=== PATIENT | male | born 1935 | race Caucasian/White ===

== ENCOUNTER 2017-10-27 10:51 | Inpatient (IN) | payer OTHER ==
[2017-10-27 11:03] VITALS: BMI 21.7
--- NOTE | 2017-10-27 12:09 | PDOC ---
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 As per patients geriatric coordinator (also a operators school manager) present at bedside , the patient was noted to be more aggressive in the past couple of weeks at the ministry and has been wandering into other residents rooms at night and becoming aggressive when confronted. He also states that the patient recently arrived in [place] from a ministry in [facility] 1 week ago and was noted to be aggressive with staff during the flight. He states the patient has a room reserved at [facility] beginning on Tuesday and has spoken with PMD Dr. Hernández yesterday. The patient denies any complaints at presentation. The patient denies chest pain, shortness of breath, headache and dizziness. Denies fever, chills, nausea, vomit, diarrhea and constipation. Denies dysuria, frequency, urgency and hematuria. Allergies: donepezil, memantine, quetiapine Past surgical history: No reported Social history: No reported PCP: Dr. Keo Hernández <Jed Quiñones - Last Filed: 10/27/17 15:48> <Faisal Cruz - Last Filed: 10/27/17 16:56> - General Chief Complaint: Altered Mental Status Stated Complaint: ALTERED MENTAL STATUS Time Seen by Provider: 10/27/17 11:49 Past History <Jed Quiñones - Last Filed: 10/27/17 15:48> - Past Medical History Cancer: Yes (basal cell carcinoma,) Cardiac Disorders: Yes (a fib) COPD: No Dementia: Yes (alzheimer's) GI Disorders: Yes (diverticulitis) - Surgical History Abdominal Surgery: Yes (hernia repair 2006, diverticulitis 2002) - Suicide/Smoking/Psychosocial Hx Smoking History: Former smoker Have you smoked in the past 12 months: No Information on smoking cessation initiated: No Hx Alcohol Use: No Drug/Substance Use Hx: No Substance Use Type: None <Faisal Cruz - Last Filed: 10/27/17 16:56> - Past Medical History Allergies/Adverse Reactions: Allergies Allergy/AdvReac Type Severity Reaction Status Date / Time donepezil [From Aricept] Allergy Verified 10/27/17 11:03 memantine [From Namenda] Allergy Verified 10/27/17 10:58 quetiapine [From Seroquel] Allergy Verified 10/27/17 10:58 Home Medications: Ambulatory Orders Apixaban [Eliquis -] 2.5 mg PO BID 10/27/17 Mirtazapine 15 mg PO HS 10/27/17 Sertraline HCl 25 mg PO DAILY 10/27/17 Review of Systems - Review of Systems Comments:: 10/27/17 13:52 History limited due to dementia, but pt denies any current complaints <Jed Quiñones - Last Filed: 10/27/17 15:48> *Physical Exam - Vital Signs Last Vital Signs Temp Pulse Resp BP Pulse Ox 97.7 F 58 L 16 127/68 100 10/27/17 10:58 10/27/17 10:58 10/27/17 10:58 10/27/17 10:58 10/27/17 10:58 - Physical Exam Comments: 10/27/17 13:53 GENERAL: The patient is awake, oriented x 1, Nontoxic - in no acute distress. HEAD: Normocephalic, atraumatic. EYES: extraocular movements intact, sclera anicteric, conjunctiva clear. ENT: Normal voice, Moist mucous membranes. NECK: Normal range of motion, supple LUNGS: Breath sounds equal, clear to auscultation bilaterally. No wheezes, no rhonchi, no rales. HEART: Regular rate and rhythm, normal S1 and S2 without murmur, rub or gallop. ABDOMEN: Soft, nontender No guarding, no rebound. . No CVA tenderness EXTREMITIES: Normal range of motion, no edema. No clubbing or cyanosis. No cords, erythema, or tenderness. NEUROLOGICAL: No facial assymetry, Normal speech, PSYCH: Normal mood, normal affect. SKIN: Warm, Dry, normal turgor, <Jed Quiñones - Last Filed: 10/27/17 15:48> - Vital Signs Last Vital Signs Temp Pulse Resp BP Pulse Ox 97.7 F 58 L 16 127/68 100 10/27/17 10:58 10/27/17 10:58 10/27/17 10:58 10/27/17 10:58 10/27/17 10:58 <Anthony,Faisal - Last Filed: 10/27/17 16:56> ED Treatment Course - LABORATORY CBC & Chemistry Diagram: 10/27/17 12:36 10/27/17 12:36 - ADDITIONAL ORDERS Additional order review: Laboratory Results 10/27/17 12:36 Sodium 143 Potassium 4.3 Chloride 108 H Carbon Dioxide 30 Anion Gap 5 L BUN 20 H Creatinine 1.1 Creat Clearance w eGFR > 60 Random Glucose 86 Calcium 9.5 Total Bilirubin 1.1 H AST 25 ALT 17 Alkaline Phosphatase 79 Total Protein 6.7 Albumin 4.0 TSH 2.40 10/27/17 12:36 RBC 4.75 MCV 90.9 MCHC 34.5 RDW 14.2 MPV 8.7 Neutrophils % 58.8 Lymphocytes % 23.7 Monocytes % 9.3 Eosinophils % 7.3 H Basophils % 0.9 - RADIOLOGY Radiograph Interpretation: 10/27/17 15:30 EXAM#: TYPE/EXAM: RESULT: [id number] CT/HEAD CT WITHOUT CONTRAST Change in mental status CT scan of the brain without intravenous contrast. There is generalized volume loss with moderate ventricular dilatation and periventricular chronic microvascular ischemic disease changes. The lateral and third ventricles including the temporal horns are relatively more dilated than the fourth likely due to central atrophy and less likely due to aqueduct of Sylvius narrowing/stenosis. 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 No mass lesion, gross acute infarct or intracranial hemorrhage are identified. There is no shift of the midline structures. The craniocervical junction appears unremarkable. The ethmoid air cells are partially opacified with minimal mucosal thickening in the sphenoid sinus , anteriorly. Both orbits appear unremarkable. Calcification of the cavernous carotid arteries are present. The mastoid air cells are well aerated and the calvarium is intact IMPRESSION: Generalized volume loss with moderate ventricular dilatation and periventricular chronic microvascular ischemic disease changes. No acute intracranial pathology is identified. Correlate clinically to determine further evaluation and follow-up. Reported By: Meche Ramirez MD 10/27/17 15:31 EXAM#: TYPE/EXAM: RESULT: [id number] RAD/CHEST X-RAY PORTABLE* HISTORY PROVIDED: Rule out pneumonia. A single frontal portable projection of the chest at 12:42 PM is submitted. The study is limited with a portion of the lung bases cut off the radiograph. The heart is not enlarged. No acute infiltrates or pleural effusions are present. IMPRESSION: Limited study, no acute pathology. Reported By: Dani Massey MD <Jed Quiñones - Last Filed: 10/27/17 15:48> - LABORATORY CBC & Chemistry Diagram: 10/27/17 12:36 10/27/17 12:36 <Faisal Cruz - Last Filed: 10/27/17 16:56> Medical Decision Making - Medical Decision Making 10/27/17 15:[address] Schuler at 3:00 pm. Pending call back. Second call placed at 3:50 pm. Pending call back. <Jed Quiñones - Last Filed: 10/27/17 15:48> - Medical Decision Making 10/27/17 12:08 82y M hx of dementia, afib on eliquis presents with increased agitation, agresiveness, for the past few weeks. Recently came from [facility], and pt has been more agitated. Unclear what his baseline is as pt is new to [facility]. Pt himself denies any complaints, but history likely unreklaible due to his dementia. pt in no disterss, aox1, no focal findings on exam ddx includes advancing dementia, delierium, metabolic derangement, occult infection will ck labs, head ct, ua, cxr, ekg will reassess pt will need placement per PMD 10/27/17 14:55 labs, ct, cxr neg for acute pathology will admit for furthe rmanagement of ams will veronica schuler 10/27/17 16:02 pt agitated, striking staff, grabbing nurse, unable to verbally descalate will give ativan 1mg for safety of patient and staff 10/27/17 16:56 case dw KENO WRITER/RUNNER catracho carlson agreed with admission for further mangaement of AMS suspect possible sundowning/delerium Case discussed in detail with admitting physician including history, physical exam and ancillary studies. Admitting physician has assumed care for the patient, will follow all pending diagnostics and will complete the evaluation and treatment. <Faisal Cruz - Last Filed: 10/27/17 16:56> *DC/Admit/Observation/Transfer - Attestations Scribe Attestion: 10/27/17 13:53 Documentation prepared by Jed Quiñones, acting as medical practitioners for Faisal Cruz MD. <Jed Quiñones - Last Filed: 10/27/17 15:48> - Discharge Dispostion Decision to Admit order: Yes <Faisal Cruz - Last Filed: 10/27/17 16:56> Diagnosis at time of Disposition: Dementia Qualifiers: Dementia type: Alzheimer's disease Alzheimer's disease onset: unspecified onset Dementia behavioral disturbance: with behavioral disturbance Qualified Code(s): G30.9 - Alzheimer's disease, unspecified Altered mental status Qualifiers: Altered mental status type: delirium Qualified Code(s): R41.0 - Disorientation , unspecified - Discharge Dispostion Condition at time of disposition: Stable
[2017-10-27 12:49] LABS: BASO % 0.9 % (0-2.0); EOS % 7.3 % (0-4.5); HEMATOCRIT 43.2 % (35.4-49); HEMOGLOBIN 14.9 GM/dL (11.7-16.9); LYMPH % 23.7 % (8-40); MCH 31.4 pg (25.7-33.7); MCHC 34.5 g/dl (32.0-35.9); MEAN CELL VOLUME 90.9 fl (80-96); MEAN PLT VOLUME 8.7 fl (7.5-11.1); MONO % 9.3 % (3.8-10.2); NEUT % 58.8 % (42.8-82.8); PLATELET COUNT 135 K/MM3 (134-434); RBC 4.75 M/mm3 (4.00-5.60); RDW 14.2 % (11.9-15.9)
[2017-10-27 13:27] LABS: ANION GAP 5 (8-16); BILIRUBIN,TOTAL 1.1 mg/dL (0.2-1.0); BLOOD UREA NITROGEN 20 mg/dL (7-18); CALCIUM 9.5 mg/dL (8.5-10.1); CHLORIDE 108 mmol/L (98-107); CO2 30 mmol/L (21-32); CREATININE 1.1 mg/dL (0.7-1.3); GLUCOSE,RANDOM 86 mg/dL (74-106); POTASSIUM 4.3 mmol/L (3.5-5.1); SGOT/AST 25 U/L (15-37); SGPT/ALT 17 U/L (12-78); SODIUM 143 mmol/L (136-145); TOT PROT 6.7 g/dl (6.4-8.2)
[2017-10-27 13:35] LABS: ALK PHOS 79 U/L (45-117)
--- NOTE | 2017-10-27 19:41 | HP ---
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 As per patients geriatric coordinator (also a rn hemodialysis) present at bedside , the patient was noted to be more aggressive in the past couple of weeks at the ministry and has been wandering into other residents rooms at night and becoming aggressive when confronted. He also states that the patient recently arrived in [place] from a ministry in [facility] 1 week ago and was noted to be aggressive with staff during the flight. He states the patient has a room reserved at [facility] beginning on Tuesday and has spoken with PMD Dr. Hernández yesterday. The patient denies any complaints at presentation. The patient denies chest pain, shortness of breath, headache and dizziness. Denies fever, chills, nausea, vomit, diarrhea and constipation. Denies dysuria, frequency, urgency and hematuria. History Source: Friend, Medical Record Limitations to Obtaining History: Dementia - Smoking History Smoking history: Former smoker Have you smoked in the past 12 months: No - Alcohol/Substance Use Hx Alcohol Use: No History of Substance Use: reports: None - Social History Usual Living Arrangement: Yes: Assisted Living ADL: Support Services History of Recent Travel: Yes Home Medications - Allergies Allergies/Adverse Reactions: Allergies Allergy/AdvReac Type Severity Reaction Status Date / Time donepezil [From Aricept] Allergy Verified 10/27/17 11:03 memantine [From Namenda] Allergy Verified 10/27/17 10:58 quetiapine [From Seroquel] Allergy Verified 10/27/17 10:58 - Home Medications Home Medications: Ambulatory Orders Apixaban [Eliquis -] 2.5 mg PO BID 10/27/17 Mirtazapine 15 mg PO HS 10/27/17 Sertraline HCl 25 mg PO DAILY 10/27/17 Review of Systems Unable to obtain ROS, reason: dementia Physical Examination Vital Signs: Vital Signs Temperature 98.4 F 10/27/17 18:57 Pulse Rate 78 10/27/17 18:57 Respiratory Rate 16 10/27/17 18:57 Blood Pressure 108/78 10/27/17 18:57 O2 Sat by Pulse Oximetry (%) 99 10/27/17 18:57 Labs: CBC, BMP 10/27/17 12:36 10/27/17 12:36 Problem List - Problems (1) Altered mental status Code(s): R41.82 - ALTERED MENTAL STATUS, UNSPECIFIED Qualifiers: Altered mental status type: delirium Qualified Code(s): R41.0 - Disorientation, unspecified (2) Dementia Code(s): F03.90 - UNSPECIFIED DEMENTIA WITHOUT BEHAVIORAL DISTURBANCE Qualifiers: Dementia type: Alzheimer's disease Alzheimer's disease onset: unspecified onset Dementia behavioral disturbance: with behavioral disturbance Qualified Code(s): G30.9 - Alzheimer's disease, unspecified; F02.81 - Dementia in other diseases classified elsewhere with behavioral disturbance; F02.81 - Dementia in other diseases classified elsewhere with behavioral disturbance; F02.81 - Dementia in other diseases classified elsewhere with behavioral disturbance
[2017-10-27 22:01] LABS: URINE APPEARANCE CLEAR; URINE BILIRUBIN NEGATIVE (<2.0 mg/dL); URINE COLOR LTYELLOW; URINE GLUCOSE (UA) NEGATIVE (NEGATIVE); URINE KETONE NEGATIVE (NEGATIVE); URINE LEUK ESTERASE NEGATIVE (NEGATIVE); URINE NITRITE NEGATIVE (NEGATIVE); URINE PROTEIN NEGATIVE (NEGATIVE); URINE UROBILINOGEN NEGATIVE mg/dL (0.2-1.0)
[2017-10-27] MEDS: MIRTAZAPINE 15 MG TABLET (FP) PO SCH ×2 (22:38→23:13)
[2017-10-27] MEDS: DOCUSATE SODIUM 100 MG CAPSULE (FP) PO SCH ×2 (22:38→23:13)
[2017-10-27] MEDS: APIXABAN 2.5 MG TABLET PO SCH ×2 (22:38→23:13)
[2017-10-27] MEDS: DIVALPROEX SODIUM 250 MG TABLET E.C. PO SCH ×2 (22:39→23:13)
[2017-10-28] MEDS: HALOPERIDOL LACTATE 5 MG/ML IM PRN (04:26)
[2017-10-28 07:43] LABS: HEMATOCRIT 43.2 % (35.4-49); HEMOGLOBIN 15.1 GM/dL (11.7-16.9); MCH 31.4 pg (25.7-33.7); MCHC 34.9 g/dl (32.0-35.9); MEAN CELL VOLUME 90.2 fl (80-96); MEAN PLT VOLUME 8.6 fl (7.5-11.1); PLATELET COUNT 137 K/MM3 (134-434); RBC 4.79 M/mm3 (4.00-5.60); RDW 14.4 % (11.9-15.9)
[2017-10-28] MEDS ORDERED: PT OWN MED DRAWER 7, Y5N ONE ×2 (08:04→22:59)
[2017-10-28 08:11] LABS: ANION GAP 5 (8-16); BLOOD UREA NITROGEN 15 mg/dL (7-18); CALCIUM 9.3 mg/dL (8.5-10.1); CHLORIDE 105 mmol/L (98-107); CO2 30 mmol/L (21-32); GLUCOSE,RANDOM 76 mg/dL (74-106); SODIUM 140 mmol/L (136-145)
[2017-10-28] MEDS: APIXABAN 2.5 MG TABLET PO SCH ×2 (09:14→23:04)
[2017-10-28] MEDS: DOCUSATE SODIUM 100 MG CAPSULE (FP) PO SCH ×2 (09:14→23:03)
[2017-10-28] MEDS: DIVALPROEX SODIUM 250 MG TABLET E.C. PO SCH ×2 (09:14→09:21)
--- NOTE | 2017-10-28 09:53 | PN ---
Progress Note (short form) - Note Progress Note: 82 y/o brought into ER for increased agitation and aggressiveness. PMHx includes Dementia. denies pain but states that he is going to take his parents car and drive to [facility] to meet his brother. Pt has 1 to 1 supervision and still not easily redirected. Nurse reports has been refusing some PO meds.Alert and oriented x 1. Vital Signs Period Temp Pulse Resp BP Sys/Aguirre Pulse Ox Last 24 Hr 97.7 F-98.9 F 57-78 16-20 108-150/68-95 98-100 CBC, BMP 10/28/17 07:30 10/28/17 07:30 HEENT- Normocephalic Neck- Supple Lungs- CTAB Heart- S1/S2 Abd- Pos BS x4,soft, NT Ext- No LE edema Active Medications Apixaban (Eliquis -) 2.5 mg PO BID [facility] Last Admin: 10/28/17 09:14 Dose: 2.5 mg Divalproex Sodium (Depakote -) 250 mg PO BID [facility] Last Admin: 10/28/17 09:21 Dose: Not Given Docusate Sodium (Colace -) 100 mg PO BID [facility] Last Admin: 10/28/17 09:14 Dose: Not Given Haloperidol (Haldol Injection (Fast Acting) -) 3 mg IM Q8H PRN PRN Reason: AGITATION Last Admin: 10/28/17 04:26 Dose: 3 mg Lorazepam (Ativan Injection -) 1 mg IVPUSH DAILY PRN PRN Reason: ANXIETY Mirtazapine (Remeron -) 30 mg PO [facility] Last Admin: 10/27/17 23:13 Dose: Not Given Sertraline HCl (Zoloft -) 25 mg PO DAILY [facility] Last Admin: 10/28/17 09:14 Dose: 25 mg #AMS Adamant about leaving and trying to leave unit even with 1 to 1 and HIDE OR SKIN BUFFER trying to redirect Ativan 1 mg IV push daily PRN rx'd Psych consult pending Problem List - Problems (1) Altered mental status Code(s): R41.82 - ALTERED MENTAL STATUS, UNSPECIFIED Qualifiers: Altered mental status type: delirium Qualified Code(s): R41.0 - Disorientation, unspecified (2) Dementia Code(s): F03.90 - UNSPECIFIED DEMENTIA WITHOUT BEHAVIORAL DISTURBANCE Qualifiers: Dementia type: Alzheimer's disease Alzheimer's disease onset: unspecified onset Dementia behavioral disturbance: with behavioral disturbance Qualified Code(s): G30.9 - Alzheimer's disease, unspecified; F02.81 - Dementia in other diseases classified elsewhere with behavioral disturbance; F02.81 - Dementia in other diseases classified elsewhere with behavioral disturbance; F02.81 - Dementia in other diseases classified elsewhere with behavioral disturbance
[2017-10-28] MEDS ORDERED: SERTRALINE HCL 25 MG TABLET (FP) PO SCH (10:00)
--- NOTE | 2017-10-28 14:05 | CON.PSY ---
Psychiatry Consult Chief Complaint: 82 year old male with SEvere Dementia with severe behavioral disturbances admitted for eval. Patient was unmanageable and received Im and In meds. Symptoms: reports: Memory Impairment, Aggressivity, Impulsivity, Depersonalization, Derealization - Previous Psychiatric Treatment Outpatient: None Inpatient: None - Previous Substance Abuse Treatment Outpatient: None Inpatient: None - Current Medications Current Medications: Active Medications Apixaban (Eliquis -) 2.5 mg PO BID [facility] Last Admin: 10/28/17 09:14 Dose: 2.5 mg Divalproex Sodium (Depakote Sprinkle Caps -) 250 mg PO BID [facility] Docusate Sodium (Colace -) 100 mg PO BID [facility] Last Admin: 10/28/17 09:14 Dose: Not Given Haloperidol (Haldol Injection (Fast Acting) -) 3 mg IM Q8H PRN PRN Reason: AGITATION Last Admin: 10/28/17 04:26 Dose: 3 mg Lorazepam (Ativan Injection -) 1 mg IVPUSH DAILY PRN PRN Reason: ANXIETY Last Admin: 10/28/17 10:17 Dose: 1 mg Mirtazapine (Remeron -) 30 mg PO HS [facility] Last Admin: 10/27/17 23:13 Dose: Not Given - Allergies Allergies: Allergies Allergy/AdvReac Type Severity Reaction Status Date / Time donepezil [From Aricept] Allergy Verified 10/27/17 11:03 memantine [From Namenda] Allergy Verified 10/27/17 10:58 quetiapine [From Seroquel] Allergy Verified 10/27/17 10:58 - Current Living Status Usual Living Arrangement: Assisted Living - Current Mental Status Evaluation Appearance: Disheveled Attitude: Uncooperative - Affect Affect: Constrictive - Mood Mood: Irritable - Speech/Language Expressive: Delayed - Psychomotor Activity Psychomotor Activity: Hyperactive - Thought Process Thought Process: Circumstantial - Thought Content Hallucinations: Absent Delusions: Absent - Self Perception Self Perception: Depersonalization - Cognition Attention: Diminished Memory, Immediate Recall: Impaired Memory, Short Term: 1/3 Memory, Remote with Promptin/3 - Concentration Serial Sevens Intact: No Simple Calculations Intact: No - Abstraction Proverb Interpretation: [place] Judgement: Moderately Impaired - Insight Insight: Impaired - Impulse Control Impulse Control: Moderately Impaired - Suicidal Ideation Suicidal Ideation: No - Homicidal Ideation Homicidal Ideation: No Assessment/Plan 10 d/c Zolopft. 2) add Zyprexca 10mg po hs for Behavioral disturbances.
[2017-10-28] MEDS: DIVALPROEX SODIUM 125 MG SPRINKLE CAPS PO SCH ×2 (14:50→23:03)
--- NOTE | 2017-10-28 18:44 | CONSULT ---
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 Maintained on apixaban, mirtazepine (30mg), sertraline (25 mg) and reports "allergies" to multiple medications for Alzheimer's Disease (AD). Now admitted after a few weeks of increased agitation potentially interfering with pending NH transfer. The records suggest that the patient has recently returned from " a ministry in [facility]." CT of head (reviewed): Severe, diffuse atrophy and diffuse, chronic microvascular changes. Labs: unremarkable. No sign of infection. SONIA: No sign of external head trauma. Neck supple. No bruits. Cor: Reg. Evenly suntanned with a short sleeve peralta line. NEURO: Resting with eyes closed but responds to name. Doesn't know he is in a hospital. No month. No year. CN: II-XII: normal. No drift. Normal grasps. Normal reflexes. Withdraws all 4's to touch. Gait: Flexed. Stable. IMP: Moderately severe, bilateral, cerebral dysfunction (OMS, Chronic) most c/w Alzheimer's disease (AD). No focality to suggest recent stroke. No obvious cause for acute/subacute deterioration. SUGGEST: Check B12, TSH, RPR, ESR, B1 levels. Gradually increase oral meds (ie: Zyprexa) until he is manageable. Avoid polypharmacy with antipsychotics and parenteral benzodiazepines. Thank you very much, Luis E Sanz MD
[2017-10-28] MEDS: OLANZapine 10 MG TABLET PO SCH (23:03)
[2017-10-28] MEDS: MIRTAZAPINE 15 MG TABLET (FP) PO SCH (23:03)
[2017-10-29] MEDS: HALOPERIDOL LACTATE 5 MG/ML IM PRN (07:54)
[2017-10-29] MEDS: APIXABAN 2.5 MG TABLET PO SCH ×2 (09:29→22:34)
[2017-10-29] MEDS: DOCUSATE SODIUM 100 MG CAPSULE (FP) PO SCH ×2 (09:29→22:34)
[2017-10-29] MEDS: DIVALPROEX SODIUM 125 MG SPRINKLE CAPS PO SCH ×2 (09:30→22:34)
[2017-10-29] MEDS ORDERED: PT OWN MED DRAWER 7, Y5N ONE (22:28)
[2017-10-29] MEDS: MIRTAZAPINE 15 MG TABLET (FP) PO SCH (22:35)
[2017-10-29] MEDS: OLANZapine 10 MG TABLET PO SCH (22:35)
[2017-10-29] MEDS: clonazePAM 0.5 MG TABLET PO SCH (22:35)
--- NOTE | 2017-10-29 23:31 | PN ---
Progress Note (short form) - Note Progress Note: in room agitated violent behavior with staff / required inc sedation staff reports has not slept in 48hrs up all night and more agitated this am sitting in chair with physical restraints and supervision Vital Signs Period Temp Pulse Resp BP Sys/Aguirre Pulse Ox Last 24 Hr 97.2 F-97.3 F 80-94 17-20 116-140/73-93 98 CBC, BMP 10/28/17 07:30 10/28/17 07:30 Active Medications Apixaban (Eliquis -) 2.5 mg PO BID [facility] Last Admin: 10/29/17 22:34 Dose: 2.5 mg Clonazepam (Klonopin -) 1 mg PO HS [facility] Last Admin: 10/29/17 22:35 Dose: 1 mg Divalproex Sodium (Depakote Sprinkle Caps -) 250 mg PO BID [facility] Last Admin: 10/29/17 22:34 Dose: 250 mg Docusate Sodium (Colace -) 100 mg PO BID [facility] Last Admin: 10/29/17 22:34 Dose: 100 mg Haloperidol (Haldol Injection (Fast Acting) -) 3 mg IM Q8H PRN PRN Reason: AGITATION Last Admin: 10/29/17 07:54 Dose: 3 mg Lorazepam (Ativan Injection -) 1 mg IVPUSH Q8H PRN PRN Reason: AGITATION Mirtazapine (Remeron -) 30 mg PO HS [facility] Last Admin: 10/29/17 22:35 Dose: 30 mg Olanzapine (Zyprexa -) 10 mg PO HS [facility] Last Admin: 10/29/17 22:35 Dose: 10 mg # dementia with agressive behavior will add Klonopin at hs decrease frquency of ativan to q8PRN continue zyprexa / Remeron # A fib continue eliquis Problem List - Problems (1) Altered mental status Code(s): R41.82 - ALTERED MENTAL STATUS, UNSPECIFIED Qualifiers: Altered mental status type: delirium Qualified Code(s): R41.0 - Disorientation, unspecified (2) Dementia Code(s): F03.90 - UNSPECIFIED DEMENTIA WITHOUT BEHAVIORAL DISTURBANCE Qualifiers: Dementia type: Alzheimer's disease Alzheimer's disease onset: unspecified onset Dementia behavioral disturbance: with behavioral disturbance Qualified Code(s): G30.9 - Alzheimer's disease, unspecified; F02.81 - Dementia in other diseases classified elsewhere with behavioral disturbance; F02.81 - Dementia in other diseases classified elsewhere with behavioral disturbance; F02.81 - Dementia in other diseases classified elsewhere with behavioral disturbance (3) Atrial fibrillation Assessment/Plan: continue with eliquis Code(s): I48.91 - UNSPECIFIED ATRIAL FIBRILLATION
[2017-10-30 07:37] LABS: BASO % 0.8 % (0-2.0); EOS % 5.1 % (0-4.5); HEMOGLOBIN 15.3 GM/dL (11.7-16.9); LYMPH % 18.8 % (8-40); MCH 31.8 pg (25.7-33.7); MCHC 35.5 g/dl (32.0-35.9); MEAN CELL VOLUME 89.6 fl (80-96); MEAN PLT VOLUME 8.9 fl (7.5-11.1); MONO % 7.4 % (3.8-10.2); NEUT % 67.9 % (42.8-82.8); PLATELET COUNT 140 K/MM3 (134-434); RDW 14.3 % (11.9-15.9); WHITE BLOOD COUNT 6.5 K/mm3 (4.0-10.0)
[2017-10-30 07:49] LABS: ANION GAP 6 (8-16); BLOOD UREA NITROGEN 19 mg/dL (7-18); CHLORIDE 104 mmol/L (98-107); CO2 32 mmol/L (21-32); CREATININE 1.1 mg/dL (0.7-1.3); GLUCOSE,RANDOM 88 mg/dL (74-106); MAGNESIUM 2.1 mg/dL (1.8-2.4); POTASSIUM 3.9 mmol/L (3.5-5.1); SODIUM 142 mmol/L (136-145)
[2017-10-30] MEDS: DIVALPROEX SODIUM 125 MG SPRINKLE CAPS PO SCH ×3 (09:44→21:44)
[2017-10-30] MEDS: DOCUSATE SODIUM 100 MG CAPSULE (FP) PO SCH ×2 (09:44→21:44)
[2017-10-30] MEDS: APIXABAN 2.5 MG TABLET PO SCH ×2 (09:45→21:44)
[2017-10-30] MEDS: HALOPERIDOL LACTATE 5 MG/ML IM PRN (09:54)
[2017-10-30] MEDS ORDERED: DIVALPROEX SODIUM 125 MG TABLET E.C. PO SCH (12:00)
--- NOTE | 2017-10-30 12:06 | PN ---
Progress Note (short form) - Note Progress Note: sitting in chair by nurses station agitated violent behavior with staff again this am in spite of added meds May required inc sedation Vital Signs Period Temp Pulse Resp BP Sys/Aguirre Pulse Ox Last 24 Hr 97.2 F-97.4 F 80-90 17-20 111-133/57-87 97 not interactive siting in wheelchair with physical restraints and supervision not cooperative with exam or with staff neck supple heart reg S1/S2 lungs clear abd ext no edema CBC, BMP 10/30/17 06:45 10/30/17 06:45 Active Medications Apixaban (Eliquis -) 2.5 mg PO BID [facility] Last Admin: 10/30/17 09:45 Dose: 2.5 mg Clonazepam (Klonopin -) 1 mg PO [facility] Last Admin: 10/29/17 22:35 Dose: 1 mg Divalproex Sodium (Depakote Sprinkle Caps -) 250 mg PO BID [facility] Last Admin: 10/30/17 09:44 Dose: 250 mg Divalproex Sodium (Depakote -) 125 mg PO BID [facility] Docusate Sodium (Colace -) 100 mg PO BID [facility] Last Admin: 10/30/17 09:44 Dose: 100 mg Haloperidol (Haldol Injection (Fast Acting) -) 3 mg IM Q8H PRN PRN Reason: AGITATION Last Admin: 10/30/17 09:54 Dose: 3 mg Lorazepam (Ativan Injection -) 1 mg IVPUSH Q8H PRN PRN Reason: AGITATION Last Admin: 10/30/17 05:54 Dose: 1 mg Mirtazapine (Remeron -) 30 mg PO [facility] Last Admin: 10/29/17 22:35 Dose: 30 mg Olanzapine (Zyprexa -) 10 mg PO [facility] Last Admin: 10/29/17 22:35 Dose: 10 mg # dementia with agressive behavior request more assitance from [facility] will increase Depakote by 125 bid - aware will inc sedative effect of zyprexa was able to sleep last night after dose of Klonopin 1 mg This am no sedative effect and again with violent behavior with nursing staff # atrial Fibrillation continue NOAC placement needed for closed unit [place] possible bed at [facility] Problem List - Problems (1) Altered mental status Code(s): R41.82 - ALTERED MENTAL STATUS, UNSPECIFIED Qualifiers: Altered mental status type: delirium Qualified Code(s): R41.0 - Disorientation, unspecified (2) Dementia Code(s): F03.90 - UNSPECIFIED DEMENTIA WITHOUT BEHAVIORAL DISTURBANCE Qualifiers: Dementia type: Alzheimer's disease Alzheimer's disease onset: unspecified onset Dementia behavioral disturbance: with behavioral disturbance Qualified Code(s): G30.9 - Alzheimer's disease, unspecified; F02.81 - Dementia in other diseases classified elsewhere with behavioral disturbance; F02.81 - Dementia in other diseases classified elsewhere with behavioral disturbance; F02.81 - Dementia in other diseases classified elsewhere with behavioral disturbance
[2017-10-30] MEDS ORDERED: PT OWN MED DRAWER 7, Y5N ONE (21:30)
[2017-10-30] MEDS: MIRTAZAPINE 15 MG TABLET (FP) PO SCH (21:45)
[2017-10-30] MEDS: clonazePAM 0.5 MG TABLET PO SCH (21:45)
[2017-10-30] MEDS: OLANZapine 10 MG TABLET PO SCH (22:01)
[2017-10-31] MEDS ORDERED: PT OWN MED DRAWER 7, Y5N ONE ×2 (10:06→21:30)
[2017-10-31] MEDS: DOCUSATE SODIUM 100 MG CAPSULE (FP) PO SCH ×2 (10:08→21:34)
[2017-10-31] MEDS: DIVALPROEX SODIUM 125 MG SPRINKLE CAPS PO SCH ×2 (10:08→21:33)
[2017-10-31] MEDS: APIXABAN 2.5 MG TABLET PO SCH ×2 (10:08→21:34)
--- NOTE | 2017-10-31 10:23 | PN ---
Progress Note (short form) - Note Progress Note: Patient has become a management problem has become combative on the unit. Very confused and combative. plan: increase Zyprexa 10mg po bid.
--- NOTE | 2017-10-31 18:16 | PN ---
Progress Note (short form) - Note Progress Note: In his room - aggressive behavior to staff - required 3 staff members to assist with morning routine agitated --violent behavior with staff again early this am --required IV ativan --- in spite of added meds case discussed with Psych - patient seen together Vital Signs Period Temp Pulse Resp BP Sys/Aguirre Pulse Ox Last 24 Hr 97.9 F-98 F 79-102 18-20 121-138/69-74 95 patient in bathroom / with assitance / not cooperative neck supple heart reg S1/S2 lungs clear abd ext no edema CBC, BMP 10/30/17 06:45 10/30/17 06:45 Medications Apixaban (Eliquis -) 2.5 mg PO BID [facility] Last Admin: 10/30/17 09:45 Dose: 2.5 mg Clonazepam (Klonopin -) 1 mg PO [facility] Last Admin: 10/29/17 22:35 Dose: 1 mg Divalproex Sodium (Depakote Sprinkle Caps -) 250 mg PO BID [facility] Last Admin: 10/30/17 09:44 Dose: 250 mg Divalproex Sodium (Depakote -) 125 mg PO BID [facility] Docusate Sodium (Colace -) 100 mg PO BID [facility] Last Admin: 10/30/17 09:44 Dose: 100 mg Haloperidol (Haldol Injection (Fast Acting) -) 3 mg IM Q8H PRN PRN Reason: AGITATION Last Admin: 10/30/17 09:54 Dose: 3 mg Lorazepam (Ativan Injection -) 1 mg IVPUSH Q8H PRN PRN Reason: AGITATION Last Admin: 10/30/17 05:54 Dose: 1 mg Mirtazapine (Remeron -) 30 mg PO [facility] Last Admin: 10/29/17 22:35 Dose: 30 mg Olanzapine (Zyprexa -) 10 mg PO [facility] Last Admin: 10/29/17 22:35 Dose: 10 mg # dementia with agressive behavior request more assitance from martir re theaesed medications with psych # atrial Fibrillation continue NOAC placement needed for closed unit awaiting possible bed at [facility] Problem List - Problems (1) Altered mental status Code(s): R41.82 - ALTERED MENTAL STATUS, UNSPECIFIED Qualifiers: Altered mental status type: delirium Qualified Code(s): R41.0 - Disorientation, unspecified (2) Dementia Code(s): F03.90 - UNSPECIFIED DEMENTIA WITHOUT BEHAVIORAL DISTURBANCE Qualifiers: Dementia type: Alzheimer's disease Alzheimer's disease onset: unspecified onset Dementia behavioral disturbance: with behavioral disturbance Qualified Code(s): G30.9 - Alzheimer's disease, unspecified; F02.81 - Dementia in other diseases classified elsewhere with behavioral disturbance; F02.81 - Dementia in other diseases classified elsewhere with behavioral disturbance; F02.81 - Dementia in other diseases classified elsewhere with behavioral disturbance
[2017-10-31] MEDS: OLANZapine 10 MG TABLET PO SCH (21:34)
[2017-10-31] MEDS ORDERED: MIRTAZAPINE 15 MG TABLET (FP) PO SCH (22:00)
[2017-11-01] MEDS ORDERED: PT OWN MED DRAWER 7, Y5N ONE (11:03)
[2017-11-01] MEDS: APIXABAN 2.5 MG TABLET PO SCH (11:06)
[2017-11-01] MEDS: DIVALPROEX SODIUM 125 MG SPRINKLE CAPS PO SCH (11:06)
[2017-11-01] MEDS: OLANZapine 10 MG TABLET PO SCH (11:07)
[2017-11-01] MEDS: DOCUSATE SODIUM 100 MG CAPSULE (FP) PO SCH (11:07)
--- NOTE | 2017-11-01 12:33 | DS ---
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 As per patients geriatric coordinator (also a supervisor microwave) present at bedside at ER, the patient was noted to be more aggressive in the past couple of weeks at the ministry and has been wandering into other residents rooms at night and becoming aggressive when confronted. He also states that the patient recently arrived in [place] from a ministry in [facility] 1 week and was noted to be aggressive with staff and even during the flight. The patient denies chest pain, shortness of breath, headache and dizziness. Denies fever, chills, nausea, vomit, diarrhea and constipation. Denies dysuria, frequency, urgency and hematuria. patient was admitted and organic causes of decompensation ruled out. He was evaluated by Neurology and by psychiatry. Medications adjusted and behavioral control obtained. patient is pleasant and cooperative at time of discharge. Medications should not be altered at [place] setting. Constitutional: Yes: Well Nourished, No Distress Eyes: Yes: Conjunctiva Clear, EOM Intact HENT: Yes: Atraumatic, Normocephalic Neck: Yes: Supple, Trachea Midline Cardiovascular: Yes: Regular Rate and Rhythm Respiratory: Yes: Regular, CTA Bilaterally Gastrointestinal: Yes: Normal Bowel Sounds, Soft ...Rectal Exam: Yes: Deferred Renal/: Yes: WNL Breast(s): Yes: WNL Musculoskeletal: Yes: WNL Extremities: Yes: WNL Edema: No Peripheral Pulses WNL: Yes Integumentary: Yes: WNL Neurological: Yes: Confusion, Pre-Existing Deficit ...Motor Strength: WNL Psychiatric: Yes: Alert Labs: CBC, BMP 10/30/17 06:45 10/30/17 06:45 Discharge Summary Reason For Visit: DEMENTIA,ALTERED MENTAL STATUS Current Active Problems Altered mental status (Acute) Atrial fibrillation (Acute) Dementia (Acute) Condition: Stable - Instructions Referrals: Stan Hernández [Primary Care Provider] - Disposition: RETIREMENT FACILITY - Home Medications Comprehensive Discharge Medication List: Ambulatory Orders Apixaban [Eliquis -] 2.5 mg PO BID 10/27/17 Mirtazapine 15 mg PO HS 10/27/17 Sertraline HCl 25 mg PO DAILY 10/27/17
[2017-11-01 14:40] VITALS: BP 115/54; PULSE 91; TEMP 97.5
== END 2017-11-01 15:50 | DRG 57 ==
LOC: JER 10:51 → JERBED 16:12 → J5S 18:57
PROVIDERS: ADMIT Family Medicine; ATTEND Family Medicine
DX: G30.9 Alzheimer's disease, unspecified (principal); F02.81 Dementia in other diseases classified elsewhere, unspecified severity, with behavioral disturbance; I48.91 Unspecified atrial fibrillation; Z85.828 Personal history of other malignant neoplasm of skin; Z87.891 Personal history of nicotine dependence; R41.0 Disorientation, unspecified
CPT/HCPCS: 36415; 70450-TC; 71045-TC-FY; 80048; 80053; 81003; 82607; 83735; 84425; 84443; 85025; 85027; 85651; 86140; 86593; 97116-GP; 97161-GP; 99283-25

== ENCOUNTER 2017-11-01 19:53 | Inpatient (IN) | payer OTHER ==
[2017-11-01] MEDS ORDERED: HALOPERIDOL LACTATE 5 MG/ML IM ONE ×3 (20:42→22:18)
[2017-11-01] MEDS ORDERED: HALOPERIDOL LACTATE 5 MG/ML ONE ×2 (20:43→22:40)
[2017-11-01 21:17] VITALS: BMI 25.7
--- NOTE | 2017-11-01 21:20 | PDOC ---
History of Present Illness - History of Present Illness Initial Comments: 11/01/17 21:24 The patient is an 82 year old male with history of Alzheimer's dementia, atrial fibrillation, and basal cell carcinoma sent from the [place] for altered mental status. The patient was admitted to the hospital for AMS 5 days ago. He was discharged back to the [place] today. Per [place] records, the patient was not manageable in the NH and was sent back to the ED for further management. Patient is altered and unable to provide remainder of history. <Viktoria Mccarthy - Last Filed: 11/01/17 22:52> - General History Source: EMS, Long-Term Records <Georgi Vail - Last Filed: 11/02/17 19:24> - General Chief Complaint: Altered Mental Status Stated Complaint: DEMENTIA Time Seen by Provider: 11/01/17 20:38 Past History <Viktoria Mccarthy - Last Filed: 11/01/17 22:52> - Past Medical History Cancer: Yes (basal cell carcinoma,) Cardiac Disorders: Yes (a fib) COPD: No Dementia: Yes (alzheimer's) GI Disorders: Yes (diverticulitis) - Surgical History Abdominal Surgery: Yes (hernia repair 2006, diverticulitis 2002) - Suicide/Smoking/Psychosocial Hx Smoking History: Never smoked Have you smoked in the past 12 months: No Information on smoking cessation initiated: No Hx Alcohol Use: No Drug/Substance Use Hx: No Substance Use Type: None Hx Substance Use Treatment: No <Georgi Vail - Last Filed: 11/02/17 19:24> - Past Medical History Allergies/Adverse Reactions: Allergies Allergy/AdvReac Type Severity Reaction Status Date / Time donepezil [From Aricept] Allergy Verified 10/27/17 11:03 memantine [From Namenda] Allergy Verified 10/27/17 10:58 quetiapine [From Seroquel] Allergy Verified 10/27/17 10:58 Home Medications: Ambulatory Orders Apixaban [Eliquis -] 2.5 mg PO BID 10/27/17 Mirtazapine 15 mg PO HS 10/27/17 Divalproex Sprinkle [Depakote Sprinkle -] 375 mg PO BID cap.sprink 11/01/17 Docusate Sodium [Colace -] 100 mg PO BID capsule 11/01/17 Haloperidol Injection [Haldol Injection (Fast Acting) -] 3 mg IM Q8H PRN ml Mirtazapine [Remeron -] 15 mg PO HS tablet 11/01/17 Olanzapine [ZyPREXA -] 10 mg PO BID tablet 11/01/17 clonazePAM [Klonopin -] 0.5 mg PO HS 7 Days #7 tablet MDD 0.5mg 11/01/17 Review of Systems - Review of Systems Able to Perform ROS?: No Comments:: 11/01/17 21:28 Patient is altered and unable to provide ROS. <Viktoria Mccarthy - Last Filed: 11/01/17 22:52> *Physical Exam - Vital Signs Last Vital Signs Temp Pulse Resp BP Pulse Ox 97.4 F L 76 16 114/89 100 11/01/17 20:21 11/01/17 20:21 11/01/17 20:21 11/01/17 20:21 11/01/17 20:21 - Physical Exam Comments: 11/01/17 21:28 GENERAL: Awake, alert. Orientedx0. HEAD: No signs of trauma EYES: PERRLA, EOMI, sclera anicteric, conjunctiva clear ENT: Auricles normal inspection, hearing grossly normal, nares patent, oropharynx clear without exudates. Moist mucosa NECK: Normal ROM, supple, no lymphadenopathy, JVD, or masses LUNGS: Breath sounds equal, clear to auscultation bilaterally. No wheezes, and no crackles HEART: Regular rate and rhythm, normal S1 and S2, no murmurs, rubs or gallops ABDOMEN: Soft, nontender, normoactive bowel sounds. No guarding, no rebound. No masses EXTREMITIES: Normal range of motion, no edema. No clubbing or cyanosis. No cords, erythema, or tenderness NEUROLOGICAL: Cranial nerves II through XII grossly intact. Normal speech, gait deferred. Moving all four extremities. SKIN: Warm, Dry, normal turgor, no rashes or lesions noted. <Viktoria Mccarthy - Last Filed: 11/01/17 22:52> - Vital Signs Last Vital Signs Temp Pulse Resp BP Pulse Ox 97.4 F L 76 16 114/89 100 11/01/17 20:21 11/01/17 20:21 11/01/17 20:21 11/01/17 20:21 11/01/17 20:21 <Georgi Vail - Last Filed: 11/02/17 19:24> ED Treatment Course - LABORATORY CBC & Chemistry Diagram: 11/01/17 21:26 11/01/17 21:26 - Medications Given in the ED: ED Medications Discontinued Medications Generic Name Dose Route Start Last Admin Trade Name Freq PRN Reason Stop Dose Admin Diphenhydramine HCl 25 mg 11/01/17 20:42 11/01/17 21:00 Benadryl Injection - IVPUSH 11/01/17 20:43 25 mg ONCE ONE Administration Haloperidol 10 mg 11/01/17 20:42 11/01/17 21:01 Haldol Injection (Fast Acting) - IM 11/01/17 20:43 Not Given ONCE ONE Haloperidol 5 mg 11/01/17 20:44 11/01/17 21:00 Haldol Injection (Fast Acting) - IM 11/01/17 20:45 5 mg ONCE ONE Administration Lorazepam 2 mg 11/01/17 20:42 11/01/17 21:01 Ativan Injection - IM 11/01/17 20:43 2 mg ONCE ONE Administration <Viktoria Mccarthy - Last Filed: 11/01/17 22:52> - LABORATORY CBC & Chemistry Diagram: 11/01/17 21:26 11/01/17 21:26 - RADIOLOGY Radiology Studies Ordered: Category Date Time Status CHEST X-RAY PORTABLE* [RAD] Stat Radiology 11/01/17 20:44 Ordered - Medications Given in the ED: ED Medications Discontinued Medications Generic Name Dose Route Start Last Admin Trade Name Freq PRN Reason Stop Dose Admin Diphenhydramine HCl 25 mg 11/01/17 20:42 11/01/17 21:00 Benadryl Injection - IVPUSH 11/01/17 20:43 25 mg ONCE ONE Administration Haloperidol 10 mg 11/01/17 20:42 11/01/17 21:01 Haldol Injection (Fast Acting) - IM 11/01/17 20:43 Not Given ONCE ONE Haloperidol 5 mg 11/01/17 20:44 11/01/17 21:00 Haldol Injection (Fast Acting) - IM 11/01/17 20:45 5 mg ONCE ONE Administration Lorazepam 2 mg 11/01/17 20:42 11/01/17 21:01 Ativan Injection - IM 11/01/17 20:43 2 mg ONCE ONE Administration <Georgi Vail - Last Filed: 11/02/17 19:24> Medical Decision Making - Medical Decision Making 11/01/17 22:52 EKG obtained 21:16. Atrial fibrillation. Vent rate 91 bpm. Low voltage QRS Septal infarct, age undetermined. Abnormal EKG Case discussed with Dr. Schuler on patient arrival to the ED. <Viktoria Mccarthy - Last Filed: 11/01/17 22:52> - Medical Decision Making 11/02/17 19:23 Dr. Vail: The scribe's documentation has been prepared under my direction and personally reviewed by me in its entirery. I confirm that the note above accurately reflects all work, treatment, procedures, and medical decision making performed by me. <Georgi Vail - Last Filed: 11/02/17 19:24> *DC/Admit/Observation/Transfer - Attestations Scribe Attestion: 11/01/17 21:35 Documentation prepared by Viktoria Mccarthy, acting as medical device for Georgi Vail DO. <Viktoria Mccarthy - Last Filed: 11/01/17 22:52> - Discharge Dispostion Decision to Admit order: Yes <Georgi Vail - Last Filed: 11/02/17 19:24> Diagnosis at time of Disposition: Altered mental status - Discharge Dispostion Condition at time of disposition: Stable
[2017-11-01 21:44] LABS: BASO % 0.7 % (0-2.0); EOS % 6.4 % (0-4.5); HEMATOCRIT 43.6 % (35.4-49); HEMOGLOBIN 14.8 GM/dL (11.7-16.9); LYMPH % 17.3 % (8-40); MCH 30.4 pg (25.7-33.7); MEAN CELL VOLUME 89.6 fl (80-96); NEUT % 66.6 % (42.8-82.8); PLATELET COUNT 138 K/MM3 (134-434); RBC 4.87 M/mm3 (4.00-5.60); RDW 14.4 % (11.9-15.9); WHITE BLOOD COUNT 6.5 K/mm3 (4.0-10.0)
[2017-11-01 22:14] LABS: ALBUMIN 3.5 g/dl (3.4-5.0); ANION GAP 8 (8-16); BLOOD UREA NITROGEN 28 mg/dL (7-18); CALCIUM 8.8 mg/dL (8.5-10.1); CHLORIDE 108 mmol/L (98-107); CO2 28 mmol/L (21-32); CREATININE 1.2 mg/dL (0.7-1.3); GLUCOSE,RANDOM 96 mg/dL (74-106); MAGNESIUM 1.8 mg/dL (1.8-2.4); POTASSIUM 4.3 mmol/L (3.5-5.1); SGOT/AST 86 U/L (15-37); SGPT/ALT 41 U/L (12-78); SODIUM 144 mmol/L (136-145); TOT PROT 6.3 g/dl (6.4-8.2)
[2017-11-01 22:15] LABS: INR 1.23 (0.82-1.09); PROTHROMBIN TIME (PATIENT) 13.9 SEC (9.7-13.0)
[2017-11-01 22:26] LABS: ALK PHOS 78 U/L (45-117)
[2017-11-01] MEDS ORDERED: HALOPERIDOL LACTATE 5 MG/ML IM PRN (23:57)
--- NOTE | 2017-11-02 00:15 | HP ---
Admitting History and Physical - Admission Chief Complaint: dementia with behavior changes History of Present Illness: The patient is an 82 year old male with history of Alzheimer's dementia, atrial fibrillation, and basal cell carcinoma sent from the [place] for altered mental status. The patient was admitted to the hospital for AMS 5 days ago. Alphonse was evaluated by neurology and psych -- meds adjusted and patient was more cooperative and amenable to treatment and was discharged back to the [place] today. Per [place] records, the patient was not manageable in the NH and was sent back to the ED for further management. Patient is altered and unable to provide remainder of history. History Source: Medical Record Limitations to Obtaining History: Dementia - Smoking History Smoking history: Never smoked Have you smoked in the past 12 months: No - Alcohol/Substance Use Hx Alcohol Use: No History of Substance Use: reports: None - Social History ADL: Support Services History of Recent Travel: Yes Home Medications - Allergies Allergies/Adverse Reactions: Allergies Allergy/AdvReac Type Severity Reaction Status Date / Time donepezil [From Aricept] Allergy Verified 10/27/17 11:03 memantine [From Namenda] Allergy Verified 10/27/17 10:58 quetiapine [From Seroquel] Allergy Verified 10/27/17 10:58 - Home Medications Home Medications: Ambulatory Orders RX: Apixaban [Eliquis -] 2.5 mg PO BID 10/27/17 RX: Mirtazapine 15 mg PO HS 10/27/17 RX: Divalproex Sprinkle [Depakote Sprinkle -] 375 mg PO BID cap.sprink RX: Docusate Sodium [Colace -] 100 mg PO BID capsule 11/01/17 RX: Haloperidol Injection [Haldol Injection (Fast Acting) -] 3 mg IM Q8H PRN ml 11/01/17 RX: Mirtazapine [Remeron -] 15 mg PO HS tablet 11/01/17 RX: Olanzapine [ZyPREXA -] 10 mg PO BID tablet 11/01/17 RX: clonazePAM [Klonopin -] 0.5 mg PO HS 7 Days #7 tablet MDD 0.5mg 11/01/17 Review of Systems Unable to obtain ROS, reason: dementia Physical Examination Vital Signs: Vital Signs Temperature 97.4 F L 11/01/17 20:21 Pulse Rate 76 11/01/17 20:21 Respiratory Rate 16 11/01/17 20:21 Blood Pressure 114/89 11/01/17 20:21 O2 Sat by Pulse Oximetry (%) 100 11/01/17 20:21 Constitutional: Yes: Well Nourished, No Distress, Thin, Other (uncooperative) Eyes: Yes: WNL, Conjunctiva Clear HENT: Yes: Atraumatic Neck: Yes: Supple Cardiovascular: Yes: Regular Rate and Rhythm Respiratory: Yes: Regular, CTA Bilaterally Gastrointestinal: Yes: Normal Bowel Sounds, Soft ...Rectal Exam: Yes: Deferred Renal/: Yes: WNL Breast(s): Yes: WNL Musculoskeletal: Yes: WNL Extremities: Yes: WNL Edema: No Peripheral Pulses WNL: Yes Integumentary: Yes: WNL Neurological: Yes: Pre-Existing Deficit ...Motor Strength: WNL Labs: CBC, BMP 11/01/17 21:26 11/01/17 21:26 Problem List - Problems (1) Altered mental status Code(s): R41.82 - ALTERED MENTAL STATUS, UNSPECIFIED (2) Atrial fibrillation Assessment/Plan: continue NOAC Code(s): I48.91 - UNSPECIFIED ATRIAL FIBRILLATION (3) Dementia Assessment/Plan: resume medication regimine re consult psych Code(s): F03.90 - UNSPECIFIED DEMENTIA WITHOUT BEHAVIORAL DISTURBANCE Qualifiers: Dementia type: Alzheimer's disease Alzheimer's disease onset: unspecified onset Dementia behavioral disturbance: with behavioral disturbance Qualified Code(s): G30.9 - Alzheimer's disease, unspecified; F02.81 - Dementia in other diseases classified elsewhere with behavioral disturbance; F02.81 - Dementia in other diseases classified elsewhere with behavioral disturbance; F02.81 - Dementia in other diseases classified elsewhere with behavioral disturbance
[2017-11-02] MEDS: APIXABAN 2.5 MG TABLET PO SCH ×4 (02:02→21:53)
[2017-11-02] MEDS: DIVALPROEX SODIUM 125 MG SPRINKLE CAPS PO SCH ×4 (02:02→21:53)
[2017-11-02] MEDS ORDERED: SODIUM CHLORIDE 1,000 ML IV STA ×2 (02:40)
[2017-11-02] MEDS ORDERED: PT OWN MED DRAWER 7, Y5N ONE ×3 (09:24→20:52)
--- NOTE | 2017-11-02 10:40 | EKG ---
Test Reason : Blood Pressure : / mmHG Vent. Rate : 091 BPM Atrial Rate : 113 BPM P-R Int : 000 ms QRS Dur : 082 ms QT Int : 362 ms P-R-T Axes : 000 040 041 degrees QTc Int : 445 ms ATRIAL FIBRILLATION LOW VOLTAGE QRS SEPTAL INFARCT , AGE UNDETERMINED ABNORMAL ECG NO PREVIOUS ECGS AVAILABLE Confirmed by ALEM WICK MD ([id number]) on 11/02/2017 10:39:39 AM Referred By: Confirmed By:ALEM WICK MD
[2017-11-02] MEDS: DOCUSATE SODIUM 100 MG CAPSULE (FP) PO SCH ×3 (11:35→21:51)
[2017-11-02] MEDS: OLANZapine 10 MG TABLET PO SCH ×2 (11:36→21:53)
--- NOTE | 2017-11-02 11:53 | PN ---
Progress Note (short form) - Note Progress Note: patient sedated -- still sleeping required haldol 20 mg IM ativan 4 mg IV benadryl 50 mg last night during ER admission Case discussed with Zully mac and Father Roc ( who will be the contact center team lead for his care and disposition ) Father Roc Daigle [phone] plans for possible transfer to [facility] psych unit to discuss with Dr James office [phone] patient responding to painful stimuli Vital Signs Period Temp Pulse Resp BP Sys/Aguirre Pulse Ox Last 24 Hr 97.4 F-97.9 F 76-88 16-20 114-120/84-89 98-100 heart reg S1/S2 lungs clear bilat abd soft non tender ext no edema CBC, BMP 11/01/17 21:26 11/01/17 21:26 Active Medications Apixaban (Eliquis -) 2.5 mg PO BID [facility] Last Admin: 11/02/17 11:36 Dose: 2.5 mg Clonazepam (Klonopin -) 0.5 mg PO HS [facility] Divalproex Sodium (Depakote Sprinkle Caps -) 375 mg PO BID [facility] Last Admin: 11/02/17 11:35 Dose: 375 mg Docusate Sodium (Colace -) 100 mg PO BID [facility] Last Admin: 11/02/17 11:35 Dose: 100 mg Haloperidol (Haldol Injection (Fast Acting) -) 3 mg IM Q8H PRN PRN Reason: AGITATION Mirtazapine (Remeron -) 15 mg PO HS [facility] Olanzapine (Zyprexa -) 10 mg PO BID [facility] Last Admin: 11/02/17 11:36 Dose: 10 mg # dementia with behavior changes / aggressive tendencies recall psych resume previous medications contact [facility] psych unit for possible in-patient care # A fib continue NOAC # Rhabdo CK>1600 IV fluids # foul smelling urine per nursing staff unable to obtain u/a/ emperic tx Rocephin continue attempt at u/a and C/S Problem List - Problems (1) Altered mental status Code(s): R41.82 - ALTERED MENTAL STATUS, UNSPECIFIED (2) Atrial fibrillation Code(s): I48.91 - UNSPECIFIED ATRIAL FIBRILLATION (3) Dementia Code(s): F03.90 - UNSPECIFIED DEMENTIA WITHOUT BEHAVIORAL DISTURBANCE Qualifiers: Dementia type: Alzheimer's disease Alzheimer's disease onset: unspecified onset Dementia behavioral disturbance: with behavioral disturbance Qualified Code(s): G30.9 - Alzheimer's disease, unspecified; F02.81 - Dementia in other diseases classified elsewhere with behavioral disturbance; F02.81 - Dementia in other diseases classified elsewhere with behavioral disturbance; F02.81 - Dementia in other diseases classified elsewhere with behavioral disturbance
[2017-11-02] MEDS ORDERED: DEXTROSE 5%-0.45% SALINE 1,000 ML IV SCH (12:00)
[2017-11-02] MEDS: SODIUM CHLORIDE 0.45% 1,000 ML IV SCH (17:01)
[2017-11-02] MEDS ORDERED: DEXTROSE 5%-WATER - 50 ML IVPB ONE (17:02)
[2017-11-02] MEDS ORDERED: cefTRIAXone SODIUM 1 GM VIAL ONE (17:02)
[2017-11-02] MEDS: CEFTRIAXONE 1 GM in DEXTROSE 5%-WATER - 50 ML IVPB SCH (17:06)
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
--- NOTE | 2017-11-02 19:54 | PN ---
Progress Note (short form) - Note Progress Note: multiple call from Nursing staff patient awake early afternoon spitting out oral medications / combative and uncooperative Father Roc currently assuming responsibility for his care -- will need assistance and supervision for safety psych eval done and noted / case discussed on admission increased aggressiveness / has required additional haldol and ativan for safety patient is a danger to staff and to self -- will need Iv/Im dosing until able to accept PO meds will discuss further with psych Active Medications Apixaban (Eliquis -) 2.5 mg PO BID [facility] Last Admin: 11/02/17 14:51 Dose: Not Given Clonazepam (Klonopin -) 0.5 mg PO HS [facility] Divalproex Sodium (Depakote Sprinkle Caps -) 375 mg PO BID [facility] Last Admin: 11/02/17 14:51 Dose: Not Given Docusate Sodium (Colace -) 100 mg PO BID [facility] Last Admin: 11/02/17 14:49 Dose: Not Given Haloperidol (Haldol Injection (Fast Acting) -) 7 mg IM Q8H PRN PRN Reason: AGITATION Dextrose/Sodium Chloride (D5-1/2ns -) 1,000 mls @ 125 mls/hr IV ASDIR [facility] Last Admin: 11/02/17 12:00 Dose: 125 mls/hr Sodium Chloride (1/2 Normal Saline) 1,000 mls @ 200 mls/hr IV ASDIR [facility] Last Admin: 11/02/17 17:01 Dose: 200 mls/hr Ceftriaxone Sodium 1 gm/ (Dextrose) 50 mls @ 200 mls/hr IVPB DAILY [facility] PRN Reason: Protocol Last Admin: 11/02/17 17:06 Dose: 200 mls/hr Mirtazapine (Remeron -) 15 mg PO HS [facility] Olanzapine (Zyprexa -) 10 mg PO BID [facility] Last Admin: 11/02/17 11:36 Dose: 10 mg Problem List - Problems (1) Rhabdomyolysis Assessment/Plan: iv fluid follow CK Code(s): M62.82 - RHABDOMYOLYSIS (2) Dementia Code(s): F03.90 - UNSPECIFIED DEMENTIA WITHOUT BEHAVIORAL DISTURBANCE Qualifiers: Dementia type: Alzheimer's disease Alzheimer's disease onset: unspecified onset Dementia behavioral disturbance: with behavioral disturbance Qualified Code(s): G30.9 - Alzheimer's disease, unspecified; F02.81 - Dementia in other diseases classified elsewhere with behavioral disturbance; F02.81 - Dementia in other diseases classified elsewhere with behavioral disturbance; F02.81 - Dementia in other diseases classified elsewhere with behavioral disturbance (3) Altered mental status Code(s): R41.82 - ALTERED MENTAL STATUS, UNSPECIFIED (4) Atrial fibrillation Code(s): I48.91 - UNSPECIFIED ATRIAL FIBRILLATION
[2017-11-02] MEDS: MIRTAZAPINE 15 MG TABLET (FP) PO SCH (21:53)
[2017-11-02] MEDS: clonazePAM 0.5 MG TABLET PO SCH (21:53)
[2017-11-02] MEDS ORDERED: MIRTAZAPINE 15 MG TABLET (FP) PO SCH (22:00)
[2017-11-02] MEDS: HALOPERIDOL LACTATE 5 MG/ML IM PRN (22:21)
[2017-11-03] MEDS ORDERED: DEXTROSE 5%-WATER - 50 ML IVPB ONE (09:36)
[2017-11-03] MEDS ORDERED: cefTRIAXone SODIUM 1 GM VIAL ONE (09:36)
[2017-11-03] MEDS ORDERED: PT OWN MED DRAWER 7, Y5N ONE ×2 (09:36→20:55)
[2017-11-03 10:20] LABS: BASO % 1.1 % (0-2.0); EOS % 8.7 % (0-4.5); HEMATOCRIT 46.3 % (35.4-49); HEMOGLOBIN 15.7 GM/dL (11.7-16.9); LYMPH % 20.7 % (8-40); MCH 30.5 pg (25.7-33.7); MCHC 33.9 g/dl (32.0-35.9); MEAN CELL VOLUME 89.9 fl (80-96); MEAN PLT VOLUME 8.9 fl (7.5-11.1); MONO % 8.2 % (3.8-10.2); NEUT % 61.3 % (42.8-82.8); PLATELET COUNT 143 K/MM3 (134-434); RBC 5.15 M/mm3 (4.00-5.60); RDW 13.9 % (11.9-15.9); WHITE BLOOD COUNT 6.8 K/mm3 (4.0-10.0)
[2017-11-03] MEDS: DIVALPROEX SODIUM 125 MG SPRINKLE CAPS PO SCH ×2 (10:22→21:09)
[2017-11-03] MEDS: APIXABAN 2.5 MG TABLET PO SCH ×2 (10:22→21:09)
[2017-11-03] MEDS: DOCUSATE SODIUM 100 MG CAPSULE (FP) PO SCH ×2 (10:22→21:09)
[2017-11-03] MEDS: CEFTRIAXONE 1 GM in DEXTROSE 5%-WATER - 50 ML IVPB SCH (10:23)
[2017-11-03] MEDS: OLANZapine 10 MG TABLET PO SCH ×2 (10:24→21:09)
[2017-11-03 10:50] LABS: CHLORIDE 107 mmol/L (98-107); SODIUM 143 mmol/L (136-145)
[2017-11-03 11:08] LABS: ANION GAP 7 (8-16); BLOOD UREA NITROGEN 13 mg/dL (7-18); CALCIUM 9.1 mg/dL (8.5-10.1); CO2 29 mmol/L (21-32); CREATININE 0.9 mg/dL (0.7-1.3); GLUCOSE,RANDOM 89 mg/dL (74-106); MAGNESIUM 2.1 mg/dL (1.8-2.4)
[2017-11-03] MEDS: SODIUM CHLORIDE 0.45% 1,000 ML IV SCH ×2 (15:25→20:30)
--- NOTE | 2017-11-03 18:58 | PN ---
Progress Note (short form) - Note Progress Note: 82 y/o male found lying in bed, trying to get oob. One to one present and washing pt. Vital Signs Period Temp Pulse Resp BP Sys/Aguirre Pulse Ox Last 24 Hr 97.3 F-97.6 F 89-119 18-20 109-142/58-86 97-99 CBC, BMP 11/03/17 10:02 11/03/17 10:02 HEENT-NL Neck-Supple Lungs- CTAB Heart- S1/S2 Abd- Soft, NT Ext- No LE edema Active Medications Apixaban (Eliquis -) 2.5 mg PO BID [facility] Last Admin: 11/03/17 10:22 Dose: 2.5 mg Clonazepam (Klonopin -) 0.5 mg PO [facility] Last Admin: 11/02/17 21:53 Dose: 0.5 mg Divalproex Sodium (Depakote Sprinkle Caps -) 375 mg PO BID [facility] Last Admin: 11/03/17 10:22 Dose: 375 mg Docusate Sodium (Colace -) 100 mg PO BID [facility] Last Admin: 11/03/17 10:22 Dose: 100 mg Haloperidol (Haldol Injection (Fast Acting) -) 7 mg IM Q8H PRN PRN Reason: AGITATION Last Admin: 11/02/17 22:21 Dose: 7 mg Sodium Chloride (1/2 Normal Saline) 1,000 mls @ 200 mls/hr IV ASDIR [facility] Last Admin: 11/03/17 15:25 Dose: 200 mls/hr Ceftriaxone Sodium 1 gm/ (Dextrose) 50 mls @ 200 mls/hr IVPB DAILY [facility] PRN Reason: Protocol Last Admin: 11/03/17 10:23 Dose: 200 mls/hr Mirtazapine (Remeron -) 15 mg PO HS [facility] Last Admin: 11/02/17 21:53 Dose: 15 mg Olanzapine (Zyprexa -) 10 mg PO BID [facility] Last Admin: 11/03/17 10:24 Dose: 10 mg Spoke to caregiver Father Roc cook pt status/poc. Father to come today to assist pt with taking meds.Plan to transfer pt to Psych unit in [facility] when bed becomes available. Transfer forms signed. Problem List - Problems (1) Rhabdomyolysis Assessment/Plan: iv fluids NS @ 200 cc hr trend ck Code(s): M62.82 - RHABDOMYOLYSIS (2) Dementia Code(s): F03.90 - UNSPECIFIED DEMENTIA WITHOUT BEHAVIORAL DISTURBANCE Qualifiers: Dementia type: Alzheimer's disease Alzheimer's disease onset: unspecified onset Dementia behavioral disturbance: with behavioral disturbance Qualified Code(s): G30.9 - Alzheimer's disease, unspecified; F02.81 - Dementia in other diseases classified elsewhere with behavioral disturbance; F02.81 - Dementia in other diseases classified elsewhere with behavioral disturbance; F02.81 - Dementia in other diseases classified elsewhere with behavioral disturbance Continue one to one monitoring Psych consult appreciated Check for Lyme DZ Referred for Neuro evaluation (3) Altered mental status Code(s): R41.82 - ALTERED MENTAL STATUS, UNSPECIFIED (4) Atrial fibrillation Code(s): I48.91 - UNSPECIFIED ATRIAL FIBRILLATION
--- NOTE | 2017-11-03 19:47 | CONSULT ---
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 On apixiban; mirtazepie (15 mg was 30 mg); Depakote (375 BID); olanzepine (10 BID); and Clonazepam (.5 q HS). Last admission noted "allergy" to multiple meds for AD but didn't describe reactions. Was started on olanzepine and dose was gradually increased until he was calmer. Apparently did well here but became agitated and combative on return to [place]. Here, he was refusing oral meds and was agitated until given IM haldol. Now calm, confused, attempting to climb out of bed but one-on-one noted that he fed himself lunch. On empiric ceftriaxone. Labs sig for CK's of 1640 and 1481 IU SONIA: Neck rigid in al directions but Kernigs neg. No bruits. NEURO: Rests with eyes closed. Fluent gibberish speech. + Glabella, snout Full perez to threat. No facial Moves all fours well and symetrically. Early contractures at the knees Normal reflexes. Toes downgoing. IMP: Severe, B/L cerebral dysfunction (OMS, Chronic) c/w advanced Alzheimer's Disease (AD). SUGGEST: D/C Mirtazepine. Increase Depakote to 500 mg q12hrs (this will not stop agitation) . Continue Olanzepine 10mg PO q12 hrs. Switch PRN IM Haldol to IM Zyprexa (non-formulary here, but possibly available at the [place]) so Father can continue to get his stabilizing dose of Olanzepine IM if and when he refuses PO Meds. Try to track down and confirm medication allergies to AD drugs ( I would consider a trial of Exelon Patch, 4.6 mg/day, if tolerated). Sometimes, Rivastigmine (Exelon) can have behavior stabilizing effects. Consider increasing Clonazepam to BID or q 8hrs to avoid agitation increased by wearing off of the Clonazepam dose (rebound). Thank you very much, Luis E Sanz MD
[2017-11-03] MEDS: clonazePAM 0.5 MG TABLET PO SCH (21:09)
[2017-11-03] MEDS: MIRTAZAPINE 15 MG TABLET (FP) PO SCH (21:10)
[2017-11-04] MEDS: SODIUM CHLORIDE 0.45% 1,000 ML IV SCH ×2 (00:49→20:17)
--- NOTE | 2017-11-04 08:50 | FALL ---
Fall Exam - Event Witnessed fall: No Location of Fall: Patient Room Fall from: Bed - Pre-Fall Mental Status: Disoriented, Uncooperative Current Medications: Current Medications Generic Name Dose Route Start Last Admin Trade Name Freq PRN Reason Stop Dose Admin Apixaban 2.5 mg 11/01/17 23:45 11/03/17 21:09 Eliquis - PO 2.5 mg BID [facility] Administration Clonazepam 0.5 mg 11/02/17 22:00 11/03/17 21:09 Klonopin - PO 0.5 mg HS [facility] Administration Divalproex Sodium 375 mg 11/01/17 23:45 11/03/17 21:09 Depakote Sprinkle Caps - PO 375 mg BID [facility] Administration Docusate Sodium 100 mg 11/02/17 10:00 11/03/17 21:09 Colace - PO 100 mg BID [facility] Administration Haloperidol 7 mg 11/02/17 18:08 11/02/17 22:21 Haldol Injection (Fast Acting) - IM 7 mg Q8H PRN Administration AGITATION Sodium Chloride 1,000 mls @ 200 mls/hr 11/02/17 16:15 11/04/17 00:49 1/2 Normal Saline IV 200 mls/hr ASDIR [facility] Administration Ceftriaxone Sodium 1 gm/ 50 mls @ 200 mls/hr 11/02/17 16:30 11/03/17 10:23 Dextrose IVPB 200 mls/hr DAILY [facility] Administration Protocol Mirtazapine 15 mg 11/02/17 22:00 11/03/17 21:10 Remeron - PO 15 mg HS [facility] Administration Olanzapine 10 mg 11/02/17 10:00 11/03/17 21:09 Zyprexa - PO 10 mg BID [facility] Administration - Post-Fall Patient Outcome: Laceration, Abrasion/Bruise Treatment: Ice Pack Vital Signs: Vital Signs Temperature 98.0 F 11/04/17 02:00 Pulse Rate 95 H 11/04/17 02:00 Respiratory Rate 18 11/04/17 02:00 Blood Pressure 150/92 11/04/17 02:00 O2 Sat by Pulse Oximetry (%) 99 11/03/17 21:00 LOC Post-Fall: Awake, Confused Identify factors for HIGH RISK for Head Injury: Pt on anticoagulant (Patient on a 1:1, with bed alarm. Sitter at bedside and reported increased agitation and impulsiveness. Patient found on both knees. Bruising noted R>L.) Critical Care Total Critical Care Time (in minutes): 25
[2017-11-04 08:58] LABS: CHLORIDE 107 mmol/L (98-107); POTASSIUM 3.8 mmol/L (3.5-5.1); SODIUM 142 mmol/L (136-145)
--- NOTE | 2017-11-04 08:58 | HOSP ---
Physical Examination Vital Signs: Vital Signs Temperature 98.0 F 11/04/17 02:00 Pulse Rate 95 H 11/04/17 02:00 Respiratory Rate 18 11/04/17 02:00 Blood Pressure 150/92 11/04/17 02:00 O2 Sat by Pulse Oximetry (%) 99 11/03/17 21:00 Labs: CBC, BMP 11/03/17 10:02 Hospitalist Encounter Assessment: Called to see patient after a fall while he attempted to get out of bed unassisted. Patient had 1:1 at bedside, fell trying to get out of bed and then found in room on both knees Unclear if patient hit his head Patient is a poor historian, hx of combativeness, aggressiveness, slow to respond, periods of confusion Right nee abrasion noted, left knee no injury Plan: Head CT stat Bilateral knee xray Wound care to right knee: clean with NS, apply non adherent dressing Monitor mental status Continue 1:1 for safety Fall Protocol #1 ordered
[2017-11-04] MEDS ORDERED: DEXTROSE 5%-WATER - 50 ML IVPB ONE (09:03)
[2017-11-04] MEDS ORDERED: cefTRIAXone SODIUM 1 GM VIAL ONE (09:03)
[2017-11-04 09:07] LABS: ALBUMIN 3.6 g/dl (3.4-5.0); ALK PHOS 77 U/L (45-117); ANION GAP 8 (8-16); BILIRUBIN,TOTAL 1.3 mg/dL (0.2-1.0); BLOOD UREA NITROGEN 11 mg/dL (7-18); CALCIUM 8.7 mg/dL (8.5-10.1); CO2 27 mmol/L (21-32); CREATININE 0.9 mg/dL (0.7-1.3); GLUCOSE,RANDOM 81 mg/dL (74-106); SGOT/AST 77 U/L (15-37); SGPT/ALT 40 U/L (12-78); TOT PROT 6.5 g/dl (6.4-8.2)
[2017-11-04] MEDS: HALOPERIDOL LACTATE 5 MG/ML IM PRN (09:25)
[2017-11-04] MEDS: CEFTRIAXONE 1 GM in DEXTROSE 5%-WATER - 50 ML IVPB SCH (09:30)
[2017-11-04] MEDS: DOCUSATE SODIUM 100 MG CAPSULE (FP) PO SCH ×2 (09:30→21:05)
[2017-11-04] MEDS ORDERED: HALOPERIDOL LACTATE 5 MG/ML IM PRN (09:46)
[2017-11-04] MEDS ORDERED: DIVALPROEX SODIUM 500 MG TABLET E.C. PO SCH (10:00)
[2017-11-04] MEDS: clonazePAM 0.5 MG TABLET PO SCH ×2 (10:43→21:05)
[2017-11-04] MEDS: OLANZapine 10 MG TABLET PO SCH ×2 (10:43→21:05)
[2017-11-04] MEDS: APIXABAN 2.5 MG TABLET PO SCH ×2 (10:43→21:05)
--- NOTE | 2017-11-04 10:47 | PN ---
Progress Note (short form) - Note Progress Note: 82 y/o male with continued behavioral disturbances/aggression. Staff reported fall this am with bed alarm/sitter at bedside. Pt denies pain. Vital Signs Period Temp Pulse Resp BP Sys/Aguirre Pulse Ox Last 24 Hr 96.7 F-98.0 F 95-119 18-19 124-150/58-92 99 CBC, BMP 11/03/17 10:02 11/04/17 07:59 HEENT- Normocephalic Neck- supple Lungs- CTAB Heart- S1/S2 Abd- soft, NT Skin- Abrasion/ edema noted rt knee Musculoskeletal- Full ROM lt knee, Limited ROM rt knee Ext- no RT LE edema Active Medications Apixaban (Eliquis -) 2.5 mg PO BID [facility] Last Admin: 11/04/17 10:43 Dose: 2.5 mg Clonazepam (Klonopin -) 0.5 mg PO BID [facility] Last Admin: 11/04/17 10:43 Dose: 0.5 mg Divalproex Sodium (Depakote -) 500 mg PO BID [facility] Docusate Sodium (Colace -) 100 mg PO BID [facility] Last Admin: 11/04/17 09:30 Dose: 100 mg Haloperidol (Haldol Injection (Fast Acting) -) 7 mg IM Q8H PRN PRN Reason: AGITATION Sodium Chloride (1/2 Normal Saline) 1,000 mls @ 200 mls/hr IV ASDIR [facility] Last Admin: 11/04/17 00:49 Dose: 200 mls/hr Ceftriaxone Sodium 1 gm/ (Dextrose) 50 mls @ 200 mls/hr IVPB DAILY [facility] PRN Reason: Protocol Last Admin: 11/04/17 09:30 Dose: 200 mls/hr Olanzapine (Zyprexa -) 10 mg PO BID [facility] Last Admin: 11/04/17 10:43 Dose: 10 mg Rivastigmine (Exelon Patch 4.6mg/24 Hours -) 4.6 each TD DAILY [facility] Neuro consult appreciated Mitazapine dc'd Depakote increaased 10 500 mg BID Olanzepine 10 mg q 12 hrs Clonazepam increased to BID Exelon patch 4.6 mg daily rx'd Haldol IM PRN to continue as Zyprexa IM not available #s/p fall Head CT scan/ knee xray ordered Continue one to one supervision #UTI Continue IV antibiotics #Elevated BNP Chest xray ordered #AFib Continue Eliquis Problem List - Problems (1) Rhabdomyolysis Assessment/Plan: iv fluids NS @ 200 cc hr trend ck- improving now 900s Code(s): M62.82 - RHABDOMYOLYSIS (2) Dementia Code(s): F03.90 - UNSPECIFIED DEMENTIA WITHOUT BEHAVIORAL DISTURBANCE Qualifiers: Dementia type: Alzheimer's disease Alzheimer's disease onset: unspecified onset Dementia behavioral disturbance: with behavioral disturbance Qualified Code(s): G30.9 - Alzheimer's disease, unspecified; F02.81 - Dementia in other diseases classified elsewhere with behavioral disturbance; F02.81 - Dementia in other diseases classified elsewhere with behavioral disturbance; F02.81 - Dementia in other diseases classified elsewhere with behavioral disturbance Continue one to one monitoring Lyme results pending (3) Altered mental status Code(s): R41.82 - ALTERED MENTAL STATUS, UNSPECIFIED (4) Atrial fibrillation Code(s): I48.91 - UNSPECIFIED ATRIAL FIBRILLATION
[2017-11-04 11:19] LABS: INR 1.15 (0.82-1.09)
[2017-11-04 11:21] LABS: ACTIVATED PTT 33.7 SECONDS (26.9-34.4)
[2017-11-04] MEDS ORDERED: ACETAMINOPHEN 325 MG TABLET (FP) ONE (12:28)
[2017-11-04] MEDS: RIVASTIGMINE 4.6 MG/24 HOURS TRANSDERMAL PATCH TD SCH (12:59)
[2017-11-04] MEDS ORDERED: ACETAMINOPHEN 325 MG TABLET (FP) PO PRN (15:30)
[2017-11-04] MEDS: VALPROATE SODIUM 250 MG/5 ML UNIT DOSE CUP PO SCH (21:06)
[2017-11-05] MEDS: SODIUM CHLORIDE 0.45% 1,000 ML IV SCH ×2 (03:20→12:59)
[2017-11-05] MEDS ORDERED: cefTRIAXone SODIUM 1 GM VIAL ONE (10:25)
[2017-11-05] MEDS ORDERED: PT OWN MED DRAWER 7, Y5N ONE (10:25)
[2017-11-05] MEDS ORDERED: DEXTROSE 5%-WATER - 50 ML IVPB ONE (10:25)
[2017-11-05] MEDS: VALPROATE SODIUM 250 MG/5 ML UNIT DOSE CUP PO SCH ×2 (10:32→21:04)
[2017-11-05] MEDS: DOCUSATE SODIUM 100 MG CAPSULE (FP) PO SCH ×2 (10:32→21:04)
[2017-11-05] MEDS: clonazePAM 0.5 MG TABLET PO SCH ×2 (10:33→21:04)
[2017-11-05] MEDS: RIVASTIGMINE 4.6 MG/24 HOURS TRANSDERMAL PATCH TD SCH (10:33)
[2017-11-05] MEDS: CEFTRIAXONE 1 GM in DEXTROSE 5%-WATER - 50 ML IVPB SCH (10:34)
[2017-11-05] MEDS: APIXABAN 2.5 MG TABLET PO SCH ×2 (10:34→22:03)
[2017-11-05] MEDS: OLANZapine 10 MG TABLET PO SCH ×2 (10:34→21:04)
--- NOTE | 2017-11-05 10:36 | PN ---
Progress Note (short form) - Note Progress Note: in bed uncooperative NAD Vital Signs Period Temp Pulse Resp BP Sys/Aguirre Pulse Ox Last 24 Hr 97.4 F-98.5 F 81-120 -18 96-167/55-85 neck no JVD heart irreg lung clear abd sof t ext no edema CBC, BMP 11/03/17 10:02 11/04/17 07:59 CK 900 Microbiology 11/01/17 21:26 Blood - Peripheral Venous Blood Culture - Preliminary NO GROWTH OBTAINED AFTER 72 HOURS, INCUBATION TO CONTINUE FOR 2 DAYS. 11/01/17 21:26 Blood - Peripheral Venous Blood Culture - Preliminary NO GROWTH OBTAINED AFTER 72 HOURS, INCUBATION TO CONTINUE FOR 2 DAYS. Active Medications Acetaminophen (Tylenol -) 650 mg PO Q6H PRN PRN Reason: PAIN 1-5 Apixaban (Eliquis -) 2.5 mg PO BID [facility] Last Admin: 11/04/17 21:05 Dose: 2.5 mg Clonazepam (Klonopin -) 0.5 mg PO BID [facility] Last Admin: 11/04/17 21:05 Dose: 0.5 mg Docusate Sodium (Colace -) 100 mg PO BID [facility] Last Admin: 11/04/17 21:05 Dose: 100 mg Haloperidol (Haldol Injection (Fast Acting) -) 7 mg IM Q8H PRN PRN Reason: AGITATION Sodium Chloride (1/2 Normal Saline) 1,000 mls @ 200 mls/hr IV ASDIR [facility] Last Admin: 11/04/17 20:17 Dose: 200 mls/hr Ceftriaxone Sodium 1 gm/ (Dextrose) 50 mls @ 200 mls/hr IVPB DAILY [facility] PRN Reason: Protocol Last Admin: 11/04/17 09:30 Dose: 200 mls/hr Olanzapine (Zyprexa -) 10 mg PO BID [facility] Last Admin: 11/04/17 21:05 Dose: 10 mg Rivastigmine (Exelon Patch 4.6mg/24 Hours -) 4.6 each TD DAILY [facility] Last Admin: 11/04/17 12:59 Dose: 4.6 each Valproate Sodium (Depakene -) 500 mg PO BID [facility] Last Admin: 11/04/17 21:06 Dose: 500 mg # dementia with behavior changes / aggressive tendencies appreciate psych / neuro eval and followup awaiting bed -- [facility] psych unit for possible in-patient care # A fib continue NOAC # Rhabdo CK>1600 on admission -- trending down IV fluids # foul smelling urine per nursing staff unable to obtain u/a/ emperic tx Rocephin follow upU/A Problem List - Problems (1) Rhabdomyolysis Code(s): M62.82 - RHABDOMYOLYSIS (2) Dementia Code(s): F03.90 - UNSPECIFIED DEMENTIA WITHOUT BEHAVIORAL DISTURBANCE Qualifiers: Dementia type: Alzheimer's disease Alzheimer's disease onset: unspecified onset Dementia behavioral disturbance: with behavioral disturbance Qualified Code(s): G30.9 - Alzheimer's disease, unspecified; F02.81 - Dementia in other diseases classified elsewhere with behavioral disturbance; F02.81 - Dementia in other diseases classified elsewhere with behavioral disturbance; F02.81 - Dementia in other diseases classified elsewhere with behavioral disturbance (3) Altered mental status Code(s): R41.82 - ALTERED MENTAL STATUS, UNSPECIFIED (4) Atrial fibrillation Code(s): I48.91 - UNSPECIFIED ATRIAL FIBRILLATION
[2017-11-05 10:57] LABS: EOS % 7.6 % (0-4.5); HEMOGLOBIN 14.3 GM/dL (11.7-16.9); LYMPH % 20.5 % (8-40); MCHC 34.9 g/dl (32.0-35.9); MEAN CELL VOLUME 88.8 fl (80-96); MEAN PLT VOLUME 8.2 fl (7.5-11.1); MONO % 7.3 % (3.8-10.2); NEUT % 63.6 % (42.8-82.8); PLATELET COUNT 126 K/MM3 (134-434); RBC 4.62 M/mm3 (4.00-5.60); WHITE BLOOD COUNT 5.7 K/mm3 (4.0-10.0)
[2017-11-05 11:25] LABS: CHLORIDE 107 mmol/L (98-107); POTASSIUM 4.4 mmol/L (3.5-5.1); SODIUM 142 mmol/L (136-145)
[2017-11-05 11:31] LABS: ALBUMIN 3.3 g/dl (3.4-5.0); ALK PHOS 71 U/L (45-117); ANION GAP 6 (8-16); BILIRUBIN,TOTAL 1.1 mg/dL (0.2-1.0); BLOOD UREA NITROGEN 12 mg/dL (7-18); CALCIUM 8.5 mg/dL (8.5-10.1); CO2 29 mmol/L (21-32); CREATININE 0.9 mg/dL (0.7-1.3); GLUCOSE,RANDOM 90 mg/dL (74-106); SGOT/AST 59 U/L (15-37); SGPT/ALT 36 U/L (12-78)
[2017-11-06 08:48] LABS: ANION GAP 6 (8-16); BLOOD UREA NITROGEN 11 mg/dL (7-18); CALCIUM 8.4 mg/dL (8.5-10.1); CHLORIDE 110 mmol/L (98-107); CO2 27 mmol/L (21-32); GLUCOSE,RANDOM 84 mg/dL (74-106); POTASSIUM 3.9 mmol/L (3.5-5.1); SODIUM 143 mmol/L (136-145)
[2017-11-06 09:56] LABS: CREATININE 0.8 mg/dL (0.7-1.3)
[2017-11-06] MEDS: clonazePAM 0.5 MG TABLET PO SCH ×2 (10:37→21:00)
[2017-11-06] MEDS: VALPROATE SODIUM 250 MG/5 ML UNIT DOSE CUP PO SCH ×2 (10:38→21:01)
[2017-11-06] MEDS ORDERED: PT OWN MED DRAWER 7, Y5N ONE (10:39)
[2017-11-06] MEDS: APIXABAN 2.5 MG TABLET PO SCH ×2 (10:41→21:00)
[2017-11-06] MEDS: RIVASTIGMINE 4.6 MG/24 HOURS TRANSDERMAL PATCH TD SCH (10:42)
[2017-11-06] MEDS: OLANZapine 10 MG TABLET PO SCH ×2 (10:42→21:00)
[2017-11-06] MEDS: SODIUM CHLORIDE 0.45% 1,000 ML IV SCH ×2 (10:48→17:24)
[2017-11-06] MEDS: DOCUSATE SODIUM 100 MG CAPSULE (FP) PO SCH ×2 (11:00→21:00)
[2017-11-07] MEDS ORDERED: INSULIN (NOVOLOG) ASPART 100 UNITS/ML 10ML VIAL ONE (11:30)
[2017-11-07] MEDS ORDERED: PT OWN MED DRAWER 7, Y5N ONE (11:31)
[2017-11-07] MEDS: VALPROATE SODIUM 250 MG/5 ML UNIT DOSE CUP PO SCH ×2 (11:33→21:47)
[2017-11-07] MEDS: clonazePAM 0.5 MG TABLET PO SCH ×2 (11:33→21:42)
[2017-11-07] MEDS: DOCUSATE SODIUM 100 MG CAPSULE (FP) PO SCH ×3 (11:33→22:46)
[2017-11-07] MEDS: APIXABAN 2.5 MG TABLET PO SCH ×2 (11:35→21:45)
[2017-11-07] MEDS: RIVASTIGMINE 4.6 MG/24 HOURS TRANSDERMAL PATCH TD SCH (11:36)
[2017-11-07] MEDS: OLANZapine 10 MG TABLET PO SCH ×2 (11:37→23:08)
--- NOTE | 2017-11-07 12:11 | PN ---
Progress Note (short form) - Note Progress Note: in bed uncooperative NAD Vital Signs Period Temp Pulse Resp BP Sys/Aguirre Pulse Ox Last 24 Hr 97.4 F-98.5 F 81-120 17-18 96-167/55-85 neck no JVD heart irreg lung clear abd sof t ext no edema CBC, BMP 11/05/17 10:35 11/06/17 07:30 Microbiology 11/01/17 21:26 Blood - Peripheral Venous Blood Culture - Final NO GROWTH AFTER 5 DAYS INCUBATION 11/01/17 21:26 Blood - Peripheral Venous Blood Culture - Final NO GROWTH AFTER 5 DAYS INCUBATION Active Medications Acetaminophen (Tylenol -) 650 mg PO Q6H PRN PRN Reason: PAIN 1-5 Apixaban (Eliquis -) 2.5 mg PO BID [facility] Last Admin: 11/04/17 21:05 Dose: 2.5 mg Clonazepam (Klonopin -) 0.5 mg PO BID [facility] Last Admin: 11/04/17 21:05 Dose: 0.5 mg Docusate Sodium (Colace -) 100 mg PO BID [facility] Last Admin: 11/04/17 21:05 Dose: 100 mg Haloperidol (Haldol Injection (Fast Acting) -) 7 mg IM Q8H PRN PRN Reason: AGITATION Sodium Chloride (1/2 Normal Saline) 1,000 mls @ 200 mls/hr IV ASDIR [facility] Last Admin: 11/04/17 20:17 Dose: 200 mls/hr Ceftriaxone Sodium 1 gm/ (Dextrose) 50 mls @ 200 mls/hr IVPB DAILY [facility] PRN Reason: Protocol Last Admin: 11/04/17 09:30 Dose: 200 mls/hr Olanzapine (Zyprexa -) 10 mg PO BID [facility] Last Admin: 11/04/17 21:05 Dose: 10 mg Rivastigmine (Exelon Patch 4.6mg/24 Hours -) 4.6 each TD DAILY [facility] Last Admin: 11/04/17 12:59 Dose: 4.6 each Valproate Sodium (Depakene -) 500 mg PO BID [facility] Last Admin: 11/04/17 21:06 Dose: 500 mg # dementia with behavior changes / aggressive tendencies appreciate psych / neuro eval and followup awaiting bed -- [facility] psych unit for possible in-patient care # A fib continue NOAC # Rhabdo CK>1600 on admission -- trending down continue IV fluids # foul smelling urine per nursing staff unable to obtain u/a/ emperic tx Rocephin for 3 days follow up U/A Problem List - Problems (1) Rhabdomyolysis Code(s): M62.82 - RHABDOMYOLYSIS (2) Dementia Code(s): F03.90 - UNSPECIFIED DEMENTIA WITHOUT BEHAVIORAL DISTURBANCE Qualifiers: Dementia type: Alzheimer's disease Alzheimer's disease onset: unspecified onset Dementia behavioral disturbance: with behavioral disturbance Qualified Code(s): G30.9 - Alzheimer's disease, unspecified; F02.81 - Dementia in other diseases classified elsewhere with behavioral disturbance; F02.81 - Dementia in other diseases classified elsewhere with behavioral disturbance; F02.81 - Dementia in other diseases classified elsewhere with behavioral disturbance (3) Altered mental status Code(s): R41.82 - ALTERED MENTAL STATUS, UNSPECIFIED (4) Atrial fibrillation Code(s): I48.91 - UNSPECIFIED ATRIAL FIBRILLATION
--- NOTE | 2017-11-07 12:30 | PN ---
Progress Note (short form) - Note Progress Note: in bed uncooperative / trying to get out of bed NAD Vital Signs Period Temp Pulse Resp BP Sys/Aguirre Pulse Ox Last 24 Hr 97.4 F-98.5 F 81-120 17-18 96-167/55-85 neck no JVD heart irreg lung clear abd sof t ext no edema CBC, BMP 11/05/17 10:35 11/06/17 07:30 Microbiology 11/01/17 21:26 Blood - Peripheral Venous Blood Culture - Final NO GROWTH AFTER 5 DAYS INCUBATION 11/01/17 21:26 Blood - Peripheral Venous Blood Culture - Final NO GROWTH AFTER 5 DAYS INCUBATION Active Medications Acetaminophen (Tylenol -) 650 mg PO Q6H PRN PRN Reason: PAIN 1-5 Apixaban (Eliquis -) 2.5 mg PO BID [facility] Last Admin: 11/07/17 11:35 Dose: 2.5 mg Clonazepam (Klonopin -) 0.5 mg PO BID [facility] Last Admin: 11/07/17 11:33 Dose: 0.5 mg Docusate Sodium (Colace -) 100 mg PO BID [facility] Last Admin: 11/07/17 11:33 Dose: 100 mg Haloperidol (Haldol Injection (Fast Acting) -) 7 mg IM Q8H PRN PRN Reason: AGITATION Sodium Chloride (1/2 Normal Saline) 1,000 mls @ 200 mls/hr IV ASDIR [facility] Last Admin: 11/06/17 17:24 Dose: Not Given Olanzapine (Zyprexa -) 10 mg PO BID [facility] Last Admin: 11/07/17 11:37 Dose: 10 mg Rivastigmine (Exelon Patch 4.6mg/24 Hours -) 4.6 each TD DAILY [facility] Last Admin: 11/07/17 11:36 Dose: 4.6 each Valproate Sodium (Depakene -) 500 mg PO BID [facility] Last Admin: 11/07/17 11:33 Dose: 500 mg # dementia with behavior changes / aggressive tendencies patient with hx of dementia and agressive behavior over 6 months -- recently relocated from [facility] in view of travel and elevated eosinophils -- will evaluate for parasites strongyloies antibodies / stool o & P / sed rate / CRP appreciate psych / neuro eval and followup awaiting bed -- [facility] psych unit for possible in-patient care # A fib continue NOAC # Rhabdo CK>1600 on admission -- trending down continue IV fluids -- follow CK # foul smelling urine per nursing staff unable to obtain u/a/ emperic tx Rocephin for 3 days follow up U/A Problem List - Problems (1) Rhabdomyolysis Code(s): M62.82 - RHABDOMYOLYSIS (2) Dementia Code(s): F03.90 - UNSPECIFIED DEMENTIA WITHOUT BEHAVIORAL DISTURBANCE Qualifiers: Dementia type: Alzheimer's disease Alzheimer's disease onset: unspecified onset Dementia behavioral disturbance: with behavioral disturbance Qualified Code(s): G30.9 - Alzheimer's disease, unspecified; F02.81 - Dementia in other diseases classified elsewhere with behavioral disturbance; F02.81 - Dementia in other diseases classified elsewhere with behavioral disturbance; F02.81 - Dementia in other diseases classified elsewhere with behavioral disturbance (3) Altered mental status Code(s): R41.82 - ALTERED MENTAL STATUS, UNSPECIFIED (4) Atrial fibrillation Code(s): I48.91 - UNSPECIFIED ATRIAL FIBRILLATION
[2017-11-07 13:03] LABS: EOS % 6.5 % (0-4.5); HEMATOCRIT 42.7 % (35.4-49); HEMOGLOBIN 14.5 GM/dL (11.7-16.9); LYMPH % 21.1 % (8-40); MCH 30.5 pg (25.7-33.7); MEAN CELL VOLUME 89.6 fl (80-96); MEAN PLT VOLUME 8.8 fl (7.5-11.1); MONO % 7.5 % (3.8-10.2); NEUT % 63.9 % (42.8-82.8); PLATELET COUNT 162 K/MM3 (134-434); RBC 4.77 M/mm3 (4.00-5.60); RDW 13.8 % (11.9-15.9); WHITE BLOOD COUNT 6.7 K/mm3 (4.0-10.0)
[2017-11-07 13:31] LABS: ALBUMIN 3.6 g/dl (3.4-5.0); ANION GAP 5 (8-16); BLOOD UREA NITROGEN 11 mg/dL (7-18); CALCIUM 9.1 mg/dL (8.5-10.1); CHLORIDE 108 mmol/L (98-107); CO2 29 mmol/L (21-32); CREATININE 0.9 mg/dL (0.7-1.3); GLUCOSE,RANDOM 93 mg/dL (74-106); SGOT/AST 50 U/L (15-37); SGPT/ALT 35 U/L (12-78); SODIUM 142 mmol/L (136-145)
[2017-11-07 13:33] LABS: ALK PHOS 73 U/L (45-117); BILIRUBIN,TOTAL 1.6 mg/dL (0.2-1.0); TOT PROT 6.5 g/dl (6.4-8.2)
[2017-11-07] MEDS: SODIUM CHLORIDE 0.45% 1,000 ML IV SCH ×3 (14:03→20:06)
[2017-11-07 14:58] LABS: ERYTHROCYTE SEDIMENTATION RATE 11 mm/hr (0-20)
[2017-11-07] MEDS ORDERED: FLU VACCINE QUAD 60 MCG/0.5 ML (MDV 17-18) IM ONE (18:45)
--- NOTE | 2017-11-08 00:45 | EKG ---
Test Reason : Blood Pressure : / mmHG Vent. Rate : 092 BPM Atrial Rate : 079 BPM P-R Int : 000 ms QRS Dur : 074 ms QT Int : 386 ms P-R-T Axes : 000 071 053 degrees QTc Int : 477 ms ATRIAL FIBRILLATION LOW VOLTAGE QRS ABNORMAL ECG WHEN COMPARED WITH ECG OF 01-NOV-2017 21:16, NO SIGNIFICANT CHANGE WAS FOUND Confirmed by ZOË COBURN MD ([id number]) on 11/08/2017 12:45:29 AM Referred By: Confirmed By:ZOË COBURN MD
[2017-11-08] MEDS: SODIUM CHLORIDE 0.45% 1,000 ML IV SCH ×4 (02:15→19:56)
[2017-11-08] MEDS ORDERED: PT OWN MED DRAWER 7, Y5N ONE (12:04)
[2017-11-08] MEDS ORDERED: HALOPERIDOL 2 MG TABLET PO PRN (12:05)
--- NOTE | 2017-11-08 12:05 | PN ---
Progress Note (short form) - Note Progress Note: Patient still a major management problem Continues to be on 1:1. Poor response to [facility].Plan: Increase Zyprexa 15mg po bid. will add Halidol 2mg po bid as well.
[2017-11-08] MEDS: OLANZapine 10 MG TABLET PO SCH ×2 (12:07→12:31)
[2017-11-08] MEDS: clonazePAM 0.5 MG TABLET PO SCH (12:07)
[2017-11-08] MEDS: RIVASTIGMINE 4.6 MG/24 HOURS TRANSDERMAL PATCH TD SCH (12:08)
[2017-11-08] MEDS: VALPROATE SODIUM 250 MG/5 ML UNIT DOSE CUP PO SCH ×2 (12:08→22:55)
[2017-11-08] MEDS: DOCUSATE SODIUM 100 MG CAPSULE (FP) PO SCH (12:09)
[2017-11-08] MEDS: APIXABAN 2.5 MG TABLET PO SCH ×2 (12:09→22:56)
[2017-11-08] MEDS ORDERED: HALOPERIDOL 1 MG TABLET (FP) PO PRN (12:39)
--- NOTE | 2017-11-08 14:34 | PN ---
Progress Note (short form) - Note Progress Note: note from psych reviewed and appreciated increase in meds today continue with 1:1 observation for safety Vital Signs Period Temp Pulse Resp BP Sys/Aguirre Pulse Ox Last 24 Hr 97.5 F-98.7 F -18 86-105 116-138/54-73 neck no JVD heart irreg lung clear abd sof t ext no edema CBC, BMP 11/07/17 12:50 11/07/17 12:50 sed rate 11 CRP 1.6 CK 290 LFT OK Microbiology 11/01/17 21:26 Blood - Peripheral Venous Blood Culture - Final NO GROWTH AFTER 5 DAYS INCUBATION 11/01/17 21:26 Blood - Peripheral Venous Blood Culture - Final NO GROWTH AFTER 5 DAYS INCUBATION Active Medications Acetaminophen (Tylenol -) 650 mg PO Q6H PRN PRN Reason: PAIN 1-5 Apixaban (Eliquis -) 2.5 mg PO BID [facility] Last Admin: 11/07/17 11:35 Dose: 2.5 mg Clonazepam (Klonopin -) 0.5 mg PO BID [facility] Last Admin: 11/07/17 11:33 Dose: 0.5 mg Docusate Sodium (Colace -) 100 mg PO BID [facility] Last Admin: 11/07/17 11:33 Dose: 100 mg Haloperidol (Haldol Injection (Fast Acting) -) 7 mg IM Q8H PRN PRN Reason: AGITATION Sodium Chloride (1/2 Normal Saline) 1,000 mls @ 200 mls/hr IV ASDIR [facility] Last Admin: 11/06/17 17:24 Dose: Not Given Olanzapine (Zyprexa -) 10 mg PO BID [facility] Last Admin: 11/07/17 11:37 Dose: 10 mg Rivastigmine (Exelon Patch 4.6mg/24 Hours -) 4.6 each TD DAILY [facility] Last Admin: 11/07/17 11:36 Dose: 4.6 each Valproate Sodium (Depakene -) 500 mg PO BID [facility] Last Admin: 11/07/17 11:33 Dose: 500 mg Active Medications Acetaminophen (Tylenol -) 650 mg PO Q6H PRN PRN Reason: PAIN 1-5 Apixaban (Eliquis -) 2.5 mg PO BID [facility] Last Admin: 11/08/17 12:09 Dose: 2.5 mg Docusate Sodium (Colace -) 100 mg PO BID [facility] Last Admin: 11/08/17 12:09 Dose: 100 mg Haloperidol (Haldol Injection (Fast Acting) -) 7 mg IM Q8H PRN PRN Reason: AGITATION Haloperidol (Haldol -) 2 mg PO BID [facility] Haloperidol (Haldol -) 2 mg PO BID PRN PRN Reason: AGITATION Sodium Chloride (1/2 Normal Saline) 1,000 mls @ 100 mls/hr IV ASDIR [facility] Olanzapine (Zyprexa -) 15 mg PO BID [facility] Rivastigmine (Exelon Patch 4.6mg/24 Hours -) 4.6 each TD DAILY [facility] Last Admin: 11/08/17 12:08 Dose: 4.6 each Valproate Sodium (Depakene -) 500 mg PO BID [facility] Last Admin: 11/08/17 12:08 Dose: 500 mg # dementia with behavior changes / aggressive tendencies patient with hx of dementia and agressive behavior over 6 months -- recently relocated from [facility] in view of travel and elevated eosinophils -- will evaluate for parasites labs reviewed no evidence of active process as cause of dementia appreciate psych / neuro eval and followup increase Zyprexa and Haldol on scheduled dosing will continue 1:1 awaiting bed -- [facility] psych unit for possible in-patient care # A fib continue NOAC # Rhabdo CK>1600 on admission -- trending down continue IV fluids -- follow CK CK normal decrease fluids to 100 cc/hr Problem List - Problems (1) Rhabdomyolysis Code(s): M62.82 - RHABDOMYOLYSIS (2) Dementia Code(s): F03.90 - UNSPECIFIED DEMENTIA WITHOUT BEHAVIORAL DISTURBANCE Qualifiers: Dementia type: Alzheimer's disease Alzheimer's disease onset: unspecified onset Dementia behavioral disturbance: with behavioral disturbance Qualified Code(s): G30.9 - Alzheimer's disease, unspecified; F02.81 - Dementia in other diseases classified elsewhere with behavioral disturbance; F02.81 - Dementia in other diseases classified elsewhere with behavioral disturbance; F02.81 - Dementia in other diseases classified elsewhere with behavioral disturbance (3) Altered mental status Code(s): R41.82 - ALTERED MENTAL STATUS, UNSPECIFIED (4) Atrial fibrillation Code(s): I48.91 - UNSPECIFIED ATRIAL FIBRILLATION
[2017-11-08] MEDS: DOCUSATE NA 100 MG/10 ML UNIT-DOSE CUPS PO SCH (22:55)
[2017-11-08] MEDS: OLANZapine 5 MG TABLET PO SCH (22:56)
[2017-11-08] MEDS: HALOPERIDOL 1 MG TABLET (FP) PO SCH (22:57)
[2017-11-09] MEDS: SODIUM CHLORIDE 0.45% 1,000 ML IV SCH ×2 (06:43→16:29)
--- NOTE | 2017-11-09 09:53 | PN ---
Progress Note (short form) - Note Progress Note: note from psych reviewed and appreciated increase in meds yesterday continue with 1:1 observation for safety was up till 4 am --now sleeping comfortably Vital Signs Period Temp Pulse Resp BP Sys/Aguirre Pulse Ox Last 24 Hr 97.5 F-97.8 F 80-88 18-20 110-138/61-70 98 neck no JVD heart irreg lung clear abd soft no tenderness elicited Ext - no edema / no calf tenderness Sed Rate 11 CRP 1.6 CK 290 LFT OK / renal function NL O& P ordered Microbiology 11/01/17 21:26 Blood - Peripheral Venous Blood Culture - Final NO GROWTH AFTER 5 DAYS INCUBATION 11/01/17 21:26 Blood - Peripheral Venous Blood Culture - Final NO GROWTH AFTER 5 DAYS INCUBATION Active Medications Acetaminophen (Tylenol -) 650 mg PO Q6H PRN PRN Reason: PAIN 1-5 Apixaban (Eliquis -) 2.5 mg PO BID [facility] Last Admin: 11/08/17 22:56 Dose: 2.5 mg Docusate Sodium (Colace Liquid -) 100 mg PO BID [facility] Last Admin: 11/08/17 22:55 Dose: 100 mg Haloperidol (Haldol Injection (Fast Acting) -) 7 mg IM Q8H PRN PRN Reason: AGITATION Haloperidol (Haldol -) 2 mg PO BID [facility] Last Admin: 11/08/17 22:57 Dose: 2 mg Haloperidol (Haldol -) 2 mg PO BID PRN PRN Reason: AGITATION Sodium Chloride (1/2 Normal Saline) 1,000 mls @ 100 mls/hr IV ASDIR [facility] Last Admin: 11/09/17 06:43 Dose: 100 mls/hr Olanzapine (Zyprexa -) 15 mg PO BID [facility] Last Admin: 11/08/17 22:56 Dose: 15 mg Rivastigmine (Exelon Patch 4.6mg/24 Hours -) 4.6 each TD DAILY [facility] Last Admin: 11/08/17 12:08 Dose: 4.6 each Valproate Sodium (Depakene -) 500 mg PO BID [facility] Last Admin: 11/08/17 22:55 Dose: 500 mg # dementia with behavior changes / aggressive tendencies patient with hx of dementia and agressive behavior over 6 months -- recently relocated from [facility] in view of travel and elevated eosinophils -- will evaluate for parasites labs reviewed no evidence of active process as cause of dementia appreciate psych / neuro eval and followup increase Zyprexa and Haldol on scheduled dosing will continue 1:1 awaiting bed -- [facility] psych unit for possible in-patient care # A fib continue NOAC # Rhabdo CK>1600 on admission -- trending down continue IV fluids -- follow CK CK normal decrease fluids to 100 cc/hr Problem List - Problems (1) Rhabdomyolysis Code(s): M62.82 - RHABDOMYOLYSIS (2) Dementia Code(s): F03.90 - UNSPECIFIED DEMENTIA WITHOUT BEHAVIORAL DISTURBANCE Qualifiers: Dementia type: Alzheimer's disease Alzheimer's disease onset: unspecified onset Dementia behavioral disturbance: with behavioral disturbance Qualified Code(s): G30.9 - Alzheimer's disease, unspecified; F02.81 - Dementia in other diseases classified elsewhere with behavioral disturbance; F02.81 - Dementia in other diseases classified elsewhere with behavioral disturbance; F02.81 - Dementia in other diseases classified elsewhere with behavioral disturbance (3) Altered mental status Code(s): R41.82 - ALTERED MENTAL STATUS, UNSPECIFIED (4) Atrial fibrillation Code(s): I48.91 - UNSPECIFIED ATRIAL FIBRILLATION
[2017-11-09] MEDS ORDERED: PT OWN MED DRAWER 7, Y5N ONE ×2 (11:16→20:06)
[2017-11-09] MEDS: DOCUSATE NA 100 MG/10 ML UNIT-DOSE CUPS PO SCH ×2 (11:42→22:43)
[2017-11-09] MEDS: VALPROATE SODIUM 250 MG/5 ML UNIT DOSE CUP PO SCH ×2 (11:42→22:43)
[2017-11-09] MEDS: APIXABAN 2.5 MG TABLET PO SCH ×2 (11:43→22:43)
[2017-11-09] MEDS: RIVASTIGMINE 4.6 MG/24 HOURS TRANSDERMAL PATCH TD SCH (11:44)
[2017-11-09] MEDS: HALOPERIDOL 1 MG TABLET (FP) PO SCH ×2 (11:45→22:43)
[2017-11-09] MEDS: OLANZapine 5 MG TABLET PO SCH ×2 (11:47→22:43)
[2017-11-09] MEDS: CHOLECALCIFEROL (VITAMIN D3) 1,000 UNIT TABLET (FP) PO SCH (11:49)
[2017-11-09] MEDS: MIRTAZAPINE 15 MG TABLET (FP) PO SCH (22:43)
[2017-11-10] MEDS: SODIUM CHLORIDE 0.45% 1,000 ML IV SCH ×2 (05:44→15:53)
[2017-11-10 07:47] LABS: BASO % 0.7 % (0-2.0); EOS % 6.8 % (0-4.5); HEMATOCRIT 38.3 % (35.4-49); HEMOGLOBIN 13.2 GM/dL (11.7-16.9); LYMPH % 22.6 % (8-40); MCH 30.8 pg (25.7-33.7); MCHC 34.6 g/dl (32.0-35.9); MEAN CELL VOLUME 89.1 fl (80-96); MEAN PLT VOLUME 9.2 fl (7.5-11.1); MONO % 11.2 % (3.8-10.2); NEUT % 58.7 % (42.8-82.8); PLATELET COUNT 126 K/MM3 (134-434); RDW 13.9 % (11.9-15.9); WHITE BLOOD COUNT 5.5 K/mm3 (4.0-10.0)
[2017-11-10 08:21] LABS: CHLORIDE 109 mmol/L (98-107); POTASSIUM 4.3 mmol/L (3.5-5.1); SODIUM 144 mmol/L (136-145)
[2017-11-10 08:33] LABS: ALBUMIN 3.1 g/dl (3.4-5.0); ALK PHOS 61 U/L (45-117); ANION GAP 6 (8-16); BILIRUBIN,TOTAL 0.9 mg/dL (0.2-1.0); BLOOD UREA NITROGEN 11 mg/dL (7-18); CALCIUM 8.4 mg/dL (8.5-10.1); CO2 29 mmol/L (21-32); CREATININE 0.9 mg/dL (0.7-1.3); GLUCOSE,RANDOM 84 mg/dL (74-106); SGOT/AST 55 U/L (15-37); SGPT/ALT 32 U/L (12-78); TOT PROT 5.7 g/dl (6.4-8.2)
--- NOTE | 2017-11-10 09:31 | PN ---
Progress Note (short form) - Note Progress Note: 82 y/o male continues to require one to one supervision. Per nsg, pt's behavior was improved yesterday with his one to one. Pt found sleeping this am. Vital Signs Period Temp Pulse Resp BP Sys/Aguirre Pulse Ox Last 24 Hr 97.3 F-97.8 F 61-86 20-22 135-152/55-72 98 CBC, BMP 11/10/17 07:21 11/10/17 07:21 HEENT-Normocephalic Neck- Supple Lungs- CTAB Heart- S1/S2 Abd- Pos BS x 4, soft, NT Ext- No LE edema Active Medications Acetaminophen (Tylenol -) 650 mg PO Q6H PRN PRN Reason: PAIN 1-5 Apixaban (Eliquis -) 2.5 mg PO BID [facility] Last Admin: 11/09/17 22:43 Dose: 2.5 mg Cholecalciferol (Vitamin D3 -) 1,000 unit PO DAILY [facility] Last Admin: 11/09/17 11:49 Dose: 1,000 unit Docusate Sodium (Colace Liquid -) 100 mg PO BID [facility] Last Admin: 11/09/17 22:43 Dose: 100 mg Haloperidol (Haldol Injection (Fast Acting) -) 7 mg IM Q8H PRN PRN Reason: AGITATION Haloperidol (Haldol -) 2 mg PO BID [facility] Last Admin: 11/09/17 22:43 Dose: 2 mg Haloperidol (Haldol -) 2 mg PO BID PRN PRN Reason: AGITATION Sodium Chloride (1/2 Normal Saline) 1,000 mls @ 100 mls/hr IV ASDIR [facility] Last Admin: 11/10/17 05:44 Dose: 100 mls/hr Mirtazapine (Remeron -) 15 mg PO HS [facility] Last Admin: 11/09/17 22:43 Dose: 15 mg Olanzapine (Zyprexa -) 15 mg PO BID [facility] Last Admin: 11/09/17 22:43 Dose: 15 mg Rivastigmine (Exelon Patch 4.6mg/24 Hours -) 4.6 each TD DAILY [facility] Last Admin: 11/09/17 11:44 Dose: 4.6 each Valproate Sodium (Depakene -) 500 mg PO BID [facility] Last Admin: 11/09/17 22:43 Dose: 500 mg # dementia with aggressive tendencies Zyprexa and Haldol just added/ increased continue 1:1/ redirecting continue Exelon patch/ Remeron and Depakene continue to encourage medication compliance awaiting bed -- [facility] psych unit for possible in-patient care # A fib continue Eliquis # Rhabdo continue IV fluids CK normal fluids now 100 cc/hr Problem List - Problems (1) Rhabdomyolysis Code(s): M62.82 - RHABDOMYOLYSIS (2) Dementia Code(s): F03.90 - UNSPECIFIED DEMENTIA WITHOUT BEHAVIORAL DISTURBANCE Qualifiers: Dementia type: Alzheimer's disease Alzheimer's disease onset: unspecified onset Dementia behavioral disturbance: with behavioral disturbance Qualified Code(s): G30.9 - Alzheimer's disease, unspecified; F02.81 - Dementia in other diseases classified elsewhere with behavioral disturbance; F02.81 - Dementia in other diseases classified elsewhere with behavioral disturbance; F02.81 - Dementia in other diseases classified elsewhere with behavioral disturbance (3) Altered mental status Code(s): R41.82 - ALTERED MENTAL STATUS, UNSPECIFIED (4) Atrial fibrillation Code(s): I48.91 - UNSPECIFIED ATRIAL FIBRILLATION
[2017-11-10] MEDS ORDERED: PT OWN MED DRAWER 7, Y5N ONE (10:54)
[2017-11-10] MEDS: VALPROATE SODIUM 250 MG/5 ML UNIT DOSE CUP PO SCH ×2 (12:48→21:18)
[2017-11-10] MEDS: DOCUSATE NA 100 MG/10 ML UNIT-DOSE CUPS PO SCH ×2 (12:49→21:19)
[2017-11-10] MEDS: RIVASTIGMINE 4.6 MG/24 HOURS TRANSDERMAL PATCH TD SCH (12:49)
[2017-11-10] MEDS: APIXABAN 2.5 MG TABLET PO SCH ×2 (12:49→21:18)
[2017-11-10] MEDS: HALOPERIDOL 1 MG TABLET (FP) PO SCH ×2 (12:50→21:19)
[2017-11-10] MEDS: CHOLECALCIFEROL (VITAMIN D3) 1,000 UNIT TABLET (FP) PO SCH (12:51)
[2017-11-10] MEDS: OLANZapine 5 MG TABLET PO SCH ×2 (12:51→21:19)
[2017-11-10] MEDS: MIRTAZAPINE 15 MG TABLET (FP) PO SCH (21:19)
[2017-11-11 07:50] LABS: CHLORIDE 108 mmol/L (98-107); POTASSIUM 3.8 mmol/L (3.5-5.1); SODIUM 143 mmol/L (136-145)
[2017-11-11 07:53] LABS: BASO % 0.6 % (0-2.0); EOS % 6.2 % (0-4.5); HEMATOCRIT 37.3 % (35.4-49); LYMPH % 21.7 % (8-40); MCH 30.9 pg (25.7-33.7); MCHC 34.9 g/dl (32.0-35.9); MEAN CELL VOLUME 88.6 fl (80-96); MEAN PLT VOLUME 9.1 fl (7.5-11.1); MONO % 10.4 % (3.8-10.2); NEUT % 61.1 % (42.8-82.8); PLATELET COUNT 166 K/MM3 (134-434); RBC 4.21 M/mm3 (4.00-5.60); RDW 13.6 % (11.9-15.9); WHITE BLOOD COUNT 5.7 K/mm3 (4.0-10.0)
[2017-11-11 07:58] LABS: ALBUMIN 3.2 g/dl (3.4-5.0); ALK PHOS 57 U/L (45-117); ANION GAP 7 (8-16); BLOOD UREA NITROGEN 13 mg/dL (7-18); CALCIUM 8.7 mg/dL (8.5-10.1); CO2 28 mmol/L (21-32); CREATININE 0.8 mg/dL (0.7-1.3); GLUCOSE,RANDOM 79 mg/dL (74-106); SGOT/AST 59 U/L (15-37); SGPT/ALT 32 U/L (12-78); TOT PROT 5.7 g/dl (6.4-8.2)
--- NOTE | 2017-11-11 10:44 | PN ---
Progress Note (short form) - Note Progress Note: 82 y/o male found sitting in chair with one to one sitter. Pt appears calm at the moment. However, per staff, pt was agitated and hallucinated at 2:30 am and needed Haldol PRN. Vital Signs Period Temp Pulse Resp BP Sys/Aguirre Pulse Ox Last 24 Hr 97.5 F-97.9 F 87-100 18-20 105-141/49-89 100 CBC, BMP 11/11/17 06:00 11/11/17 06:00 HEENT- NL Neck-Supple Lungs- CTAB Heart- S1/S2 Abd- Pos BS x 4, soft, NT Ext- No LE edema Active Medications Acetaminophen (Tylenol -) 650 mg PO Q6H PRN PRN Reason: PAIN 1-5 Apixaban (Eliquis -) 2.5 mg PO BID [facility] Last Admin: 11/10/17 21:18 Dose: 2.5 mg Cholecalciferol (Vitamin D3 -) 1,000 unit PO DAILY [facility] Last Admin: 11/10/17 12:51 Dose: 1,000 unit Docusate Sodium (Colace Liquid -) 100 mg PO BID [facility] Last Admin: 11/10/17 21:19 Dose: Not Given Haloperidol (Haldol Injection (Fast Acting) -) 7 mg IM Q8H PRN PRN Reason: AGITATION Haloperidol (Haldol -) 2 mg PO BID [facility] Last Admin: 11/10/17 21:19 Dose: 2 mg Haloperidol (Haldol -) 2 mg PO BID PRN PRN Reason: AGITATION Last Admin: 11/11/17 02:43 Dose: 2 mg Sodium Chloride (1/2 Normal Saline) 1,000 mls @ 100 mls/hr IV ASDIR [facility] Last Admin: 11/10/17 15:53 Dose: 100 mls/hr Mirtazapine (Remeron -) 15 mg PO HS [facility] Last Admin: 11/10/17 21:19 Dose: 15 mg Olanzapine (Zyprexa -) 15 mg PO BID [facility] Last Admin: 11/10/17 21:19 Dose: 15 mg Rivastigmine (Exelon Patch 4.6mg/24 Hours -) 4.6 each TD DAILY [facility] Last Admin: 11/10/17 12:49 Dose: 4.6 each Valproate Sodium (Depakene -) 500 mg PO BID [facility] Last Admin: 11/10/17 21:18 Dose: 500 mg # dementia with aggressive tendencies Continue Zyprexa and Haldol continue 1:1/ redirecting continue Exelon patch/ Remeron and Depakene continue to encourage medication compliance awaiting bed -- [facility] psych unit for possible in-patient care # A fib continue NOAC # Rhabdo continue IV fluids CK normal fluids now 100 cc/hr Problem List - Problems (1) Rhabdomyolysis Code(s): M62.82 - RHABDOMYOLYSIS (2) Dementia Code(s): F03.90 - UNSPECIFIED DEMENTIA WITHOUT BEHAVIORAL DISTURBANCE Qualifiers: Dementia type: Alzheimer's disease Alzheimer's disease onset: unspecified onset Dementia behavioral disturbance: with behavioral disturbance Qualified Code(s): G30.9 - Alzheimer's disease, unspecified; F02.81 - Dementia in other diseases classified elsewhere with behavioral disturbance; F02.81 - Dementia in other diseases classified elsewhere with behavioral disturbance; F02.81 - Dementia in other diseases classified elsewhere with behavioral disturbance (3) Altered mental status Code(s): R41.82 - ALTERED MENTAL STATUS, UNSPECIFIED (4) Atrial fibrillation Code(s): I48.91 - UNSPECIFIED ATRIAL FIBRILLATION
[2017-11-11] MEDS ORDERED: PT OWN MED DRAWER 7, Y5N ONE (11:58)
[2017-11-11] MEDS: VALPROATE SODIUM 250 MG/5 ML UNIT DOSE CUP PO SCH ×2 (12:50→22:28)
[2017-11-11] MEDS: DOCUSATE NA 100 MG/10 ML UNIT-DOSE CUPS PO SCH ×2 (12:50→22:29)
[2017-11-11] MEDS: OLANZapine 5 MG TABLET PO SCH ×2 (12:50→22:28)
[2017-11-11] MEDS: CHOLECALCIFEROL (VITAMIN D3) 1,000 UNIT TABLET (FP) PO SCH (12:51)
[2017-11-11] MEDS: RIVASTIGMINE 4.6 MG/24 HOURS TRANSDERMAL PATCH TD SCH (12:51)
[2017-11-11] MEDS: HALOPERIDOL 1 MG TABLET (FP) PO SCH ×2 (12:51→22:29)
[2017-11-11] MEDS: APIXABAN 2.5 MG TABLET PO SCH ×2 (12:51→22:29)
[2017-11-11] MEDS: SODIUM CHLORIDE 0.45% 1,000 ML IV SCH (15:54)
[2017-11-11] MEDS ORDERED: HALOPERIDOL 2 MG TABLET PO PRN (21:24)
[2017-11-11] MEDS ORDERED: HALOPERIDOL 1 MG TABLET (FP) PO PRN (21:27)
[2017-11-11] MEDS: MIRTAZAPINE 15 MG TABLET (FP) PO SCH (22:28)
[2017-11-12] MEDS: OLANZapine 5 MG TABLET PO SCH (09:58)
[2017-11-12] MEDS: VALPROATE SODIUM 250 MG/5 ML UNIT DOSE CUP PO SCH ×2 (09:58→23:10)
[2017-11-12] MEDS: DOCUSATE NA 100 MG/10 ML UNIT-DOSE CUPS PO SCH ×2 (09:58→23:09)
[2017-11-12] MEDS: CHOLECALCIFEROL (VITAMIN D3) 1,000 UNIT TABLET (FP) PO SCH (09:58)
[2017-11-12] MEDS: APIXABAN 2.5 MG TABLET PO SCH ×2 (09:59→23:10)
[2017-11-12] MEDS: RIVASTIGMINE 4.6 MG/24 HOURS TRANSDERMAL PATCH TD SCH (09:59)
[2017-11-12] MEDS: HALOPERIDOL 1 MG TABLET (FP) PO SCH ×2 (10:00→23:12)
--- NOTE | 2017-11-12 14:00 | PN ---
Progress Note (short form) - Note Progress Note: episodes of combativeness / recently received haldol sleeping comfortably (1pm) -- but is disruptive during night hours discussed with psych and will adjust meds continue with 1:1 observation for safety Vital Signs Period Temp Pulse Resp BP Sys/Aguirre Pulse Ox Last 24 Hr 97.4 F-98.5 F 75-93 18-20 102-134/67-81 95 neck no JVD heart irreg lung clear abd soft no tenderness elicited Ext - no edema / no calf tenderness Sed Rate 11 CRP 1.6 CK nl LFT OK / renal function NL O& P all negative Microbiology 11/09/17 15:00 Stool Salmonella/Shigella Culture - Final NO GROWTH OF SALMONELLA OR SHIGELLA SPECIES OBTAINED 11/09/17 15:00 Stool Campylobacter Culture - Final NO GROWTH OF CAMPYLOBACTER SPECIES OBTAINED 11/09/17 15:00 Stool Yersinia Culture - Final NO GROWTH OF YERSINIA SPECIES OBTAINED 11/09/17 15:00 Stool Vibrio Culture - Final NO GROWTH OF VIBRIO SPECIES OBTAINED 11/09/17 15:00 Stool Escherichia coli 0157 Culture - Final NO GROWTH OF E COLI 0157 OBTAINED 11/01/17 21:26 Blood - Peripheral Venous Blood Culture - Final NO GROWTH AFTER 5 DAYS INCUBATION 11/01/17 21:26 Blood - Peripheral Venous Blood Culture - Final NO GROWTH AFTER 5 DAYS INCUBATION Active Medications Acetaminophen (Tylenol -) 650 mg PO Q6H PRN PRN Reason: PAIN 1-5 Apixaban (Eliquis -) 2.5 mg PO BID [facility] Last Admin: 11/12/17 09:59 Dose: 2.5 mg Cholecalciferol (Vitamin D3 -) 1,000 unit PO DAILY [facility] Last Admin: 11/12/17 09:58 Dose: 1,000 unit Docusate Sodium (Colace Liquid -) 100 mg PO BID [facility] Last Admin: 11/12/17 09:58 Dose: 100 mg Haloperidol (Haldol Injection (Fast Acting) -) 7 mg IM Q8H PRN PRN Reason: AGITATION Haloperidol (Haldol -) 2 mg PO BID [facility] Last Admin: 11/12/17 10:00 Dose: 2 mg Haloperidol (Haldol -) 2 mg PO BID PRN PRN Reason: AGITATION Sodium Chloride (1/2 Normal Saline) 1,000 mls @ 100 mls/hr IV ASDIR [facility] Last Admin: 11/11/17 15:54 Dose: 100 mls/hr Mirtazapine (Remeron -) 15 mg PO HS [facility] Last Admin: 11/11/17 22:28 Dose: 15 mg Olanzapine (Zyprexa -) 15 mg PO BID [facility] Last Admin: 11/12/17 09:58 Dose: 15 mg Rivastigmine (Exelon Patch 4.6mg/24 Hours -) 4.6 each TD DAILY [facility] Last Admin: 11/12/17 09:59 Dose: 4.6 each Valproate Sodium (Depakene -) 500 mg PO BID [facility] Last Admin: 11/12/17 09:58 Dose: 500 mg # dementia with behavior changes / aggressive tendencies patient with hx of dementia and agressive behavior over 6 months -- recently relocated from [facility] psych / neuro eval and followup will increase Zyprexa to 20 mg BID per psych and continue Haldol on scheduled dosing will continue 1:1 awaiting bed -- [facility] psych unit for possible in-patient care # A fib continue NOAC # Rhabdo resolved Problem List - Problems (1) Rhabdomyolysis Code(s): M62.82 - RHABDOMYOLYSIS (2) Dementia Code(s): F03.90 - UNSPECIFIED DEMENTIA WITHOUT BEHAVIORAL DISTURBANCE Qualifiers: Dementia type: Alzheimer's disease Alzheimer's disease onset: unspecified onset Dementia behavioral disturbance: with behavioral disturbance Qualified Code(s): G30.9 - Alzheimer's disease, unspecified; F02.81 - Dementia in other diseases classified elsewhere with behavioral disturbance; F02.81 - Dementia in other diseases classified elsewhere with behavioral disturbance; F02.81 - Dementia in other diseases classified elsewhere with behavioral disturbance (3) Altered mental status Code(s): R41.82 - ALTERED MENTAL STATUS, UNSPECIFIED (4) Atrial fibrillation Code(s): I48.91 - UNSPECIFIED ATRIAL FIBRILLATION
[2017-11-12] MEDS: SODIUM CHLORIDE 0.45% 1,000 ML IV SCH ×2 (14:08→23:49)
[2017-11-12] MEDS ORDERED: OLANZapine 10 MG TABLET PO SCH (22:00)
[2017-11-12] MEDS: TEMAZEPAM 15 MG CAPSULE PO SCH (23:12)
[2017-11-12] MEDS: MIRTAZAPINE 15 MG TABLET (FP) PO SCH (23:12)
[2017-11-12] MEDS ORDERED: PT OWN MED DRAWER 7, Y5N ONE (23:14)
[2017-11-13] MEDS: OLANZapine 5 MG TABLET PO SCH ×3 (07:06→23:07)
[2017-11-13] MEDS: SODIUM CHLORIDE 0.45% 1,000 ML IV SCH ×2 (09:57→20:29)
[2017-11-13] MEDS ORDERED: PT OWN MED DRAWER 7, Y5N ONE ×3 (12:22→22:57)
[2017-11-13] MEDS: DOCUSATE NA 100 MG/10 ML UNIT-DOSE CUPS PO SCH ×2 (12:28→23:03)
[2017-11-13] MEDS: RIVASTIGMINE 4.6 MG/24 HOURS TRANSDERMAL PATCH TD SCH (12:28)
[2017-11-13] MEDS: HALOPERIDOL 1 MG TABLET (FP) PO SCH ×2 (12:29→23:05)
[2017-11-13] MEDS: VALPROATE SODIUM 250 MG/5 ML UNIT DOSE CUP PO SCH ×2 (12:29→23:03)
[2017-11-13] MEDS: CHOLECALCIFEROL (VITAMIN D3) 1,000 UNIT TABLET (FP) PO SCH (12:29)
[2017-11-13] MEDS: APIXABAN 2.5 MG TABLET PO SCH ×2 (12:29→23:04)
[2017-11-13] MEDS ORDERED: HALOPERIDOL 1 MG TABLET (FP) PO PRN (13:28)
--- NOTE | 2017-11-13 13:42 | PN ---
Progress Note (short form) - Note Progress Note: new med dosing last night slept all night -- however still sleeping at lunch time did not have am Zyrexa only few bites of lunch / arousalable with noxious stimuli although sitting up in chair -- falls asleep immediately Vital Signs Period Temp Pulse Resp BP Sys/Aguirre Pulse Ox Last 24 Hr 97.1 F-97.9 F 80-92 18-22 121-138/64-92 95 neck no JVD heart irreg lung clear abd soft no tenderness elicited Ext - no edema / no calf tenderness Sed Rate 11 CRP 1.6 CK nl LFT OK / renal function NL O& P all negative Microbiology 11/09/17 15:00 Stool Salmonella/Shigella Culture - Final NO GROWTH OF SALMONELLA OR SHIGELLA SPECIES OBTAINED 11/09/17 15:00 Stool Campylobacter Culture - Final NO GROWTH OF CAMPYLOBACTER SPECIES OBTAINED 11/09/17 15:00 Stool Yersinia Culture - Final NO GROWTH OF YERSINIA SPECIES OBTAINED 11/09/17 15:00 Stool Vibrio Culture - Final NO GROWTH OF VIBRIO SPECIES OBTAINED 11/09/17 15:00 Stool Escherichia coli 0157 Culture - Final NO GROWTH OF E COLI 0157 OBTAINED 11/01/17 21:26 Blood - Peripheral Venous Blood Culture - Final NO GROWTH AFTER 5 DAYS INCUBATION 11/01/17 21:26 Blood - Peripheral Venous Blood Culture - Final NO GROWTH AFTER 5 DAYS INCUBATION Active Medications Acetaminophen (Tylenol -) 650 mg PO Q6H PRN PRN Reason: PAIN 1-5 Apixaban (Eliquis -) 2.5 mg PO BID [facility] Last Admin: 11/13/17 12:29 Dose: 2.5 mg Cholecalciferol (Vitamin D3 -) 1,000 unit PO DAILY [facility] Last Admin: 11/13/17 12:29 Dose: 1,000 unit Docusate Sodium (Colace Liquid -) 100 mg PO BID [facility] Last Admin: 11/13/17 12:28 Dose: Not Given Haloperidol (Haldol -) 1 mg PO BID PRN PRN Reason: AGITATION Haloperidol (Haldol -) 1 mg PO BID [facility] Haloperidol (Haldol Injection (Fast Acting) -) 5 mg IM Q8H PRN PRN Reason: AGITATION Sodium Chloride (1/2 Normal Saline) 1,000 mls @ 100 mls/hr IV ASDIR [facility] Last Admin: 05/27/18 09:57 Dose: 100 mls/hr Mirtazapine (Remeron -) 15 mg PO HS [facility] Last Admin: 11/12/17 23:12 Dose: 15 mg Olanzapine (Zyprexa -) 20 mg PO HS [facility] Last Admin: 11/12/17 23:14 Dose: 20 mg Rivastigmine (Exelon Patch 4.6mg/24 Hours -) 4.6 each TD DAILY [facility] Last Admin: 11/13/17 12:28 Dose: 4.6 each Temazepam (Restoril -) 15 mg PO HS [facility] Last Admin: 11/12/17 23:12 Dose: 15 mg Valproate Sodium (Depakene -) 500 mg PO BID [facility] Last Admin: 11/13/17 12:29 Dose: 500 mg # dementia with behavior changes / aggressive tendencies patient with hx of dementia since 2011 -- recently relocated from [facility] psych / neuro eval and followup although meds increased yesterday may have exceeded tolerance -- will taper zyprexa hold am dose today - keep PM dose at 15 continue restoril / remeron /depakote taper haldol to 1 mg BID barbara will continue 1:1 goal to re establish day / night pattern # A fib continue NOAC # Rhabdo resolved Problem List - Problems (1) Rhabdomyolysis Code(s): M62.82 - RHABDOMYOLYSIS (2) Dementia Code(s): F03.90 - UNSPECIFIED DEMENTIA WITHOUT BEHAVIORAL DISTURBANCE Qualifiers: Dementia type: Alzheimer's disease Alzheimer's disease onset: unspecified onset Dementia behavioral disturbance: with behavioral disturbance Qualified Code(s): G30.9 - Alzheimer's disease, unspecified; F02.81 - Dementia in other diseases classified elsewhere with behavioral disturbance; F02.81 - Dementia in other diseases classified elsewhere with behavioral disturbance; F02.81 - Dementia in other diseases classified elsewhere with behavioral disturbance (3) Altered mental status Code(s): R41.82 - ALTERED MENTAL STATUS, UNSPECIFIED (4) Atrial fibrillation Code(s): I48.91 - UNSPECIFIED ATRIAL FIBRILLATION
[2017-11-13] MEDS ORDERED: HALOPERIDOL LACTATE 5 MG/ML IM PRN (13:44)
[2017-11-13] MEDS: MIRTAZAPINE 15 MG TABLET (FP) PO SCH (23:06)
[2017-11-13] MEDS: TEMAZEPAM 15 MG CAPSULE PO SCH (23:06)
[2017-11-14] MEDS: SODIUM CHLORIDE 0.45% 1,000 ML IV SCH ×2 (07:03→15:32)
[2017-11-14 07:30] LABS: BASO % 0.8 % (0-2.0); EOS % 6.2 % (0-4.5); HEMATOCRIT 36.8 % (35.4-49); HEMOGLOBIN 12.8 GM/dL (11.7-16.9); LYMPH % 19.2 % (8-40); MCH 31.1 pg (25.7-33.7); MCHC 34.7 g/dl (32.0-35.9); MEAN CELL VOLUME 89.6 fl (80-96); MEAN PLT VOLUME 8.7 fl (7.5-11.1); MONO % 10.8 % (3.8-10.2); PLATELET COUNT 175 K/MM3 (134-434); RDW 13.8 % (11.9-15.9); WHITE BLOOD COUNT 6.9 K/mm3 (4.0-10.0)
[2017-11-14 07:39] LABS: ALBUMIN 3.5 g/dl (3.4-5.0); ALK PHOS 71 U/L (45-117); ANION GAP 7 (8-16); BILIRUBIN,TOTAL 0.6 mg/dL (0.2-1.0); BLOOD UREA NITROGEN 21 mg/dL (7-18); CALCIUM 8.8 mg/dL (8.5-10.1); CHLORIDE 107 mmol/L (98-107); CO2 27 mmol/L (21-32); CREATININE 0.9 mg/dL (0.7-1.3); GLUCOSE,RANDOM 86 mg/dL (74-106); SGOT/AST 35 U/L (15-37); SGPT/ALT 28 U/L (12-78); SODIUM 141 mmol/L (136-145)
[2017-11-14] MEDS ORDERED: PT OWN MED DRAWER 7, Y5N ONE (09:29)
[2017-11-14] MEDS: DOCUSATE NA 100 MG/10 ML UNIT-DOSE CUPS PO SCH ×2 (09:32→21:21)
[2017-11-14] MEDS: VALPROATE SODIUM 250 MG/5 ML UNIT DOSE CUP PO SCH ×2 (09:32→21:21)
[2017-11-14] MEDS: OLANZapine 5 MG TABLET PO SCH ×2 (09:32→21:22)
[2017-11-14] MEDS: CHOLECALCIFEROL (VITAMIN D3) 1,000 UNIT TABLET (FP) PO SCH (09:32)
[2017-11-14] MEDS: APIXABAN 2.5 MG TABLET PO SCH ×2 (09:32→21:21)
[2017-11-14] MEDS: HALOPERIDOL 1 MG TABLET (FP) PO SCH ×2 (09:33→21:21)
[2017-11-14] MEDS: RIVASTIGMINE 4.6 MG/24 HOURS TRANSDERMAL PATCH TD SCH (09:34)
--- NOTE | 2017-11-14 11:15 | PN ---
Progress Note (short form) - Note Progress Note: seen and examined in the room Father Roc veras Patient awake and cooperative /not oriented to time or place no aggressive events in last couple of days improved PO intake Vital Signs Period Temp Pulse Resp BP Sys/Aguirre Pulse Ox Last 24 Hr 97.5 F-97.7 F 69-102 20-20 100-141/58-79 98 neck no JVD heart irreg lung clear abd soft no tenderness elicited Ext - no edema / no calf tenderness / LE stiffness passive ROM CBC, BMP 11/14/17 06:45 11/14/17 06:45 Sed Rate 11 CRP 1.6 CK nl LFT OK / renal function NL O& P all negative Microbiology 11/09/17 15:00 Stool Salmonella/Shigella Culture - Final NO GROWTH OF SALMONELLA OR SHIGELLA SPECIES OBTAINED 11/09/17 15:00 Stool Campylobacter Culture - Final NO GROWTH OF CAMPYLOBACTER SPECIES OBTAINED 11/09/17 15:00 Stool Yersinia Culture - Final NO GROWTH OF YERSINIA SPECIES OBTAINED 11/09/17 15:00 Stool Vibrio Culture - Final NO GROWTH OF VIBRIO SPECIES OBTAINED 11/09/17 15:00 Stool Escherichia coli 0157 Culture - Final NO GROWTH OF E COLI 0157 OBTAINED 11/01/17 21:26 Blood - Peripheral Venous Blood Culture - Final NO GROWTH AFTER 5 DAYS INCUBATION 11/01/17 21:26 Blood - Peripheral Venous Blood Culture - Final NO GROWTH AFTER 5 DAYS INCUBATION Active Medications Acetaminophen (Tylenol -) 650 mg PO Q6H PRN PRN Reason: PAIN 1-5 Apixaban (Eliquis -) 2.5 mg PO BID [facility] Last Admin: 11/14/17 09:32 Dose: 2.5 mg Cholecalciferol (Vitamin D3 -) 1,000 unit PO DAILY [facility] Last Admin: 11/14/17 09:32 Dose: 1,000 unit Docusate Sodium (Colace Liquid -) 100 mg PO BID [facility] Last Admin: 11/14/17 09:32 Dose: 100 mg Haloperidol (Haldol -) 1 mg PO Q12H PRN PRN Reason: AGITATION Last Admin: 11/14/17 01:18 Dose: 1 mg Haloperidol (Haldol -) 1 mg PO BID [facility] Last Admin: 11/14/17 09:33 Dose: 1 mg Haloperidol (Haldol Injection (Fast Acting) -) 5 mg IM Q8H PRN PRN Reason: AGITATION Sodium Chloride (1/2 Normal Saline) 1,000 mls @ 100 mls/hr IV ASDIR COUNT [facility]CLUDES [facility] Last Admin: 11/14/17 07:03 Dose: 100 mls/hr Mirtazapine (Remeron -) 15 mg PO HS [facility] Last Admin: 11/13/17 23:06 Dose: 15 mg Olanzapine (Zyprexa -) 15 mg PO HS [facility] Last Admin: 11/13/17 23:07 Dose: 15 mg Olanzapine (Zyprexa -) 10 mg PO AM [facility] Last Admin: 11/14/17 09:32 Dose: 10 mg Rivastigmine (Exelon Patch 4.6mg/24 Hours -) 4.6 each TD DAILY [facility] Last Admin: 11/14/17 09:34 Dose: 4.6 each Temazepam (Restoril -) 15 mg PO HS [facility] Last Admin: 11/13/17 23:06 Dose: 15 mg Valproate Sodium (Depakene -) 500 mg PO BID [facility] Last Admin: 11/14/17 09:32 Dose: 500 mg required Haldol 1 mg PO at 1 am last night otherwise uneventful assment / Plan # dementia with behavior changes / aggressive tendencies -- now better controlled patient with hx of dementia since 2011 -- recently relocated from [facility] psych / neuro eval and followup Meds tapered yesterday - staff reports slept through the night without events, awake this am -- will continue current med dosing -- will continue 1:1 will need PT / recalled needs PT to be able to resume ambulation STR --- discussed disposition with HCP will try [facility] for possible transfer. # A fib continue NOAC # Rhabdo resolved Problem List - Problems (1) Rhabdomyolysis Code(s): M62.82 - RHABDOMYOLYSIS (2) Dementia Code(s): F03.90 - UNSPECIFIED DEMENTIA WITHOUT BEHAVIORAL DISTURBANCE Qualifiers: Dementia type: Alzheimer's disease Alzheimer's disease onset: unspecified onset Dementia behavioral disturbance: with behavioral disturbance Qualified Code(s): G30.9 - Alzheimer's disease, unspecified; F02.81 - Dementia in other diseases classified elsewhere with behavioral disturbance; F02.81 - Dementia in other diseases classified elsewhere with behavioral disturbance; F02.81 - Dementia in other diseases classified elsewhere with behavioral disturbance (3) Altered mental status Code(s): R41.82 - ALTERED MENTAL STATUS, UNSPECIFIED (4) Atrial fibrillation Code(s): I48.91 - UNSPECIFIED ATRIAL FIBRILLATION
[2017-11-14] MEDS: TEMAZEPAM 15 MG CAPSULE PO SCH (21:22)
[2017-11-14] MEDS: MIRTAZAPINE 15 MG TABLET (FP) PO SCH (21:22)
[2017-11-15] MEDS: OLANZapine 5 MG TABLET PO SCH ×2 (06:15→23:12)
[2017-11-15] MEDS ORDERED: PT OWN MED DRAWER 7, Y5N ONE ×3 (09:45→22:46)
--- NOTE | 2017-11-15 10:57 | PN ---
Progress Note (short form) - Note Progress Note: seen and examined in the room was awake till report checker , drowsy this am arrousable - follows commands / more cooperative remains with 1;1 for safety Vital Signs Period Temp Pulse Resp BP Sys/Aguirre Pulse Ox Last 24 Hr 97.4 F-98.7 F 70-87 18-20 111-136/55-79 98 neck no JVD heart irreg lung clear abd soft no tenderness elicited Ext - +1 edema / no calf tenderness / + pulses CBC, BMP 11/14/17 06:45 11/14/17 06:45 Sed Rate 11 CRP 1.6 CK nl LFT OK / renal function NL O& P all negative Microbiology 11/09/17 15:00 Stool Salmonella/Shigella Culture - Final NO GROWTH OF SALMONELLA OR SHIGELLA SPECIES OBTAINED 11/09/17 15:00 Stool Campylobacter Culture - Final NO GROWTH OF CAMPYLOBACTER SPECIES OBTAINED 11/09/17 15:00 Stool Yersinia Culture - Final NO GROWTH OF YERSINIA SPECIES OBTAINED 11/09/17 15:00 Stool Vibrio Culture - Final NO GROWTH OF VIBRIO SPECIES OBTAINED 11/09/17 15:00 Stool Escherichia coli 0157 Culture - Final NO GROWTH OF E COLI 0157 OBTAINED 11/01/17 21:26 Blood - Peripheral Venous Blood Culture - Final NO GROWTH AFTER 5 DAYS INCUBATION 11/01/17 21:26 Blood - Peripheral Venous Blood Culture - Final NO GROWTH AFTER 5 DAYS INCUBATION Active Medications Acetaminophen (Tylenol -) 650 mg PO Q6H PRN PRN Reason: PAIN 1-5 Apixaban (Eliquis -) 2.5 mg PO BID [facility] Last Admin: 11/14/17 21:21 Dose: 2.5 mg Cholecalciferol (Vitamin D3 -) 1,000 unit PO DAILY [facility] Last Admin: 11/14/17 09:32 Dose: 1,000 unit Docusate Sodium (Colace Liquid -) 100 mg PO BID [facility] Last Admin: 11/14/17 21:21 Dose: 100 mg Haloperidol (Haldol -) 1 mg PO Q12H PRN PRN Reason: AGITATION Last Admin: 11/14/17 01:18 Dose: 1 mg Haloperidol (Haldol -) 1 mg PO BID [facility] Last Admin: 11/14/17 21:21 Dose: 1 mg Haloperidol (Haldol Injection (Fast Acting) -) 5 mg IM Q8H PRN PRN Reason: AGITATION Sodium Chloride (1/2 Normal Saline) 1,000 mls @ 100 mls/hr IV ASDIR [facility] Last Admin: 11/14/17 15:32 Dose: Not Given Mirtazapine (Remeron -) 15 mg PO HS [facility] Last Admin: 11/14/17 21:22 Dose: 15 mg Olanzapine (Zyprexa -) 15 mg PO HS [facility] Last Admin: 11/14/17 21:22 Dose: 15 mg Olanzapine (Zyprexa -) 10 mg PO AM [facility] Last Admin: 11/15/17 06:15 Dose: 10 mg Rivastigmine (Exelon Patch 4.6mg/24 Hours -) 4.6 each TD DAILY [facility] Last Admin: 11/14/17 09:34 Dose: 4.6 each Temazepam (Restoril -) 15 mg PO HS [facility] Last Admin: 11/14/17 21:22 Dose: 15 mg Valproate Sodium (Depakene -) 500 mg PO BID [facility] Last Admin: 11/14/17 21:21 Dose: 500 mg assment / Plan # dementia with behavior changes / aggressive tendencies -- now better controlled patient with hx of dementia since 2011 -- recently relocated from [facility] psych / neuro eval and followup Meds tapered yesterday -awake most of the night - drowsy this am -- will adjust current med dosing -- will continue 1:1 will need PT / to resume ambulation STR --- discussed disposition with HCP will try [facility] for possible transfer. # A fib continue NOAC # Rhabdo resolved Problem List - Problems (1) Rhabdomyolysis Code(s): M62.82 - RHABDOMYOLYSIS (2) Dementia Code(s): F03.90 - UNSPECIFIED DEMENTIA WITHOUT BEHAVIORAL DISTURBANCE Qualifiers: Dementia type: Alzheimer's disease Alzheimer's disease onset: unspecified onset Dementia behavioral disturbance: with behavioral disturbance Qualified Code(s): G30.9 - Alzheimer's disease, unspecified; F02.81 - Dementia in other diseases classified elsewhere with behavioral disturbance; F02.81 - Dementia in other diseases classified elsewhere with behavioral disturbance; F02.81 - Dementia in other diseases classified elsewhere with behavioral disturbance (3) Altered mental status Code(s): R41.82 - ALTERED MENTAL STATUS, UNSPECIFIED (4) Atrial fibrillation Code(s): I48.91 - UNSPECIFIED ATRIAL FIBRILLATION
[2017-11-15] MEDS: VALPROATE SODIUM 250 MG/5 ML UNIT DOSE CUP PO SCH ×2 (12:00→23:11)
[2017-11-15] MEDS: CHOLECALCIFEROL (VITAMIN D3) 1,000 UNIT TABLET (FP) PO SCH (12:00)
[2017-11-15] MEDS: RIVASTIGMINE 4.6 MG/24 HOURS TRANSDERMAL PATCH TD SCH (12:01)
[2017-11-15] MEDS: HALOPERIDOL 1 MG TABLET (FP) PO SCH ×2 (12:01→23:13)
[2017-11-15] MEDS: APIXABAN 2.5 MG TABLET PO SCH ×2 (12:02→23:13)
[2017-11-15] MEDS: DOCUSATE NA 100 MG/10 ML UNIT-DOSE CUPS PO SCH ×2 (12:02→23:11)
[2017-11-15] MEDS: SODIUM CHLORIDE 0.45% 1,000 ML IV SCH (23:11)
[2017-11-15] MEDS: TEMAZEPAM 15 MG CAPSULE PO SCH (23:12)
[2017-11-15] MEDS: MIRTAZAPINE 15 MG TABLET (FP) PO SCH (23:12)
[2017-11-16] MEDS: OLANZapine 5 MG TABLET PO SCH ×2 (06:45→22:55)
[2017-11-16 08:21] LABS: HEMATOCRIT 37.4 % (35.4-49); MCH 31.1 pg (25.7-33.7); MCHC 34.7 g/dl (32.0-35.9); MEAN CELL VOLUME 89.5 fl (80-96); MEAN PLT VOLUME 8.6 fl (7.5-11.1); PLATELET COUNT 181 K/MM3 (134-434); RBC 4.18 M/mm3 (4.00-5.60); RDW 13.7 % (11.9-15.9); WHITE BLOOD COUNT 5.6 K/mm3 (4.0-10.0)
[2017-11-16 08:54] LABS: CHLORIDE 108 mmol/L (98-107); POTASSIUM 4.4 mmol/L (3.5-5.1); SODIUM 143 mmol/L (136-145)
[2017-11-16 09:17] LABS: ANION GAP 6 (8-16); BLOOD UREA NITROGEN 20 mg/dL (7-18); CALCIUM 9.1 mg/dL (8.5-10.1); CO2 29 mmol/L (21-32); CREATININE 0.9 mg/dL (0.7-1.3); GLUCOSE,RANDOM 92 mg/dL (74-106)
[2017-11-16] MEDS ORDERED: PT OWN MED DRAWER 7, Y5N ONE ×2 (11:14→22:39)
[2017-11-16] MEDS: DOCUSATE NA 100 MG/10 ML UNIT-DOSE CUPS PO SCH ×2 (11:17→22:56)
[2017-11-16] MEDS: VALPROATE SODIUM 250 MG/5 ML UNIT DOSE CUP PO SCH ×2 (11:17→22:55)
[2017-11-16] MEDS: RIVASTIGMINE 4.6 MG/24 HOURS TRANSDERMAL PATCH TD SCH (11:22)
[2017-11-16] MEDS: APIXABAN 2.5 MG TABLET PO SCH ×2 (11:22→22:56)
[2017-11-16] MEDS: HALOPERIDOL 1 MG TABLET (FP) PO SCH (11:24)
[2017-11-16] MEDS: CHOLECALCIFEROL (VITAMIN D3) 1,000 UNIT TABLET (FP) PO SCH (11:25)
--- NOTE | 2017-11-16 11:51 | PN ---
Progress Note (short form) - Note Progress Note: seen and examined in the room was awake till about 2 am today sleeping -- not arousable given zyprexa ths am at 7 -- will hold am dose moving forward has not participated in PT has not ambulated in last 5 days Vital Signs Period Temp Pulse Resp BP Sys/Aguirre Pulse Ox Last 24 Hr 97.4 F-98.7 F 70-87 18-20 111-136/55-79 98 neck no JVD heart irreg lung clear abd soft no tenderness elicited Ext - +1 edema / no calf tenderness / + pulses / joint stiffness CBC, BMP 11/16/17 07:40 11/16/17 07:40 Sed Rate 11 CRP 1.6 CK nl LFT OK / renal function NL O& P all negative Microbiology 11/09/17 15:00 Stool Salmonella/Shigella Culture - Final NO GROWTH OF SALMONELLA OR SHIGELLA SPECIES OBTAINED 11/09/17 15:00 Stool Campylobacter Culture - Final NO GROWTH OF CAMPYLOBACTER SPECIES OBTAINED 11/09/17 15:00 Stool Yersinia Culture - Final NO GROWTH OF YERSINIA SPECIES OBTAINED 11/09/17 15:00 Stool Vibrio Culture - Final NO GROWTH OF VIBRIO SPECIES OBTAINED 11/09/17 15:00 Stool Escherichia coli 0157 Culture - Final NO GROWTH OF E COLI 0157 OBTAINED 11/01/17 21:26 Blood - Peripheral Venous Blood Culture - Final NO GROWTH AFTER 5 DAYS INCUBATION 11/01/17 21:26 Blood - Peripheral Venous Blood Culture - Final NO GROWTH AFTER 5 DAYS INCUBATION Active Medications Acetaminophen (Tylenol -) 650 mg PO Q6H PRN PRN Reason: PAIN 1-5 Apixaban (Eliquis -) 2.5 mg PO BID [facility] Last Admin: 11/16/17 11:22 Dose: 2.5 mg Cholecalciferol (Vitamin D3 -) 1,000 unit PO DAILY [facility] Last Admin: 11/16/17 11:25 Dose: 1,000 unit Docusate Sodium (Colace Liquid -) 100 mg PO BID [facility] Last Admin: 11/16/17 11:17 Dose: 100 mg Haloperidol (Haldol Injection (Fast Acting) -) 5 mg IM Q8H PRN PRN Reason: AGITATION Haloperidol (Haldol -) 2 mg PO Q12H PRN PRN Reason: AGITATION Haloperidol (Haldol -) 1 mg PO HS [facility] Sodium Chloride (1/2 Normal Saline) 1,000 mls @ 100 mls/hr IV ASDIR [facility] Last Admin: 11/15/17 23:11 Dose: Not Given Mirtazapine (Remeron -) 15 mg PO [facility] Last Admin: 11/15/17 23:12 Dose: 15 mg Olanzapine (Zyprexa -) 20 mg PO HS [facility] Last Admin: 11/15/17 23:12 Dose: 20 mg Rivastigmine (Exelon Patch 4.6mg/24 Hours -) 4.6 each TD DAILY [facility] Last Admin: 11/16/17 11:22 Dose: 4.6 each Temazepam (Restoril -) 15 mg PO [facility] Last Admin: 11/15/17 23:12 Dose: 15 mg Valproate Sodium (Depakene -) 500 mg PO BID [facility] Last Admin: 11/16/17 11:17 Dose: 500 mg assment / Plan # dementia with behavior changes / aggressive tendencies -- now better controlled patient with hx of dementia since 2011 -- recently relocated from [facility] psych / neuro eval and followup Meds adjusted yesterday -awake until about 2 am - sleeping this am -- will adjust current med dosing -- hold am Zypexa and Haldol will continue 1:1 will need PT / --at least passive ROM -- to resume ambulation STR --- discussed disposition with HCP will try [facility] for possible transfer. # A fib continue NOAC # Rhabdo resolved Problem List - Problems (1) Rhabdomyolysis Code(s): M62.82 - RHABDOMYOLYSIS (2) Dementia Code(s): F03.90 - UNSPECIFIED DEMENTIA WITHOUT BEHAVIORAL DISTURBANCE Qualifiers: Dementia type: Alzheimer's disease Alzheimer's disease onset: unspecified onset Dementia behavioral disturbance: with behavioral disturbance Qualified Code(s): G30.9 - Alzheimer's disease, unspecified; F02.81 - Dementia in other diseases classified elsewhere with behavioral disturbance; F02.81 - Dementia in other diseases classified elsewhere with behavioral disturbance; F02.81 - Dementia in other diseases classified elsewhere with behavioral disturbance (3) Altered mental status Code(s): R41.82 - ALTERED MENTAL STATUS, UNSPECIFIED (4) Atrial fibrillation Code(s): I48.91 - UNSPECIFIED ATRIAL FIBRILLATION
[2017-11-16] MEDS ORDERED: HALOPERIDOL 1 MG TABLET (FP) PO SCH (22:00)
[2017-11-16] MEDS: TEMAZEPAM 15 MG CAPSULE PO SCH (22:55)
[2017-11-16] MEDS: MIRTAZAPINE 15 MG TABLET (FP) PO SCH (22:56)
[2017-11-17] MEDS: HALOPERIDOL 1 MG TABLET (FP) PO PRN ×2 (02:13→18:08)
--- NOTE | 2017-11-17 09:12 | PN ---
Progress Note (short form) - Note Progress Note: 82 y/o male found sleeping. One to one present and states that pt slept a lot yesterday but not as combative. Vital Signs Period Temp Pulse Resp BP Sys/Aguirre Pulse Ox Last 24 Hr 97.4 F-98.0 F 73-85 18-18 103-120/53-68 97 CBC, BMP 11/16/17 07:40 11/16/17 07:40 HEENT- Normocephalic Neck- Supple Lungs- CTAB Heart- S1/S2 Abd- Pos BS x 4, soft, NT Ext- No LE edema Active Medications Acetaminophen (Tylenol -) 650 mg PO Q6H PRN PRN Reason: PAIN 1-5 Apixaban (Eliquis -) 2.5 mg PO BID [facility] Last Admin: 11/16/17 22:56 Dose: 2.5 mg Cholecalciferol (Vitamin D3 -) 1,000 unit PO DAILY [facility] Last Admin: 11/16/17 11:25 Dose: 1,000 unit Docusate Sodium (Colace Liquid -) 100 mg PO BID [facility] Last Admin: 11/16/17 22:56 Dose: 100 mg Haloperidol (Haldol Injection (Fast Acting) -) 5 mg IM Q8H PRN PRN Reason: AGITATION Haloperidol (Haldol -) 2 mg PO Q12H PRN PRN Reason: AGITATION Last Admin: 11/17/17 02:13 Dose: 2 mg Haloperidol (Haldol -) 1 mg PO HS [facility] Last Admin: 11/16/17 22:56 Dose: 1 mg Sodium Chloride (1/2 Normal Saline) 1,000 mls @ 100 mls/hr IV ASDIR [facility] Last Admin: 11/15/17 23:11 Dose: Not Given Mirtazapine (Remeron -) 15 mg PO HS [facility] Last Admin: 11/16/17 22:56 Dose: 15 mg Olanzapine (Zyprexa -) 20 mg PO HS [facility] Last Admin: 11/16/17 22:55 Dose: 20 mg Rivastigmine (Exelon Patch 4.6mg/24 Hours -) 4.6 each TD DAILY [facility] Last Admin: 11/16/17 11:22 Dose: 4.6 each Temazepam (Restoril -) 15 mg PO HS [facility] Last Admin: 05/30/18 22:55 Dose: 15 mg Valproate Sodium (Depakene -) 500 mg PO BID [facility] Last Admin: 11/16/17 22:55 Dose: 500 mg Assment / Plan # dementia with behavior changes / aggressive tendencies -- now better controlled Behavior better controlled. However, still combative at times On multiple Antipsychotic meds/ continue Exelon patch Continue 1:1 supervision STR --Awaiting bed in [facility] . # A fib continue NOAC # Rhabdo resolved Problem List - Problems (1) Rhabdomyolysis Code(s): M62.82 - RHABDOMYOLYSIS (2) Dementia Code(s): F03.90 - UNSPECIFIED DEMENTIA WITHOUT BEHAVIORAL DISTURBANCE Qualifiers: Dementia type: Alzheimer's disease Alzheimer's disease onset: unspecified onset Dementia behavioral disturbance: with behavioral disturbance Qualified Code(s): G30.9 - Alzheimer's disease, unspecified; F02.81 - Dementia in other diseases classified elsewhere with behavioral disturbance; F02.81 - Dementia in other diseases classified elsewhere with behavioral disturbance; F02.81 - Dementia in other diseases classified elsewhere with behavioral disturbance (3) Altered mental status Code(s): R41.82 - ALTERED MENTAL STATUS, UNSPECIFIED (4) Atrial fibrillation Code(s): I48.91 - UNSPECIFIED ATRIAL FIBRILLATION
[2017-11-17] MEDS ORDERED: PT OWN MED DRAWER 7, Y5N ONE ×2 (11:02→18:05)
[2017-11-17] MEDS: VALPROATE SODIUM 250 MG/5 ML UNIT DOSE CUP PO SCH (11:05)
[2017-11-17] MEDS: CHOLECALCIFEROL (VITAMIN D3) 1,000 UNIT TABLET (FP) PO SCH (11:05)
[2017-11-17] MEDS: DOCUSATE NA 100 MG/10 ML UNIT-DOSE CUPS PO SCH (11:07)
[2017-11-17] MEDS: APIXABAN 2.5 MG TABLET PO SCH (11:07)
[2017-11-17] MEDS: RIVASTIGMINE 4.6 MG/24 HOURS TRANSDERMAL PATCH TD SCH (11:07)
--- NOTE | 2017-11-17 13:44 | DS ---
Physical Examination Vital Signs: Vital Signs Temperature 97.6 F 11/17/17 06:00 Pulse Rate 85 11/17/17 06:00 Respiratory Rate 18 11/17/17 09:00 Blood Pressure 103/61 11/17/17 06:00 O2 Sat by Pulse Oximetry (%) 97 11/17/17 09:00 Constitutional: Yes: Well Nourished, Calm Eyes: Yes: Conjunctiva Clear HENT: Yes: Atraumatic, Normocephalic Neck: Yes: Supple, Trachea Midline Cardiovascular: Yes: Regular Rate and Rhythm Respiratory: Yes: CTA Bilaterally Gastrointestinal: Yes: Normal Bowel Sounds, Soft Labs: CBC, BMP 11/16/17 07:40 11/16/17 07:40 Discharge Summary Reason For Visit: AMS Current Active Problems Altered mental status (Acute) Alzheimer's dementia with behavioral disturbance (Acute) Hallucinations due to late onset dementia (Acute) Rhabdomyolysis (Acute) Hospital Course: 82 y/o male admitted for Dementia with behavioral disturbances after recent trip to [facility]. Psych consulted. Meds adjusted multiple times. Behavior now stable. Plan to transfer to [facility]. Condition: Stable - Instructions Referrals: Stan Hernández [Primary Care Provider] - Disposition: SNF FACILITY - Home Medications Comprehensive Discharge Medication List: Ambulatory Orders Apixaban [Eliquis -] 2.5 mg PO BID 10/27/17 Mirtazapine 15 mg PO HS 10/27/17 Depakote 500 mg PO BID Docusate Sodium [Colace -] 100 mg PO BID capsule 11/01/17 Haloperidol Injection [Haldol Injection (Fast Acting) -] 5 mg IM Q8H PRN ml Haldol 1 mg PO Q Hs Haldol 2 mg PO Q 12 hrs PRN Exelon 4.6 mg patch daily Temazepam 15 mg PO Q hs Olanzapine [ZyPREXA -] 10 mg PO BID tablet 11/01/17
[2017-11-17] MEDS: SODIUM CHLORIDE 0.45% 1,000 ML IV SCH (14:50)
[2017-11-17 18:35] VITALS: BP 120/62; PULSE 70; TEMP 97.9
== END 2017-11-17 20:11 | DRG 57 ==
LOC: JER 19:53 → JERBED 22:31 → UNDOADMIN 23:20 → JERBED 23:20 → J5S 11-02 02:42
PROVIDERS: ADMIT Family Medicine; ATTEND Family Medicine
DX: G30.9 Alzheimer's disease, unspecified (principal); R44.0 Auditory hallucinations; F02.81 Dementia in other diseases classified elsewhere, unspecified severity, with behavioral disturbance; M62.82 Rhabdomyolysis; N39.0 Urinary tract infection, site not specified; I48.91 Unspecified atrial fibrillation; S80.211A Abrasion, right knee, initial encounter; W06.XXXA Fall from bed, initial encounter; Y93.89 Activity, other specified; Z85.9 Personal history of malignant neoplasm, unspecified
CPT/HCPCS: 36415; 70450-TC; 71045-TC-FY; 73560-TC-LT-FY; 73560-TC-RT-FY; 80048; 80053; 82550; 82553; 83605; 83735; 83880; 84484; 85025; 85027; 85610; 85651; 85730; 86140; 86618; 86850; 86900; 86901; 87040; 87045; 87046; 90688; 93005; 93010; 97116-GP; 97161-GP; 99282-25; G0008; J7030

== ENCOUNTER 2018-02-21 08:15 | Inpatient (IN) | payer OTHER ==
--- NOTE | 2018-02-21 08:46 | PDOC ---
History of Present Illness - General Chief Complaint: Urinary Catheter Problem Stated Complaint: CATHETER PROBLEM Time Seen by Provider: 02/21/18 08:45 History Source: Care Provider Exam Limitations: No Limitations - History of Present Illness Initial Comments: 02/21/18 09:02 82 year old male with PMH dementia, atrial fibrillation, suprapubic catheter place x1 month ago (bladder outlet obstruction) presents to ED for pulling out his suprapubic catheter. Medical aid states that if possible he does not want the patient to have another catheter placed because he wants to transfer him from [facility] to [facility] (where they do not accept pt's with catheters placed). Pt denies pain. Medical aid denies fever, chills, nausea, vomiting, diarrhea, weakness, altered mental status. PCP - [facility] proxy: Father Roc Daigle - [phone] Past History - Past Medical History Allergies/Adverse Reactions: Allergies Allergy/AdvReac Type Severity Reaction Status Date / Time donepezil [From Aricept] Allergy Verified 02/21/18 08:31 memantine [From Namenda] Allergy Verified 02/21/18 08:31 quetiapine [From Seroquel] Allergy Verified 02/21/18 08:31 Home Medications: Ambulatory Orders Acetaminophen [Tylenol .Regular Strength -] 650 mg PO Q6H PRN tablet 11/17/17 Apixaban [Eliquis -] 2.5 mg PO BID tablet 11/17/17 Cholecalciferol (Vitamin D3) [Vitamin D3 -] 1,000 unit PO DAILY tab 11/17/17 Valproate Sodium [Depakene -] 500 mg PO BID #0 cup 11/17/17 Citalopram Hydrobromide [Citalopram HBr] 10 mg PO DAILY 01/03/18 Risperidone 0.5 mg PO DAILY 01/03/18 Haloperidol Lactate [Haldol] 2 mg IM BID PRN 01/05/18 Finasteride [Proscar -] 5 mg PO DAILY tablet 01/31/18 Mirtazapine [Remeron -] 30 mg PO HS 30 Days #30 tablet 01/31/18 Multivitamins [Multivit ([facility] Formulary)] 1 tab PO DAILY tab 01/31/18 Tamsulosin HCl [Flomax -] 0.4 mg PO DAILY@0830 cap.er.24h 01/31/18 Docusate Sodium [Colace -] 200 mg PO DAILY 02/21/18 Olanzapine [Zyprexa -] 15 mg PO HS 02/21/18 Cancer: Yes (basal cell carcinoma,) Cardiac Disorders: Yes (a fib) COPD: No Dementia: Yes (alzheimer's) GI Disorders: Yes (diverticulitis) - Surgical History Abdominal Surgery: Yes (hernia repair 2006, diverticulitis 2002) - Suicide/Smoking/Psychosocial Hx Smoking History: Unknown if ever smoked Have you smoked in the past 12 months: No Hx Alcohol Use: No Drug/Substance Use Hx: No Substance Use Type: None Hx Substance Use Treatment: No Review of Systems - Review of Systems Able to Perform ROS?: Yes Comments:: 02/21/18 09:06 General: denies fever, chills, night sweats, generalized weakness. HEENT: denies sore throat, rhinorrhea, ear pain. Heart: denies chest pain, palpitations, syncope, lower extremity swelling, diaphoresis. Respiratory: denies shortness of breath, cough, sputum production, hematemesis. Abdomen: denies abdominal pain, nausea, vomiting, diarrhea, constipation, blood in stool. : denies dysuria, increased urinary frequency, hematuria, urinary incontinence , flank pain. Back: denies back pain, flank pain. Musculoskeletal: denies joint pain, muscle pain, joint swelling. Neurological: denies headache, dizziness, numbness, tingling, weakness. Skin: denies rash, laceration, abrasion. *Physical Exam - Vital Signs Last Vital Signs Temp Pulse Resp BP Pulse Ox 97.9 F 70 18 127/78 100 02/21/18 08:31 02/21/18 08:31 02/21/18 08:31 02/21/18 08:31 02/21/18 08:31 - Physical Exam Comments: 02/21/18 09:06 Appearance: comfortable. HEENT: head is normocephalic, atraumatic. EOMI. PERRLA. Neck: supple. Full ROM. Heart: regular rhythm. no murmurs, rubs or gallops. No pericardial friction rub. Lungs: clear to auscultation bilaterally. no crackles, rhonchi or wheezing. no stridor. Abdomen: suprapubic catheter site idetified, no surround erythema, no drainage, appears well. soft, nontender. normal bowel sounds. no rebound, guarding, masses. Extremities: Peripheral pulses intact and equal. No lower extremity edema. Neurological: Alert. Oriented x3. CN 2-12 grossly intact. Moves all four extremities. Heart Score/ECG Review - ECG Impressions Comment:: 02/21/18 10:56 Rate 100. irregularly irregular rhtyhm, atrial fibrillation. normal axis. no acute ST changes. ED Treatment Course - LABORATORY CBC & Chemistry Diagram: 02/21/18 17:40 02/21/18 17:40 Medical Decision Making - Medical Decision Making 02/21/18 09:07 82 year old male with PMH dementia, atrial fibrillation on elquis, suprapubic catheter placed x1 month ago (bladder outlet obstruction) presents to ED for pulling out his suprapubic catheter. Pt has no complaints. Suprapubic catheter site appears well. Initial Vital Signs Temp Pulse Resp BP Pulse Ox 97.9 F 70 18 127/78 100 02/21/18 08:31 02/21/18 08:31 02/21/18 08:31 02/21/18 08:31 02/21/18 08:31 Afebrile. No tachycardia. No hypotension. No hypoxia. 02/21/18 09:[address] Schuler, pt's PCP, who advises to place the suprapubic catheter back and page Dr. Lamar. 02/21/18 09:[address] Lamar, who states he will come see the pt to place the catheter back. He states that we can attempt a trial of voiding with the patient until he arrives. 02/21/18 10:54 CXR normal. EKG - atrial fibrillation. 02/21/18 12:27 Pt reassessed. Pt and medical aid state he is doing well. Pending Willard consult. 02/21/18 16:05 Willard states that he saw the patient, did not place the suprapubic catheter because the health care proxy did not approve. He advises a trial where the patient can attempt to void on his own, and if he cannot void he will perform a procedure tomorrow. Dr. Schuler paged. 02/21/18 18:[address] Schuler. Will page again. RN attempted and was unable to place 16F catheter or coude. Dr. Lamar pagepadilla at 1800. 02/21/18 18:28 I spoke with the Health Care Proxy, Roc Daigle, about the plan for re- placement of the catheter. He agrees with the plan of care. I spoke with Dr. Schuler, who advises observation of the patient for re- placement of catheter. She states she will page Dr. Lamar. 02/21/18 18:47 Dr. Lamar pagepadilla at [phone], [phone]. 02/21/18 19:08 Dr. Mendez spoke with Dr. Wilson, who states that he does not think he needs a catheter placed emergently. 02/21/18 19:36 I discussed the case with Dr. Medina, who will take over care for the patient in the Emergency Department. *DC/Admit/Observation/Transfer Diagnosis at time of Disposition: Urinary retention - Discharge Dispostion Condition at time of disposition: Stable Decision to Admit order: Yes - Referrals Referrals: Alli Baldwin [Primary Care Provider] - - Patient Instructions - Post Discharge Activity
--- NOTE | 2018-02-21 09:14 | PDOC ---
Attending Attestation - Resident Resident Name: AdeleJennifer - ED Attending Attestation I have performed the following: I have examined & evaluated the patient, The case was reviewed & discussed with the resident, I agree w/resident's findings & plan, Exceptions are as noted - HPI HPI: 02/21/18 10:53 Mr Ware is an 82 yo M who presents to the ER for suprapubic cathether dysfunction Suprapubic catheter was place x 1 month ago (due to bladder outlet obstruction) , pt pulled it out. No other complaints at this time - Physicial Exam PE: 02/21/18 09:14 GENERAL: The patient is in no acute distress. LUNGS: Breath sounds equal, clear to auscultation bilaterally. No wheezes, and no crackles. HEART:Regular rate and rhythm, normal S1 and S2 without murmur, rub or gallop. ABDOMEN: Soft, nontender, suprapubic cathether not in place NEUROLOGICAL: Cranial nerves II through XII grossly intact. Normal speech. No focal neurological deficits. SKIN: Warm, Dry, normal turgor, no rashes or lesions noted. 02/21/18 11:12 - Medical Decision Making 02/21/18 11:13 82 yo M s/p self discontinued suprapubic cathether Call placed to pt pmd Recommends calling Dr rodríguez Call placed He will see this patient in the ER No SP tube placed due to inability to obtain consent Will do Labs, Narvaez, Admit
--- NOTE | 2018-02-21 14:14 | PN ---
Progress Note (short form) - Note Progress Note: 82 year old male with a history of BPH and stricture who had a suprapubic tube placed recently. He pulled out his SPT this morning. His HCP has refused replacement of his SPT will give a trial of void abd-soft/nt bladder not palpable. no bleeding seen.
--- NOTE | 2018-02-21 14:33 | EKG ---
Test Reason : Blood Pressure : / mmHG Vent. Rate : 100 BPM Atrial Rate : 277 BPM P-R Int : 000 ms QRS Dur : 080 ms QT Int : 350 ms P-R-T Axes : 000 044 044 degrees QTc Int : 451 ms POOR DATA QUALITY, INTERPRETATION MAY BE ADVERSELY AFFECTED ATRIAL FIBRILLATION LOW VOLTAGE QRS ABNORMAL ECG WHEN COMPARED WITH ECG OF 03-JAN-2018 13:04, QRS DURATION HAS DECREASED NONSPECIFIC T WAVE ABNORMALITY NOW EVIDENT IN INFERIOR LEADS Confirmed by Truong Butler ([id number]) on 02/21/2018 2:32:49 PM Referred By: Confirmed By:Truong Butler
[2018-02-21 17:48] LABS: BASO % 0.9 % (0-2.0); EOS % 2.1 % (0-4.5); HEMATOCRIT 34.1 % (35.4-49); HEMOGLOBIN 11.6 GM/dL (11.7-16.9); LYMPH % 21.2 % (8-40); MCH 29.2 pg (25.7-33.7); MEAN CELL VOLUME 85.9 fl (80-96); MEAN PLT VOLUME 7.2 fl (7.5-11.1); MONO % 10.2 % (3.8-10.2); NEUT % 65.6 % (42.8-82.8); PLATELET COUNT 212 K/MM3 (134-434); RBC 3.97 M/mm3 (4.00-5.60); RDW 15.1 % (11.9-15.9); WHITE BLOOD COUNT 4.9 K/mm3 (4.0-10.0)
[2018-02-21 18:41] LABS: INR 1.09 (0.83-1.09); PROTHROMBIN TIME (PATIENT) 12.3 SEC (9.7-13.0)
[2018-02-21 18:44] LABS: ACTIVATED PTT 37.1 SECONDS (25.2-36.5)
[2018-02-21 18:52] LABS: ALBUMIN 2.9 g/dl (3.4-5.0); ALK PHOS 86 U/L (45-117); ANION GAP 9 MMOL/L (8-16); BILIRUBIN,TOTAL 0.4 mg/dL (0.2-1.0); BLOOD UREA NITROGEN 20 mg/dL (7-18); CALCIUM 9.1 mg/dL (8.5-10.1); CHLORIDE 103 mmol/L (98-107); CO2 28 mmol/L (21-32); CREATININE 0.6 mg/dL (0.7-1.3); GLUCOSE,RANDOM 95 mg/dL (74-106); POTASSIUM 4.4 mmol/L (3.5-5.1); SGOT/AST 20 U/L (15-37); SGPT/ALT 16 U/L (12-78); SODIUM 140 mmol/L (136-145); TOT PROT 6.5 g/dl (6.4-8.2)
[2018-02-21 19:00] LABS: ANISOCYTOSIS 1+; MACROCYTOSIS 1+; PLATELET ESTIMATE ADEQUATE
[2018-02-21] MEDS ORDERED: HALOPERIDOL LACTATE 5 MG/ML IM PRN (22:57)
[2018-02-21] MEDS ORDERED: ACETAMINOPHEN 325 MG TABLET (FP) PO PRN (22:57)
--- NOTE | 2018-02-21 23:09 | HP ---
Admitting History and Physical - Admission History of Present Illness: 82 year old male with PMH dementia, atrial fibrillation, suprapubic catheter place x1 month ago (bladder outlet obstruction) presents to ED for pulling out his suprapubic catheter. Medical aid states that if possible he does not want the patient to have another catheter placed because he wants to transfer him from [facility] to [facility] (where they do not accept pt's with catheters placed). Pt denies pain. Medical aid denies fever, chills, nausea, vomiting, diarrhea, weakness, altered mental status. Patient with significant dementia- unable to provide hx or provide adequate complaints. 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: Yes: Dementia - Smoking History Smoking history: Unknown if ever smoked Have you smoked in the past 12 months: No - Alcohol/Substance Use Hx Alcohol Use: No History of Substance Use: reports: None - Social History Usual Living Arrangement: Yes: [facility] ADL: Support Services History of Recent Travel: Yes Home Medications - Allergies Allergies/Adverse Reactions: Allergies Allergy/AdvReac Type Severity Reaction Status Date / Time donepezil [From Aricept] Allergy Verified 02/21/18 08:31 memantine [From Namenda] Allergy Verified 02/21/18 08:31 quetiapine [From Seroquel] Allergy Verified 02/21/18 08:31 - Home Medications Home Medications: Ambulatory Orders Acetaminophen [Tylenol .Regular Strength -] 650 mg PO Q6H PRN tablet 11/17/17 Apixaban [Eliquis -] 2.5 mg PO BID tablet 11/17/17 Cholecalciferol (Vitamin D3) [Vitamin D3 -] 1,000 unit PO DAILY tab 11/17/17 Valproate Sodium [Depakene -] 500 mg PO BID #0 cup 11/17/17 Citalopram Hydrobromide [Citalopram HBr] 10 mg PO DAILY 01/03/18 Risperidone 0.5 mg PO DAILY 01/03/18 Haloperidol Lactate [Haldol] 2 mg IM BID PRN 01/05/18 Finasteride [Proscar -] 5 mg PO DAILY tablet 01/31/18 Mirtazapine [Remeron -] 30 mg PO HS 30 Days #30 tablet 01/31/18 Multivitamins [Multivit ([facility] Formulary)] 1 tab PO DAILY tab 01/31/18 Tamsulosin HCl [Flomax -] 0.4 mg PO DAILY@0830 cap.er.24h 01/31/18 Docusate Sodium [Colace -] 200 mg PO DAILY 02/21/18 Olanzapine [Zyprexa -] 15 mg PO HS 02/21/18 Review of Systems Unable to obtain ROS, reason: Dementia Findings/Remarks: findings per transfer record and information from facility Physical Examination Vital Signs: Vital Signs Temperature 98.4 F 02/21/18 20:20 Pulse Rate 82 02/21/18 20:20 Respiratory Rate 17 02/21/18 20:20 Blood Pressure 132/71 02/21/18 20:20 O2 Sat by Pulse Oximetry (%) 97 02/21/18 20:20 Constitutional: Yes: Well Nourished, No Distress, Calm, Thin Eyes: Yes: Conjunctiva Clear, EOM Intact HENT: Yes: Atraumatic, Normocephalic Neck: Yes: Supple, Trachea Midline Cardiovascular: Yes: Regular Rate and Rhythm Respiratory: Yes: Regular, CTA Bilaterally Gastrointestinal: Yes: Normal Bowel Sounds. No: Distention, Tenderness ...Rectal Exam: Yes: Deferred Renal/: No: Bladder Distention, CVA Tenderness - Left, CVA Tenderness - Right , Narvaez Present Breast(s): Yes: WNL Extremities: No: Cold, Deformity Edema: No Peripheral Pulses WNL: Yes Integumentary: Yes: Erythema, Incision, Rash, Skin Tear Neurological: Yes: Confusion, Pre-Existing Deficit Labs: CBC, BMP 02/21/18 17:40 02/21/18 17:40 Problem List - Problems (1) Urinary retention Code(s): R33.9 - RETENTION OF URINE, UNSPECIFIED (2) VAZQUEZ (acute kidney injury) Code(s): N17.9 - ACUTE KIDNEY FAILURE, UNSPECIFIED (3) Altered mental status Code(s): R41.82 - ALTERED MENTAL STATUS, UNSPECIFIED (4) Alzheimer's dementia with behavioral disturbance Code(s): G30.9 - ALZHEIMER'S DISEASE, UNSPECIFIED; F02.81 - DEMENTIA IN OTH DISEASES CLASSD ELSWHR W BEHAVIORAL DISTURB Qualifiers: Alzheimer's disease onset: unspecified onset Qualified Code(s): G30.9 - Alzheimer's disease, unspecified; F02.81 - Dementia in other diseases classified elsewhere with behavioral disturbance; F02.81 - Dementia in other diseases classified elsewhere with behavioral disturbance; F02.81 - Dementia in other diseases classified elsewhere with behavioral disturbance (5) Atrial fibrillation Code(s): I48.91 - UNSPECIFIED ATRIAL FIBRILLATION (6) Dementia Code(s): F03.90 - UNSPECIFIED DEMENTIA WITHOUT BEHAVIORAL DISTURBANCE Qualifiers: Dementia type: Alzheimer's disease Alzheimer's disease onset: unspecified onset Dementia behavioral disturbance: with behavioral disturbance Qualified Code(s): G30.9 - Alzheimer's disease, unspecified; F02.81 - Dementia in other diseases classified elsewhere with behavioral disturbance; F02.81 - Dementia in other diseases classified elsewhere with behavioral disturbance; F02.81 - Dementia in other diseases classified elsewhere with behavioral disturbance (7) HTN (hypertension) Code(s): I10 - ESSENTIAL (PRIMARY) HYPERTENSION (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
[2018-02-21] MEDS: VALPROATE SODIUM 250 MG/5 ML UNIT DOSE CUP PO SCH (23:35)
[2018-02-21] MEDS: APIXABAN 2.5 MG TABLET PO SCH (23:36)
[2018-02-22 06:02] VITALS: BMI 20.2
[2018-02-22 08:02] LABS: BASO % 0.2 % (0-2.0); HEMATOCRIT 36.8 % (35.4-49); HEMOGLOBIN 12.4 GM/dL (11.7-16.9); LYMPH % 7.1 % (8-40); MCH 28.8 pg (25.7-33.7); MCHC 33.6 g/dl (32.0-35.9); MEAN CELL VOLUME 85.7 fl (80-96); MEAN PLT VOLUME 7.7 fl (7.5-11.1); MONO % 8.9 % (3.8-10.2); NEUT % 83.8 % (42.8-82.8); PLATELET COUNT 318 K/MM3 (134-434); RDW 15.3 % (11.9-15.9); WHITE BLOOD COUNT 14.5 K/mm3 (4.0-10.0)
[2018-02-22 08:06] LABS: ANION GAP 14 MMOL/L (8-16); BLOOD UREA NITROGEN 27 mg/dL (7-18); CALCIUM 9.4 mg/dL (8.5-10.1); CHLORIDE 99 mmol/L (98-107); CO2 26 mmol/L (21-32); GLUCOSE,RANDOM 118 mg/dL (74-106); POTASSIUM 4.5 mmol/L (3.5-5.1); SODIUM 139 mmol/L (136-145)
[2018-02-22 08:07] LABS: CREATININE 1.2 mg/dL (0.7-1.3)
[2018-02-22] MEDS: CITALOPRAM HYDROBROMIDE 10 MG TABLET (FP) PO SCH (10:15)
[2018-02-22] MEDS: TAMSULOSIN HCL 0.4 MG CAP.ER.24H (FP) PO SCH (10:15)
[2018-02-22] MEDS: FINASTERIDE 5 MG TABLET (FP) PO SCH (10:15)
[2018-02-22] MEDS: CHOLECALCIFEROL (VITAMIN D3) 1,000 UNIT TABLET (FP) PO SCH (10:15)
[2018-02-22] MEDS: MULTIVITAMINS (DAILY MVI) TABLET (FP) PO SCH (10:15)
[2018-02-22] MEDS: VALPROATE SODIUM 250 MG/5 ML UNIT DOSE CUP PO SCH ×2 (10:16→21:58)
[2018-02-22] MEDS: risperiDONE 0.5 MG TABLET (FP) PO SCH (10:17)
[2018-02-22] MEDS: APIXABAN 2.5 MG TABLET PO SCH (10:17)
[2018-02-22] MEDS: DOCUSATE SODIUM 100 MG CAPSULE (FP) PO SCH (10:18)
--- NOTE | 2018-02-22 16:09 | PN ---
Progress Note (short form) - Note Progress Note: recommend attempt at TURP and SP tube. scheduled for tomorrow if HCP agrees.
--- NOTE | 2018-02-22 19:27 | PN ---
Progress Note (short form) - Note Progress Note: patient in bed has been unable to void freely I called HCP - need for intervention as he is having retention He is agreeable -- understands need for gandhi + febrile this am Vital Signs Period Temp Pulse Resp BP Sys/Aguirre Pulse Ox Last 24 Hr 97.8 F-101.1 F 77-111 17-22 112-145/68-90 97-97 neck supple heart S1/S2 lungs clear bilat abd soft / suprapubic fullness ext no edema CBC, BMP 02/22/18 06:00 02/22/18 06:00 Active Medications Acetaminophen (Tylenol -) 650 mg PO Q6H PRN PRN Reason: PAIN 1-5 Last Admin: 02/22/18 17:51 Dose: 650 mg Apixaban (Eliquis -) 2.5 mg PO BID [facility] Last Admin: 02/22/18 10:17 Dose: 2.5 mg Cholecalciferol (Vitamin D3 -) 1,000 unit PO DAILY [facility] Last Admin: 02/22/18 10:15 Dose: 1,000 unit Citalopram Hydrobromide (Celexa -) 10 mg PO DAILY [facility] Last Admin: 02/22/18 10:15 Dose: 10 mg Docusate Sodium (Colace -) 200 mg PO DAILY [facility] Last Admin: 02/22/18 10:18 Dose: 200 mg Finasteride (Proscar -) 5 mg PO DAILY [facility] Last Admin: 02/22/18 10:15 Dose: 5 mg Haloperidol (Haldol Injection (Fast Acting) -) 2 mg IM BID PRN PRN Reason: psychosis Levofloxacin (Levaquin 250 Mg Premixed Ivpb -) 250 mg in 50 mls @ 50 mls/hr IVPB DAILY [facility]; Protocol Stop: 03/01/18 16:29 Last Admin: 02/22/18 17:51 Dose: 50 mls/hr Mirtazapine (Remeron -) 30 mg PO HS [facility] Multivitamins/Minerals/Vitamin C (Tab-A-Vit -) 1 tab PO DAILY [facility] Last Admin: 02/22/18 10:15 Dose: 1 tab Olanzapine (Zyprexa -) 15 mg PO HS [facility] Risperidone (Risperdal -) 0.5 mg PO DAILY [facility] Last Admin: 02/22/18 10:17 Dose: 0.5 mg Tamsulosin HCl (Flomax -) 0.4 mg PO DAILY@0830 [facility] Last Admin: 02/22/18 10:15 Dose: 0.4 mg Valproate Sodium (Depakene -) 500 mg PO BID [facility] Last Admin: 02/22/18 10:16 Dose: 500 mg # obstructive uropathy await follow up bladder scan confirms obstruction # febrile cover for UTI C/S emperic levaquin ID consult Dr Delvalle # Demnetia baseline # afib NOAC will need to hold if procedure scheduled will discuss further with HCP for prosthodontist/educator arrangements Problem List - Problems (1) Urinary retention Code(s): R33.9 - RETENTION OF URINE, UNSPECIFIED (2) VAZQUEZ (acute kidney injury) Code(s): N17.9 - ACUTE KIDNEY FAILURE, UNSPECIFIED (3) Altered mental status Code(s): R41.82 - ALTERED MENTAL STATUS, UNSPECIFIED (4) Alzheimer's dementia with behavioral disturbance Code(s): G30.9 - ALZHEIMER'S DISEASE, UNSPECIFIED; F02.81 - DEMENTIA IN OTH DISEASES CLASSD ELSWHR W BEHAVIORAL DISTURB Qualifiers: Alzheimer's disease onset: unspecified onset Qualified Code(s): G30.9 - Alzheimer's disease, unspecified; F02.81 - Dementia in other diseases classified elsewhere with behavioral disturbance; F02.81 - Dementia in other diseases classified elsewhere with behavioral disturbance; F02.81 - Dementia in other diseases classified elsewhere with behavioral disturbance (5) Atrial fibrillation Code(s): I48.91 - UNSPECIFIED ATRIAL FIBRILLATION (6) Dementia Code(s): F03.90 - UNSPECIFIED DEMENTIA WITHOUT BEHAVIORAL DISTURBANCE Qualifiers: Dementia type: Alzheimer's disease Alzheimer's disease onset: unspecified onset Dementia behavioral disturbance: with behavioral disturbance Qualified Code(s): G30.9 - Alzheimer's disease, unspecified; F02.81 - Dementia in other diseases classified elsewhere with behavioral disturbance; F02.81 - Dementia in other diseases classified elsewhere with behavioral disturbance; F02.81 - Dementia in other diseases classified elsewhere with behavioral disturbance (7) HTN (hypertension) Code(s): I10 - ESSENTIAL (PRIMARY) HYPERTENSION (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
--- NOTE | 2018-02-22 19:28 | PN ---
Progress Note (short form) - Note Progress Note: patient in bed difficult to examine / combative position bladder / pelvic tenderness on exam documented bladder obstruction by bladder scan Gu aware -- has been notified by staff ?? scheuled for TURP Vital Signs Period Temp Pulse Resp BP Sys/Aguirre Pulse Ox Last 24 Hr 96.9 F-99.3 F 81-114 16-109 98-141/41-85 96-100 moderate distress / difficult to examine patient uncomfortable / position neck supple heart S1/S2 lungs clear bilat abd distended bladder / tenderness elicited on exam ext no edema CBC, BMP 02/22/18 06:00 02/22/18 06:00 # obstructive uropathy bladder scan documentin > 700cc of retention will need to trend renal function clinically in discomfort awaiting overflow incontinence # Demnetia baseline # afib NOAC will need to hold pending procedure # WBC / low grade fever 2/2 to obstruction culture as needed Problem List - Problems (1) Urinary retention Code(s): R33.9 - RETENTION OF URINE, UNSPECIFIED (2) VAZQUEZ (acute kidney injury) Code(s): N17.9 - ACUTE KIDNEY FAILURE, UNSPECIFIED (3) Altered mental status Code(s): R41.82 - ALTERED MENTAL STATUS, UNSPECIFIED (4) Alzheimer's dementia with behavioral disturbance Code(s): G30.9 - ALZHEIMER'S DISEASE, UNSPECIFIED; F02.81 - DEMENTIA IN OTH DISEASES CLASSD ELSWHR W BEHAVIORAL DISTURB Qualifiers: Alzheimer's disease onset: unspecified onset Qualified Code(s): G30.9 - Alzheimer's disease, unspecified; F02.81 - Dementia in other diseases classified elsewhere with behavioral disturbance; F02.81 - Dementia in other diseases classified elsewhere with behavioral disturbance; F02.81 - Dementia in other diseases classified elsewhere with behavioral disturbance (5) Atrial fibrillation Code(s): I48.91 - UNSPECIFIED ATRIAL FIBRILLATION (6) Dementia Code(s): F03.90 - UNSPECIFIED DEMENTIA WITHOUT BEHAVIORAL DISTURBANCE Qualifiers: Dementia type: Alzheimer's disease Alzheimer's disease onset: unspecified onset Dementia behavioral disturbance: with behavioral disturbance Qualified Code(s): G30.9 - Alzheimer's disease, unspecified; F02.81 - Dementia in other diseases classified elsewhere with behavioral disturbance; F02.81 - Dementia in other diseases classified elsewhere with behavioral disturbance; F02.81 - Dementia in other diseases classified elsewhere with behavioral disturbance (7) HTN (hypertension) Code(s): I10 - ESSENTIAL (PRIMARY) HYPERTENSION (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
[2018-02-22] MEDS: MIRTAZAPINE 15 MG TABLET (FP) PO SCH (21:58)
[2018-02-22] MEDS: OLANZapine 5 MG TABLET PO SCH (21:58)
[2018-02-23] MEDS ORDERED: PT OWN MED DRAWER 7, Y5N ONE ×2 (06:13→19:54)
--- NOTE | 2018-02-23 09:53 | PN ---
Progress Note (short form) - Note Progress Note: 82 y/o male found lying in bed. no c/o pain. Diaper slightly damp this am. However, pt still retaining urine. Vital Signs Period Temp Pulse Resp BP Sys/Aguirre Pulse Ox Last 24 Hr 97.7 F-101.1 F 81-111 18-22 91-154/58-81 95-97 CBC, BMP 02/22/18 06:00 02/22/18 06:00 HEENT- NL Neck- Supple Lungs- CTAB Heart- S1/S2 Abd- Soft, NT Ext- No LE edema Active Medications Acetaminophen (Tylenol -) 650 mg PO Q6H PRN PRN Reason: PAIN 1-5 Last Admin: 02/22/18 17:51 Dose: 650 mg Cholecalciferol (Vitamin D3 -) 1,000 unit PO DAILY [facility] Last Admin: 02/22/18 10:15 Dose: 1,000 unit Citalopram Hydrobromide (Celexa -) 10 mg PO DAILY [facility] Last Admin: 02/22/18 10:15 Dose: 10 mg Docusate Sodium (Colace -) 200 mg PO DAILY [facility] Last Admin: 02/22/18 10:18 Dose: 200 mg Finasteride (Proscar -) 5 mg PO DAILY [facility] Last Admin: 02/22/18 10:15 Dose: 5 mg Haloperidol (Haldol Injection (Fast Acting) -) 2 mg IM BID PRN PRN Reason: psychosis Levofloxacin (Levaquin 250 Mg Premixed Ivpb -) 250 mg in 50 mls @ 50 mls/hr IVPB DAILY [facility]; Protocol Stop: 03/01/18 16:29 Last Admin: 02/22/18 17:51 Dose: 50 mls/hr Mirtazapine (Remeron -) 30 mg PO HS [facility] Last Admin: 02/22/18 21:58 Dose: 30 mg Multivitamins/Minerals/Vitamin C (Tab-A-Vit -) 1 tab PO DAILY [facility] Last Admin: 02/22/18 10:15 Dose: 1 tab Olanzapine (Zyprexa -) 15 mg PO HS [facility] Last Admin: 02/22/18 21:58 Dose: 15 mg Risperidone (Risperdal -) 0.5 mg PO DAILY [facility] Last Admin: 02/22/18 10:17 Dose: 0.5 mg Tamsulosin HCl (Flomax -) 0.4 mg PO DAILY@0830 [facility] Last Admin: 02/22/18 10:15 Dose: 0.4 mg Valproate Sodium (Depakene -) 500 mg PO BID [facility] Last Admin: 02/22/18 21:58 Dose: 500 mg #Urinary retention TURP and re-insertion of SPT sched for today #Febrile Levaquin IVPB #BPH Proscar and Flomax #Alzheimer's Celexa, Zyprexa, Haldol PRN, Risperdal, Remeron, Depakene Problem List - Problems (1) Urinary retention Code(s): R33.9 - RETENTION OF URINE, UNSPECIFIED (2) VAZQUEZ (acute kidney injury) Code(s): N17.9 - ACUTE KIDNEY FAILURE, UNSPECIFIED (3) Altered mental status Code(s): R41.82 - ALTERED MENTAL STATUS, UNSPECIFIED (4) Alzheimer's dementia with behavioral disturbance Code(s): G30.9 - ALZHEIMER'S DISEASE, UNSPECIFIED; F02.81 - DEMENTIA IN OTH DISEASES CLASSD ELSWHR W BEHAVIORAL DISTURB Qualifiers: Alzheimer's disease onset: unspecified onset Qualified Code(s): G30.9 - Alzheimer's disease, unspecified; F02.81 - Dementia in other diseases classified elsewhere with behavioral disturbance; F02.81 - Dementia in other diseases classified elsewhere with behavioral disturbance; F02.81 - Dementia in other diseases classified elsewhere with behavioral disturbance (5) Atrial fibrillation Code(s): I48.91 - UNSPECIFIED ATRIAL FIBRILLATION (6) Dementia Code(s): F03.90 - UNSPECIFIED DEMENTIA WITHOUT BEHAVIORAL DISTURBANCE Qualifiers: Dementia type: Alzheimer's disease Alzheimer's disease onset: unspecified onset Dementia behavioral disturbance: with behavioral disturbance Qualified Code(s): G30.9 - Alzheimer's disease, unspecified; F02.81 - Dementia in other diseases classified elsewhere with behavioral disturbance; F02.81 - Dementia in other diseases classified elsewhere with behavioral disturbance; F02.81 - Dementia in other diseases classified elsewhere with behavioral disturbance (7) HTN (hypertension) Code(s): I10 - ESSENTIAL (PRIMARY) HYPERTENSION (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
[2018-02-23] MEDS: DOCUSATE SODIUM 100 MG CAPSULE (FP) PO SCH (10:18)
[2018-02-23] MEDS: CITALOPRAM HYDROBROMIDE 10 MG TABLET (FP) PO SCH (10:18)
[2018-02-23] MEDS: VALPROATE SODIUM 250 MG/5 ML UNIT DOSE CUP PO SCH ×2 (10:18→21:37)
[2018-02-23] MEDS: risperiDONE 0.5 MG TABLET (FP) PO SCH (10:18)
[2018-02-23] MEDS: MULTIVITAMINS (DAILY MVI) TABLET (FP) PO SCH (10:19)
[2018-02-23] MEDS: CHOLECALCIFEROL (VITAMIN D3) 1,000 UNIT TABLET (FP) PO SCH (10:19)
[2018-02-23] MEDS: FINASTERIDE 5 MG TABLET (FP) PO SCH (10:19)
[2018-02-23] MEDS: TAMSULOSIN HCL 0.4 MG CAP.ER.24H (FP) PO SCH (10:20)
[2018-02-23] MEDS: APIXABAN 2.5 MG TABLET PO SCH (21:36)
[2018-02-23] MEDS: OLANZapine 5 MG TABLET PO SCH (21:36)
[2018-02-23] MEDS: MIRTAZAPINE 15 MG TABLET (FP) PO SCH (21:36)
[2018-02-24 07:19] LABS: BASO % 0.2 % (0-2.0); EOS % 0.1 % (0-4.5); HEMATOCRIT 32.9 % (35.4-49); HEMOGLOBIN 10.9 GM/dL (11.7-16.9); LYMPH % 5.9 % (8-40); MCH 28.7 pg (25.7-33.7); MCHC 33.2 g/dl (32.0-35.9); MEAN CELL VOLUME 86.4 fl (80-96); MEAN PLT VOLUME 7.5 fl (7.5-11.1); MONO % 9.7 % (3.8-10.2); NEUT % 84.1 % (42.8-82.8); PLATELET COUNT 210 K/MM3 (134-434); RBC 3.81 M/mm3 (4.00-5.60); RDW 16.1 % (11.9-15.9); WHITE BLOOD COUNT 12.4 K/mm3 (4.0-10.0)
[2018-02-24 07:47] LABS: CHLORIDE 102 mmol/L (98-107); POTASSIUM 4.6 mmol/L (3.5-5.1); SODIUM 138 mmol/L (136-145)
[2018-02-24 07:57] LABS: ALBUMIN 2.7 g/dl (3.4-5.0); ALK PHOS 98 U/L (45-117); ANION GAP 10 MMOL/L (8-16); BILIRUBIN,TOTAL 0.5 mg/dL (0.2-1.0); BLOOD UREA NITROGEN 60 mg/dL (7-18); CALCIUM 9.3 mg/dL (8.5-10.1); CO2 26 mmol/L (21-32); GLUCOSE,RANDOM 95 mg/dL (74-106); SGOT/AST 28 U/L (15-37); SGPT/ALT 14 U/L (12-78); TOT PROT 6.4 g/dl (6.4-8.2)
[2018-02-24] MEDS: TAMSULOSIN HCL 0.4 MG CAP.ER.24H (FP) PO SCH (09:54)
[2018-02-24] MEDS: CITALOPRAM HYDROBROMIDE 10 MG TABLET (FP) PO SCH (09:54)
[2018-02-24] MEDS: DOCUSATE SODIUM 100 MG CAPSULE (FP) PO SCH (09:54)
[2018-02-24] MEDS: MULTIVITAMINS (DAILY MVI) TABLET (FP) PO SCH (09:55)
[2018-02-24] MEDS: FINASTERIDE 5 MG TABLET (FP) PO SCH (09:55)
[2018-02-24] MEDS: VALPROATE SODIUM 250 MG/5 ML UNIT DOSE CUP PO SCH ×2 (09:55→23:08)
[2018-02-24] MEDS: CHOLECALCIFEROL (VITAMIN D3) 1,000 UNIT TABLET (FP) PO SCH (09:55)
[2018-02-24] MEDS: risperiDONE 0.5 MG TABLET (FP) PO SCH (09:55)
[2018-02-24] MEDS: APIXABAN 2.5 MG TABLET PO SCH ×2 (09:55→23:09)
[2018-02-24] MEDS ORDERED: ACETAMINOPHEN 1000 MG/100 ML VIAL (NON FORMULARY) IVPB ONE (11:15)
--- NOTE | 2018-02-24 11:18 | PN ---
Progress Note (short form) - Note Progress Note: patient in bed has been unable to void freely TURP cancelled yesterday - today in position with distended bladder awaiting TURP at 3 pm Vital Signs Period Temp Pulse Resp BP Sys/Aguirre Pulse Ox Last 24 Hr 97.9 F-100.0 F 105-118 18-20 110-131/56-77 moderate distress neck supple heart S1/S2 lungs clear bilat abd soft / suprapubic tenderness ext no edema CBC, BMP 02/24/18 06:10 02/24/18 06:10 CBC, BMP 02/22/18 06:00 02/22/18 06:00 Active Medications Acetaminophen (Tylenol -) 650 mg PO Q6H PRN PRN Reason: PAIN 1-5 Last Admin: 02/22/18 17:51 Dose: 650 mg Apixaban (Eliquis -) 2.5 mg PO BID [facility] Last Admin: 02/24/18 09:55 Dose: Not Given Cholecalciferol (Vitamin D3 -) 1,000 unit PO DAILY [facility] Last Admin: 02/24/18 09:55 Dose: Not Given Citalopram Hydrobromide (Celexa -) 10 mg PO DAILY [facility] Last Admin: 02/24/18 09:54 Dose: Not Given Docusate Sodium (Colace -) 200 mg PO DAILY [facility] Last Admin: 02/24/18 09:54 Dose: Not Given Finasteride (Proscar -) 5 mg PO DAILY [facility] Last Admin: 02/24/18 09:55 Dose: Not Given Haloperidol (Haldol Injection (Fast Acting) -) 2 mg IM BID PRN PRN Reason: psychosis Levofloxacin (Levaquin 250 Mg Premixed Ivpb -) 250 mg in 50 mls @ 50 mls/hr IVPB DAILY [facility]; Protocol Stop: 03/01/18 16:29 Last Admin: 02/24/18 10:06 Dose: 50 mls/hr Mirtazapine (Remeron -) 30 mg PO [facility] Last Admin: 02/23/18 21:36 Dose: 30 mg Multivitamins/Minerals/Vitamin C (Tab-A-Vit -) 1 tab PO DAILY [facility] Last Admin: 02/24/18 09:55 Dose: Not Given Olanzapine (Zyprexa -) 15 mg PO [facility] Last Admin: 02/23/18 21:36 Dose: 15 mg Risperidone (Risperdal -) 0.5 mg PO DAILY [facility] Last Admin: 02/24/18 09:55 Dose: Not Given Tamsulosin HCl (Flomax -) 0.4 mg PO DAILY@0830 [facility] Last Admin: 02/24/18 09:54 Dose: Not Given Valproate Sodium (Depakene -) 500 mg PO BID [facility] Last Admin: 02/24/18 09:55 Dose: Not Given # obstructive uropathy await follow up bladder scan confirms obstruction BUN / Cr elevated # febrile cover for UTI C/S emperic levaquin ID consult Dr Delvalle # Demnetia baseline # afib NOAC will need to hold if procedure scheduled Problem List - Problems (1) Urinary retention Code(s): R33.9 - RETENTION OF URINE, UNSPECIFIED (2) VAZQUEZ (acute kidney injury) Code(s): N17.9 - ACUTE KIDNEY FAILURE, UNSPECIFIED (3) Altered mental status Code(s): R41.82 - ALTERED MENTAL STATUS, UNSPECIFIED (4) Alzheimer's dementia with behavioral disturbance Code(s): G30.9 - ALZHEIMER'S DISEASE, UNSPECIFIED; F02.81 - DEMENTIA IN OTH DISEASES CLASSD ELSWHR W BEHAVIORAL DISTURB Qualifiers: Alzheimer's disease onset: unspecified onset Qualified Code(s): G30.9 - Alzheimer's disease, unspecified; F02.81 - Dementia in other diseases classified elsewhere with behavioral disturbance; F02.81 - Dementia in other diseases classified elsewhere with behavioral disturbance; F02.81 - Dementia in other diseases classified elsewhere with behavioral disturbance (5) Atrial fibrillation Code(s): I48.91 - UNSPECIFIED ATRIAL FIBRILLATION (6) Dementia Code(s): F03.90 - UNSPECIFIED DEMENTIA WITHOUT BEHAVIORAL DISTURBANCE Qualifiers: Dementia type: Alzheimer's disease Alzheimer's disease onset: unspecified onset Dementia behavioral disturbance: with behavioral disturbance Qualified Code(s): G30.9 - Alzheimer's disease, unspecified; F02.81 - Dementia in other diseases classified elsewhere with behavioral disturbance; F02.81 - Dementia in other diseases classified elsewhere with behavioral disturbance; F02.81 - Dementia in other diseases classified elsewhere with behavioral disturbance (7) HTN (hypertension) Code(s): I10 - ESSENTIAL (PRIMARY) HYPERTENSION (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
[2018-02-24] MEDS ORDERED: DEXAMETHASONE SOD PHOSPHATE 4 MG/1 ML VIAL ONE (15:22)
[2018-02-24] MEDS ORDERED: PROPOFOL 20 ML ONE (15:23)
[2018-02-24] MEDS ORDERED: PHENYLEPHRINE HCL 10 MG/1 ML SINGLE DOSE VIAL ONE (15:49)
[2018-02-24] MEDS ORDERED: SODIUM CHLORIDE 0.9% P/F 10 ML VIAL IJ ONE (15:49)
[2018-02-24] MEDS ORDERED: ceFAZolin SODIUM 1 GM VIAL IVPB ONE (15:53)
[2018-02-24] MEDS ORDERED: PROMETHAZINE HCL 25 MG/1 ML VIAL IVPUSH PRN ×2 (16:28→17:06)
[2018-02-24] MEDS ORDERED: ONDANSETRON 4 MG/2 ML VIAL IVPUSH PRN ×2 (16:28→17:06)
[2018-02-24] MEDS ORDERED: LACTATED RINGERS SOLUTION 1,000 ML IV SCH ×2 (16:30→17:06)
[2018-02-24] MEDS ORDERED: HALOPERIDOL LACTATE 5 MG/ML IM PRN (17:06)
[2018-02-24 17:32] LABS: BASO % 0.1 % (0-2.0); EOS % 0.1 % (0-4.5); HEMATOCRIT 29.4 % (35.4-49); HEMOGLOBIN 9.9 GM/dL (11.7-16.9); LYMPH % 3.4 % (8-40); MCH 29.3 pg (25.7-33.7); MCHC 33.8 g/dl (32.0-35.9); MEAN CELL VOLUME 86.9 fl (80-96); MEAN PLT VOLUME 7.6 fl (7.5-11.1); MONO % 7.7 % (3.8-10.2); NEUT % 88.7 % (42.8-82.8); PLATELET COUNT 192 K/MM3 (134-434); RBC 3.39 M/mm3 (4.00-5.60); RDW 15.8 % (11.9-15.9); WHITE BLOOD COUNT 16.5 K/mm3 (4.0-10.0)
[2018-02-24] MEDS: DEXTROSE 5%-0.45% SALINE 1,000 ML IV SCH ×2 (17:49→23:14)
[2018-02-24 18:29] LABS: ANION GAP 13 MMOL/L (8-16); BLOOD UREA NITROGEN 56 mg/dL (7-18); CALCIUM 8.3 mg/dL (8.5-10.1); CHLORIDE 111 mmol/L (98-107); CO2 19 mmol/L (21-32); CREATININE 3.4 mg/dL (0.7-1.3); GLUCOSE,RANDOM 90 mg/dL (74-106); POTASSIUM 4.6 mmol/L (3.5-5.1); SODIUM 143 mmol/L (136-145)
--- NOTE | 2018-02-24 19:58 | OP ---
DATE OF OPERATION: 02/24/2018 PREOPERATIVE DIAGNOSIS: Urinary retention. POSTOPERATIVE DIAGNOSIS: Urinary retention. PROCEDURE: Cystoscopy, bipolar transurethral resection of prostate. ANESTHESIA: General anesthesia. ANESTHESIOLOGIST: Rangel Cruz M.D. FINDINGS: Obstructive prostate tissue. SURGEON: Andrea Martin M.D. ESTIMATED BLOOD LOSS: 200 mL. DRAINS: Narvaez catheter, 24 [address] 3-way catheter. PREOPERATIVE INDICATION: The patient is an 82-year-old male who is demented. He came to the hospital with urinary retention. 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 He had a suprapubic tube placed at this time which has since been removed. He comes back to the OR today for repeat attempt at cystoscopy and TURP. DESCRIPTION OF PROCEDURE: The patient was brought to the OR, placed on the table in the supine position, given general anesthesia and IV antibiotics and placed in the modified lithotomy position. The groin was prepped and draped sterilely. Cystoscopy was performed. The distal urethra appeared to be normal. The was seen. Again, the prostatic urethra was not visible or appreciated. Scope was directed in the posterior position, and the lumen was found. This was catheter, the scope was then passed into the bladder. There were multiple trabeculations throughout the bladder and diverticula. No tumors or stones were seen. A bipolar TURP was then performed, resecting the prostate tissue from the bladder neck to the area just proximal to the verumontanum. This prostate tissue was sent for pathology. Good hemostasis was maintained throughout. The urinary sphincter was intact as well as ureteral orifices. A 24 [address] 3-way Narvaez catheter was left in place for postoperative irrigation. The patient was woken up. Valentino [id number]
[2018-02-24] MEDS ORDERED: MIRTAZAPINE 15 MG TABLET (FP) PO SCH (22:00)
[2018-02-24] MEDS: OLANZapine 5 MG TABLET PO SCH (23:11)
[2018-02-24] MEDS: ACETAMINOPHEN 325 MG TABLET (FP) PO PRN (23:12)
[2018-02-25] MEDS: ACETAMINOPHEN 325 MG TABLET (FP) PO PRN ×2 (05:35→14:29)
[2018-02-25 07:38] LABS: BASO % 0.1 % (0-2.0); HEMATOCRIT 24.4 % (35.4-49); HEMOGLOBIN 8.2 GM/dL (11.7-16.9); LYMPH % 4.5 % (8-40); MCHC 33.5 g/dl (32.0-35.9); MEAN CELL VOLUME 86.7 fl (80-96); MEAN PLT VOLUME 7.6 fl (7.5-11.1); MONO % 7.1 % (3.8-10.2); NEUT % 88.3 % (42.8-82.8); PLATELET COUNT 169 K/MM3 (134-434); RBC 2.82 M/mm3 (4.00-5.60); RDW 15.9 % (11.9-15.9); WHITE BLOOD COUNT 9.8 K/mm3 (4.0-10.0)
[2018-02-25 07:59] LABS: ANION GAP 12 MMOL/L (8-16); BLOOD UREA NITROGEN 47 mg/dL (7-18); CALCIUM 8.3 mg/dL (8.5-10.1); CHLORIDE 109 mmol/L (98-107); CO2 22 mmol/L (21-32); CREATININE 2.1 mg/dL (0.7-1.3); GLUCOSE,RANDOM 131 mg/dL (74-106); POTASSIUM 4.2 mmol/L (3.5-5.1); SODIUM 143 mmol/L (136-145)
[2018-02-25] MEDS: TAMSULOSIN HCL 0.4 MG CAP.ER.24H (FP) PO SCH (07:59)
[2018-02-25] MEDS ORDERED: PT OWN MED DRAWER 7, Y5N ONE ×2 (09:20→22:38)
[2018-02-25] MEDS: CHOLECALCIFEROL (VITAMIN D3) 1,000 UNIT TABLET (FP) PO SCH (10:05)
[2018-02-25] MEDS: MULTIVITAMINS (DAILY MVI) TABLET (FP) PO SCH (10:05)
[2018-02-25] MEDS: DOCUSATE SODIUM 100 MG CAPSULE (FP) PO SCH (10:05)
[2018-02-25] MEDS: FINASTERIDE 5 MG TABLET (FP) PO SCH (10:05)
[2018-02-25] MEDS: CITALOPRAM HYDROBROMIDE 10 MG TABLET (FP) PO SCH (10:05)
[2018-02-25] MEDS: APIXABAN 2.5 MG TABLET PO SCH ×2 (10:05→22:39)
[2018-02-25] MEDS: DEXTROSE 5%-0.45% SALINE 1,000 ML IV SCH (10:06)
[2018-02-25] MEDS: risperiDONE 0.5 MG TABLET (FP) PO SCH (10:06)
[2018-02-25] MEDS: VALPROATE SODIUM 250 MG/5 ML UNIT DOSE CUP PO SCH ×2 (10:06→22:39)
--- NOTE | 2018-02-25 17:09 | PN ---
Progress Note (short form) - Note Progress Note: Anesthesia post op note, POD#1 S/P TURP. VSS. No apparent post anesthesia complications. Signed off.
--- NOTE | 2018-02-25 17:59 | PN ---
Progress Note (short form) - Note Progress Note: patient in bed s/p TURP yesterday - CBI in place appears more comfortable Vital Signs Period Temp Pulse Resp BP Sys/Aguirre Pulse Ox Last 24 Hr 96.9 F-99.3 F 81-114 16-109 98-141/41-85 96-100 moderate distress neck supple heart S1/S2 lungs clear bilat abd soft non tender / CBI coco colored ext no edema CBC, [facility] 02/25/18 06:00 02/25/18 06:00 CBC, BMP 02/24/18 06:10 02/24/18 06:10 CBC, BMP 02/22/18 06:00 02/22/18 06:00 Active Medications Acetaminophen (Tylenol -) 650 mg PO Q6H PRN PRN Reason: PAIN 1-5 Last Admin: 02/22/18 17:51 Dose: 650 mg Apixaban (Eliquis -) 2.5 mg PO BID [facility] Last Admin: 02/24/18 09:55 Dose: Not Given Cholecalciferol (Vitamin D3 -) 1,000 unit PO DAILY [facility] Last Admin: 02/24/18 09:55 Dose: Not Given Citalopram Hydrobromide (Celexa -) 10 mg PO DAILY [facility] Last Admin: 02/24/18 09:54 Dose: Not Given Docusate Sodium (Colace -) 200 mg PO DAILY [facility] Last Admin: 02/24/18 09:54 Dose: Not Given Finasteride (Proscar -) 5 mg PO DAILY [facility] Last Admin: 02/24/18 09:55 Dose: Not Given Haloperidol (Haldol Injection (Fast Acting) -) 2 mg IM BID PRN PRN Reason: psychosis Levofloxacin (Levaquin 250 Mg Premixed Ivpb -) 250 mg in 50 mls @ 50 mls/hr IVPB DAILY [facility]; Protocol Stop: 03/01/18 16:29 Last Admin: 02/24/18 10:06 Dose: 50 mls/hr Mirtazapine (Remeron -) 30 mg PO [facility] Last Admin: 02/23/18 21:36 Dose: 30 mg Multivitamins/Minerals/Vitamin C (Tab-A-Vit -) 1 tab PO DAILY [facility] Last Admin: 02/24/18 09:55 Dose: Not Given Olanzapine (Zyprexa -) 15 mg PO [facility] Last Admin: 02/23/18 21:36 Dose: 15 mg Risperidone (Risperdal -) 0.5 mg PO DAILY [facility] Last Admin: 02/24/18 09:55 Dose: Not Given Tamsulosin HCl (Flomax -) 0.4 mg PO DAILY@0830 [facility] Last Admin: 02/24/18 09:54 Dose: Not Given Valproate Sodium (Depakene -) 500 mg PO BID [facility] Last Admin: 02/24/18 09:55 Dose: Not Given # obstructive uropathy s/p turp --CBI in place bladder obstruction resulting in increased BUN / Cr renal function improved # febrile cover for UTI C/S emperic levaquin ID consult Dr Delvalle # Demnetia baseline # afib NOAC will resume Problem List - Problems (1) Urinary retention Code(s): R33.9 - RETENTION OF URINE, UNSPECIFIED (2) VAZQUEZ (acute kidney injury) Code(s): N17.9 - ACUTE KIDNEY FAILURE, UNSPECIFIED (3) Altered mental status Code(s): R41.82 - ALTERED MENTAL STATUS, UNSPECIFIED (4) Alzheimer's dementia with behavioral disturbance Code(s): G30.9 - ALZHEIMER'S DISEASE, UNSPECIFIED; F02.81 - DEMENTIA IN OTH DISEASES CLASSD ELSWHR W BEHAVIORAL DISTURB Qualifiers: Alzheimer's disease onset: unspecified onset Qualified Code(s): G30.9 - Alzheimer's disease, unspecified; F02.81 - Dementia in other diseases classified elsewhere with behavioral disturbance; F02.81 - Dementia in other diseases classified elsewhere with behavioral disturbance; F02.81 - Dementia in other diseases classified elsewhere with behavioral disturbance (5) Atrial fibrillation Code(s): I48.91 - UNSPECIFIED ATRIAL FIBRILLATION (6) Dementia Code(s): F03.90 - UNSPECIFIED DEMENTIA WITHOUT BEHAVIORAL DISTURBANCE Qualifiers: Dementia type: Alzheimer's disease Alzheimer's disease onset: unspecified onset Dementia behavioral disturbance: with behavioral disturbance Qualified Code(s): G30.9 - Alzheimer's disease, unspecified; F02.81 - Dementia in other diseases classified elsewhere with behavioral disturbance; F02.81 - Dementia in other diseases classified elsewhere with behavioral disturbance; F02.81 - Dementia in other diseases classified elsewhere with behavioral disturbance (7) HTN (hypertension) Code(s): I10 - ESSENTIAL (PRIMARY) HYPERTENSION (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
[2018-02-25] MEDS: OLANZapine 5 MG TABLET PO SCH (22:39)
[2018-02-25] MEDS: MIRTAZAPINE 30 MG TABLET (FP) PO SCH (22:40)
[2018-02-26] MEDS: DEXTROSE 5%-0.45% SALINE 1,000 ML IV SCH (07:17)
[2018-02-26 07:18] LABS: BASO % 0.4 % (0-2.0); EOS % 0.6 % (0-4.5); HEMATOCRIT 22.8 % (35.4-49); HEMOGLOBIN 7.7 GM/dL (11.7-16.9); LYMPH % 9.9 % (8-40); MCH 29.1 pg (25.7-33.7); MCHC 33.7 g/dl (32.0-35.9); MEAN CELL VOLUME 86.5 fl (80-96); MEAN PLT VOLUME 7.4 fl (7.5-11.1); MONO % 8.4 % (3.8-10.2); NEUT % 80.7 % (42.8-82.8); PLATELET COUNT 187 K/MM3 (134-434); RBC 2.64 M/mm3 (4.00-5.60); RDW 15.6 % (11.9-15.9); WHITE BLOOD COUNT 7.5 K/mm3 (4.0-10.0)
[2018-02-26 08:34] LABS: BLOOD UREA NITROGEN 30 mg/dL (7-18); CALCIUM 8.6 mg/dL (8.5-10.1); CHLORIDE 110 mmol/L (98-107); GLUCOSE,RANDOM 82 mg/dL (74-106); POTASSIUM 4.1 mmol/L (3.5-5.1); SODIUM 144 mmol/L (136-145)
[2018-02-26] MEDS: TAMSULOSIN HCL 0.4 MG CAP.ER.24H (FP) PO SCH (08:37)
[2018-02-26] MEDS ORDERED: PT OWN MED DRAWER 7, Y5N ONE ×2 (09:09→22:31)
[2018-02-26] MEDS: FINASTERIDE 5 MG TABLET (FP) PO SCH (09:11)
[2018-02-26] MEDS: DOCUSATE SODIUM 100 MG CAPSULE (FP) PO SCH (09:11)
[2018-02-26] MEDS: MULTIVITAMINS (DAILY MVI) TABLET (FP) PO SCH (09:11)
[2018-02-26] MEDS: ACETAMINOPHEN 325 MG TABLET (FP) PO PRN (09:12)
[2018-02-26] MEDS: CHOLECALCIFEROL (VITAMIN D3) 1,000 UNIT TABLET (FP) PO SCH (09:12)
[2018-02-26] MEDS: CITALOPRAM HYDROBROMIDE 10 MG TABLET (FP) PO SCH (09:12)
[2018-02-26] MEDS: risperiDONE 0.5 MG TABLET (FP) PO SCH (09:13)
[2018-02-26] MEDS: VALPROATE SODIUM 250 MG/5 ML UNIT DOSE CUP PO SCH ×2 (09:13→22:49)
[2018-02-26] MEDS: APIXABAN 2.5 MG TABLET PO SCH ×2 (09:13→22:49)
[2018-02-26 09:41] LABS: ANION GAP 9 MMOL/L (8-16); CO2 25 mmol/L (21-32)
[2018-02-26 10:53] LABS: ANISOCYTOSIS 1+; MACROCYTOSIS 0; PLATELET ESTIMATE NORMAL
[2018-02-26] MEDS: MIRTAZAPINE 30 MG TABLET (FP) PO SCH (22:49)
[2018-02-26] MEDS: OLANZapine 5 MG TABLET PO SCH (22:49)
--- NOTE | 2018-02-27 09:24 | PN ---
Progress Note (short form) - Note Progress Note: patient in bed unable to extend Lower extremities combative to exam bladder scan with >400 cc retention ++ hematuria Vital Signs Period Temp Pulse Resp BP Sys/Aguirre Pulse Ox Last 24 Hr 97.5 F-100.0 F 95-101 18-20 92-139/49-69 99-99 neck supple heart S1/S2 lungs clear bilat abd soft / no suprapubic fullness ext no edema / contracted LE CBC, BMP 02/26/18 06:00 02/26/18 06:00 Active Medications Acetaminophen (Tylenol -) 650 mg PO Q6H PRN PRN Reason: PAIN 1-5 Last Admin: 02/26/18 09:12 Dose: 650 mg Apixaban (Eliquis -) 2.5 mg PO BID [facility] Last Admin: 02/26/18 22:49 Dose: Not Given Cholecalciferol (Vitamin D3 -) 1,000 unit PO DAILY [facility] Last Admin: 02/26/18 09:12 Dose: 1,000 unit Citalopram Hydrobromide (Celexa -) 10 mg PO DAILY [facility] Last Admin: 02/26/18 09:12 Dose: 10 mg Docusate Sodium (Colace -) 200 mg PO DAILY [facility] Last Admin: 02/26/18 09:11 Dose: 200 mg Fentanyl (Sublimaze Injection -) 50 mcg IVPUSH [id number] PRN PRN Reason: PAIN-PACU ORDER X 4 DOSES ONLY Finasteride (Proscar -) 5 mg PO DAILY [facility] Last Admin: 02/26/18 09:11 Dose: 5 mg Haloperidol (Haldol Injection (Fast Acting) -) 2 mg IM BID PRN PRN Reason: psychosis Levofloxacin (Levaquin 250 Mg Premixed Ivpb -) 250 mg in 50 mls @ 50 mls/hr IVPB DAILY [facility]; Protocol Stop: 03/01/18 16:29 Last Admin: 02/26/18 09:11 Dose: 50 mls/hr Mirtazapine (Remeron -) 30 mg PO [facility] Last Admin: 02/26/18 22:49 Dose: 30 mg Multivitamins/Minerals/Vitamin C (Tab-A-Vit -) 1 tab PO DAILY [facility] Last Admin: 02/26/18 09:11 Dose: 1 tab Olanzapine (Zyprexa -) 15 mg PO HS [facility] Last Admin: 02/26/18 22:49 Dose: 15 mg Ondansetron HCl (Zofran Injection) 4 mg IVPUSH Q6H PRN PRN Reason: NAUSEA AND/OR VOMITING Promethazine HCl (Phenergan Injection -) 12.5 mg IVPUSH Q6H PRN PRN Reason: NAUSEA-FOR RESCUE AFTER 15 MIN Risperidone (Risperdal -) 0.5 mg PO DAILY [facility] Last Admin: 02/26/18 09:13 Dose: 0.5 mg Tamsulosin HCl (Flomax -) 0.4 mg PO DAILY@0830 [facility] Last Admin: 02/26/18 08:37 Dose: 0.4 mg Valproate Sodium (Depakene -) 500 mg PO BID [facility] Last Admin: 02/26/18 22:49 Dose: 500 mg # obstructive uropathy s/p TURP - CBI out voiding freely but still with some retention # anemia continues with hematuria will need blood transfusion # febrile cover for UTI # Demnetia baseline # afib will need to resume NOAC / however continues with hematuria unable to asses 2/2 no gandhi / diaper "pink" will hold today Problem List - Problems (1) Urinary retention Code(s): R33.9 - RETENTION OF URINE, UNSPECIFIED (2) VAZQUEZ (acute kidney injury) Code(s): N17.9 - ACUTE KIDNEY FAILURE, UNSPECIFIED (3) Altered mental status Code(s): R41.82 - ALTERED MENTAL STATUS, UNSPECIFIED (4) Alzheimer's dementia with behavioral disturbance Code(s): G30.9 - ALZHEIMER'S DISEASE, UNSPECIFIED; F02.81 - DEMENTIA IN OTH DISEASES CLASSD ELSWHR W BEHAVIORAL DISTURB Qualifiers: Alzheimer's disease onset: unspecified onset Qualified Code(s): G30.9 - Alzheimer's disease, unspecified; F02.81 - Dementia in other diseases classified elsewhere with behavioral disturbance; F02.81 - Dementia in other diseases classified elsewhere with behavioral disturbance; F02.81 - Dementia in other diseases classified elsewhere with behavioral disturbance (5) Atrial fibrillation Code(s): I48.91 - UNSPECIFIED ATRIAL FIBRILLATION (6) Dementia Code(s): F03.90 - UNSPECIFIED DEMENTIA WITHOUT BEHAVIORAL DISTURBANCE Qualifiers: Dementia type: Alzheimer's disease Alzheimer's disease onset: unspecified onset Dementia behavioral disturbance: with behavioral disturbance Qualified Code(s): G30.9 - Alzheimer's disease, unspecified; F02.81 - Dementia in other diseases classified elsewhere with behavioral disturbance; F02.81 - Dementia in other diseases classified elsewhere with behavioral disturbance; F02.81 - Dementia in other diseases classified elsewhere with behavioral disturbance (7) HTN (hypertension) Code(s): I10 - ESSENTIAL (PRIMARY) HYPERTENSION (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
[2018-02-27] MEDS: DOCUSATE SODIUM 100 MG CAPSULE (FP) PO SCH (10:29)
[2018-02-27] MEDS: MULTIVITAMINS (DAILY MVI) TABLET (FP) PO SCH (10:30)
[2018-02-27] MEDS: CITALOPRAM HYDROBROMIDE 10 MG TABLET (FP) PO SCH (10:30)
[2018-02-27] MEDS: TAMSULOSIN HCL 0.4 MG CAP.ER.24H (FP) PO SCH (10:30)
[2018-02-27] MEDS: CHOLECALCIFEROL (VITAMIN D3) 1,000 UNIT TABLET (FP) PO SCH (10:30)
[2018-02-27] MEDS: FINASTERIDE 5 MG TABLET (FP) PO SCH (10:30)
[2018-02-27] MEDS: APIXABAN 2.5 MG TABLET PO SCH ×3 (10:30→22:19)
[2018-02-27] MEDS: VALPROATE SODIUM 250 MG/5 ML UNIT DOSE CUP PO SCH ×2 (10:31→22:21)
[2018-02-27] MEDS: risperiDONE 0.5 MG TABLET (FP) PO SCH (10:31)
--- NOTE | 2018-02-27 10:36 | EKG ---
Test Reason : Blood Pressure : / mmHG Vent. Rate : 112 BPM Atrial Rate : 166 BPM P-R Int : 000 ms QRS Dur : 084 ms QT Int : 318 ms P-R-T Axes : 000 057 -26 degrees QTc Int : 434 ms ATRIAL FIBRILLATION WITH RAPID VENTRICULAR RESPONSE WITH PREMATURE VENTRICULAR OR ABERRANTLY CONDUCTED COMPLEXES LOW VOLTAGE QRS NONSPECIFIC ST AND T WAVE ABNORMALITY ABNORMAL ECG WHEN COMPARED WITH ECG OF 21-FEB-2018 09:47, NO SIGNIFICANT CHANGE WAS FOUND PATIENT MOVING DURING EKG Confirmed by ZOË COBURN MD ([id number]) on 02/27/2018 10:35:45 AM Referred By: Radha COSTELLO Confirmed By:ZOË COBURN MD
[2018-02-27] MEDS ORDERED: PT OWN MED DRAWER 7, Y5N ONE (21:19)
[2018-02-27] MEDS: OLANZapine 5 MG TABLET PO SCH (22:21)
[2018-02-27] MEDS: MIRTAZAPINE 30 MG TABLET (FP) PO SCH (22:21)
[2018-02-28] MEDS ORDERED: PT OWN MED DRAWER 7, Y5N ONE (09:18)
[2018-02-28] MEDS: FINASTERIDE 5 MG TABLET (FP) PO SCH (09:28)
[2018-02-28] MEDS: CITALOPRAM HYDROBROMIDE 10 MG TABLET (FP) PO SCH (09:28)
[2018-02-28] MEDS: risperiDONE 0.5 MG TABLET (FP) PO SCH (09:29)
[2018-02-28] MEDS: DOCUSATE SODIUM 100 MG CAPSULE (FP) PO SCH (09:29)
[2018-02-28] MEDS: TAMSULOSIN HCL 0.4 MG CAP.ER.24H (FP) PO SCH (09:29)
[2018-02-28] MEDS: CHOLECALCIFEROL (VITAMIN D3) 1,000 UNIT TABLET (FP) PO SCH (09:29)
[2018-02-28] MEDS: MULTIVITAMINS (DAILY MVI) TABLET (FP) PO SCH (09:29)
[2018-02-28] MEDS: VALPROATE SODIUM 250 MG/5 ML UNIT DOSE CUP PO SCH ×2 (09:30→22:48)
[2018-02-28] MEDS: APIXABAN 2.5 MG TABLET PO SCH ×2 (09:31→22:48)
--- NOTE | 2018-02-28 12:35 | PATH ---
Surgical Pathology Report Patient Name: JOSE JEAN Med. Rec. #: [id number] /Age/Gender: 1935 (Age: 82) / M Account: [id number] Location: [facility] MED/SURG Taken: 02/24/2018 Received: 02/27/2018 Reported: 02/28/2018 Physicians: Valentino Flores MD Specimen(s) Received PROSTATE CHIPS Clinical History Retention of urine Final Diagnosis PROSTATE, TRANSURETHRAL RESECTION OF PROSTATE: BENIGN PROSTATIC TISSUE WITH SEVERE ACUTE AND CHRONIC INFLAMMATION, ACINAR ATROPHY, CYSTIC CHANGES, AND STROMAL HYPERPLASIA. Electronically Signed Eden Santos M.D. Gross Description Received in formalin labeled "prostate tissue," is a 3 g, 3.7 x 3.4 x 0.4 cm aggregate of peralta, firm to rubbery portions of tissue admixed with blood clot, consistent with prostate tissue. The specimen is entirely submitted in 4 cassettes. /02/27/2018 saudi02/27/2018
[2018-02-28 13:06] LABS: BASO % 0.5 % (0-2.0); EOS % 0.7 % (0-4.5); HEMATOCRIT 30.4 % (35.4-49); LYMPH % 13.7 % (8-40); MCHC 32.8 g/dl (32.0-35.9); MEAN CELL VOLUME 85.2 fl (80-96); MEAN PLT VOLUME 6.9 fl (7.5-11.1); MONO % 10.2 % (3.8-10.2); NEUT % 74.9 % (42.8-82.8); PLATELET COUNT 234 K/MM3 (134-434); RBC 3.57 M/mm3 (4.00-5.60); RDW 16.3 % (11.9-15.9); WHITE BLOOD COUNT 8.5 K/mm3 (4.0-10.0)
[2018-02-28 14:00] LABS: ACANTHOCYTES 0; ANISOCYTOSIS 0; HELMET CELLS 0; HOWELL-JOLLY BODIES 0; MACROCYTOSIS 0; OVALOCYTE 0; PLATELET ESTIMATE NORMAL; ROULEAU 0; SICKELED CELLS 0; TARGET CELLS 0; TEAR DROP CELLS 0; TOXIC GRANULATION 0
[2018-02-28] MEDS: MIRTAZAPINE 30 MG TABLET (FP) PO SCH (22:48)
[2018-02-28] MEDS: OLANZapine 5 MG TABLET PO SCH (22:48)
--- NOTE | 2018-02-28 23:18 | PN ---
Progress Note (short form) - Note Progress Note: patient in bed unable to extend Lower extremities Vital Signs Period Temp Pulse Resp BP Sys/Aguirre Pulse Ox Last 24 Hr 97.8 F-98.7 F 95-112 18-20 92-149/56-94 95 neck supple heart S1/S2 lungs clear bilat abd soft / no suprapubic fullness ext no edema / contracted LE CBC, BMP 02/28/18 12:48 02/26/18 06:00 s/p transfusion 2 units PRBC 02/27/18 CBC, BMP 02/26/18 06:00 02/26/18 06:00 Active Medications Acetaminophen (Tylenol -) 650 mg PO Q6H PRN PRN Reason: PAIN 1-5 Last Admin: 02/26/18 09:12 Dose: 650 mg Apixaban (Eliquis -) 2.5 mg PO BID [facility] Last Admin: 02/26/18 22:49 Dose: Not Given Cholecalciferol (Vitamin D3 -) 1,000 unit PO DAILY [facility] Last Admin: 02/26/18 09:12 Dose: 1,000 unit Citalopram Hydrobromide (Celexa -) 10 mg PO DAILY [facility] Last Admin: 02/26/18 09:12 Dose: 10 mg Docusate Sodium (Colace -) 200 mg PO DAILY [facility] Last Admin: 02/26/18 09:11 Dose: 200 mg Fentanyl (Sublimaze Injection -) 50 mcg IVPUSH [id number] PRN PRN Reason: PAIN-PACU ORDER X 4 DOSES ONLY Finasteride (Proscar -) 5 mg PO DAILY [facility] Last Admin: 02/26/18 09:11 Dose: 5 mg Haloperidol (Haldol Injection (Fast Acting) -) 2 mg IM BID PRN PRN Reason: psychosis Levofloxacin (Levaquin 250 Mg Premixed Ivpb -) 250 mg in 50 mls @ 50 mls/hr IVPB DAILY [facility]; Protocol Stop: 03/01/18 16:29 Last Admin: 02/26/18 09:11 Dose: 50 mls/hr Mirtazapine (Remeron -) 30 mg PO [facility] Last Admin: 02/26/18 22:49 Dose: 30 mg Multivitamins/Minerals/Vitamin C (Tab-A-Vit -) 1 tab PO DAILY [facility] Last Admin: 02/26/18 09:11 Dose: 1 tab Olanzapine (Zyprexa -) 15 mg PO HS [facility] Last Admin: 02/26/18 22:49 Dose: 15 mg Ondansetron HCl (Zofran Injection) 4 mg IVPUSH Q6H PRN PRN Reason: NAUSEA AND/OR VOMITING Promethazine HCl (Phenergan Injection -) 12.5 mg IVPUSH Q6H PRN PRN Reason: NAUSEA-FOR RESCUE AFTER 15 MIN Risperidone (Risperdal -) 0.5 mg PO DAILY [facility] Last Admin: 02/26/18 09:13 Dose: 0.5 mg Tamsulosin HCl (Flomax -) 0.4 mg PO DAILY@0830 [facility] Last Admin: 02/26/18 08:37 Dose: 0.4 mg Valproate Sodium (Depakene -) 500 mg PO BID [facility] Last Admin: 02/26/18 22:49 Dose: 500 mg # obstructive uropathy s/p TURP - CBI out voiding freely but still with some retention # anemia continues with hematuria will need blood transfusion # febrile cover for UTI # Demnetia baseline # afib will need to resume NOAC / however continues with hematuria unable to asses 2/2 no gandhi / diaper "pink" less than last few days will resume Eliquis tonight Problem List - Problems (1) Urinary retention Code(s): R33.9 - RETENTION OF URINE, UNSPECIFIED (2) VAZQUEZ (acute kidney injury) Code(s): N17.9 - ACUTE KIDNEY FAILURE, UNSPECIFIED (3) Altered mental status Code(s): R41.82 - ALTERED MENTAL STATUS, UNSPECIFIED (4) Alzheimer's dementia with behavioral disturbance Code(s): G30.9 - ALZHEIMER'S DISEASE, UNSPECIFIED; F02.81 - DEMENTIA IN OTH DISEASES CLASSD ELSWHR W BEHAVIORAL DISTURB Qualifiers: Alzheimer's disease onset: unspecified onset Qualified Code(s): G30.9 - Alzheimer's disease, unspecified; F02.81 - Dementia in other diseases classified elsewhere with behavioral disturbance; F02.81 - Dementia in other diseases classified elsewhere with behavioral disturbance; F02.81 - Dementia in other diseases classified elsewhere with behavioral disturbance (5) Atrial fibrillation Code(s): I48.91 - UNSPECIFIED ATRIAL FIBRILLATION (6) Dementia Code(s): F03.90 - UNSPECIFIED DEMENTIA WITHOUT BEHAVIORAL DISTURBANCE Qualifiers: Dementia type: Alzheimer's disease Alzheimer's disease onset: unspecified onset Dementia behavioral disturbance: with behavioral disturbance Qualified Code(s): G30.9 - Alzheimer's disease, unspecified; F02.81 - Dementia in other diseases classified elsewhere with behavioral disturbance; F02.81 - Dementia in other diseases classified elsewhere with behavioral disturbance; F02.81 - Dementia in other diseases classified elsewhere with behavioral disturbance (7) HTN (hypertension) Code(s): I10 - ESSENTIAL (PRIMARY) HYPERTENSION (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
--- NOTE | 2018-02-28 23:24 | PN ---
Progress Note (short form) - Note Progress Note: patient in bed unable to extend Lower extremities combative / non verbal Vital Signs Period Temp Pulse Resp BP Sys/Aguirre Pulse Ox Last 24 Hr 97.8 F-98.7 F 95-112 18-20 92-149/56-94 95 neck supple heart S1/S2 lungs clear bilat abd soft / no suprapubic fullness ext no edema / contracted LE CBC, BMP 02/26/18 06:00 02/26/18 06:00 Active Medications Acetaminophen (Tylenol -) 650 mg PO Q6H PRN PRN Reason: PAIN 1-5 Last Admin: 02/26/18 09:12 Dose: 650 mg Apixaban (Eliquis -) 2.5 mg PO BID [facility] Last Admin: 02/26/18 22:49 Dose: Not Given Cholecalciferol (Vitamin D3 -) 1,000 unit PO DAILY [facility] Last Admin: 02/26/18 09:12 Dose: 1,000 unit Citalopram Hydrobromide (Celexa -) 10 mg PO DAILY [facility] Last Admin: 02/26/18 09:12 Dose: 10 mg Docusate Sodium (Colace -) 200 mg PO DAILY [facility] Last Admin: 02/26/18 09:11 Dose: 200 mg Fentanyl (Sublimaze Injection -) 50 mcg IVPUSH [id number] PRN PRN Reason: PAIN-PACU ORDER X 4 DOSES ONLY Finasteride (Proscar -) 5 mg PO DAILY [facility] Last Admin: 02/26/18 09:11 Dose: 5 mg Haloperidol (Haldol Injection (Fast Acting) -) 2 mg IM BID PRN PRN Reason: psychosis Levofloxacin (Levaquin 250 Mg Premixed Ivpb -) 250 mg in 50 mls @ 50 mls/hr IVPB DAILY [facility]; Protocol Stop: 03/01/18 16:29 Last Admin: 02/26/18 09:11 Dose: 50 mls/hr Mirtazapine (Remeron -) 30 mg PO [facility] Last Admin: 02/26/18 22:49 Dose: 30 mg Multivitamins/Minerals/Vitamin C (Tab-A-Vit -) 1 tab PO DAILY [facility] Last Admin: 02/26/18 09:11 Dose: 1 tab Olanzapine (Zyprexa -) 15 mg PO [facility] Last Admin: 02/26/18 22:49 Dose: 15 mg Ondansetron HCl (Zofran Injection) 4 mg IVPUSH Q6H PRN PRN Reason: NAUSEA AND/OR VOMITING Promethazine HCl (Phenergan Injection -) 12.5 mg IVPUSH Q6H PRN PRN Reason: NAUSEA-FOR RESCUE AFTER 15 MIN Risperidone (Risperdal -) 0.5 mg PO DAILY [facility] Last Admin: 02/26/18 09:13 Dose: 0.5 mg Tamsulosin HCl (Flomax -) 0.4 mg PO DAILY@0830 [facility] Last Admin: 02/26/18 08:37 Dose: 0.4 mg Valproate Sodium (Depakene -) 500 mg PO BID [facility] Last Admin: 02/26/18 22:49 Dose: 500 mg # obstructive uropathy s/p TURP - CBI out voiding freely but still with some retention # anemia continues with hematuria will need blood transfusion # febrile cover for UTI # Demnetia baseline # afib will need to resume NOAC / however continues with hematuria unable to asses 2/2 no gandhi / diaper "pink" Problem List - Problems (1) Urinary retention Code(s): R33.9 - RETENTION OF URINE, UNSPECIFIED (2) Altered mental status Code(s): R41.82 - ALTERED MENTAL STATUS, UNSPECIFIED (3) Alzheimer's dementia with behavioral disturbance Code(s): G30.9 - ALZHEIMER'S DISEASE, UNSPECIFIED; F02.81 - DEMENTIA IN OTH DISEASES CLASSD ELSWHR W BEHAVIORAL DISTURB Qualifiers: Alzheimer's disease onset: unspecified onset Qualified Code(s): G30.9 - Alzheimer's disease, unspecified; F02.81 - Dementia in other diseases classified elsewhere with behavioral disturbance; F02.81 - Dementia in other diseases classified elsewhere with behavioral disturbance; F02.81 - Dementia in other diseases classified elsewhere with behavioral disturbance (4) Atrial fibrillation Code(s): I48.91 - UNSPECIFIED ATRIAL FIBRILLATION (5) Hematuria Code(s): R31.9 - HEMATURIA, UNSPECIFIED (6) VAZQUEZ (acute kidney injury) Code(s): N17.9 - ACUTE KIDNEY FAILURE, UNSPECIFIED (7) Dementia Code(s): F03.90 - UNSPECIFIED DEMENTIA WITHOUT BEHAVIORAL DISTURBANCE Qualifiers: Dementia type: Alzheimer's disease Alzheimer's disease onset: unspecified onset Dementia behavioral disturbance: with behavioral disturbance Qualified Code(s): G30.9 - Alzheimer's disease, unspecified; F02.81 - Dementia in other diseases classified elsewhere with behavioral disturbance; F02.81 - Dementia in other diseases classified elsewhere with behavioral disturbance; F02.81 - Dementia in other diseases classified elsewhere with behavioral disturbance (8) HTN (hypertension) Code(s): I10 - ESSENTIAL (PRIMARY) HYPERTENSION (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
[2018-03-01 07:02] LABS: BASO % 0.5 % (0-2.0); EOS % 0.8 % (0-4.5); HEMATOCRIT 28.2 % (35.4-49); HEMOGLOBIN 9.5 GM/dL (11.7-16.9); LYMPH % 16.8 % (8-40); MCH 28.3 pg (25.7-33.7); MCHC 33.8 g/dl (32.0-35.9); MEAN CELL VOLUME 83.7 fl (80-96); MONO % 11.8 % (3.8-10.2); NEUT % 70.1 % (42.8-82.8); PLATELET COUNT 211 K/MM3 (134-434); RBC 3.37 M/mm3 (4.00-5.60); RDW 16.1 % (11.9-15.9); WHITE BLOOD COUNT 7.5 K/mm3 (4.0-10.0)
[2018-03-01] MEDS ORDERED: PT OWN MED DRAWER 7, Y5N ONE ×3 (07:56→20:46)
[2018-03-01 07:59] LABS: ANION GAP 7 MMOL/L (8-16); BLOOD UREA NITROGEN 20 mg/dL (7-18); CALCIUM 8.7 mg/dL (8.5-10.1); CHLORIDE 113 mmol/L (98-107); CO2 29 mmol/L (21-32); GLUCOSE,RANDOM 86 mg/dL (74-106); SODIUM 149 mmol/L (136-145)
[2018-03-01 08:02] LABS: CREATININE 0.6 mg/dL (0.7-1.3)
[2018-03-01] MEDS: CITALOPRAM HYDROBROMIDE 10 MG TABLET (FP) PO SCH (09:27)
[2018-03-01] MEDS: FINASTERIDE 5 MG TABLET (FP) PO SCH (09:27)
[2018-03-01] MEDS: CHOLECALCIFEROL (VITAMIN D3) 1,000 UNIT TABLET (FP) PO SCH (09:27)
[2018-03-01] MEDS: TAMSULOSIN HCL 0.4 MG CAP.ER.24H (FP) PO SCH (09:27)
[2018-03-01] MEDS: MULTIVITAMINS (DAILY MVI) TABLET (FP) PO SCH (09:27)
[2018-03-01] MEDS: DOCUSATE SODIUM 100 MG CAPSULE (FP) PO SCH (09:27)
[2018-03-01 09:45] LABS: ACANTHOCYTES 0; ANISOCYTOSIS 0; HELMET CELLS 0; HOWELL-JOLLY BODIES 0; MACROCYTOSIS 0; OVALOCYTE 0; PLATELET ESTIMATE NORMAL; ROULEAU 0; SICKELED CELLS 0; TARGET CELLS 0; TEAR DROP CELLS 0; TOXIC GRANULATION 0
[2018-03-01] MEDS: VALPROATE SODIUM 250 MG/5 ML UNIT DOSE CUP PO SCH ×2 (10:05→22:12)
[2018-03-01] MEDS: risperiDONE 0.5 MG TABLET (FP) PO SCH (10:05)
--- NOTE | 2018-03-01 11:16 | PN ---
Progress Note (short form) - Note Progress Note: patient is voiding.
[2018-03-01] MEDS: APIXABAN 2.5 MG TABLET PO SCH ×2 (15:54→22:12)
--- NOTE | 2018-03-01 21:22 | PN ---
Progress Note (short form) - Note Progress Note: patient in bed unable to extend Lower extremities combative / non verbal continues with hematuria incontinent / Vital Signs Period Temp Pulse Resp BP Sys/Aguirre Pulse Ox Last 24 Hr 97.8 F-98.7 F 95-112 18-20 92-149/56-94 95 neck supple heart S1/S2 lungs clear bilat abd soft / no suprapubic fullness ext no edema / contracted LE CBC, BMP 03/01/18 06:20 03/01/18 06:20 s/p transfusion 2 units PRBC slight drop in H/H from yesterday Active Medications Acetaminophen (Tylenol -) 650 mg PO Q6H PRN PRN Reason: PAIN 1-5 Last Admin: 02/26/18 09:12 Dose: 650 mg Apixaban (Eliquis -) 2.5 mg PO BID [facility] Last Admin: 03/01/18 15:54 Dose: Not Given Cholecalciferol (Vitamin D3 -) 1,000 unit PO DAILY [facility] Last Admin: 03/01/18 09:27 Dose: 1,000 unit Citalopram Hydrobromide (Celexa -) 10 mg PO DAILY [facility] Last Admin: 03/01/18 09:27 Dose: 10 mg Docusate Sodium (Colace -) 200 mg PO DAILY [facility] Last Admin: 03/01/18 09:27 Dose: 200 mg Finasteride (Proscar -) 5 mg PO DAILY [facility] Last Admin: 03/01/18 09:27 Dose: 5 mg Haloperidol (Haldol Injection (Fast Acting) -) 2 mg IM BID PRN PRN Reason: psychosis Mirtazapine (Remeron -) 30 mg PO HS [facility] Last Admin: 02/28/18 22:48 Dose: 30 mg Multivitamins/Minerals/Vitamin C (Tab-A-Vit -) 1 tab PO DAILY [facility] Last Admin: 03/01/18 09:27 Dose: 1 tab Olanzapine (Zyprexa -) 15 mg PO [facility] Last Admin: 02/28/18 22:48 Dose: 15 mg Ondansetron HCl (Zofran Injection) 4 mg IVPUSH Q6H PRN PRN Reason: NAUSEA AND/OR VOMITING Risperidone (Risperdal -) 0.5 mg PO DAILY [facility] Last Admin: 03/01/18 10:05 Dose: 0.5 mg Tamsulosin HCl (Flomax -) 0.4 mg PO DAILY@0830 [facility] Last Admin: 03/01/18 09:27 Dose: 0.4 mg Valproate Sodium (Depakene -) 500 mg PO BID [facility] Last Admin: 03/01/18 10:05 Dose: 500 mg # obstructive uropathy s/p TURP -- continues with hematuria/ unable to determine extent voiding freely but still with some retention # anemia continues with hematuria will need blood transfusion 2/2 to acute blood loss from hematuria # UTI ABX completed afebrile WBC nl # Demnetia baseline # afib will resume NOAC / however continues with hematuria / diaper "pink" will follow CBC in am # contracture LE PT eval and treatment in progress disposition per HCP Problem List - Problems (1) Urinary retention Code(s): R33.9 - RETENTION OF URINE, UNSPECIFIED (2) Altered mental status Code(s): R41.82 - ALTERED MENTAL STATUS, UNSPECIFIED (3) Alzheimer's dementia with behavioral disturbance Code(s): G30.9 - ALZHEIMER'S DISEASE, UNSPECIFIED; F02.81 - DEMENTIA IN OTH DISEASES CLASSD ELSWHR W BEHAVIORAL DISTURB Qualifiers: Alzheimer's disease onset: unspecified onset Qualified Code(s): G30.9 - Alzheimer's disease, unspecified; F02.81 - Dementia in other diseases classified elsewhere with behavioral disturbance; F02.81 - Dementia in other diseases classified elsewhere with behavioral disturbance; F02.81 - Dementia in other diseases classified elsewhere with behavioral disturbance (4) Atrial fibrillation Code(s): I48.91 - UNSPECIFIED ATRIAL FIBRILLATION (5) Hematuria Code(s): R31.9 - HEMATURIA, UNSPECIFIED (6) VAZQUEZ (acute kidney injury) Code(s): N17.9 - ACUTE KIDNEY FAILURE, UNSPECIFIED (7) Dementia Code(s): F03.90 - UNSPECIFIED DEMENTIA WITHOUT BEHAVIORAL DISTURBANCE Qualifiers: Dementia type: Alzheimer's disease Alzheimer's disease onset: unspecified onset Dementia behavioral disturbance: with behavioral disturbance Qualified Code(s): G30.9 - Alzheimer's disease, unspecified; F02.81 - Dementia in other diseases classified elsewhere with behavioral disturbance; F02.81 - Dementia in other diseases classified elsewhere with behavioral disturbance; F02.81 - Dementia in other diseases classified elsewhere with behavioral disturbance (8) HTN (hypertension) Code(s): I10 - ESSENTIAL (PRIMARY) HYPERTENSION (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
[2018-03-01] MEDS: ACETAMINOPHEN 325 MG TABLET (FP) PO PRN (22:12)
[2018-03-01] MEDS: OLANZapine 5 MG TABLET PO SCH (22:13)
[2018-03-01] MEDS: MIRTAZAPINE 30 MG TABLET (FP) PO SCH (22:13)
[2018-03-02 07:13] LABS: BASO % 0.7 % (0-2.0); EOS % 0.4 % (0-4.5); HEMATOCRIT 29.8 % (35.4-49); HEMOGLOBIN 10.1 GM/dL (11.7-16.9); LYMPH % 15.5 % (8-40); MCH 28.7 pg (25.7-33.7); MCHC 33.9 g/dl (32.0-35.9); MEAN CELL VOLUME 84.7 fl (80-96); MEAN PLT VOLUME 7.2 fl (7.5-11.1); MONO % 12.8 % (3.8-10.2); NEUT % 70.6 % (42.8-82.8); PLATELET COUNT 213 K/MM3 (134-434); RBC 3.53 M/mm3 (4.00-5.60); RDW 16.1 % (11.9-15.9); WHITE BLOOD COUNT 7.7 K/mm3 (4.0-10.0)
[2018-03-02 08:15] LABS: ANION GAP 6 MMOL/L (8-16); BLOOD UREA NITROGEN 23 mg/dL (7-18); CALCIUM 8.7 mg/dL (8.5-10.1); CHLORIDE 113 mmol/L (98-107); CO2 29 mmol/L (21-32); GLUCOSE,RANDOM 94 mg/dL (74-106); POTASSIUM 4.4 mmol/L (3.5-5.1); SODIUM 148 mmol/L (136-145)
[2018-03-02 08:17] LABS: CREATININE 0.7 mg/dL (0.7-1.3)
[2018-03-02] MEDS: TAMSULOSIN HCL 0.4 MG CAP.ER.24H (FP) PO SCH (08:47)
[2018-03-02] MEDS: CITALOPRAM HYDROBROMIDE 10 MG TABLET (FP) PO SCH (09:41)
[2018-03-02] MEDS: FINASTERIDE 5 MG TABLET (FP) PO SCH (09:41)
[2018-03-02] MEDS: DOCUSATE SODIUM 100 MG CAPSULE (FP) PO SCH (09:41)
[2018-03-02] MEDS: MULTIVITAMINS (DAILY MVI) TABLET (FP) PO SCH (09:41)
[2018-03-02] MEDS: CHOLECALCIFEROL (VITAMIN D3) 1,000 UNIT TABLET (FP) PO SCH (09:41)
[2018-03-02] MEDS: VALPROATE SODIUM 250 MG/5 ML UNIT DOSE CUP PO SCH ×2 (09:42→21:01)
[2018-03-02] MEDS: risperiDONE 0.5 MG TABLET (FP) PO SCH (09:42)
[2018-03-02 09:47] LABS: ACANTHOCYTES 0; ANISOCYTOSIS 0; HELMET CELLS 0; HOWELL-JOLLY BODIES 0; MACROCYTOSIS 0; OVALOCYTE 0; PLATELET ESTIMATE NORMAL; ROULEAU 0; SICKELED CELLS 0; TARGET CELLS 0; TEAR DROP CELLS 0; TOXIC GRANULATION 0
[2018-03-02] MEDS: APIXABAN 2.5 MG TABLET PO SCH ×2 (10:19→21:01)
--- NOTE | 2018-03-02 12:18 | DS ---
Physical Examination Vital Signs: Vital Signs Temperature 96.8 F L 03/02/18 10:00 Pulse Rate 120 H 03/02/18 10:00 Respiratory Rate 20 03/02/18 10:00 Blood Pressure 113/66 03/02/18 10:00 O2 Sat by Pulse Oximetry (%) 96 03/02/18 09:00 Constitutional: Yes: Well Nourished Eyes: Yes: Conjunctiva Clear HENT: Yes: Atraumatic, Normocephalic Neck: Yes: Supple, Trachea Midline Cardiovascular: Yes: Regular Rate and Rhythm Respiratory: Yes: Regular, CTA Bilaterally Gastrointestinal: Yes: Normal Bowel Sounds, Soft ...Rectal Exam: Yes: Deferred Renal/: Yes: WNL Breast(s): Yes: WNL Musculoskeletal: Yes: WNL Extremities: Yes: WNL Edema: No Peripheral Pulses WNL: Yes Integumentary: Yes: WNL Neurological: Yes: Alert, Oriented ...Motor Strength: WNL Psychiatric: Yes: Alert Labs: CBC, BMP 03/02/18 06:15 03/02/18 06:15 Discharge Summary Reason For Visit: RETENTION OF URINE Current Active Problems Hematuria (Acute) Urinary retention (Acute) Hospital Course: 82 y/o male lying in bed. Voiding well. Urine clear at this time. Plan Dc home Condition: Stable - Instructions Referrals: Alli Baldwin [Primary Care Provider] - Disposition: HOME - Home Medications Comprehensive Discharge Medication List: Ambulatory Orders Acetaminophen [Tylenol .Regular Strength -] 650 mg PO Q6H PRN tablet 11/17/17 Apixaban [Eliquis -] 2.5 mg PO BID tablet 11/17/17 Cholecalciferol (Vitamin D3) [Vitamin D3 -] 1,000 unit PO DAILY tab 11/17/17 Valproate Sodium [Depakene -] 500 mg PO BID #0 cup 11/17/17 Citalopram Hydrobromide [Citalopram HBr] 10 mg PO DAILY 01/03/18 Risperidone 0.5 mg PO DAILY 01/03/18 Haloperidol Lactate [Haldol] 2 mg IM BID PRN 01/05/18 Finasteride [Proscar -] 5 mg PO DAILY tablet 01/31/18 Mirtazapine [Remeron -] 30 mg PO HS 30 Days #30 tablet 01/31/18 Multivitamins [Multivit ([facility] Formulary)] 1 tab PO DAILY tab 01/31/18 Tamsulosin HCl [Flomax -] 0.4 mg PO DAILY@0830 cap.er.24h 01/31/18 Docusate Sodium [Colace -] 200 mg PO DAILY 02/21/18 Olanzapine [Zyprexa -] 15 mg PO HS 02/21/18
[2018-03-02] MEDS ORDERED: PT OWN MED DRAWER 7, Y5N ONE (20:05)
[2018-03-02] MEDS: MIRTAZAPINE 30 MG TABLET (FP) PO SCH (21:01)
[2018-03-02] MEDS: OLANZapine 5 MG TABLET PO SCH (21:01)
[2018-03-03] MEDS: TAMSULOSIN HCL 0.4 MG CAP.ER.24H (FP) PO SCH (08:42)
[2018-03-03] MEDS: VALPROATE SODIUM 250 MG/5 ML UNIT DOSE CUP PO SCH ×2 (09:29→22:21)
[2018-03-03] MEDS: CHOLECALCIFEROL (VITAMIN D3) 1,000 UNIT TABLET (FP) PO SCH (09:29)
[2018-03-03] MEDS: CITALOPRAM HYDROBROMIDE 10 MG TABLET (FP) PO SCH (09:29)
[2018-03-03] MEDS: MULTIVITAMINS (DAILY MVI) TABLET (FP) PO SCH (09:29)
[2018-03-03] MEDS: DOCUSATE SODIUM 100 MG CAPSULE (FP) PO SCH (09:29)
[2018-03-03] MEDS: FINASTERIDE 5 MG TABLET (FP) PO SCH (09:29)
[2018-03-03] MEDS: APIXABAN 2.5 MG TABLET PO SCH ×2 (09:30→22:27)
[2018-03-03] MEDS: risperiDONE 0.5 MG TABLET (FP) PO SCH (09:30)
--- NOTE | 2018-03-03 09:33 | PN ---
Progress Note (short form) - Note Progress Note: 82 y/o male found lying in bed shivering. Rectal temp 101. Blood in urine. DC cancelled. Vital Signs Period Temp Pulse Resp BP Sys/Aguirre Pulse Ox Last 24 Hr 96.8 F-99.5 F 102-120 18-20 93-136/53-77 96 CBC, BMP 03/02/18 06:15 03/02/18 06:15 HEENT- NL Neck- Supple Lungs- CTAB Heart- S1/S2 Abd- Soft, nt Ext- No LE edema Active Medications Acetaminophen (Tylenol -) 650 mg PO Q6H PRN PRN Reason: PAIN 1-5 Last Admin: 03/01/18 22:12 Dose: 650 mg Apixaban (Eliquis -) 2.5 mg PO BID [facility] Last Admin: 03/03/18 09:30 Dose: Not Given Cholecalciferol (Vitamin D3 -) 1,000 unit PO DAILY [facility] Last Admin: 03/03/18 09:29 Dose: 1,000 unit Citalopram Hydrobromide (Celexa -) 10 mg PO DAILY [facility] Last Admin: 03/03/18 09:29 Dose: 10 mg Docusate Sodium (Colace -) 200 mg PO DAILY [facility] Last Admin: 03/03/18 09:29 Dose: 200 mg Finasteride (Proscar -) 5 mg PO DAILY [facility] Last Admin: 03/03/18 09:29 Dose: 5 mg Haloperidol (Haldol Injection (Fast Acting) -) 2 mg IM BID PRN PRN Reason: psychosis Levofloxacin (Levaquin 500 Mg Premixed Ivpb -) 500 mg in 100 mls @ 100 mls/hr IVPB DAILY [facility]; Protocol Stop: 03/09/18 10:59 Mirtazapine (Remeron -) 30 mg PO HS [facility] Last Admin: 03/02/18 21:01 Dose: 30 mg Multivitamins/Minerals/Vitamin C (Tab-A-Vit -) 1 tab PO DAILY [facility] Last Admin: 03/03/18 09:29 Dose: 1 tab Olanzapine (Zyprexa -) 15 mg PO HS [facility] Last Admin: 03/02/18 21:01 Dose: 15 mg Ondansetron HCl (Zofran Injection) 4 mg IVPUSH Q6H PRN PRN Reason: NAUSEA AND/OR VOMITING Risperidone (Risperdal -) 0.5 mg PO DAILY [facility] Last Admin: 03/03/18 09:30 Dose: 0.5 mg Tamsulosin HCl (Flomax -) 0.4 mg PO DAILY@0830 [facility] Last Admin: 03/03/18 08:42 Dose: 0.4 mg Valproate Sodium (Depakene -) 500 mg PO BID [facility] Last Admin: 03/03/18 09:29 Dose: 500 mg #Hematuria/ Febrile Levaquin 500 mg IV daily Tylenol 650 mg q 6 hrs for fever DC order cancelled
[2018-03-03] MEDS: ACETAMINOPHEN 325 MG TABLET (FP) PO PRN (09:41)
[2018-03-03] MEDS ORDERED: IBUPROFEN 600 MG TABLET (FP) PO ONE (12:30)
[2018-03-03] MEDS ORDERED: SODIUM CHLORIDE 1,000 ML IV SCH (13:45)
[2018-03-03 14:15] LABS: BASO % 0.5 % (0-2.0); EOS % 0.1 % (0-4.5); HEMATOCRIT 26.6 % (35.4-49); MEAN CELL VOLUME 85.4 fl (80-96); MEAN PLT VOLUME 7.4 fl (7.5-11.1); MONO % 10.8 % (3.8-10.2); NEUT % 82.6 % (42.8-82.8); PLATELET COUNT 219 K/MM3 (134-434); RBC 3.12 M/mm3 (4.00-5.60); RDW 16.1 % (11.9-15.9); WHITE BLOOD COUNT 10.8 K/mm3 (4.0-10.0)
[2018-03-03 14:43] LABS: ALBUMIN 1.9 g/dl (3.4-5.0); ALK PHOS 78 U/L (45-117); ANION GAP 10 MMOL/L (8-16); BILIRUBIN,TOTAL 0.6 mg/dL (0.2-1.0); BLOOD UREA NITROGEN 25 mg/dL (7-18); CALCIUM 8.4 mg/dL (8.5-10.1); CHLORIDE 112 mmol/L (98-107); CO2 27 mmol/L (21-32); CREATININE 0.8 mg/dL (0.55-1.3); GLUCOSE,RANDOM 82 mg/dL (74-106); POTASSIUM 4.2 mmol/L (3.5-5.1); SGOT/AST 29 U/L (15-37); SGPT/ALT 18 U/L (13-61); SODIUM 149 mmol/L (136-145); TOT PROT 4.8 g/dl (6.4-8.2)
[2018-03-03 15:47] LABS: URINE APPEARANCE TURBID; URINE BILIRUBIN NEGATIVE (<2.0 mg/dL); URINE COLOR AMBER; URINE GLUCOSE (UA) NEGATIVE (NEGATIVE); URINE KETONE NEGATIVE (NEGATIVE); URINE NITRITE NEGATIVE (NEGATIVE)
[2018-03-03 15:52] LABS: URINE LEUK ESTERASE 2+ (NEGATIVE); URINE PROTEIN 2+ (NEGATIVE)
[2018-03-03 15:58] LABS: URINE MUCUS RARE
[2018-03-03] MEDS ORDERED: SODIUM CHLORIDE 0.45% 1,000 ML IV SCH (16:00)
[2018-03-03] MEDS: MIRTAZAPINE 30 MG TABLET (FP) PO SCH (22:21)
[2018-03-03] MEDS: OLANZapine 5 MG TABLET PO SCH (22:21)
[2018-03-04 07:18] LABS: BASO % 0.5 % (0-2.0); EOS % 0.6 % (0-4.5); HEMATOCRIT 27.5 % (35.4-49); HEMOGLOBIN 9.2 GM/dL (11.7-16.9); LYMPH % 13.5 % (8-40); MCH 28.7 pg (25.7-33.7); MCHC 33.4 g/dl (32.0-35.9); MEAN CELL VOLUME 86.1 fl (80-96); MEAN PLT VOLUME 7.4 fl (7.5-11.1); MONO % 10.2 % (3.8-10.2); NEUT % 75.2 % (42.8-82.8); PLATELET COUNT 198 K/MM3 (134-434); RBC 3.19 M/mm3 (4.00-5.60); RDW 16.1 % (11.9-15.9); WHITE BLOOD COUNT 7.3 K/mm3 (4.0-10.0)
[2018-03-04 08:01] LABS: CHLORIDE 109 mmol/L (98-107); POTASSIUM 4.4 mmol/L (3.5-5.1); SODIUM 145 mmol/L (136-145)
[2018-03-04 08:10] LABS: ALK PHOS 81 U/L (45-117); ANION GAP 6 MMOL/L (8-16); BILIRUBIN,TOTAL 0.5 mg/dL (0.2-1.0); BLOOD UREA NITROGEN 24 mg/dL (7-18); CALCIUM 8.4 mg/dL (8.5-10.1); CO2 30 mmol/L (21-32); CREATININE 0.8 mg/dL (0.55-1.3); GLUCOSE,RANDOM 89 mg/dL (74-106); SGOT/AST 22 U/L (15-37); SGPT/ALT 17 U/L (13-61); TOT PROT 5.2 g/dl (6.4-8.2)
[2018-03-04] MEDS: DOCUSATE SODIUM 100 MG CAPSULE (FP) PO SCH (11:05)
[2018-03-04] MEDS: APIXABAN 2.5 MG TABLET PO SCH ×2 (11:05→22:53)
[2018-03-04] MEDS: VALPROATE SODIUM 250 MG/5 ML UNIT DOSE CUP PO SCH ×2 (11:05→22:53)
[2018-03-04] MEDS: MULTIVITAMINS (DAILY MVI) TABLET (FP) PO SCH (11:05)
[2018-03-04] MEDS: TAMSULOSIN HCL 0.4 MG CAP.ER.24H (FP) PO SCH (11:06)
[2018-03-04] MEDS: CHOLECALCIFEROL (VITAMIN D3) 1,000 UNIT TABLET (FP) PO SCH (11:06)
[2018-03-04] MEDS: CITALOPRAM HYDROBROMIDE 10 MG TABLET (FP) PO SCH (11:06)
[2018-03-04] MEDS: FINASTERIDE 5 MG TABLET (FP) PO SCH (11:07)
[2018-03-04] MEDS: risperiDONE 0.5 MG TABLET (FP) PO SCH (11:08)
[2018-03-04] MEDS: OLANZapine 5 MG TABLET PO SCH (22:53)
[2018-03-04] MEDS: MIRTAZAPINE 30 MG TABLET (FP) PO SCH (22:53)
[2018-03-05 07:30] LABS: BASO % 0.5 % (0-2.0); EOS % 0.4 % (0-4.5); HEMATOCRIT 26.8 % (35.4-49); LYMPH % 12.1 % (8-40); MCH 28.6 pg (25.7-33.7); MCHC 33.7 g/dl (32.0-35.9); MEAN CELL VOLUME 84.7 fl (80-96); MEAN PLT VOLUME 7.7 fl (7.5-11.1); MONO % 9.4 % (3.8-10.2); NEUT % 77.6 % (42.8-82.8); PLATELET COUNT 227 K/MM3 (134-434); RBC 3.16 M/mm3 (4.00-5.60); RDW 16.2 % (11.9-15.9); WHITE BLOOD COUNT 8.6 K/mm3 (4.0-10.0)
[2018-03-05 07:56] LABS: ANION GAP 9 MMOL/L (8-16); BLOOD UREA NITROGEN 19 mg/dL (7-18); CALCIUM 8.2 mg/dL (8.5-10.1); CHLORIDE 110 mmol/L (98-107); CO2 27 mmol/L (21-32); CREATININE 0.6 mg/dL (0.55-1.3); GLUCOSE,RANDOM 91 mg/dL (74-106); SODIUM 146 mmol/L (136-145)
[2018-03-05] MEDS: CITALOPRAM HYDROBROMIDE 10 MG TABLET (FP) PO SCH (09:22)
[2018-03-05] MEDS: TAMSULOSIN HCL 0.4 MG CAP.ER.24H (FP) PO SCH (09:22)
[2018-03-05] MEDS: APIXABAN 2.5 MG TABLET PO SCH ×2 (09:22→22:05)
[2018-03-05] MEDS: DOCUSATE SODIUM 100 MG CAPSULE (FP) PO SCH (09:23)
[2018-03-05] MEDS: CHOLECALCIFEROL (VITAMIN D3) 1,000 UNIT TABLET (FP) PO SCH (09:23)
[2018-03-05] MEDS: VALPROATE SODIUM 250 MG/5 ML UNIT DOSE CUP PO SCH ×2 (09:23→22:06)
[2018-03-05] MEDS: FINASTERIDE 5 MG TABLET (FP) PO SCH (09:23)
[2018-03-05] MEDS: MULTIVITAMINS (DAILY MVI) TABLET (FP) PO SCH (09:23)
[2018-03-05] MEDS: risperiDONE 0.5 MG TABLET (FP) PO SCH (09:24)
[2018-03-05] MEDS ORDERED: NITROFURANTOIN MACROCRYSTAL 50 MG CAPSULE (FP) PO SCH (18:00)
--- NOTE | 2018-03-05 18:43 | PN ---
Progress Note (short form) - Note Progress Note: patient in bed unable to extend Lower extremities combative / non verbal continues with hematuria incontinent / Vital Signs Period Temp Pulse Resp BP Sys/Aguirre Pulse Ox Last 24 Hr 97.7 F-99.0 F 91-105 18-20 98-137/59-72 95-95 neck supple heart S1/S2 lungs clear bilat abd soft / no suprapubic fullness ext no edema / contracted LE Active Medications Acetaminophen (Tylenol -) 650 mg PO Q6H PRN PRN Reason: PAIN 1-5 Last Admin: 03/01/18 22:12 Dose: 650 mg Apixaban (Eliquis -) 2.5 mg PO BID [facility] Last Admin: 03/03/18 09:30 Dose: Not Given Cholecalciferol (Vitamin D3 -) 1,000 unit PO DAILY [facility] Last Admin: 03/03/18 09:29 Dose: 1,000 unit Citalopram Hydrobromide (Celexa -) 10 mg PO DAILY [facility] Last Admin: 03/03/18 09:29 Dose: 10 mg Docusate Sodium (Colace -) 200 mg PO DAILY [facility] Last Admin: 03/03/18 09:29 Dose: 200 mg Finasteride (Proscar -) 5 mg PO DAILY [facility] Last Admin: 03/03/18 09:29 Dose: 5 mg Haloperidol (Haldol Injection (Fast Acting) -) 2 mg IM BID PRN PRN Reason: psychosis Levofloxacin (Levaquin 500 Mg Premixed Ivpb -) 500 mg in 100 mls @ 100 mls/hr IVPB DAILY [facility]; Protocol Stop: 03/09/18 10:59 Mirtazapine (Remeron -) 30 mg PO HS [facility] Last Admin: 03/02/18 21:01 Dose: 30 mg Multivitamins/Minerals/Vitamin C (Tab-A-Vit -) 1 tab PO DAILY [facility] Last Admin: 03/03/18 09:29 Dose: 1 tab Olanzapine (Zyprexa -) 15 mg PO HS [facility] Last Admin: 03/02/18 21:01 Dose: 15 mg Ondansetron HCl (Zofran Injection) 4 mg IVPUSH Q6H PRN PRN Reason: NAUSEA AND/OR VOMITING Risperidone (Risperdal -) 0.5 mg PO DAILY [facility] Last Admin: 03/03/18 09:30 Dose: 0.5 mg Tamsulosin HCl (Flomax -) 0.4 mg PO DAILY@0830 [facility] Last Admin: 03/03/18 08:42 Dose: 0.4 mg Valproate Sodium (Depakene -) 500 mg PO BID [facility] Last Admin: 03/03/18 09:29 Dose: 500 mg # UTI febrile on Levaquin awaiting c/s # obstructive uropathy s/p TURP -- continues with hematuria/seems less voiding freely but still with some retention # anemia continues with hematuria s/p blood transfusion 2/2 to acute blood loss from hematuria # Demnetia baseline # afib will resume NOAC / however continues with hematuria / diaper "pink" will follow CBC in am # contracture LE PT eval and treatment in progress Problem List - Problems (1) Urinary retention Code(s): R33.9 - RETENTION OF URINE, UNSPECIFIED (2) Altered mental status Code(s): R41.82 - ALTERED MENTAL STATUS, UNSPECIFIED (3) Alzheimer's dementia with behavioral disturbance Code(s): G30.9 - ALZHEIMER'S DISEASE, UNSPECIFIED; F02.81 - DEMENTIA IN OTH DISEASES CLASSD ELSWHR W BEHAVIORAL DISTURB Qualifiers: Alzheimer's disease onset: unspecified onset Qualified Code(s): G30.9 - Alzheimer's disease, unspecified; F02.81 - Dementia in other diseases classified elsewhere with behavioral disturbance; F02.81 - Dementia in other diseases classified elsewhere with behavioral disturbance; F02.81 - Dementia in other diseases classified elsewhere with behavioral disturbance (4) Atrial fibrillation Code(s): I48.91 - UNSPECIFIED ATRIAL FIBRILLATION (5) Hematuria Code(s): R31.9 - HEMATURIA, UNSPECIFIED (6) VAZQUEZ (acute kidney injury) Code(s): N17.9 - ACUTE KIDNEY FAILURE, UNSPECIFIED (7) Dementia Code(s): F03.90 - UNSPECIFIED DEMENTIA WITHOUT BEHAVIORAL DISTURBANCE Qualifiers: Dementia type: Alzheimer's disease Alzheimer's disease onset: unspecified onset Dementia behavioral disturbance: with behavioral disturbance Qualified Code(s): G30.9 - Alzheimer's disease, unspecified; F02.81 - Dementia in other diseases classified elsewhere with behavioral disturbance; F02.81 - Dementia in other diseases classified elsewhere with behavioral disturbance; F02.81 - Dementia in other diseases classified elsewhere with behavioral disturbance (8) HTN (hypertension) Code(s): I10 - ESSENTIAL (PRIMARY) HYPERTENSION (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
--- NOTE | 2018-03-05 18:47 | PN ---
Progress Note (short form) - Note Progress Note: patient in bed unable to extend right Lower extremities less combative / non verbal continues with hematuria incontinent / Vital Signs Period Temp Pulse Resp BP Sys/Aguirre Pulse Ox Last 24 Hr 97.7 F-99.0 F 91-105 18-20 98-137/59-72 95-95 neck supple heart S1/S2 lungs clear bilat abd soft / no suprapubic fullness ext no edema / contracted LE CBC, BMP 03/05/18 06:15 03/05/18 06:15 urine c/s En FEACALIS -- sens to Macrobid resistant to Levaquin Active Medications Acetaminophen (Tylenol -) 650 mg PO Q6H PRN PRN Reason: PAIN 1-5 Last Admin: 03/01/18 22:12 Dose: 650 mg Apixaban (Eliquis -) 2.5 mg PO BID [facility] Last Admin: 03/03/18 09:30 Dose: Not Given Cholecalciferol (Vitamin D3 -) 1,000 unit PO DAILY [facility] Last Admin: 03/03/18 09:29 Dose: 1,000 unit Citalopram Hydrobromide (Celexa -) 10 mg PO DAILY [facility] Last Admin: 03/03/18 09:29 Dose: 10 mg Docusate Sodium (Colace -) 200 mg PO DAILY [facility] Last Admin: 03/03/18 09:29 Dose: 200 mg Finasteride (Proscar -) 5 mg PO DAILY [facility] Last Admin: 03/03/18 09:29 Dose: 5 mg Haloperidol (Haldol Injection (Fast Acting) -) 2 mg IM BID PRN PRN Reason: psychosis Levofloxacin (Levaquin 500 Mg Premixed Ivpb -) 500 mg in 100 mls @ 100 mls/hr IVPB DAILY [facility]; Protocol Stop: 03/09/18 10:59 Mirtazapine (Remeron -) 30 mg PO HS [facility] Last Admin: 03/02/18 21:01 Dose: 30 mg Multivitamins/Minerals/Vitamin C (Tab-A-Vit -) 1 tab PO DAILY [facility] Last Admin: 03/03/18 09:29 Dose: 1 tab Olanzapine (Zyprexa -) 15 mg PO HS [facility] Last Admin: 03/02/18 21:01 Dose: 15 mg Ondansetron HCl (Zofran Injection) 4 mg IVPUSH Q6H PRN PRN Reason: NAUSEA AND/OR VOMITING Risperidone (Risperdal -) 0.5 mg PO DAILY [facility] Last Admin: 03/03/18 09:30 Dose: 0.5 mg Tamsulosin HCl (Flomax -) 0.4 mg PO DAILY@0830 [facility] Last Admin: 03/03/18 08:42 Dose: 0.4 mg Valproate Sodium (Depakene -) 500 mg PO BID [facility] Last Admin: 03/03/18 09:29 Dose: 500 mg # UTI febrile on Levaquin -- resistant start Nitrofurantoin 100 bid PO -- sensitive # obstructive uropathy s/p TURP -- continues with hematuria/seems less - continue with eliquis voiding freely but still with some retention # anemia continues with hematuria but less s/p blood transfusion 2/2 to acute blood loss from hematuria # Demnetia baseline # afib resumed NOAC / however continues with hematuria # contracture LE PT eval and treatment in progress disposition per HCP Problem List - Problems (1) Urinary retention Code(s): R33.9 - RETENTION OF URINE, UNSPECIFIED (2) Altered mental status Code(s): R41.82 - ALTERED MENTAL STATUS, UNSPECIFIED (3) Alzheimer's dementia with behavioral disturbance Code(s): G30.9 - ALZHEIMER'S DISEASE, UNSPECIFIED; F02.81 - DEMENTIA IN OTH DISEASES CLASSD ELSWHR W BEHAVIORAL DISTURB Qualifiers: Alzheimer's disease onset: unspecified onset Qualified Code(s): G30.9 - Alzheimer's disease, unspecified; F02.81 - Dementia in other diseases classified elsewhere with behavioral disturbance; F02.81 - Dementia in other diseases classified elsewhere with behavioral disturbance; F02.81 - Dementia in other diseases classified elsewhere with behavioral disturbance (4) Atrial fibrillation Code(s): I48.91 - UNSPECIFIED ATRIAL FIBRILLATION (5) Hematuria Code(s): R31.9 - HEMATURIA, UNSPECIFIED (6) VAZQUEZ (acute kidney injury) Code(s): N17.9 - ACUTE KIDNEY FAILURE, UNSPECIFIED (7) Dementia Code(s): F03.90 - UNSPECIFIED DEMENTIA WITHOUT BEHAVIORAL DISTURBANCE Qualifiers: Dementia type: Alzheimer's disease Alzheimer's disease onset: unspecified onset Dementia behavioral disturbance: with behavioral disturbance Qualified Code(s): G30.9 - Alzheimer's disease, unspecified; F02.81 - Dementia in other diseases classified elsewhere with behavioral disturbance; F02.81 - Dementia in other diseases classified elsewhere with behavioral disturbance; F02.81 - Dementia in other diseases classified elsewhere with behavioral disturbance (8) HTN (hypertension) Code(s): I10 - ESSENTIAL (PRIMARY) HYPERTENSION (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
[2018-03-05] MEDS: NITROFURANTOIN MACROCRYSTAL 50 MG CAPSULE (FP) PO SCH (20:39)
[2018-03-05] MEDS: MIRTAZAPINE 30 MG TABLET (FP) PO SCH (22:05)
[2018-03-05] MEDS: OLANZapine 5 MG TABLET PO SCH (22:06)
[2018-03-06] MEDS: NITROFURANTOIN MACROCRYSTAL 50 MG CAPSULE (FP) PO SCH ×5 (00:44→23:17)
[2018-03-06] MEDS: VALPROATE SODIUM 250 MG/5 ML UNIT DOSE CUP PO SCH ×2 (10:29→23:18)
[2018-03-06] MEDS: CITALOPRAM HYDROBROMIDE 10 MG TABLET (FP) PO SCH (10:29)
[2018-03-06] MEDS: DOCUSATE SODIUM 100 MG CAPSULE (FP) PO SCH (10:29)
[2018-03-06] MEDS: TAMSULOSIN HCL 0.4 MG CAP.ER.24H (FP) PO SCH (10:29)
[2018-03-06] MEDS: MULTIVITAMINS (DAILY MVI) TABLET (FP) PO SCH (10:29)
[2018-03-06] MEDS: APIXABAN 2.5 MG TABLET PO SCH ×2 (10:29→23:16)
[2018-03-06] MEDS: CHOLECALCIFEROL (VITAMIN D3) 1,000 UNIT TABLET (FP) PO SCH (10:29)
[2018-03-06] MEDS: FINASTERIDE 5 MG TABLET (FP) PO SCH (10:29)
[2018-03-06] MEDS: risperiDONE 0.5 MG TABLET (FP) PO SCH (10:30)
--- NOTE | 2018-03-06 13:04 | DS ---
Physical Examination Vital Signs: Vital Signs Temperature 98.7 F 03/06/18 10:00 Pulse Rate 88 03/06/18 10:00 Respiratory Rate 20 03/06/18 10:00 Blood Pressure 120/51 03/06/18 10:00 O2 Sat by Pulse Oximetry (%) 97 03/06/18 09:00 Findings/Remarks: 82 year old male with PMH dementia, atrial fibrillation, suprapubic catheter place x1 month ago (bladder outlet obstruction) presents to ED for pulling out his suprapubic catheter. Medical aid states that if possible he does not want the patient to have another catheter placed because he wants to transfer him from [facility] to [facility] (where they do not accept pt's with catheters placed). Pt denies pain. Medical aid denies fever, chills, nausea, vomiting, diarrhea, weakness, altered mental status. Patient with significant dementia- unable to provide hx or provide adequate complaints. During hospital stay - evaluated by - underwent TURP complicated by persistent hematuria, required blood transfusion ( 2 units) and repeat UTI Patient was treated for infection / once hematuria subsided was resumed on Eliquis and has been tolerating it well. CBC has remained stable. Constitutional: Yes: Well Nourished, No Distress, Thin Eyes: Yes: Conjunctiva Clear, EOM Intact HENT: Yes: Atraumatic, Normocephalic Neck: Yes: Supple, Trachea Midline Cardiovascular: Yes: Pulse Irregular Respiratory: Yes: CTA Bilaterally Gastrointestinal: Yes: Normal Bowel Sounds, Soft. No: Tenderness Renal/: Yes: Hematuria (mild almost completely resolved, (diaper with pink urine )). No: Bladder Distention, Narvaez Present Breast(s): Yes: WNL Musculoskeletal: Yes: Joint Stiffness (right lower extremity) Extremities: Yes: Other (right lower extremity contracture) Edema: No Peripheral Pulses WNL: Yes Integumentary: Yes: WNL Neurological: Yes: Alert, Pre-Existing Deficit Psychiatric: Yes: Alert, Other (dementia) Labs: CBC, BMP 03/05/18 06:15 03/05/18 06:15 Discharge Summary Reason For Visit: RETENTION OF URINE Current Active Problems Hematuria (Acute) Urinary retention (Acute) Condition: Improved - Instructions Referrals: Alli Baldwin [Primary Care Provider] - Disposition: ASSISTED FACILITY - Home Medications Comprehensive Discharge Medication List: Ambulatory Orders Acetaminophen [Tylenol .Regular Strength -] 650 mg PO Q6H PRN tablet 11/17/17 Apixaban [Eliquis -] 2.5 mg PO BID tablet 11/17/17 Cholecalciferol (Vitamin D3) [Vitamin D3 -] 1,000 unit PO DAILY tab 11/17/17 Valproate Sodium [Depakene -] 500 mg PO BID #0 cup 11/17/17 Citalopram Hydrobromide [Citalopram HBr] 10 mg PO DAILY 01/03/18 Risperidone 0.5 mg PO DAILY 01/03/18 Haloperidol Lactate [Haldol] 2 mg IM BID PRN 01/05/18 Finasteride [Proscar -] 5 mg PO DAILY tablet 01/31/18 Mirtazapine [Remeron -] 30 mg PO HS 30 Days #30 tablet 01/31/18 Multivitamins [Multivit ([facility] Formul[facility])] 1 tab PO DAILY tab 01/31/18 Tamsulosin HCl [Flomax -] 0.4 mg PO DAILY@0830 cap.er.24h 01/31/18 Docusate Sodium [Colace -] 200 mg PO DAILY 02/21/18 Olanzapine [Zyprexa -] 15 mg PO HS 02/21/18 nitrofurantoin 100 bid for 10 days
[2018-03-06] MEDS ORDERED: SODIUM PHOSPHATE/NA BIPHOS 133 ML ENEMA RC ONE (17:00)
[2018-03-06] MEDS: MIRTAZAPINE 30 MG TABLET (FP) PO SCH (23:17)
[2018-03-06] MEDS: OLANZapine 5 MG TABLET PO SCH (23:17)
[2018-03-07] MEDS: NITROFURANTOIN MACROCRYSTAL 50 MG CAPSULE (FP) PO SCH ×4 (05:49→23:18)
[2018-03-07 06:41] LABS: BASO % 0.4 % (0-2.0); EOS % 0.1 % (0-4.5); HEMATOCRIT 26.6 % (35.4-49); HEMOGLOBIN 8.9 GM/dL (11.7-16.9); LYMPH % 9.4 % (8-40); MCH 28.2 pg (25.7-33.7); MCHC 33.4 g/dl (32.0-35.9); MEAN CELL VOLUME 84.4 fl (80-96); MEAN PLT VOLUME 7.8 fl (7.5-11.1); MONO % 8.3 % (3.8-10.2); NEUT % 81.8 % (42.8-82.8); PLATELET COUNT 242 K/MM3 (134-434); RBC 3.15 M/mm3 (4.00-5.60); RDW 15.8 % (11.9-15.9)
[2018-03-07 07:14] LABS: ANION GAP 7 MMOL/L (8-16); BLOOD UREA NITROGEN 23 mg/dL (7-18); CALCIUM 8.5 mg/dL (8.5-10.1); CHLORIDE 109 mmol/L (98-107); CO2 28 mmol/L (21-32); GLUCOSE,RANDOM 100 mg/dL (74-106); POTASSIUM 4.2 mmol/L (3.5-5.1); SODIUM 144 mmol/L (136-145)
[2018-03-07 07:17] LABS: CREATININE 0.7 mg/dL (0.55-1.3)
--- NOTE | 2018-03-07 09:19 | PN ---
Progress Note (short form) - Note Progress Note: patient in bed unable to extend both Lower extremities less combative incontinent unable to be discharged due to [facility] acceptance neck supple heart S1/S2 lungs clear bilat occasional wheeze left base abd soft / no suprapubic fullness ext no edema / contracted LE CBC, BMP 03/07/18 06:00 03/07/18 06:00 urine c/s En FEACALIS -- sens to Macrobid resistant to Levaquin Microbiology 03/03/18 13:00 Blood - Peripheral Venous Blood Culture - Preliminary NO GROWTH OBTAINED AFTER 72 HOURS, INCUBATION TO CONTINUE FOR 2 DAYS. 03/03/18 12:36 Blood - Peripheral Venous Blood Culture - Preliminary NO GROWTH OBTAINED AFTER 72 HOURS, INCUBATION TO CONTINUE FOR 2 DAYS. 03/03/18 13:45 Urine - Urine Clean Catch Urine Culture - Final Vr Ec Faecalis Active Medications Acetaminophen (Tylenol -) 650 mg PO Q6H PRN PRN Reason: PAIN 1-5 Last Admin: 03/03/18 09:41 Dose: 650 mg Apixaban (Eliquis -) 2.5 mg PO BID [facility] Last Admin: 03/06/18 23:16 Dose: 2.5 mg Cholecalciferol (Vitamin D3 -) 1,000 unit PO DAILY [facility] Last Admin: 03/06/18 10:29 Dose: 1,000 unit Citalopram Hydrobromide (Celexa -) 10 mg PO DAILY [facility] Last Admin: 03/06/18 10:29 Dose: 10 mg Docusate Sodium (Colace -) 200 mg PO DAILY [facility] Last Admin: 03/06/18 10:29 Dose: 200 mg Finasteride (Proscar -) 5 mg PO DAILY [facility] Last Admin: 03/06/18 10:29 Dose: 5 mg Haloperidol (Haldol Injection (Fast Acting) -) 2 mg IM BID PRN PRN Reason: psychosis Mirtazapine (Remeron -) 30 mg PO HS [facility] Last Admin: 03/06/18 23:17 Dose: 30 mg Multivitamins/Minerals/Vitamin C (Tab-A-Vit -) 1 tab PO DAILY [facility] Last Admin: 03/06/18 10:29 Dose: 1 tab Nitrofurantoin Macrocrystals (Macrodantin -) 50 mg PO Q6HPO [facility] Last Admin: 09/18/18 05:49 Dose: 50 mg Olanzapine (Zyprexa -) 15 mg PO HS [facility] Last Admin: 03/06/18 23:17 Dose: 15 mg Ondansetron HCl (Zofran Injection) 4 mg IVPUSH Q6H PRN PRN Reason: NAUSEA AND/OR VOMITING Risperidone (Risperdal -) 0.5 mg PO DAILY [facility] Last Admin: 03/06/18 10:30 Dose: 0.5 mg Tamsulosin HCl (Flomax -) 0.4 mg PO DAILY@0830 [facility] Last Admin: 03/06/18 10:29 Dose: 0.4 mg Valproate Sodium (Depakene -) 500 mg PO BID [facility] Last Admin: 03/06/18 23:18 Dose: 500 mg # UTI febrile on Levaquin -- resistant start Nitrofurantoin 100 bid PO -- sensitive # obstructive uropathy s/p TURP -- continues with hematuria/seems less - continue with eliquis voiding freely but still with some retention # anemia continues with hematuria but less s/p blood transfusion 2/2 to acute blood loss from hematuria # Demnetia baseline contractures aspiration precaution follow cbc -- on a/c still with mild hematuria # afib resumed on NOAC # contracture LE PT eval and treatment Awaiting acceptance by [facility] Problem List - Problems (1) Urinary retention Code(s): R33.9 - RETENTION OF URINE, UNSPECIFIED (2) Altered mental status Code(s): R41.82 - ALTERED MENTAL STATUS, UNSPECIFIED (3) Alzheimer's dementia with behavioral disturbance Code(s): G30.9 - ALZHEIMER'S DISEASE, UNSPECIFIED; F02.81 - DEMENTIA IN OTH DISEASES CLASSD ELSWHR W BEHAVIORAL DISTURB Qualifiers: Alzheimer's disease onset: unspecified onset Qualified Code(s): G30.9 - Alzheimer's disease, unspecified; F02.81 - Dementia in other diseases classified elsewhere with behavioral disturbance; F02.81 - Dementia in other diseases classified elsewhere with behavioral disturbance; F02.81 - Dementia in other diseases classified elsewhere with behavioral disturbance (4) Atrial fibrillation Code(s): I48.91 - UNSPECIFIED ATRIAL FIBRILLATION (5) Hematuria Code(s): R31.9 - HEMATURIA, UNSPECIFIED (6) VAZQUEZ (acute kidney injury) Code(s): N17.9 - ACUTE KIDNEY FAILURE, UNSPECIFIED (7) Dementia Code(s): F03.90 - UNSPECIFIED DEMENTIA WITHOUT BEHAVIORAL DISTURBANCE Qualifiers: Dementia type: Alzheimer's disease Alzheimer's disease onset: unspecified onset Dementia behavioral disturbance: with behavioral disturbance Qualified Code(s): G30.9 - Alzheimer's disease, unspecified; F02.81 - Dementia in other diseases classified elsewhere with behavioral disturbance; F02.81 - Dementia in other diseases classified elsewhere with behavioral disturbance; F02.81 - Dementia in other diseases classified elsewhere with behavioral disturbance (8) HTN (hypertension) Code(s): I10 - ESSENTIAL (PRIMARY) HYPERTENSION (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
[2018-03-07] MEDS: CITALOPRAM HYDROBROMIDE 10 MG TABLET (FP) PO SCH ×2 (10:13→10:57)
[2018-03-07] MEDS: FINASTERIDE 5 MG TABLET (FP) PO SCH ×2 (10:14→10:57)
[2018-03-07] MEDS: APIXABAN 2.5 MG TABLET PO SCH ×3 (10:14→21:45)
[2018-03-07] MEDS: DOCUSATE SODIUM 100 MG CAPSULE (FP) PO SCH (10:14)
[2018-03-07] MEDS: TAMSULOSIN HCL 0.4 MG CAP.ER.24H (FP) PO SCH ×2 (10:14→10:57)
[2018-03-07] MEDS: MULTIVITAMINS (DAILY MVI) TABLET (FP) PO SCH ×2 (10:15→10:58)
[2018-03-07] MEDS: CHOLECALCIFEROL (VITAMIN D3) 1,000 UNIT TABLET (FP) PO SCH ×2 (10:15→10:58)
[2018-03-07] MEDS ORDERED: PT OWN MED DRAWER 7, Y5N ONE (10:16)
[2018-03-07] MEDS: VALPROATE SODIUM 250 MG/5 ML UNIT DOSE CUP PO SCH ×3 (10:17→21:46)
[2018-03-07] MEDS: risperiDONE 0.5 MG TABLET (FP) PO SCH ×2 (10:18→10:57)
--- NOTE | 2018-03-07 15:01 | CONSULT ---
Admitting History and Physical - Primary Care Physician PCP: Leelee Schuler I - Admission History of Present Illness: 82 year old male with PMH dementia, atrial fibrillation, suprapubic catheter place x1 month ago (bladder outlet obstruction) presents to ED for pulling out his suprapubic catheter. Significant dementia,,underwent TURP complicated by persistent hematuria, required blood transfusion ( 2 units) and repeat UTI Selected Entries 03/05/18 03/05/18 03/05/18 09:32 13:14 18:08 Breakfast 50% Diet Tolerated Lunch 50% Supper 50% Temperature 03/06/18 03/06/18 03/06/18 05:53 09:27 10:00 Breakfast Diet Tolerated Poor Lunch Supper Temperature 99.5 F 98.7 F 03/06/18 03/06/18 03/06/18 13:26 16:53 23:35 Breakfast Diet Tolerated Lunch Supper Temperature 98.0 F 97.9 F 98 F 03/07/18 03/07/18 03/07/18 05:56 10:40 14:38 Breakfast 50% Diet Tolerated Fair Fair Lunch 50% Supper Temperature 98.2 F 98.2 F Laboratory Tests 03/03/18 03/04/18 03/05/18 13:57 06:24 06:15 WBC 10.8 H 7.3 8.6 03/07/18 06:00 WBC 11.0 H 9/6 Diet Chopped/nectar 02/24 thin liquids-Regular. -Very soft foods with extra gravy, puree soups. -Magic cup, Ensure pudding Noted to be coughing on pancakes per emr. Spit out pills. Seen by me for evaluation and f/u in December,. Tolerated dys minced and nectar well. History Source: Medical Record Limitations to Obtaining History: Clinical Condition, Dementia - Past Medical History M48 M60 [employer]: Yes: Dementia - Advance Directives Advance Directives: Yes: Health Care Proxy, DNR, MOLST - Smoking History Smoking history: Unknown if ever smoked Have you smoked in the past 12 months: No - Alcohol/Substance Use Hx Alcohol Use: No History of Substance Use: reports: None - Social History ADL: Support Services History of Recent Travel: Yes History - Admission Reason For Visit: RETENTION OF URINE - Diagnostics X-ray: Report Reviewed - General Mental Status: Lethargic (Just bathed, relaxed, sleeping,limited arousability.) - Hearing Hearing: Normal Hearing Aide: No With Patient: No Speech Evaluation - Communication Primary Language: TURKISH Communication: Yes: Non-Communicable (h/o jargon output in December.) - Speech Characteristics Articulation: Yes: Precise - Language/Auditory Comprehension Observation: Comprehends Conversational Speech: No (rare) - Language/Verbal Expression Aphasia: Yes: Fluent (press for speech. Logorrheic. Jargon output with occasional intelligible but often irrelevent phrases.), Anomia, Impaired Repetition, Paraphrasic Errors, Neologisms Able to Respond to Simple Queries: Yes: Severely Impaired Able to Communicate Wants and Needs: Yes: Severely Impaired Functional Communication Status: Yes: Severely Impaired - Memory/Perception jail Memory: Yes: Severely Impaired Short Term Memory: Yes: Severely Impaired - Swallow Evaluation/Bedside Assessment Current Nutritional Intake: Regular, Thin Liquids A-P Transit: Impaired (Constant talking with risk of choking) Timing of Swallow: Delayed Recommendations - Speech Evaluation, Impression/Plan Impression: Dementia. Lethargic for me. Does best with pudding, yogurt. - Dysphagia Impressions/Plan Swallowing Skills: Impaired Dysphagia Impressions: Mild Impairment *Silent aspiration: cannot be R/O at bedside Dysphagia Treatment Plan: Small Bites, Chin Tuck/Down, Safe Rate, 1/2 tsp. at a time, Elevate HOB during feed, Other (feed only when alert) - Recommendations Diet Consistency: Dysphagia Pureed Medication Administration: Crushed with applesauce Liquids: [place] Thick Supplement: Magic Cup, Ensure Pudding, Other (Ensure compact)
[2018-03-07] MEDS: OLANZapine 5 MG TABLET PO SCH (21:46)
[2018-03-07] MEDS: MIRTAZAPINE 30 MG TABLET (FP) PO SCH (21:46)
[2018-03-07] MEDS: ACETAMINOPHEN 325 MG TABLET (FP) PO PRN (23:17)
[2018-03-08] MEDS: NITROFURANTOIN MACROCRYSTAL 50 MG CAPSULE (FP) PO SCH (06:15)
[2018-03-08] MEDS: APIXABAN 2.5 MG TABLET PO SCH (10:17)
[2018-03-08] MEDS: FINASTERIDE 5 MG TABLET (FP) PO SCH (10:17)
[2018-03-08] MEDS: DOCUSATE SODIUM 100 MG CAPSULE (FP) PO SCH (10:17)
[2018-03-08] MEDS: CITALOPRAM HYDROBROMIDE 10 MG TABLET (FP) PO SCH (10:17)
[2018-03-08] MEDS: CHOLECALCIFEROL (VITAMIN D3) 1,000 UNIT TABLET (FP) PO SCH (10:17)
[2018-03-08] MEDS: TAMSULOSIN HCL 0.4 MG CAP.ER.24H (FP) PO SCH (10:17)
[2018-03-08] MEDS: MULTIVITAMINS (DAILY MVI) TABLET (FP) PO SCH (10:17)
[2018-03-08] MEDS: VALPROATE SODIUM 250 MG/5 ML UNIT DOSE CUP PO SCH (10:18)
[2018-03-08] MEDS: risperiDONE 0.5 MG TABLET (FP) PO SCH (10:19)
[2018-03-08 11:36] VITALS: BP 103/59; PULSE 80; TEMP 97.4
== END 2018-03-08 11:00 | DRG 713 ==
LOC: JER 08:15 → JERBED 18:24 → J7W 20:51 → OBSVTOIN 02-27 15:45
PROVIDERS: ADMIT Family Medicine; ATTEND Family Medicine
PROC: 0VB08ZZ Excision of Prostate, Via Natural or Artificial Opening Endoscopic (ICD-10-PCS; principal; 2018-02-24 15:00)
PROC: 30233N1 Transfusion of Nonautologous Red Blood Cells into Peripheral Vein, Percutaneous Approach (ICD-10-PCS; 2018-02-27)
DX: N40.0 Benign prostatic hyperplasia without lower urinary tract symptoms (principal); N17.9 Acute kidney failure, unspecified; D62 Acute posthemorrhagic anemia; F02.81 Dementia in other diseases classified elsewhere, unspecified severity, with behavioral disturbance; R44.3 Hallucinations, unspecified; N39.0 Urinary tract infection, site not specified; R33.8 Other retention of urine; G30.9 Alzheimer's disease, unspecified; I48.91 Unspecified atrial fibrillation; N13.9 Obstructive and reflux uropathy, unspecified; R41.82 Altered mental status, unspecified; R31.9 Hematuria, unspecified; I10 Essential (primary) hypertension
CPT/HCPCS: 36415; 36430; 71045-TC-FY; 80048; 80053; 81003; 81015; 83605; 85025; 85610; 85730; 86850; 86900; 86901; 86922; 87040; 87086; 87186; 88305-TC; 93005; 93010; 94760; 97161-GP; 99283-25; G0378; J0131; J7030; P9038; P9058

== ENCOUNTER 2018-03-13 10:48 | Inpatient (IN) | payer OTHER ==
[2018-03-13] MEDS ORDERED: ACETAMINOPHEN INJECTION 100 ML IVPB ONE (11:09)
[2018-03-13] MEDS ORDERED: SODIUM CHLORIDE 1,000 ML IV STA (11:09)
[2018-03-13] MEDS ORDERED: ACETAMINOPHEN 1000 MG/100 ML VIAL (NON FORMULARY) IVPB ONE (11:11)
--- NOTE | 2018-03-13 11:17 | PDOC ---
History of Present Illness - General Chief Complaint: SIRS, Suspected/Possible Stated Complaint: SESPSIS Time Seen by Provider: 03/13/18 11:01 History Source: EMS Exam Limitations: No Limitations - History of Present Illness Initial Comments: 03/13/18 11:52 82 year old male with PMH BPH causing urinary retention, TURP 02/2018, dementia , atrial fibrillation on Eliquis BIBA from [facility] for fever, decreased alertness, confusion and difficulty swallowing per EMS and medical aid. Per EMS pt was given 1L NS en route to ED. HPI limited due to pt's baseline dementia and altered mental status. Pt was recently admitted after pulling out his suprapubic catheter that was placed for bladder outlet obstruction, and was admitted to [facility]. TURP was performed. Procedure was complicated by hematuria and anemia, requiring 2 units RBC transfused. Procedure was also complicated by UTI, Vr Ec Faecalis on urine culture, pt switched from levaquin (resistant) to macrobid (sensistive). Pt was able to void on his own. Pt was discharged to [facility] on macrobid. -Admit date - 02/21/18 -Discharge date - 03/08/18 Past History - Past Medical History Allergies/Adverse Reactions: Allergies Allergy/AdvReac Type Severity Reaction Status Date / Time donepezil [From Aricept] Allergy Verified 03/13/18 11:52 memantine [From Namenda] Allergy Verified 03/13/18 11:52 quetiapine [From Seroquel] Allergy Verified 03/13/18 11:52 Home Medications: Ambulatory Orders Acetaminophen [Tylenol] 650 mg PO ASDIR 03/13/18 Apixaban [Eliquis] 2.5 mg PO DAILY 03/13/18 Ascorbate Calcium [Vitamin C] 500 mg PO DAILY 03/13/18 Cholecalciferol (Vitamin D3) [Vitamin D3 -] 1,000 unit PO DAILY 03/13/18 Citalopram Hydrobromide [Celexa -] 10 mg PO DAILY 03/13/18 Docusate Sodium [Colace] 200 mg PO DAILY 03/13/18 Finasteride [Proscar] 5 mg PO DAILY 03/13/18 Mirtazapine [Remeron -] 30 mg PO HS 03/13/18 Multivitamins [Tab-A-Vit -] 1 tab PO DAILY 03/13/18 Nystatin Oral Suspension - [Nystatin Oral Susp 403794 Units/5 ML -] 500,000 units PO Q6H 03/13/18 Olanzapine [Zyprexa] 7.5 mg PO DAILY 03/13/18 Risperidone [Risperdal -] 0.5 mg PO DAILY 03/13/18 Tamsulosin HCl [Flomax] 0.4 mg PO DAILY 03/13/18 Zinc Sulfate 220 mg PO DAILY 03/13/18 Cancer: Yes (basal cell carcinoma,) Cardiac Disorders: Yes (a fib) COPD: No Dementia: Yes (alzheimer's) GI Disorders: Yes (diverticulitis) - Surgical History Abdominal Surgery: Yes (hernia repair 2006, diverticulitis 2002) - Suicide/Smoking/Psychosocial Hx Smoking History: Unknown if ever smoked Have you smoked in the past 12 months: No Hx Alcohol Use: No Drug/Substance Use Hx: No Substance Use Type: None Hx Substance Use Treatment: No Review of Systems - Review of Systems Able to Perform ROS?: No Comments:: 03/13/18 11:41 Unable to perform ROS due to AMS, baseline dementia. *Physical Exam - Physical Exam Comments: 03/13/18 11:41 Constitutional: thin. contracted upper and lower extremities. laying in bed. HEENT: head is normocephalic, atraumatic. EOMI. PERRLA. Heart: irregularly irregular. Lungs: bilateral basilar crackles, right>left. Abdomen: soft, nontender. normal bowel sounds. no rebound, guarding, masses. supra-umbilical healed scar noted. no suprapubic catheter placed. /Sacrum: stage 1 decubitus ulcer to sacrum. no gandhi in place. Extremities: Peripheral pulses intact. No lower extremity edema. no ulcers to bilateral heels. redness noted to bilateral hip. Neurological: CN 2-12 grossly intact. Moves all four extremities. Psych: awake, alert. does not follow commands. does not answer questions. nonverbal. Heart Score/ECG Review - ECG Impressions Comment:: 03/13/18 12:01 Rate 138, irregular irregular rhythm, normal axis, no acute ST changes. ED Treatment Course - LABORATORY CBC & Chemistry Diagram: 03/14/18 05:30 03/14/18 05:30 Medical Decision Making - Medical Decision Making 03/13/18 11:45 82 year old male with PMH atrial fibrillation, diverticulitis, BPH, s/o TURP (), Hx Vr Ec Faelcal[place] UTI BIBA to ED for fever 104+F, decreased alertness and difficulty swallowing. Pt was recently admitted after pulling out his suprapubic catheter that was placed for bladder outlet obstruction, and was admitted to [facility]. TURP was performed. Procedure was complicated by hematuria and anemia, requiring 2 units RBC transfused. Procedure was also complicated by UTI, Vr Ec Faecalis on urine culture, pt switched from levaquin (resistant) to macrobid (sensistive). Pt was able to void on his own. Pt was discharged to [facility] on macrobid. -Admit date - 02/21/18 -Discharge date - 03/08/18 EMS stated patient was hypoxic on RA, currently satting 100% on NRB, will desaturate when O2 is weaned. EMS gave pt 1L NS. Upon arrival to ED pt recieved Tylenol, 1L NS, was placed on NRB, EKG, CXR and lab work was performed. Initial Vital Signs Temp Pulse Resp BP Pulse Ox 104.6 F H 152 H 40 H 83/54 L 82 L 03/13/18 10:56 03/13/18 10:56 03/13/18 10:56 03/13/18 10:56 03/13/18 10:56 Pt is tachypneic - 40. Pt is tachycardic - 152. Pt is hypertensive - initial BP - 218/170, likely secondary to contraction. Concerned for hypotension. Repeat BP - 84/54, likely secondary to sepsis. Rectal temp 104.6F. Hypoxic on RA at 82%. Requiring NRB at 10L. Currently 97%. Pt meets criteria for SIRS, likely has a urinary tract infection resistant to antibiotic treatment, meets criteria for Sepsis. Pt meets criteria for severe sepsis due to hypotension. Pt in atrial fibrillation, likely secondary to sepsis. Vancomycin and Zosyn ordered. 03/13/18 12:16 CBC WBC 10.9 K/mm3 (4.0-10.0) H 03/13/18 11:10 RBC 3.34 M/mm3 (4.00-5.60) L 03/13/18 11:10 Hgb 9.5 GM/dL (11.7-16.9) L 03/13/18 11:10 Hct 29.0 % (35.4-49) L 03/13/18 11:10 MCV 86.8 fl (80-96) 03/13/18 11:10 MCH 28.5 pg (25.7-33.7) 03/13/18 11:10 MCHC 32.9 g/dl (32.0-35.9) 03/13/18 11:10 RDW 16.5 % (11.9-15.9) H 03/13/18 11:10 Plt Count 299 K/MM3 (134-434) D 03/13/18 11:10 MPV 8.4 fl (7.5-11.1) 03/13/18 11:10 Absolute Neuts (auto) 9.5 K/mm3 (1.5-8.0) H 03/13/18 11:10 Neutrophils % 86.8 % (42.8-82.8) H 03/13/18 11:10 Lymphocytes % 6.0 % (8-40) L D 03/13/18 11:10 Monocytes % 6.8 % (3.8-10.2) 03/13/18 11:10 Eosinophils % 0.0 % (0-4.5) D 03/13/18 11:10 Basophils % 0.4 % (0-2.0) 03/13/18 11:10 Nucleated RBC % 0 % (0-0) 03/13/18 11:10 Leukocytosis - WBC 10.9 with left shift 86.8%. Anemia - Hgb 9.5 Hct 29%. Increased from Hgb 8.9 03/07/18. Urine Test Results Urine Color Yellow 03/13/18 11:00 Urine Appearance Turbid 03/13/18 11:00 Urine pH 5.0 (5.0-8.0) 03/13/18 11:00 Ur Specific [place] 1.014 (1.001-1.035) 03/13/18 11:00 Urine Protein 2+ (NEGATIVE) H 03/13/18 11:00 Urine Glucose (UA) Negative (NEGATIVE) 03/13/18 11:00 Urine Ketones Negative (NEGATIVE) 03/13/18 11:00 Urine Blood 3+ (NEGATIVE) H 03/13/18 11:00 Urine Nitrite Negative (NEGATIVE) 03/13/18 11:00 Urine Bilirubin Negative (<2.0 mg/dL) 03/13/18 11:00 Ur Leukocyte Esterase 2+ (NEGATIVE) H 03/13/18 11:00 Urinary tract infection noted. Zosyn will cover past urine culture growth. Source of fever likely to be complicated urinary tract infection. ABG - respiratory alkalosis, likely secondary to tachypnea. 03/13/18 12:52 Pt reassessed, less contracted, sleeping. CMP Sodium 151 mmol/L (136-145) H 03/13/18 11:10 Potassium 4.9 mmol/L (3.5-5.1) 03/13/18 11:10 Chloride 118 mmol/L (98-107) H 03/13/18 11:10 Carbon Dioxide 21 mmol/L (21-32) 03/13/18 11:10 Anion Gap 12 MMOL/L (8-16) 03/13/18 11:10 BUN 64 mg/dL (7-18) H 03/13/18 11:10 Creatinine 2.6 mg/dL (0.55-1.3) H 03/13/18 11:10 Creat Clearance w eGFR 23.81 (>60) 03/13/18 11:10 Random Glucose 105 mg/dL (74-106) 03/13/18 11:10 Lactic Acid 5.0 mmol/L (0.4-2.0) H* 03/13/18 11:10 Calcium 8.7 mg/dL (8.5-10.1) 03/13/18 11:10 Total Bilirubin 0.9 mg/dL (0.2-1) 03/13/18 11:10 AST 68 U/L (15-37) H 03/13/18 11:10 ALT 35 U/L (13-61) 03/13/18 11:10 Alkaline Phosphatase 93 U/L (45-117) 03/13/18 11:10 Creatine Kinase 477 IU/L (26-308) H 03/13/18 11:10 CK-MB (CK-2) 1.6 ng/mL (0.5-3.6) 03/13/18 11:10 Total Protein 5.0 g/dl (6.4-8.2) L 03/13/18 11:10 Albumin 1.8 g/dl (3.4-5.0) L 03/13/18 11:10 Hypernatremia - 151, 2L NS given, will give gentle hydration. VAZQUEZ - Cr 2.6 Lactic acidosis - 5.0 03/13/18 13:[address] Lamar, who will accept the consult. 03/13/18 14:00 Pt will be admitted to Dr. Schuler's care in the ICU. 03/13/18 15:11 Troponin 0.37, will repeat. Vital Signs Temperature 100.4 F H 03/13/18 13:13 Pulse Rate 118 H 03/13/18 15:40 Respiratory Rate 28 H 03/13/18 15:40 Blood Pressure 120/66 03/13/18 15:40 O2 Sat by Pulse Oximetry (%) 97 03/13/18 15:40 Febrile - 100.4. Improved from initial. Tachycardic - 118, irregularly irregular on exam. Improved from initial. No hypotension, improved from initial. 97% on 5L. improved from initial. Repeat lactate 4.0, improved from prior. 03/13/18 19:[address] Dominguez about the case, he will assume care while the patient is pending transfer to the ICU. *DC/Admit/Observation/Transfer Diagnosis at time of Disposition: Severe sepsis, VAZQUEZ (acute kidney injury), Lactic acidosis Dementia Qualifiers: Dementia type: unspecified type Dementia behavioral disturbance: without behavioral disturbance Qualified Code(s): F03.90 - Unspecified dementia without behavioral disturbance Leukocytosis Qualifiers: Leukocytosis type: unspecified Qualified Code(s): D72.829 - Elevated white blood cell count, unspecified Anemia Qualifiers: Anemia type: other cause Other causes of anemia: other cause, not classified Qualified Code(s): D64.89 - Other specified anemias Urinary tract infection Qualifiers: Urinary tract infection type: site unspecified Hematuria presence: without hematuria Qualified Code(s): N39.0 - Urinary tract infection, site not specified - Discharge Dispostion Condition at time of disposition: Stable Decision to Admit order: Yes - Referrals - Patient Instructions - Post Discharge Activity
[2018-03-13] MEDS ORDERED: PIPERACILLIN/TAZOB 3.375 GM 3.375 GM in DEXTROSE 5%-WATER - 50 ML IVPB ONE (11:18)
[2018-03-13] MEDS ORDERED: VANCOMYCIN 1,000 MG in DEXTROSE 5%-WATER - 250 ML IVPB ONE (11:19)
[2018-03-13] MEDS ORDERED: PIPERACILLIN/TAZOB 3.375 GM 3.375 GM/50 ML BAG IVPB ONE (11:39)
[2018-03-13] MEDS ORDERED: VANCOMYCIN 1 GRAM (PRE-DOCKED) 1,000 MG/250 ML BAG IVPB ONE (11:39)
[2018-03-13 11:42] LABS: BASO % 0.4 % (0-2.0); HEMOGLOBIN 9.5 GM/dL (11.7-16.9); MCH 28.5 pg (25.7-33.7); MCHC 32.9 g/dl (32.0-35.9); MEAN CELL VOLUME 86.8 fl (80-96); MEAN PLT VOLUME 8.4 fl (7.5-11.1); MONO % 6.8 % (3.8-10.2); NEUT % 86.8 % (42.8-82.8); PLATELET COUNT 299 K/MM3 (134-434); RBC 3.34 M/mm3 (4.00-5.60); RDW 16.5 % (11.9-15.9); WHITE BLOOD COUNT 10.9 K/mm3 (4.0-10.0)
[2018-03-13 11:54] LABS: INR 2.04 (0.83-1.09)
[2018-03-13 11:56] LABS: ACTIVATED PTT 44.1 SECONDS (25.2-36.5)
[2018-03-13 12:00] LABS: URINE APPEARANCE TURBID; URINE BILIRUBIN NEGATIVE (<2.0 mg/dL); URINE COLOR YELLOW; URINE GLUCOSE (UA) NEGATIVE (NEGATIVE); URINE KETONE NEGATIVE (NEGATIVE); URINE LEUK ESTERASE 2+ (NEGATIVE); URINE NITRITE NEGATIVE (NEGATIVE); URINE PROTEIN 2+ (NEGATIVE)
--- NOTE | 2018-03-13 12:12 | PDOC ---
Attending Attestation - Resident Resident Name: Jennifer Angulo - ED Attending Attestation I have performed the following: I have examined & evaluated the patient, The case was reviewed & discussed with the resident, I agree w/resident's findings & plan, Exceptions are as noted - HPI HPI: 03/13/18 12:29 Mr Ware is an 82 yo M h/o dementia, atrial fibrillation, h/o enlarged prostate s/p He is s/p recent admission for self removed suprapubic cathether Pt ultimately had TURP Pt apparently had a fever at his facility No other history 03/13/18 12:32 - Physicial Exam PE: 03/13/18 12:35 Pt is awake, alert, does not respond to questioning Pt is contracted (lower extremities) - Medical Decision Making 03/13/18 12:12 Laboratory Tests 03/07/18 03/13/18 03/13/18 06:00 11:00 11:10 WBC 11.0 H 10.9 H Hgb 8.9 L 9.5 L Hct 26.6 L 29.0 L Plt Count 242 299 D INR Urine Ketones Negative Urine Blood 3+ H Urine Urobilinogen 2.0 Ur Leukocyte Esterase 2+ H 03/13/18 11:10 WBC Hgb Hct Plt Count INR 2.04 H Urine Ketones Urine Blood Urine Urobilinogen Ur Leukocyte Esterase 03/13/18 12:23 Laboratory Tests 03/13/18 11:10 VBG pH 7.45 H D POC VBG pCO2 31.3 L POC VBG pO2 53.0 H D 03/13/18 12:29 Laboratory Tests 03/13/18 11:10 Lactic Acid 5.0 H* 03/13/18 12:39 Laboratory Tests 03/07/18 03/13/18 03/13/18 06:00 11:00 11:10 Sodium 144 151 H Potassium 4.2 4.9 Chloride 109 H 118 H Carbon Dioxide 28 21 BUN 23 H 64 H Creatinine 0.7 2.6 H Lactic Acid Creatine Kinase 477 H Creatine Kinase Index Pending CK-MB (CK-2) 1.6 Urine WBC (Auto) 3606 Urine RBC (Auto) 76 03/13/18 11:10 Sodium Potassium Chloride Carbon Dioxide BUN Creatinine Lactic Acid 5.0 H* Creatine Kinase Creatine Kinase Index CK-MB (CK-2) Urine WBC (Auto) Urine RBC (Auto) CXR: movement limits examination Labs reveal: hypernatremia Acute renal insufficiency Sepsis UTI 03/13/18 12:40 Given broad spectrum abx Call placed to ICU resident Will contact PMD Discharge Disposition - Diagnosis Severe sepsis, VAZQUEZ (acute kidney injury), Lactic acidosis Dementia Qualifiers: Dementia type: unspecified type Dementia behavioral disturbance: without behavioral disturbance Qualified Code(s): F03.90 - Unspecified dementia without behavioral disturbance Leukocytosis Qualifiers: Leukocytosis type: unspecified Qualified Code(s): D72.829 - Elevated white blood cell count, unspecified Anemia Qualifiers: Anemia type: other cause Other causes of anemia: other cause, not classified Qualified Code(s): D64.89 - Other specified anemias Urinary tract infection Qualifiers: Urinary tract infection type: site unspecified Hematuria presence: without hematuria Qualified Code(s): N39.0 - Urinary tract infection, site not specified - Discharge Dispostion Condition at time of disposition: Stable Last Admission D/C Date: 03/08/18 Decision to Admit order: Yes - Referrals - Patient Instructions - Post Discharge Activity Critical Care Time/MDM Note Total Critical Care Time: 60 Critical Care Statement: The care of this patient involved high complexity decision making to prevent further life threatening deterioration of the patient 's condition and/or to evaluate & treat vital organ system(s) failure or risk of failure.
[2018-03-13 12:14] LABS: VENOUS PC02 31.3 mmHg (38-52); VENOUS PH 7.45 (7.32-7.42)
[2018-03-13 12:33] LABS: URINE BACTERIA MODERATE /hpf (NONE SEEN)
[2018-03-13 12:33] LABS: ALBUMIN 1.8 g/dl (3.4-5.0); ALK PHOS 93 U/L (45-117); ANION GAP 12 MMOL/L (8-16); BILIRUBIN,TOTAL 0.9 mg/dL (0.2-1); BLOOD UREA NITROGEN 64 mg/dL (7-18); CALCIUM 8.7 mg/dL (8.5-10.1); CHLORIDE 118 mmol/L (98-107); CO2 21 mmol/L (21-32); CREATININE 2.6 mg/dL (0.55-1.3); GLUCOSE,RANDOM 105 mg/dL (74-106); POTASSIUM 4.9 mmol/L (3.5-5.1); SGOT/AST 68 U/L (15-37); SGPT/ALT 35 U/L (13-61); SODIUM 151 mmol/L (136-145)
[2018-03-13] MEDS ORDERED: ACETAMINOPHEN 650 MG SUPP.RECT PR PRN (13:20)
[2018-03-13] MEDS ORDERED: METOPROLOL TARTRATE 5 MG/5 ML VIAL IVPUSH PRN (13:50)
--- NOTE | 2018-03-13 13:57 | CONSULT ---
Consultation: REQUESTING PROVIDER: Dr Desir CONSULT REQUEST: We have been asked to medically evaluate this patient for admission to the ICU. HISTORY OF PRESENT ILLNESS: Jaylon Wrae is an 82yo man with a PMH of a-fib on apixaban, Alzheimer's dementia, non-verbal at baseline, chronic urinary retention secondary to BHP with recent suprapubic catheter s/p self-removal c/b UTI (pseudamonas, VRE) s/p recent TURP on 03/01. He was admitted for management of his UTI, discharged to [facility] on 03/07/18. Mr Ware was brought to the ED today for tachypnea, lethargy, and fever to 103 at his SNF. His aide, present at bedside in the ED, reported that his mental status is at his baseline. His ED course was notable for temperature 104.6 F, HR 152, RR 40, UA with 3606 WBCs, 2+ leukocyte esterase, 2+ blood. His lactate was 5.0, WBC slightly elevated to 10.9, VAZQUEZ with BUN 64 and Cr 2.6 (was 23, 0.7 on 03/07). Mr Ware was started on zosyn, blood and urine cultures sent, and IV acetaminophen given for fever. Repeat temperature in the ED was 101F. REVIEW OF SYSTEMS: Could not obtain secondary to dementia PHYSICAL EXAMINATION Vital Signs - 24 hr 03/13/18 03/13/18 03/13/18 10:56 11:00 11:05 Temperature 104.6 F H Pulse Rate 152 H Pulse Rate [ Left] Respiratory 40 H 40 H 30 H Rate Blood Pressure 83/54 L Blood Pressure [Arm] O2 Sat by Pulse 82 L 82 L 99 Oximetry (%) 03/13/18 03/13/18 03/13/18 11:09 12:00 13:13 Temperature 104.6 F H 100.4 F H Pulse Rate Pulse Rate [ 133 H Left] Respiratory 32 H Rate Blood Pressure Blood Pressure 98/81 [Arm] O2 Sat by Pulse 96 Oximetry (%) GENERAL: Awake, in moderate distress. HEAD: Normal with no signs of trauma. EYES: Pupils equal, round and reactive to light, extraocular movements intact, sclera anicteric, conjunctiva clear. No lid lag. EARS, NOSE, THROAT: Ears normal, nares patent. Dry mucous membranes. NECK: Normal range of motion, supple without lymphadenopathy, JVD, or masses. LUNGS: Tachypnic. Breath sounds equal, clear to auscultation bilaterally. No wheezes, and no crackles. HEART: Irregularly irregular, normal S1 and S2 without murmur, rub or gallop. ABDOMEN: Soft, nontender, not distended, normoactive bowel sounds, no guarding, no rebound, no masses. No hepatomegaly or splenomegaly. MUSCULOSKELETAL: BLE contracted, normal ROM in BUE. No bony deformities or tenderness. UPPER EXTREMITIES: 2+ pulses, warm, well-perfused. No cyanosis. No clubbing. Cap refill <2 seconds. No peripheral edema. LOWER EXTREMITIES: 2+ pulses, warm, well-perfused. No calf tenderness. No peripheral edema. NEUROLOGICAL: Cranial nerves II-XII intact. Nonverbal, non-ambulatory. PSYCHIATRIC: Dementia, could not assess mood. SKIN: Warm, dry, normal turgor, no rashes or lesions noted. Laboratory Results - last 24 hr 03/13/18 03/13/18 03/13/18 11:00 11:10 11:10 WBC 10.9 H RBC 3.34 L Hgb 9.5 L Hct 29.0 L MCV 86.8 MCH 28.5 MCHC 32.9 RDW 16.5 H Plt Count 299 D MPV 8.4 Absolute Neuts (auto) 9.5 H Neutrophils % 86.8 H Lymphocytes % 6.0 L D Monocytes % 6.8 Eosinophils % 0.0 D Basophils % 0.4 Nucleated RBC % 0 PT with INR INR PTT (Actin FS) VBG pH 7.45 H D POC VBG pCO2 31.3 L POC VBG pO2 53.0 H D Mixed VBG HCO3 21.4 Sodium Potassium Chloride Carbon Dioxide Anion Gap BUN Creatinine Creat Clearance w eGFR Random Glucose Lactic Acid Calcium Total Bilirubin AST ALT Alkaline Phosphatase Creatine Kinase Creatine Kinase Index CK-MB (CK-2) Total Protein Albumin Urine Color Yellow Urine Appearance Turbid Urine pH 5.0 Ur Specific [place] 1.014 Urine Protein 2+ H Urine Glucose (UA) Negative Urine Ketones Negative Urine Blood 3+ H Urine Nitrite Negative Urine Bilirubin Negative Urine Urobilinogen 2.0 Ur Leukocyte Esterase 2+ H Urine WBC (Auto) 3606 Urine RBC (Auto) 76 Urine Bacteria Moderate Blood Type Antibody Screen 03/13/18 03/13/18 03/13/18 11:10 11:10 11:10 WBC RBC Hgb Hct MCV MCH MCHC RDW Plt Count MPV Absolute Neuts (auto) Neutrophils % Lymphocytes % Monocytes % Eosinophils % Basophils % Nucleated RBC % PT with INR 23.00 H INR 2.04 H PTT (Actin FS) 44.1 H VBG pH POC VBG pCO2 POC VBG pO2 Mixed VBG HCO3 Sodium 151 H Potassium 4.9 Chloride 118 H Carbon Dioxide 21 Anion Gap 12 BUN 64 H Creatinine 2.6 H Creat Clearance w eGFR 23.81 Random Glucose 105 Lactic Acid 5.0 H* Calcium 8.7 Total Bilirubin 0.9 AST 68 H ALT 35 Alkaline Phosphatase 93 Creatine Kinase 477 H Creatine Kinase Index 0.3 CK-MB (CK-2) 1.6 Total Protein 5.0 L Albumin 1.8 L Urine Color Urine Appearance Urine pH Ur Specific [place] Urine Protein Urine Glucose (UA) Urine Ketones Urine Blood Urine Nitrite Urine Bilirubin Urine Urobilinogen Ur Leukocyte Esterase Urine WBC (Auto) Urine RBC (Auto) Urine Bacteria Blood Type Antibody Screen 03/13/18 11:10 WBC RBC Hgb Hct MCV MCH MCHC RDW Plt Count MPV Absolute Neuts (auto) Neutrophils % Lymphocytes % Monocytes % Eosinophils % Basophils % Nucleated RBC % PT with INR INR PTT (Actin FS) VBG pH POC VBG pCO2 POC VBG pO2 Mixed VBG HCO3 Sodium Potassium Chloride Carbon Dioxide Anion Gap BUN Creatinine Creat Clearance w eGFR Random Glucose Lactic Acid Calcium Total Bilirubin AST ALT Alkaline Phosphatase Creatine Kinase Creatine Kinase Index CK-MB (CK-2) Total Protein Albumin Urine Color Urine Appearance Urine pH Ur Specific [place] Urine Protein Urine Glucose (UA) Urine Ketones Urine Blood Urine Nitrite Urine Bilirubin Urine Urobilinogen Ur Leukocyte Esterase Urine WBC (Auto) Urine RBC (Auto) Urine Bacteria Blood Type O POSITIVE Antibody Screen Negative Active Medications Generic Name Dose Route Start Last Admin Trade Name Freq PRN Reason Stop Dose Admin Acetaminophen 650 mg 03/13/18 13:20 Tylenol Suppository - IL Q4H PRN FEVER Apixaban 2.5 mg 03/14/18 10:00 Eliquis - PO DAILY HELENA Chlorhexidine Gluconate 1 applic 03/13/18 22:00 Hibiclens For Decolonization - TP HS HELENA Citalopram Hydrobromide 10 mg 03/14/18 10:00 Celexa - PO DAILY HELENA Docusate Sodium 200 mg 03/14/18 10:00 Colace - PO DAILY HELENA Finasteride 5 mg 03/14/18 10:00 Proscar - PO DAILY HELENA Piperacillin Sod/Tazobactam 100 mls @ 200 mls/hr 03/13/18 18:00 Sod 4.5 gm/ Dextrose IVPB Q8H-IV HELENA Protocol Sodium Chloride 1,000 mls @ 100 mls/hr 03/13/18 14:00 Normal Saline - IV ASDIR HELENA Metoprolol Tartrate 5 mg 03/13/18 13:50 Lopressor Injection - IVPUSH Q4H PRN HYPERTENSION Mirtazapine 30 mg 03/13/18 22:00 Remeron - PO HS HELENA Mupirocin 1 applic 03/13/18 22:00 Bactroban Ointment (For Decolonization) - NS 03/18/18 21:59 BID HELENA Olanzapine 7.5 mg 03/14/18 10:00 Zyprexa - PO DAILY HELENA Risperidone 0.5 mg 03/14/18 10:00 Risperdal - PO DAILY HELENA Tamsulosin HCl 0.4 mg 03/14/18 10:00 Flomax - PO DAILY HELENA ASSESSMENT/PLAN: Jaylon Ware is an 82yo man with a PMH of Alzheimer's dementia, a-fib on apixaban, chronic urinary retention 2/2 BPH with recent self-removal of suprapubic catheter, pseudamonas/VRE UTI, s/p TURP on 03/01/18. He presented to the ED today with sepsis most likely secondary to UTI. Neuro/Psych: - h/o Alzheimer's, nonverbal at baseline - Continue home citalopram, mirtazapine, olanzapine, risperidone CV: - h/o a-fib. Fully anticoagulated, continue apixaban - Tachycardic to 130's. Metoprolol 5mg IV PRN for HR over 110 Pulm: - Tachypnic, lungs clear on exam. May be secondary to sepsis but cannot rule out acute pulmonary abnormalities at this time - CXR in ED poor study, will repeat - Continue supplemental oxygen as needed - Respiratory therapy ordered for evaluation Heme: - Hgb 9.5, likely chronic anemia, no sign of bleeding currently - Fully anticoagulated. Continue apixaban for a-fib - Monitor daily CBC GI: - NPO until evaluated by speech - Per aid, was on nectar-thick liquids at home. Renal: - VAZQUEZ with BUN elevated to 64 from 23, Cr 2.6 from 0.7 - Likely secondary to dehydration as pt appears dry - Monitor BMP - UA positive for UTI with 2606 WBC, 2+ leuk esterase, 2+ blood, 76 RBCs. Culture pending - H/O BPH and urinary retention, s/p TURP on 03/01. ID: - Positive UA - Urine and blood cultures pending, will follow - Zosyn started in the ED. Continue pending culture results and sensitivities - Previous urine cultures with VRE. Prior cultures from 02/04 with pseudomonas. Has been taking nitrofurantoin per culture sensitivities; will d/c and replace with zosyn at this time Endo: - No issues Musc: - Turn Q2 hr to prevent ulceration - BLE contracted at admission PPx: - Low DVT risk, SCD's - No indication for GI ppx FEN: - NPO pending swallow eval - Hyernatremic and hyperchloremic on admission. 0.45 NS @ 100/hr. Monitor BMP. - Replete lytes PRN Dispo: - Monitor in ICU - Will transfer to floor once stabilized. Discussed with Dr Carlos Gan PGY1 Problem List - Problems (1) Urinary tract infection Code(s): N39.0 - URINARY TRACT INFECTION, SITE NOT SPECIFIED Qualifiers: Urinary tract infection type: site unspecified Hematuria presence: without hematuria Qualified Code(s): N39.0 - Urinary tract infection, site not specified Visit type - Emergency Visit Emergency Visit: Yes ED Registration Date: 03/13/18 Care time: The patient presented to the Emergency Department on the above date and was hospitalized for further evaluation of their emergent condition. - New Patient This patient is new to me today: Yes Date on this admission: 03/13/18 - Critical Care Critical Care patient: Yes Total Critical Care Time (in minutes): 60 Critical Care Statement: The care of this patient involved high complexity decision making to prevent further life threatening deterioration of the patient 's condition and/or to evaluate & treat vital organ system(s) failure or risk of failure.
[2018-03-13] MEDS ORDERED: SODIUM CHLORIDE 1,000 ML IV SCH (14:00)
--- NOTE | 2018-03-13 14:12 | CONSULT ---
Admitting History and Physical - Primary Care Physician PCP: Leelee Schuler I - Admission History of Present Illness: Per ER admission note; Jaylon Ware is an 82yo man with a PMH of a-fib on apixaban, Alzheimer's dementia, non-verbal at baseline, chronic urinary retention secondary to BHP with recent suprapubic catheter s/p self-removal c/b UTI (pseudamonas, VRE) s/p recent TURP on 03/01. He was admitted for management of his UTI, discharged to [facility] on 03/07/18. Mr Ware was brought to the ED today for tachypnea, lethargy, and fever to 103 at his SNF. His aide, present at bedside in the ED, reported that his mental status is at his baseline. UA with 800 WBCs, CXR-limited study.Repeat study rec to r/o infiltrates. Seen last by me 03/07/18 Recommendations - Speech Evaluation, Impression/Plan Impression: Dementia. Lethargic for me. Does best with pudding, yogurt. - Dysphagia Impressions/Plan Swallowing Skills: Impaired Dysphagia Impressions: Mild Impairment *Silent aspiration: cannot be R/O at bedside Dysphagia Treatment Plan: Small Bites, Chin Tuck/Down, Safe Rate, 1/2 tsp. at a time, Elevate HOB during feed, Other (feed only when alert) - Recommendations Diet Consistency: Dysphagia Pureed Medication Administration: Crushed with applesauce Liquids: [place] Thick Supplement: Magic Cup, Ensure Pudding, Other (Ensure compact) Pt presently NPO. Selected Entries 03/13/18 03/13/18 03/13/18 10:56 11:09 13:13 Temperature 104.6 F H 104.6 F H 100.4 F H Laboratory Tests 03/13/18 11:10 WBC 10.9 H Seen in ER, VM, o2 92, dropped to 88 with VM removed briefly.HR 120's. Vocal, unintelligible. Followed no commands. Significant baseline Dementia with impaired communication. Pt reported to have a good appetite per SHELL FISHERMAN at [facility], with good tolerance of puree/honey thick liquid. 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 - Smoking History Smoking history: Unknown if ever smoked Have you smoked in the past 12 months: No - Alcohol/Substance Use Hx Alcohol Use: No History of Substance Use: reports: None - Social History ADL: Support Services History of Recent Travel: Yes History - Admission Reason For Visit: UTI, ANEMIA, ATRIAL FIBRILLATI, LEUKOCYTOSIS - Diagnostics X-ray: Report Reviewed - General Mental Status: Confused, Flat Affect Attention: Distractible, Moderate Impairment Ability to Follow Directions: Poor Head/Neck Control: Needs Assist Speech Evaluation - Communication Primary Language: NIGERIAN Communication: Yes: Non-Communicable - Speech Production Able to Make Needs Known: Yes: Severely Impaired Intelligibility: Yes: Severely Impaired - Speech Characteristics Voice Loudness: Severely Soft/Quiet Speech Pattern: Impaired Speech Clarity: < 25% Articulation: Yes: Precise - Language/Auditory Comprehension Observation: Comprehends Conversational Speech: No (rare) - Language/Verbal Expression Able to Respond to Simple Queries: Yes: Severely Impaired - Memory/Perception intermediate teacher Memory: Yes: Severely Impaired Short Term Memory: Yes: Severely Impaired - Swallow Evaluation/Bedside Assessment Current Nutritional Intake: NPO Recommendations - Speech Evaluation, Impression/Plan Impression: Seen in ER. Not medically stable for PO trials. VM.Has IV. - Dysphagia Impressions/Plan Swallowing Skills: Impaired (baseline) *Silent aspiration: cannot be R/O at bedside Recommendations: Other (to reassess when medically improved.) - Recommendations Diet Consistency: NPO
[2018-03-13] MEDS ORDERED: PIPERACILLIN/TAZOB 2.25 GM 2.25 GM in DEXTROSE 5%-WATER - 50 ML IVPB SCH (15:00)
[2018-03-13] MEDS ORDERED: SODIUM CHLORIDE 0.45% 1,000 ML IV SCH (15:30)
[2018-03-13] MEDS ORDERED: PIPERACILLIN/TAZOB 4.5 GM 4.5 GM in DEXTROSE 5%-WATER 100 ML IVPB SCH (18:00)
--- NOTE | 2018-03-13 18:08 | EKG ---
Test Reason : Blood Pressure : / mmHG Vent. Rate : 138 BPM Atrial Rate : 141 BPM P-R Int : 000 ms QRS Dur : 084 ms QT Int : 280 ms P-R-T Axes : 000 067 052 degrees QTc Int : 424 ms ATRIAL FIBRILLATION WITH RAPID VENTRICULAR RESPONSE LOW VOLTAGE QRS ABNORMAL ECG WHEN COMPARED WITH ECG OF 26-FEB-2018 08:51, VENT. RATE HAS INCREASED Confirmed by ZOË COBURN MD ([id number]) on 03/13/2018 6:08:08 PM Referred By: DR SAMAYOA Confirmed By:ZOË COBURN MD
--- NOTE | 2018-03-13 18:27 | CON.GU ---
Consult Consult Specialty:: Referred by:: ED Reason for Consultation:: UTI - History of Present Illness Chief Complaint: UTI History of Present Illness: 82 year old male who is S/P TURP. He is voiding. He is admitted from the [place] with fever. He is voiding. specimen was obtained with straight cath. WBC 11. Tm104,now 100. 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 Renal/: Yes: BPH - Alcohol/Substance Use Hx Alcohol Use: No History of Substance Use: reports: None - Smoking History Smoking history: Unknown if ever smoked Have you smoked in the past 12 months: No - Social History Usual Living Arrangement: Assisted Living ADL: Support Services History of Recent Travel: Yes Home Medications - Allergies Allergies/Adverse Reactions: Allergies Allergy/AdvReac Type Severity Reaction Status Date / Time donepezil [From Aricept] Allergy Verified 03/13/18 11:52 memantine [From Namenda] Allergy Verified 03/13/18 11:52 quetiapine [From Seroquel] Allergy Verified 03/13/18 11:52 - Home Medications Home Medications: Ambulatory Orders Acetaminophen [Tylenol] 650 mg PO ASDIR 03/13/18 Apixaban [Eliquis] 2.5 mg PO DAILY 03/13/18 Ascorbate Calcium [Vitamin C] 500 mg PO DAILY 03/13/18 Cholecalciferol (Vitamin D3) [Vitamin D3 -] 1,000 unit PO DAILY 03/13/18 Citalopram Hydrobromide [Celexa -] 10 mg PO DAILY 03/13/18 Docusate Sodium [Colace] 200 mg PO DAILY 03/13/18 Finasteride [Proscar] 5 mg PO DAILY 03/13/18 Mirtazapine [Remeron -] 30 mg PO HS 03/13/18 Multivitamins [Tab-A-Vit -] 1 tab PO DAILY 03/13/18 Nystatin Oral Suspension - [Nystatin Oral Susp 050344 Units/5 ML -] 500,000 units PO Q6H 03/13/18 Olanzapine [Zyprexa] 7.5 mg PO DAILY 03/13/18 Risperidone [Risperdal -] 0.5 mg PO DAILY 03/13/18 Tamsulosin HCl [Flomax] 0.4 mg PO DAILY 03/13/18 Zinc Sulfate 220 mg PO DAILY 03/13/18 Review of Systems - Review of Systems Constitutional: reports: Fever Genitourinary: reports: No Symptoms Physical Exam- Vital Signs: Vital Signs Temperature 100.4 F H 03/13/18 13:13 Pulse Rate 118 H 03/13/18 15:40 Respiratory Rate 28 H 03/13/18 15:40 Blood Pressure 120/66 03/13/18 15:40 O2 Sat by Pulse Oximetry (%) 97 03/13/18 15:40 Renal/: No: Bladder Distention, CVA Tenderness - Left, CVA Tenderness - Right , Narvaez Present, Hematuria Labs: CBC, BMP 03/13/18 11:10 03/13/18 11:10 Problem List - Problems (1) Severe sepsis Assessment/Plan: pt is voiding. antibiotics. Code(s): A41.9 - SEPSIS, UNSPECIFIED ORGANISM; R65.20 - SEVERE SEPSIS WITHOUT SEPTIC SHOCK (2) Urinary tract infection Code(s): N39.0 - URINARY TRACT INFECTION, SITE NOT SPECIFIED Qualifiers: Urinary tract infection type: site unspecified Hematuria presence: without hematuria Qualified Code(s): N39.0 - Urinary tract infection, site not specified
[2018-03-13] MEDS: PIPERACILLIN/TAZOB 2.25 GM 2.25 GM in DEXTROSE 5%-WATER - 50 ML IVPB SCH (18:34)
[2018-03-13 19:08] LABS: PLATELET ESTIMATE ADEQUATE
[2018-03-13] MEDS ORDERED: SODIUM CHLORIDE 0.9% 500 ML INFUS.BAG IV ONE (20:48)
[2018-03-13] MEDS: SODIUM CHLORIDE 1,000 ML IV SCH (21:30)
[2018-03-13] MEDS: APIXABAN 2.5 MG TABLET PO SCH (21:44)
[2018-03-13] MEDS ORDERED: MIRTAZAPINE 30 MG TABLET (FP) PO SCH (22:00)
--- NOTE | 2018-03-13 23:20 | HP ---
Admitting History and Physical - Admission History of Present Illness: 82 y/o Male PMH of dementia / BPH / A. Fib on eliquis, recently admitted ( 02/21/18 -03/08/18 ) after pulling out suprapubic cath which had been placed 2/2 to chronic retention/ outlet obstruction, during that hospitalization he underwent TURP, this was complicated by extensive hematuria which required 3 PRBC, he was also treated for UTI and completed ABX as out patient at [facility]. At time of d/c patient was voiding freely and afebrle. Patient was transfered from SNF today with elevated temp, and altered mental status. He has baseline dementia and is unable to provide any hx. 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 Cardiovascular: Yes: AFIB Renal/: Yes: BPH Musculoskeletal: Yes: Other (contracture lower extremeties / muscle wasting) - Past Surgical History Past Surgical History: Yes: TURP - Smoking History Smoking history: Unknown if ever smoked Have you smoked in the past 12 months: No - Alcohol/Substance Use Hx Alcohol Use: No History of Substance Use: reports: None - Social History Usual Living Arrangement: Yes: Detention ADL: Support Services History of Recent Travel: Yes Home Medications - Allergies Allergies/Adverse Reactions: Allergies Allergy/AdvReac Type Severity Reaction Status Date / Time donepezil [From Aricept] Allergy Verified 03/13/18 11:52 memantine [From Namenda] Allergy Verified 03/13/18 11:52 quetiapine [From Seroquel] Allergy Verified 03/13/18 11:52 - Home Medications Home Medications: Ambulatory Orders Acetaminophen [Tylenol] 650 mg PO ASDIR 03/13/18 Apixaban [Eliquis] 2.5 mg PO DAILY 03/13/18 Ascorbate Calcium [Vitamin C] 500 mg PO DAILY 03/13/18 Cholecalciferol (Vitamin D3) [Vitamin D3 -] 1,000 unit PO DAILY 03/13/18 Citalopram Hydrobromide [Celexa -] 10 mg PO DAILY 03/13/18 Docusate Sodium [Colace] 200 mg PO DAILY 03/13/18 Finasteride [Proscar] 5 mg PO DAILY 03/13/18 Mirtazapine [Remeron -] 30 mg PO HS 03/13/18 Multivitamins [Tab-A-Vit -] 1 tab PO DAILY 03/13/18 Nystatin Oral Suspension - [Nystatin Oral Susp 675269 Units/5 ML -] 500,000 units PO Q6H 03/13/18 Olanzapine [Zyprexa] 7.5 mg PO DAILY 03/13/18 Risperidone [Risperdal -] 0.5 mg PO DAILY 03/13/18 Tamsulosin HCl [Flomax] 0.4 mg PO DAILY 03/13/18 Zinc Sulfate 220 mg PO DAILY 03/13/18 Review of Systems Unable to obtain ROS, reason: dementia Physical Examination Vital Signs: Vital Signs Temperature 1002 F H 03/13/18 19:10 Pulse Rate 104 H 03/13/18 20:44 Respiratory Rate 99 H 03/13/18 20:44 Blood Pressure 100/58 L 03/13/18 20:44 O2 Sat by Pulse Oximetry (%) 99 03/13/18 20:44 Constitutional: Yes: Cachectic, Thin Eyes: Yes: Conjunctiva Clear, EOM Intact HENT: Yes: Atraumatic, Normocephalic Neck: Yes: Supple, Trachea Midline Cardiovascular: Yes: Pulse Irregular Respiratory: Yes: CTA Bilaterally Gastrointestinal: Yes: Normal Bowel Sounds, Soft Breast(s): Yes: WNL Musculoskeletal: Yes: Joint Stiffness Extremities: Yes: Other (contracture of Lower extremities) Edema: No Peripheral Pulses WNL: Yes Integumentary: Yes: WNL Neurological: Yes: Pre-Existing Deficit Psychiatric: Yes: Other (lethargic) Labs: CBC, BMP 03/13/18 11:10 03/13/18 11:10 Problem List - Problems (1) Dementia Code(s): F03.90 - UNSPECIFIED DEMENTIA WITHOUT BEHAVIORAL DISTURBANCE Qualifiers: Dementia type: unspecified type Dementia behavioral disturbance: without behavioral disturbance Qualified Code(s): F03.90 - Unspecified dementia without behavioral disturbance (2) Lactic acidosis Code(s): E87.2 - ACIDOSIS (3) Leukocytosis Code(s): D72.829 - ELEVATED WHITE BLOOD CELL COUNT, UNSPECIFIED Qualifiers: Leukocytosis type: unspecified Qualified Code(s): D72.829 - Elevated white blood cell count, unspecified (4) Severe sepsis Code(s): A41.9 - SEPSIS, UNSPECIFIED ORGANISM; R65.20 - SEVERE SEPSIS WITHOUT SEPTIC SHOCK (5) Urinary tract infection Code(s): N39.0 - URINARY TRACT INFECTION, SITE NOT SPECIFIED Qualifiers: Urinary tract infection type: site unspecified Hematuria presence: without hematuria Qualified Code(s): N39.0 - Urinary tract infection, site not specified (6) Altered mental status Code(s): R41.82 - ALTERED MENTAL STATUS, UNSPECIFIED (7) Atrial fibrillation Code(s): I48.91 - UNSPECIFIED ATRIAL FIBRILLATION
[2018-03-14] MEDS ORDERED: PIPERACILLIN/TAZOBACTAM 2.25 GM VIAL IVPB ONE ×3 (00:33→09:10)
[2018-03-14] MEDS: PIPERACILLIN/TAZOB 2.25 GM 2.25 GM in DEXTROSE 5%-WATER - 50 ML IVPB SCH ×3 (00:36→09:15)
[2018-03-14] MEDS: SODIUM CHLORIDE 1,000 ML IV SCH (02:15)
[2018-03-14 03:05] LABS: ARTERIAL BLOOD GAS PO2 68.3 mmHg (68-100); ARTERIAL BLOOD GAS pH 7.44 (7.35-7.45)
[2018-03-14 03:06] LABS: ALLENS TEST POSITIVE; ARTERIAL BLD GAS O2 SATURATION 93.4 % (90-98.9); ARTERIAL BLOOD GAS BASE EXCESS -2.8 meq/l (-2-2)
[2018-03-14 03:12] VITALS: BMI 20.9
[2018-03-14] MEDS ORDERED: DEXTROSE 5%-WATER - 50 ML IVPB ONE ×2 (03:50→09:10)
[2018-03-14 06:45] LABS: BASO % 0.3 % (0-2.0); EOS % 0.4 % (0-4.5); HEMATOCRIT 25.2 % (35.4-49); HEMOGLOBIN 8.2 GM/dL (11.7-16.9); LYMPH % 7.8 % (8-40); MCH 28.2 pg (25.7-33.7); MCHC 32.4 g/dl (32.0-35.9); MEAN CELL VOLUME 86.9 fl (80-96); MEAN PLT VOLUME 8.5 fl (7.5-11.1); MONO % 4.2 % (3.8-10.2); NEUT % 87.3 % (42.8-82.8); PLATELET COUNT 195 K/MM3 (134-434); RDW 16.1 % (11.9-15.9); WHITE BLOOD COUNT 8.1 K/mm3 (4.0-10.0)
[2018-03-14 07:04] LABS: INR 1.95 (0.83-1.09)
[2018-03-14 07:07] LABS: ACTIVATED PTT 41.4 SECONDS (25.2-36.5)
[2018-03-14 07:12] LABS: ANION GAP 6 MMOL/L (8-16); BLOOD UREA NITROGEN 60 mg/dL (7-18); CALCIUM 7.8 mg/dL (8.5-10.1); CHLORIDE 120 mmol/L (98-107); CO2 25 mmol/L (21-32); CREATININE 1.8 mg/dL (0.55-1.3); GLUCOSE,RANDOM 93 mg/dL (74-106); MAGNESIUM 2.2 mg/dL (1.8-2.4); PHOSPHOROUS 4.3 mg/dL (2.5-4.9); POTASSIUM 4.2 mmol/L (3.5-5.1); SODIUM 152 mmol/L (136-145)
[2018-03-14] MEDS ORDERED: LACTATED RINGERS SOLUTION 1,000 ML/1,000 ML INFUS.BAG IV SCH ×2 (09:00→10:31)
[2018-03-14] MEDS ORDERED: PT OWN MED DRAWER 7, Y5N ONE ×2 (09:10→17:52)
[2018-03-14] MEDS: FINASTERIDE 5 MG TABLET (FP) PO SCH ×3 (09:21→14:05)
[2018-03-14] MEDS: TAMSULOSIN HCL 0.4 MG CAP.ER.24H (FP) PO SCH ×3 (09:21→14:03)
[2018-03-14] MEDS: APIXABAN 2.5 MG TABLET PO SCH ×4 (09:26→21:25)
[2018-03-14] MEDS ORDERED: DOCUSATE NA 100 MG/10 ML UNIT-DOSE CUPS PO PRN ×2 (09:28→15:59)
[2018-03-14] MEDS: CITALOPRAM HYDROBROMIDE 10 MG TABLET (FP) PO SCH ×2 (09:46→14:06)
[2018-03-14] MEDS: OLANZAPINE 5 MG, OLANZAPINE 2.5 MG PO SCH ×2 (09:46→14:06)
[2018-03-14] MEDS: risperiDONE 0.5 MG TABLET (FP) PO SCH ×2 (09:47→14:06)
[2018-03-14] MEDS ORDERED: MUPIROCIN 2% TOPICAL OINTMENT FOR DECOLONIZATION NS SCH (10:00)
[2018-03-14] MEDS ORDERED: OLANZapine 7.5 MG TABLET PO SCH (10:00)
[2018-03-14] MEDS ORDERED: DOCUSATE SODIUM 100 MG CAPSULE (FP) PO SCH (10:00)
--- NOTE | 2018-03-14 10:20 | PN ---
Progress Note (short form) - Note Progress Note: patient seen and examined in ICU on IV fluids and ABX responding to verbal stimuli non verbal Vital Signs Period Temp Pulse Resp BP Sys/Aguirre Pulse Ox Last 24 Hr 98 F-1002 F 104-152 18-99 83-128/37-81 82-99 Intake & Output 03/11/18 03/12/18 03/13/18 03/14/18 23:59 23:59 23:59 23:59 Intake Total 550 Balance 550 Weight 150 lb 146 lb 3.2 oz thin frail neck suppl e heart S1/S2 lung clear bilat abd soft ext Lower ext contacted / muscle atrophy no edema / no cyanosis CBC, BMP 03/14/18 05:30 03/14/18 05:30 Microbiology 03/13/18 11:10 Blood - Peripheral Venous Blood Culture - Preliminary Pending Organism 03/13/18 11:10 Blood - Peripheral Venous Blood Culture - Preliminary Pending Organism Active Medications Acetaminophen (Tylenol Suppository -) [address] Q4H PRN PRN Reason: FEVER Apixaban (Eliquis -) 2.5 mg PO BID [facility] Last Admin: 03/14/18 09:45 Dose: Not Given Chlorhexidine Gluconate (Hibiclens For Decolonization -) 1 applic TP HS [facility] Citalopram Hydrobromide (Celexa -) 10 mg PO DAILY [facility] Last Admin: 03/14/18 09:46 Dose: Not Given Docusate Sodium (Colace Liquid -) 200 mg PO DAILY PRN PRN Reason: CONSTIPATION Finasteride (Proscar -) 5 mg PO DAILY [facility] Piperacillin Sod/Tazobactam (Sod 2.25 gm/ Dextrose) 50 mls @ 100 mls/hr IVPB Q6H-IV [facility]; Protocol Lactated Ringer's (Lactated Ringers Solution) 1,000 ml in 1,000 mls @ 100 mls/ hr IV ASDIR [facility] Last Admin: 03/14/18 09:15 Dose: 100 mls/hr Metoprolol Tartrate (Lopressor Injection -) 5 mg IVPUSH Q4H PRN PRN Reason: HYPERTENSION Last Admin: 03/14/18 04:09 Dose: 5 mg Mirtazapine (Remeron -) 30 mg PO HS [facility] Mupirocin (Bactroban Ointment (For Decolonization) -) 1 applic NS BID [facility] Stop: 03/19/18 09:59 Last Admin: 03/14/18 09:17 Dose: 1 applic Olanzapine 5 mg/ Olanzapine 2. (5 mg) 7.5 mg PO DAILY [facility] Last Admin: 03/14/18 09:46 Dose: Not Given Risperidone (Risperdal -) 0.5 mg PO DAILY [facility] Last Admin: 03/14/18 09:47 Dose: Not Given Tamsulosin HCl (Flomax -) 0.4 mg PO DAILY@0830 [facility] assmt / plan Sepsis Acute renal failure hyponatremia lactic acidosis Dementia Atrial fib BPH s/p TURP ( 02/2018) plan continue abx IV fluids follow up Nephrology consult swallow eval -- Problem List - Problems (1) Dementia Code(s): F03.90 - UNSPECIFIED DEMENTIA WITHOUT BEHAVIORAL DISTURBANCE Qualifiers: Dementia type: unspecified type Dementia behavioral disturbance: without behavioral disturbance Qualified Code(s): F03.90 - Unspecified dementia without behavioral disturbance (2) Lactic acidosis Code(s): E87.2 - ACIDOSIS (3) Leukocytosis Code(s): D72.829 - ELEVATED WHITE BLOOD CELL COUNT, UNSPECIFIED Qualifiers: Leukocytosis type: unspecified Qualified Code(s): D72.829 - Elevated white blood cell count, unspecified (4) Severe sepsis Code(s): A41.9 - SEPSIS, UNSPECIFIED ORGANISM; R65.20 - SEVERE SEPSIS WITHOUT SEPTIC SHOCK (5) Urinary tract infection Code(s): N39.0 - URINARY TRACT INFECTION, SITE NOT SPECIFIED Qualifiers: Urinary tract infection type: site unspecified Hematuria presence: without hematuria Qualified Code(s): N39.0 - Urinary tract infection, site not specified (6) Altered mental status Code(s): R41.82 - ALTERED MENTAL STATUS, UNSPECIFIED (7) Atrial fibrillation Code(s): I48.91 - UNSPECIFIED ATRIAL FIBRILLATION
--- NOTE | 2018-03-14 11:35 | CONSULT ---
Consult - text type - Consultation Consultation Note: Renal Consult for VAZQUEZ This is a 82 year old gentleman with Hx of Advanced demetia, BPH with urinary outlet obstruction, Hx of VAZQUEZ from obstruction presented with Fever/AMS and found to have Sepsis syndrome with VAZQUEZ. Pt is currently in the ICU, awake and alert but cannot provide history. on IVF. Was seen by urology and noted to be voiding. Fevers improved. PMhx: as above Allergies: NKDA Family hx: NC Social hx: No T/A/D ROS: unable to obtain because of clinical status Home Medications Medication Instructions Recorded Acetaminophen [Tylenol] 650 mg PO ASDIR 03/13/18 Apixaban [Eliquis] 2.5 mg PO DAILY 03/13/18 Ascorbate Calcium [Vitamin C] 500 mg PO DAILY 03/13/18 Cholecalciferol (Vitamin D3) 1,000 unit PO DAILY 03/13/18 [Vitamin D3 -] Citalopram Hydrobromide [Celexa -] 10 mg PO DAILY 03/13/18 Docusate Sodium [Colace] 200 mg PO DAILY 03/13/18 Finasteride [Proscar] 5 mg PO DAILY 03/13/18 Mirtazapine [Remeron -] 30 mg PO HS 03/13/18 Multivitamins [Tab-A-Vit -] 1 tab PO DAILY 03/13/18 Nystatin Oral Suspension - 500,000 units PO Q6H 03/13/18 [Nystatin Oral Susp 211124 Units/5 ML -] Olanzapine [Zyprexa] 7.5 mg PO DAILY 03/13/18 Risperidone [Risperdal -] 0.5 mg PO DAILY 03/13/18 Tamsulosin HCl [Flomax] 0.4 mg PO DAILY 03/13/18 Zinc Sulfate 220 mg PO DAILY 03/13/18 Vital Signs Temperature 98.4 F 03/14/18 09:45 Pulse Rate 114 H 03/14/18 09:53 Respiratory Rate 28 H 03/14/18 09:53 Blood Pressure 88/55 L 03/14/18 09:53 O2 Sat by Pulse Oximetry (%) 96 03/14/18 09:00 Intake & Output 03/11/18 03/12/18 03/13/18 03/14/18 23:59 23:59 23:59 23:59 Intake Total 550 Balance 550 Weight 68.039 kg 66.315 kg NAD on Facemask O2 Neck supple No JVD tachycardic, no M/R Dec BS but no rales or wheeze soft NT/ND no overt bladder distension no LE edema, clubbing or cyanosis CBC, BMP 03/14/18 05:30 03/14/18 05:30 Current Medications Acetaminophen (Tylenol Suppository -) [address] Q4H PRN PRN Reason: FEVER Apixaban (Eliquis -) 2.5 mg PO BID [facility] Last Admin: 03/14/18 09:45 Dose: Not Given Chlorhexidine Gluconate (Hibiclens For Decolonization -) 1 applic TP [facility] Citalopram Hydrobromide (Celexa -) 10 mg PO DAILY [facility] Last Admin: 03/14/18 09:46 Dose: Not Given Docusate Sodium (Colace Liquid -) 200 mg PO DAILY PRN PRN Reason: CONSTIPATION Finasteride (Proscar -) 5 mg PO DAILY [facility] Last Admin: 03/14/18 10:48 Dose: Not Given Piperacillin Sod/Tazobactam (Sod 2.25 gm/ Dextrose) 50 mls @ 100 mls/hr IVPB Q6H-IV [facility]; Protocol Lactated Ringer's (Lactated Ringers Solution) 1,000 ml in 1,000 mls @ 200 mls/ hr IV ASDIR [facility] Last Admin: 03/14/18 10:49 Dose: 200 mls/hr Metoprolol Tartrate (Lopressor Injection -) 5 mg IVPUSH Q4H PRN PRN Reason: HYPERTENSION Last Admin: 03/14/18 04:09 Dose: 5 mg Mirtazapine (Remeron -) 30 mg PO [facility] Mupirocin (Bactroban Ointment (For Decolonization) -) 1 applic NS BID [facility] Stop: 03/19/18 09:59 Last Admin: 03/14/18 09:17 Dose: 1 applic Olanzapine 5 mg/ Olanzapine 2. (5 mg) 7.5 mg PO DAILY [facility] Last Admin: 03/14/18 09:46 Dose: Not Given Risperidone (Risperdal -) 0.5 mg PO DAILY [facility] Last Admin: 03/14/18 09:47 Dose: Not Given Tamsulosin HCl (Flomax -) 0.4 mg PO DAILY@0830 [facility] Last Admin: 03/14/18 10:48 Dose: Not Given 82 year old gentleman with Hx of Advanced demetia, BPH with urinary outlet obstruction, Hx of VAZQUEZ from obstruction presented with Fever/AMS and found to have Sepsis syndrome with VAZQUEZ #Sepsis #Cystitis #VAZQUEZ in setting of sepsis/Hypotension #Hematuria #Hypernatremia Renal function with modest improvement thus far Continue isotonic saline to maintain map > 65 Seen [facility], noted to be voiding Continue Abx as per ID Trend urine output Oral water intake as tolerated Trend electrolytes Q24 hours would repeat UA in 2-3 days Thank you Will follow Vincent Breaux DO
--- NOTE | 2018-03-14 12:14 | PN ---
Progress Note (short form) - Note Progress Note: ID Enterococcal sepsis secondary to / Septic shock ? VRE Lactic acidosis S/P Obstructive uropathy/ TURP OBS Await c/s Daptomycin 6mg/kg qd Contact precautions Critical care time 35'
[2018-03-14 12:27] LABS: ANION GAP 7 MMOL/L (8-16); BLOOD UREA NITROGEN 57 mg/dL (7-18); CALCIUM 7.9 mg/dL (8.5-10.1); CHLORIDE 121 mmol/L (98-107); CO2 24 mmol/L (21-32); CREATININE 1.5 mg/dL (0.55-1.3); GLUCOSE,RANDOM 84 mg/dL (74-106); POTASSIUM 3.7 mmol/L (3.5-5.1); SODIUM 152 mmol/L (136-145)
--- NOTE | 2018-03-14 12:56 | PN ---
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 On ventimask. Nursing reported cough response with puree. Defer po trials until medically improved.
[2018-03-14] MEDS ORDERED: LACTATED RINGERS SOLUTION 1000 ML INFUS.BAG IV ONE (13:09)
[2018-03-14] MEDS ORDERED: HEPARIN NA (PORCINE) 5,000 UNITS/ML 1ML VIAL IVPUSH PRN ×4 (13:13→15:59)
[2018-03-14] MEDS ORDERED: HEPARIN SOD,PORK IN 0.45% NACL 25,000 UNITS/500 ML INFUS.BAG IVPB SCH (13:15)
--- NOTE | 2018-03-14 13:23 | CONS ---
DATE OF CONSULTATION: DATE OF DICTATION: 03/14/2018 HISTORY: The patient is an 82-year-old male who was evaluated for septic shock. History was obtained from the chart as he cannot give a history secondary to his dementia. The [facility] is a [facility]. He was recently hospitalized at [facility] from February 27 through March 08. According to the notes, he had forcibly removed his suprapubic catheter and had developed urinary retention. He developed gross hematuria and was noted to be anemic. The patient underwent a TURP. His course was complicated by VRE urinary tract infection for which he received Macrobid. He now returns from the senior care facility with fever, increased lethargy, and tachypnea. The patient was noted to have fever to 104. He was evaluated in the emergency room where the patient was lethargic, febrile to 104.6, tachycardic, tachypneic, and hypotensive with a blood pressure of 84/54. He was admitted to the intensive care unit where he was treated with IV fluids. Blood and urine cultures are not positive for gram-positive cocci in chains. Preliminarily, the urine culture is growing an enterococcus. He was treated with vancomycin and Zosyn. PAST MEDICAL HISTORY: Positive for dementia, atrial fibrillation, BPH, and urinary retention. ALLERGIES: ARICEPT, NAMENDA, and SEROQUEL. SOCIAL HISTORY: He is a [facility] resident. Dependent in activities of daily living. No active tobacco or alcohol use. SYSTEMS REVIEW: Neurologic: Positive for dementia. Cardiac: Negative chest pain or palpitations. Respiratory: Negative cough or sputum production. Gastrointestinal: Negative vomiting or diarrhea. Genitourinary: Negative for urinary tract infection. LABORATORY DATA: White count 8.1, hematocrit 25.2, platelet count 195, BUN 60, creatinine 1.8, lactic acid 4. Urinalysis: 3606 white cells. Chest x-ray negative for acute infiltrate. PHYSICAL EXAMINATION: General: He is cachectic. He is demented. Vital Signs: Temperature 98.4, blood pressure 88/55, pulse 114 and regular, respirations 28 per minute, T-max 104.6. HEENT: Sclerae anicteric. Heart: Sounds S1, S2. Lungs: Diminished breath sounds bilaterally. Poor inspiratory effort. Abdomen: Soft. No tenderness elicited. No mass, rebound, or rigidity. Extremities: Negative for edema. Skin: Decubitus ulcers present on the sacrum and hips bilaterally. IMPRESSION: 1. Enterococcal sepsis/sepsis secondary to urinary tract infection. 2. Septic shock. 3. Positive history of vancomycin-resistant enterococcus. 4. Lactic acidosis. 5. History of obstructive uropathy status post transurethral resection of the prostate. PLAN: Continue IV fluid hydration. Would empirically cover for suspected VRE bacteremia/septic shock with daptomycin 6 mg/kg. Maintain contact precautions. Echocardiogram. Further recommendations pending culture results. Prognosis is guarded. Critical care time spent 35 minutes. Thank you for the kind referral. YURIDIA TOMAS M.D. [id number]
[2018-03-14] MEDS ORDERED: DAPTOMYCIN 420 MG in SODIUM CHLORIDE 50 ML IVPB SCH (14:00)
--- NOTE | 2018-03-14 14:03 | PN ---
Physical Exam: SUBJECTIVE: - Unable to provide any information OBJECTIVE: Vital Signs Period Temp Pulse Resp BP Sys/Aguirre Pulse Ox Last 24 Hr 98 F-1002 F 104-132 18-99 85-128/37-66 86-99 General: Comfortable, no acute distress HEENT: PERRL, EOMI, dry MM Cards: RRR, no murmur appreciated Pulm: Borderline tachypnic on supplemental O2 by mask. Wet cough Abd: Soft, nontender, nondistended : Diapered Ext: Contracted BLE. No LE edema. Vasc: Extremities WWP. Skin: Normal color, no rashes or lesions Neuro: Awake, responsive. Not oriented but at apparent baseline. CN grossly intact, motor/sensory grossly symmetric Psych: Mood appropriate to situation Laboratory Results - last 24 hr 03/13/18 03/13/18 03/13/18 11:10 11:10 14:00 WBC RBC Hgb Hct MCV MCH MCHC RDW Plt Count MPV Absolute Neuts (auto) Neutrophils % Neutrophils % (Manual) 81.0 Band Neutrophils % 8.0 Lymphocytes % Lymphocytes % (Manual) 5.0 L D Monocytes % Monocytes % (Manual) 5 Eosinophils % Basophils % Nucleated RBC % Metamyelocytes 1 D Platelet Estimate Adequate PT with INR INR PTT (Actin FS) Anticoagulation Therapy Puncture Site ABG pH ABG pCO2 at Pt Temp ABG pO2 at Pt Temp ABG HCO3 ABG O2 Sat (Measured) ABG O2 Content ABG Base Excess Edwin Test O2 Delivery Device Oxygen Flow Rate Vent Mode Vent Rate Mechanical Rate Pressure Support Vent Sodium Potassium Chloride Carbon Dioxide Anion Gap BUN Creatinine Creat Clearance w eGFR Random Glucose Lactic Acid 4.0 H* Calcium Phosphorus Magnesium CK-MB (CK-2) 1.8 Troponin I 0.37 H Valproic Acid 03/13/18 03/13/18 03/13/18 17:28 17:28 21:10 WBC RBC Hgb Hct MCV MCH MCHC RDW Plt Count MPV Absolute Neuts (auto) Neutrophils % Neutrophils % (Manual) Band Neutrophils % Lymphocytes % Lymphocytes % (Manual) Monocytes % Monocytes % (Manual) Eosinophils % Basophils % Nucleated RBC % Metamyelocytes Platelet Estimate PT with INR INR PTT (Actin FS) Anticoagulation Therapy Puncture Site ABG pH ABG pCO2 at Pt Temp ABG pO2 at Pt Temp ABG HCO3 ABG O2 Sat (Measured) ABG O2 Content ABG Base Excess Edwin Test O2 Delivery Device Oxygen Flow Rate Vent Mode Vent Rate Mechanical Rate Pressure Support Vent Sodium Potassium Chloride Carbon Dioxide Anion Gap BUN Creatinine Creat Clearance w eGFR Random Glucose Lactic Acid Calcium Phosphorus Magnesium CK-MB (CK-2) Troponin I 0.38 H 0.37 H Valproic Acid < 3.0 L 03/13/18 03/14/18 03/14/18 21:10 02:45 05:30 WBC 8.1 RBC 2.90 L Hgb 8.2 L Hct 25.2 L MCV 86.9 MCH 28.2 MCHC 32.4 RDW 16.1 H Plt Count 195 D MPV 8.5 Absolute Neuts (auto) 7.1 Neutrophils % 87.3 H Neutrophils % (Manual) Band Neutrophils % Lymphocytes % 7.8 L D Lymphocytes % (Manual) Monocytes % 4.2 Monocytes % (Manual) Eosinophils % 0.4 D Basophils % 0.3 Nucleated RBC % 0 Metamyelocytes Platelet Estimate PT with INR INR PTT (Actin FS) Anticoagulation Therapy No Result Required. Puncture Site Right brachial ABG pH 7.44 ABG pCO2 at Pt Temp 31.0 L ABG pO2 at Pt Temp 68.3 ABG HCO3 20.4 L ABG O2 Sat (Measured) 93.4 ABG O2 Content 10.0 L ABG Base Excess -2.8 L Edwin Test Positive O2 Delivery Device No Result Required. Oxygen Flow Rate 50 Vent Mode No Result Required. Vent Rate No Result Required. Mechanical Rate No Result Required. Pressure Support Vent No Result Required. Sodium Potassium Chloride Carbon Dioxide Anion Gap BUN Creatinine Creat Clearance w eGFR Random Glucose Lactic Acid 2.5 H* Calcium Phosphorus Magnesium CK-MB (CK-2) Troponin I Valproic Acid 03/14/18 03/14/18 03/14/18 05:30 05:30 11:30 WBC RBC Hgb Hct MCV MCH MCHC RDW Plt Count MPV Absolute Neuts (auto) Neutrophils % Neutrophils % (Manual) Band Neutrophils % Lymphocytes % Lymphocytes % (Manual) Monocytes % Monocytes % (Manual) Eosinophils % Basophils % Nucleated RBC % Metamyelocytes Platelet Estimate PT with INR 22.00 H INR 1.95 H PTT (Actin FS) 41.4 H Anticoagulation Therapy Puncture Site ABG pH ABG pCO2 at Pt Temp ABG pO2 at Pt Temp ABG HCO3 ABG O2 Sat (Measured) ABG O2 Content ABG Base Excess Edwin Test O2 Delivery Device Oxygen Flow Rate Vent Mode Vent Rate Mechanical Rate Pressure Support Vent Sodium 152 H 152 H Potassium 4.2 3.7 Chloride 120 H 121 H Carbon Dioxide 25 24 Anion Gap 6 L 7 L BUN 60 H 57 H Creatinine 1.8 H 1.5 H Creat Clearance w eGFR 36.39 44.92 Random Glucose 93 84 Lactic Acid Calcium 7.8 L 7.9 L Phosphorus 4.3 Magnesium 2.2 CK-MB (CK-2) Troponin I Valproic Acid 03/14/18 12:50 WBC RBC Hgb Hct MCV MCH MCHC RDW Plt Count MPV Absolute Neuts (auto) Neutrophils % Neutrophils % (Manual) Band Neutrophils % Lymphocytes % Lymphocytes % (Manual) Monocytes % Monocytes % (Manual) Eosinophils % Basophils % Nucleated RBC % Metamyelocytes Platelet Estimate PT with INR INR PTT (Actin FS) Anticoagulation Therapy Puncture Site ABG pH ABG pCO2 at Pt Temp ABG pO2 at Pt Temp ABG HCO3 ABG O2 Sat (Measured) ABG O2 Content ABG Base Excess Edwin Test O2 Delivery Device Oxygen Flow Rate Vent Mode Vent Rate Mechanical Rate Pressure Support Vent Sodium Potassium Chloride Carbon Dioxide Anion Gap BUN Creatinine Creat Clearance w eGFR Random Glucose Lactic Acid 2.6 H* Calcium Phosphorus Magnesium CK-MB (CK-2) Troponin I Valproic Acid Active Medications Generic Name Dose Route Start Last Admin Trade Name Freq PRN Reason Stop Dose Admin Acetaminophen 650 mg 03/13/18 13:20 Tylenol Suppository - ME Q4H PRN FEVER Chlorhexidine Gluconate 1 applic 03/14/18 22:00 Hibiclens For Decolonization - TP HS [facility] Citalopram Hydrobromide 10 mg 03/14/18 10:00 03/14/18 09:46 Celexa - PO Not Given DAILY [facility] Docusate Sodium 200 mg 03/14/18 09:28 Colace Liquid - PO DAILY PRN CONSTIPATION Finasteride 5 mg 03/14/18 10:00 03/14/18 10:48 Proscar - PO Not Given DAILY [facility] Heparin Sodium (Porcine) 1,000 unit 03/14/18 13:13 Heparin - IVPUSH PRN PRN Heparin Heparin Sodium (Porcine) 5,000 unit 03/14/18 13:13 Heparin - IVPUSH PRN PRN Heparin Lactated Ringer's 1,000 ml in 1,000 mls @ 200 mls/hr 03/14/18 10:31 03/14/18 10:49 Lactated Ringers Solution IV 200 mls/hr ASDIR [facility] Administration Daptomycin 420 mg/ Sodium 50 mls @ 100 mls/hr 03/14/18 14:00 Chloride IVPB DAILY@1400 [facility] Protocol HEPARIN SOD,PORK IN 0.45% NACL 25,000 units in 500 mls @ 20 mls/hr 03/14/18 13 :15 Heparin-1/2ns 25,000 Units/500 IVPB TITR [facility] Protocol 1,000 UNITS/HR Metoprolol Tartrate 5 mg 03/13/18 13:50 03/14/18 04:09 Lopressor Injection - IVPUSH 5 mg Q4H PRN Administration HYPERTENSION Mirtazapine 30 mg 03/14/18 22:00 Remeron - PO HS [facility] [place] Mupirocin 1 applic 03/14/18 10:00 03/14/18 09:17 Bactroban Ointment (For Decolonization) - NS 03/19/18 09:59 1 applic BID [facility] [place] Administration Olanzapine 5 mg/ Olanzapine 2. 7.5 mg 03/14/18 10:00 03/14/18 09:46 5 mg PO Not Given DAILY [facility] [place] Risperidone 0.5 mg 03/14/18 10:00 03/14/18 09:47 Risperdal - PO Not Given DAILY [facility] Tamsulosin HCl 0.4 mg 03/14/18 08:30 03/14/18 10:48 Flomax - PO Not Given DAILY@0830 [facility] ASSESSMENT/PLAN:
--- NOTE | 2018-03-14 14:11 | PN ---
Physical Exam: SUBJECTIVE: - Patient unable to provide OBJECTIVE: Vital Signs Period Temp Pulse Resp BP Sys/Aguirre Pulse Ox Last 24 Hr 98 F-1002 F 104-132 18-99 85-128/37-66 86-99 General: Comfortable, no acute distress HEENT: PERRL, EOMI, dry MM Cards: RRR, no murmur appreciated Pulm: Comfortable with supplemental O2 via mask. Wet cough Abd: Soft, nontender, nondistended : Diapered Ext: Contracted BLE. No edema. Vasc: Extremities WWP. Skin: Normal color, no rashes or lesions Neuro: Alert, not oriented but apparently at baseline. CN grossly intact Psych: Mood appropriate to situation Laboratory Results - last 24 hr 03/13/18 03/13/18 03/13/18 11:10 11:10 14:00 WBC RBC Hgb Hct MCV MCH MCHC RDW Plt Count MPV Absolute Neuts (auto) Neutrophils % Neutrophils % (Manual) 81.0 Band Neutrophils % 8.0 Lymphocytes % Lymphocytes % (Manual) 5.0 L D Monocytes % Monocytes % (Manual) 5 Eosinophils % Basophils % Nucleated RBC % Metamyelocytes 1 D Platelet Estimate Adequate PT with INR INR PTT (Actin FS) Anticoagulation Therapy Puncture Site ABG pH ABG pCO2 at Pt Temp ABG pO2 at Pt Temp ABG HCO3 ABG O2 Sat (Measured) ABG O2 Content ABG Base Excess Edwin Test O2 Delivery Device Oxygen Flow Rate Vent Mode Vent Rate Mechanical Rate Pressure Support Vent Sodium Potassium Chloride Carbon Dioxide Anion Gap BUN Creatinine Creat Clearance w eGFR Random Glucose Lactic Acid 4.0 H* Calcium Phosphorus Magnesium Troponin I 0.37 H Valproic Acid 03/13/18 03/13/18 03/13/18 17:28 17:28 21:10 WBC RBC Hgb Hct MCV MCH MCHC RDW Plt Count MPV Absolute Neuts (auto) Neutrophils % Neutrophils % (Manual) Band Neutrophils % Lymphocytes % Lymphocytes % (Manual) Monocytes % Monocytes % (Manual) Eosinophils % Basophils % Nucleated RBC % Metamyelocytes Platelet Estimate PT with INR INR PTT (Actin FS) Anticoagulation Therapy Puncture Site ABG pH ABG pCO2 at Pt Temp ABG pO2 at Pt Temp ABG HCO3 ABG O2 Sat (Measured) ABG O2 Content ABG Base Excess Edwin Test O2 Delivery Device Oxygen Flow Rate Vent Mode Vent Rate Mechanical Rate Pressure Support Vent Sodium Potassium Chloride Carbon Dioxide Anion Gap BUN Creatinine Creat Clearance w eGFR Random Glucose Lactic Acid Calcium Phosphorus Magnesium Troponin I 0.38 H 0.37 H Valproic Acid < 3.0 L 03/13/18 03/14/18 03/14/18 21:10 02:45 05:30 WBC 8.1 RBC 2.90 L Hgb 8.2 L Hct 25.2 L MCV 86.9 MCH 28.2 MCHC 32.4 RDW 16.1 H Plt Count 195 D MPV 8.5 Absolute Neuts (auto) 7.1 Neutrophils % 87.3 H Neutrophils % (Manual) Band Neutrophils % Lymphocytes % 7.8 L D Lymphocytes % (Manual) Monocytes % 4.2 Monocytes % (Manual) Eosinophils % 0.4 D Basophils % 0.3 Nucleated RBC % 0 Metamyelocytes Platelet Estimate PT with INR INR PTT (Actin FS) Anticoagulation Therapy No Result Required. Puncture Site Right brachial ABG pH 7.44 ABG pCO2 at Pt Temp 31.0 L ABG pO2 at Pt Temp 68.3 ABG HCO3 20.4 L ABG O2 Sat (Measured) 93.4 ABG O2 Content 10.0 L ABG Base Excess -2.8 L Edwin Test Positive O2 Delivery Device No Result Required. Oxygen Flow Rate 50 Vent Mode No Result Required. Vent Rate No Result Required. Mechanical Rate No Result Required. Pressure Support Vent No Result Required. Sodium Potassium Chloride Carbon Dioxide Anion Gap BUN Creatinine Creat Clearance w eGFR Random Glucose Lactic Acid 2.5 H* Calcium Phosphorus Magnesium Troponin I Valproic Acid 03/14/18 03/14/18 03/14/18 05:30 05:30 11:30 WBC RBC Hgb Hct MCV MCH MCHC RDW Plt Count MPV Absolute Neuts (auto) Neutrophils % Neutrophils % (Manual) Band Neutrophils % Lymphocytes % Lymphocytes % (Manual) Monocytes % Monocytes % (Manual) Eosinophils % Basophils % Nucleated RBC % Metamyelocytes Platelet Estimate PT with INR 22.00 H INR 1.95 H PTT (Actin FS) 41.4 H Anticoagulation Therapy Puncture Site ABG pH ABG pCO2 at Pt Temp ABG pO2 at Pt Temp ABG HCO3 ABG O2 Sat (Measured) ABG O2 Content ABG Base Excess Edwin Test O2 Delivery Device Oxygen Flow Rate Vent Mode Vent Rate Mechanical Rate Pressure Support Vent Sodium 152 H 152 H Potassium 4.2 3.7 Chloride 120 H 121 H Carbon Dioxide 25 24 Anion Gap 6 L 7 L BUN 60 H 57 H Creatinine 1.8 H 1.5 H Creat Clearance w eGFR 36.39 44.92 Random Glucose 93 84 Lactic Acid Calcium 7.8 L 7.9 L Phosphorus 4.3 Magnesium 2.2 Troponin I Valproic Acid 03/14/18 12:50 WBC RBC Hgb Hct MCV MCH MCHC RDW Plt Count MPV Absolute Neuts (auto) Neutrophils % Neutrophils % (Manual) Band Neutrophils % Lymphocytes % Lymphocytes % (Manual) Monocytes % Monocytes % (Manual) Eosinophils % Basophils % Nucleated RBC % Metamyelocytes Platelet Estimate PT with INR INR PTT (Actin FS) Anticoagulation Therapy Puncture Site ABG pH ABG pCO2 at Pt Temp ABG pO2 at Pt Temp ABG HCO3 ABG O2 Sat (Measured) ABG O2 Content ABG Base Excess Edwin Test O2 Delivery Device Oxygen Flow Rate Vent Mode Vent Rate Mechanical Rate Pressure Support Vent Sodium Potassium Chloride Carbon Dioxide Anion Gap BUN Creatinine Creat Clearance w eGFR Random Glucose Lactic Acid 2.6 H* Calcium Phosphorus Magnesium Troponin I Valproic Acid Active Medications Generic Name Dose Route Start Last Admin Trade Name Freq PRN Reason Stop Dose Admin Acetaminophen 650 mg 03/13/18 13:20 Tylenol Suppository - [place] Q4H PRN FEVER Chlorhexidine Gluconate 1 applic 03/14/18 22:00 Hibiclens For Decolonization - TP HS HELENA Citalopram Hydrobromide 10 mg 03/14/18 10:00 03/14/18 09:46 Celexa - PO Not Given DAILY HELENA Docusate Sodium 200 mg 03/14/18 09:28 Colace Liquid - PO DAILY PRN CONSTIPATION Finasteride 5 mg 03/14/18 10:00 03/14/18 10:48 Proscar - PO Not Given DAILY HELENA Heparin Sodium (Porcine) 1,000 unit 03/14/18 13:13 Heparin - IVPUSH PRN PRN Heparin Heparin Sodium (Porcine) 5,000 unit 03/14/18 13:13 Heparin - IVPUSH PRN PRN Heparin Lactated Ringer's 1,000 ml in 1,000 mls @ 200 mls/hr 03/14/18 10:31 03/14/18 10:49 Lactated Ringers Solution IV 200 mls/hr ASDIR HELENA Administration Daptomycin 420 mg/ Sodium 50 mls @ 100 mls/hr 03/14/18 14:00 Chloride IVPB DAILY@1400 [facility] Protocol HEPARIN SOD,PORK IN 0.45% NACL 25,000 units in 500 mls @ 20 mls/hr 03/14/18 13 :15 Heparin-1/2ns 25,000 Units/500 IVPB TITR HELENA Protocol 1,000 UNITS/HR Metoprolol Tartrate 5 mg 03/13/18 13:50 03/14/18 04:09 Lopressor Injection - IVPUSH 5 mg Q4H PRN Administration HYPERTENSION Mirtazapine 30 mg 03/14/18 22:00 Remeron - PO HS HELENA Mupirocin 1 applic 03/14/18 10:00 03/14/18 09:17 Bactroban Ointment (For Decolonization) - NS 03/19/18 09:59 1 applic BID HELENA Administration Olanzapine 5 mg/ Olanzapine 2. 7.5 mg 03/14/18 10:00 03/14/18 09:46 5 mg PO Not Given DAILY [facility] Risperidone 0.5 mg 03/14/18 10:00 03/14/18 09:47 Risperdal - PO Not Given DAILY [facility] Tamsulosin HCl 0.4 mg 03/14/18 08:30 03/14/18 10:48 Flomax - PO Not Given DAILY@0830 [facility] ASSESSMENT/PLAN: Jaylon Ware is an 82yo man with a PMH of Alzheimer's dementia, a-fib on apixaban, chronic urinary retention 2/2 BPH with recent self-removal of suprapubic catheter, pseudamonas/VRE UTI, s/p TURP on 03/01/18. He presented to the ED yesterday with sepsis most likely secondary to UTI. Mr Ware has improved since admission and no longer requires ICU care. He is stable for transfer to the floor. Neuro/Psych: - h/o Alzheimer's, nonverbal at baseline - Per POA and caregiver, responds better when called "Father Jaylon" - Continue home citalopram, mirtazapine, olanzapine, risperidone CV: - h/o a-fib. Fully anticoagulated, continue apixaban. If unable to swallow, POA (Fr Roc Daigle) gave permission to start heparin drip - Tachycardic to 120's. Metoprolol 5mg IV PRN for HR over 110 Pulm: - Tachypnic, lungs clear on exam. - CXR completed, not yet uploaded to chart - Continue supplemental oxygen as needed - Respiratory therapy ordered for evaluation Heme: - Hgb 8.2 from 9.5, decrease likely secondary to rehydration. Chronic anemia at baseline - Fully anticoagulated. Continue apixaban for a-fib - Monitor daily CBC GI: - NPO per speech; meds as needed - Per aid, was on nectar-thick liquids at home. Renal: - VAZQUEZ with BUN elevated to 64 from 23, Cr 2.6 from 0.7 on admission. Now down to 60/1.8 - Continue IV hydration; LR at 200/hr. - Bolus 1000mL LRy - Monitor BMP - UA positive for UTI with 2606 WBC, 2+ leuk esterase, 2+ blood, 76 RBCs. Culture pending - H/O BPH and urinary retention, s/p TURP on 03/01. ID: - Positive UA - Urine and blood cultures - UCx with enterrococcus. - Previously had VRE - Zosyn started in the ED. Replaced with daptomycin today per Dr Delvalle. Endo: - No issues Musc: - Turn Q2 hr to prevent ulceration - BLE contracted at admission PPx: - Low DVT risk, SCD's - No indication for GI ppx FEN: - NPO per speech. Will re-evaluate when medically improved - Hyernatremic and hyperchloremic on admission. LR@200/hr. Monitor BMP. - Replete lytes PRN Dispo: - Transfer to telemetry Discussed with Dr Carlos Gan PGY1
--- NOTE | 2018-03-14 14:21 | PN ---
Physical Exam: SUBJECTIVE: - Patient unable to provide OBJECTIVE: Vital Signs Period Temp Pulse Resp BP Sys/Aguirre Pulse Ox Last 24 Hr 98 F-1002 F 104-132 18-99 85-128/37-66 86-99 General: Comfortable, no acute distress HEENT: PERRL, EOMI, dry MM Cards: RRR, no murmur appreciated Pulm: Comfortable with supplemental O2 via mask. Wet cough Abd: Soft, nontender, nondistended : Diapered Ext: Contracted BLE. No edema. Vasc: Extremities WWP. Skin: Normal color, no rashes or lesions Neuro: Alert, not oriented but apparently at baseline. CN grossly intact Psych: Mood appropriate to situation Laboratory Results - last 24 hr 03/13/18 03/13/18 03/13/18 11:10 14:00 17:28 WBC RBC Hgb Hct MCV MCH MCHC RDW Plt Count MPV Absolute Neuts (auto) Neutrophils % Neutrophils % (Manual) 81.0 Band Neutrophils % 8.0 Lymphocytes % Lymphocytes % (Manual) 5.0 L D Monocytes % Monocytes % (Manual) 5 Eosinophils % Basophils % Nucleated RBC % Metamyelocytes 1 D Platelet Estimate Adequate PT with INR INR PTT (Actin FS) Anticoagulation Therapy Puncture Site ABG pH ABG pCO2 at Pt Temp ABG pO2 at Pt Temp ABG HCO3 ABG O2 Sat (Measured) ABG O2 Content ABG Base Excess Edwin Test O2 Delivery Device Oxygen Flow Rate Vent Mode Vent Rate Mechanical Rate Pressure Support Vent Sodium Potassium Chloride Carbon Dioxide Anion Gap BUN Creatinine Creat Clearance w eGFR Random Glucose Lactic Acid 4.0 H* Calcium Phosphorus Magnesium Troponin I 0.38 H Valproic Acid 03/13/18 03/13/18 03/13/18 17:28 21:10 21:10 WBC RBC Hgb Hct MCV MCH MCHC RDW Plt Count MPV Absolute Neuts (auto) Neutrophils % Neutrophils % (Manual) Band Neutrophils % Lymphocytes % Lymphocytes % (Manual) Monocytes % Monocytes % (Manual) Eosinophils % Basophils % Nucleated RBC % Metamyelocytes Platelet Estimate PT with INR INR PTT (Actin FS) Anticoagulation Therapy Puncture Site ABG pH ABG pCO2 at Pt Temp ABG pO2 at Pt Temp ABG HCO3 ABG O2 Sat (Measured) ABG O2 Content ABG Base Excess Edwin Test O2 Delivery Device Oxygen Flow Rate Vent Mode Vent Rate Mechanical Rate Pressure Support Vent Sodium Potassium Chloride Carbon Dioxide Anion Gap BUN Creatinine Creat Clearance w eGFR Random Glucose Lactic Acid 2.5 H* Calcium Phosphorus Magnesium Troponin I 0.37 H Valproic Acid < 3.0 L 03/14/18 03/14/18 03/14/18 02:45 05:30 05:30 WBC 8.1 RBC 2.90 L Hgb 8.2 L Hct 25.2 L MCV 86.9 MCH 28.2 MCHC 32.4 RDW 16.1 H Plt Count 195 D MPV 8.5 Absolute Neuts (auto) 7.1 Neutrophils % 87.3 H Neutrophils % (Manual) Band Neutrophils % Lymphocytes % 7.8 L D Lymphocytes % (Manual) Monocytes % 4.2 Monocytes % (Manual) Eosinophils % 0.4 D Basophils % 0.3 Nucleated RBC % 0 Metamyelocytes Platelet Estimate PT with INR 22.00 H INR 1.95 H PTT (Actin FS) 41.4 H Anticoagulation Therapy No Result Required. Puncture Site Right brachial ABG pH 7.44 ABG pCO2 at Pt Temp 31.0 L ABG pO2 at Pt Temp 68.3 ABG HCO3 20.4 L ABG O2 Sat (Measured) 93.4 ABG O2 Content 10.0 L ABG Base Excess -2.8 L Edwin Test Positive O2 Delivery Device No Result Required. Oxygen Flow Rate 50 Vent Mode No Result Required. Vent Rate No Result Required. Mechanical Rate No Result Required. Pressure Support Vent No Result Required. Sodium Potassium Chloride Carbon Dioxide Anion Gap BUN Creatinine Creat Clearance w eGFR Random Glucose Lactic Acid Calcium Phosphorus Magnesium Troponin I Valproic Acid 03/14/18 03/14/18 03/14/18 05:30 11:30 12:50 WBC RBC Hgb Hct MCV MCH MCHC RDW Plt Count MPV Absolute Neuts (auto) Neutrophils % Neutrophils % (Manual) Band Neutrophils % Lymphocytes % Lymphocytes % (Manual) Monocytes % Monocytes % (Manual) Eosinophils % Basophils % Nucleated RBC % Metamyelocytes Platelet Estimate PT with INR INR PTT (Actin FS) Anticoagulation Therapy Puncture Site ABG pH ABG pCO2 at Pt Temp ABG pO2 at Pt Temp ABG HCO3 ABG O2 Sat (Measured) ABG O2 Content ABG Base Excess Edwin Test O2 Delivery Device Oxygen Flow Rate Vent Mode Vent Rate Mechanical Rate Pressure Support Vent Sodium 152 H 152 H Potassium 4.2 3.7 Chloride 120 H 121 H Carbon Dioxide 25 24 Anion Gap 6 L 7 L BUN 60 H 57 H Creatinine 1.8 H 1.5 H Creat Clearance w eGFR 36.39 44.92 Random Glucose 93 84 Lactic Acid 2.6 H* Calcium 7.8 L 7.9 L Phosphorus 4.3 Magnesium 2.2 Troponin I Valproic Acid Active Medications Generic Name Dose Route Start Last Admin Trade Name Freq PRN Reason Stop Dose Admin Acetaminophen 650 mg 03/13/18 13:20 Tylenol Suppository - [place] Q4H PRN FEVER Chlorhexidine Gluconate 1 applic 03/14/18 22:00 Hibiclens For Decolonization - TP HS HELENA Citalopram Hydrobromide 10 mg 03/14/18 10:00 03/14/18 14:06 Celexa - PO 10 mg DAILY HELENA Administration Docusate Sodium 200 mg 03/14/18 09:28 Colace Liquid - PO DAILY PRN CONSTIPATION Finasteride 5 mg 03/14/18 10:00 03/14/18 14:05 Proscar - PO 5 mg DAILY HELENA Administration Lactated Ringer's 1,000 ml in 1,000 mls @ 200 mls/hr 03/14/18 10:31 03/14/18 10:49 Lactated Ringers Solution IV 200 mls/hr ASDIR HELENA Administration Daptomycin 420 mg/ Sodium 50 mls @ 100 mls/hr 03/14/18 14:00 03/14/18 14:03 Chloride IVPB 100 mls/hr DAILY@1400 HE[facility] Administration Protocol Metoprolol Tartrate 5 mg 03/13/18 13:50 03/14/18 04:09 Lopressor Injection - IVPUSH 5 mg Q4H PRN Administration HYPERTENSION Mirtazapine 30 mg 03/14/18 22:00 Remeron - PO HS HELENA Mupirocin 1 applic 03/14/18 10:00 03/14/18 09:17 Bactroban Ointment (For Decolonization) - NS 03/19/18 09:59 1 applic BID HELENA Administration Olanzapine 5 mg/ Olanzapine 2. 7.5 mg 03/14/18 10:00 03/14/18 14:06 5 mg PO 7.5 mg DAILY HELENA Administration Risperidone 0.5 mg 03/14/18 10:00 03/14/18 14:06 Risperdal - PO 0.5 mg DAILY HELENA Administration Tamsulosin HCl 0.4 mg 03/14/18 08:30 03/14/18 14:03 Flomax - PO 0.4 mg DAILY@0830 [facility] Administration ASSESSMENT/PLAN: Jaylon Ware is an 82yo man with a PMH of Alzheimer's dementia, a-fib on apixaban, chronic urinary retention 2/2 BPH with recent self-removal of suprapubic catheter, pseudamonas/VRE UTI, s/p TURP on 03/01/18. He presented to the ED yesterday with sepsis most likely secondary to UTI. Mr Ware has improved since admission and no longer requires ICU care. He is stable for transfer to the floor. Neuro/Psych: - h/o Alzheimer's, nonverbal at baseline - Per POA and caregiver, responds better when called "Father Jaylon" - Continue home citalopram, mirtazapine, olanzapine, risperidone CV: - h/o a-fib. Fully anticoagulated, continue apixaban. If unable to swallow, POA (Fr Roc Daigle) gave permission to start heparin drip - Tachycardic to 120's. Metoprolol 5mg IV PRN for HR over 110 Pulm: - Tachypnic, lungs clear on exam. - CXR completed, not yet uploaded to chart - Continue supplemental oxygen as needed - Respiratory therapy ordered for evaluation Heme: - Hgb 8.2 from 9.5, decrease likely secondary to rehydration. Chronic anemia at baseline - Fully anticoagulated. Continue apixaban for a-fib - Monitor daily CBC GI: - NPO per speech; meds as needed - Per aid, was on nectar-thick liquids at home. Renal: - VAZQUEZ with BUN elevated to 64 from 23, Cr 2.6 from 0.7 on admission. Now down to 60/1.8 - Continue IV hydration; LR at 200/hr. - Bolus 1000mL LRy - Monitor BMP - UA positive for UTI with 2606 WBC, 2+ leuk esterase, 2+ blood, 76 RBCs. Culture pending - H/O BPH and urinary retention, s/p TURP on 03/01. ID: - Positive UA - Urine and blood cultures - UCx with enterrococcus. - Previously had VRE - Zosyn started in the ED. Replaced with daptomycin today per Dr Delvalle. Endo: - No issues Musc: - Turn Q2 hr to prevent ulceration - BLE contracted at admission PPx: - Low DVT risk, SCD's - No indication for GI ppx FEN: - NPO per speech. Will re-evaluate when medically improved - Hyernatremic and hyperchloremic on admission. LR@200/hr. Monitor BMP. - Replete lytes PRN Dispo: - Transfer to telemetry Discussed with Dr Carlos Gan PGY1 Problem List - Problems (1) Urinary tract infection Code(s): N39.0 - URINARY TRACT INFECTION, SITE NOT SPECIFIED Qualifiers: Urinary tract infection type: site unspecified Hematuria presence: without hematuria Qualified Code(s): N39.0 - Urinary tract infection, site not specified Visit type - Emergency Visit Emergency Visit: No - New Patient This patient is new to me today: No - Critical Care Critical Care patient: Yes Total Critical Care Time (in minutes): 45 Critical Care Statement: The care of this patient involved high complexity decision making to prevent further life threatening deterioration of the patient 's condition and/or to evaluate & treat vital organ system(s) failure or risk of failure.
--- NOTE | 2018-03-14 14:23 | PN ---
Teaching Attending Note Name of Resident: Raegan Paula ATTENDING PHYSICIAN STATEMENT I saw and evaluated the patient. I reviewed the resident's note and discussed the case with the resident. I agree with the resident's findings and plan as documented. SUBJECTIVE: Patient seen and examined in the ICU. Lethargic and confused. Hemodynamics borderline with MAPs in the low 60's. No pressors. Too lethargic to tolerate PO intake. Intake & Output 03/11/18 03/12/18 03/13/18 03/14/18 23:59 23:59 23:59 23:59 Intake Total 550 Balance 550 Weight 150 lb 146 lb 3.2 oz Last Vital Signs Temp Pulse Resp BP Pulse Ox 98.4 F 132 H 25 H 85/49 L 96 03/14/18 09:45 03/14/18 12:00 03/14/18 12:00 03/14/18 12:00 03/14/18 09:00 Active Medications Acetaminophen (Tylenol Suppository -) 650 mg [place] Q4H PRN PRN Reason: FEVER Chlorhexidine Gluconate (Hibiclens For Decolonization -) 1 applic TP HS [facility] Citalopram Hydrobromide (Celexa -) 10 mg PO DAILY [facility] Last Admin: 03/14/18 14:06 Dose: 10 mg Docusate Sodium (Colace Liquid -) 200 mg PO DAILY PRN PRN Reason: CONSTIPATION Finasteride (Proscar -) 5 mg PO DAILY [facility] Last Admin: 03/14/18 14:05 Dose: 5 mg Heparin Sodium (Porcine) (Heparin -) 1,000 unit IVPUSH PRN PRN PRN Reason: Heparin Heparin Sodium (Porcine) (Heparin -) 5,000 unit IVPUSH PRN PRN PRN Reason: Heparin Lactated Ringer's (Lactated Ringers Solution) 1,000 ml in 1,000 mls @ 200 mls/ hr IV ASDIR HELENA Last Admin: 03/14/18 10:49 Dose: 200 mls/hr Daptomycin 420 mg/ Sodium (Chloride) 50 mls @ 100 mls/hr IVPB DAILY@1400 [facility]NA; Protocol Last Admin: 03/14/18 14:03 Dose: 100 mls/hr HEPARIN SOD,PORK IN 0.45% NACL (Heparin-1/2ns 25,000 Units/500) 25,000 units in 500 mls @ 20 mls/hr IVPB TITR HEELNA; Protocol Metoprolol Tartrate (Lopressor Injection -) 5 mg IVPUSH Q4H PRN PRN Reason: HYPERTENSION Last Admin: 03/14/18 04:09 Dose: 5 mg Mirtazapine (Remeron -) 30 mg PO HS [facility] Mupirocin (Bactroban Ointment (For Decolonization) -) 1 applic NS BID [facility] Stop: 03/19/18 09:59 Last Admin: 03/14/18 09:17 Dose: 1 applic Olanzapine 5 mg/ Olanzapine 2. (5 mg) 7.5 mg PO DAILY [facility] Last Admin: 03/14/18 14:06 Dose: 7.5 mg Risperidone (Risperdal -) 0.5 mg PO DAILY [facility] Last Admin: 03/14/18 14:06 Dose: 0.5 mg Tamsulosin HCl (Flomax -) 0.4 mg PO DAILY@0830 [facility] Last Admin: 03/14/18 14:03 Dose: 0.4 mg GENERAL: Lethargic, confused HEAD: Normal with no signs of trauma. EYES: (-) Pallor, (-) Icterus EARS, NOSE, THROAT: Ears normal, nares patent. Dry mucous membranes. NECK: Normal range of motion, supple without lymphadenopathy, JVD, or masses. LUNGS: Mildly tachypneic at rest. scattered bibasilar rhonchi. No wheezes, and no crackles. HEART: Irregularly irregular, normal S1 and S2 without murmur, rub or gallop. ABDOMEN: Soft, nontender, not distended, (+) BS. No rebound, no masses. MUSCULOSKELETAL: BLE contracted, normal ROM in BUE. No bony deformities or tenderness. UPPER EXTREMITIES: 2+ pulses, warm, well-perfused. No cyanosis. No clubbing. No peripheral edema. LOWER EXTREMITIES: 2+ pulses, warm NEUROLOGICAL: Confused, contracted SKIN: Warm, dry Laboratory Results - last 24 hr 03/13/18 03/13/18 03/13/18 11:00 11:10 11:10 WBC 10.9 H RBC 3.34 L Hgb 9.5 L Hct 29.0 L MCV 86.8 MCH 28.5 MCHC 32.9 RDW 16.5 H Plt Count 299 D MPV 8.4 Absolute Neuts (auto) 9.5 H Neutrophils % 86.8 H Lymphocytes % 6.0 L D Monocytes % 6.8 Eosinophils % 0.0 D Basophils % 0.4 Nucleated RBC % 0 PT with INR INR PTT (Actin FS) VBG pH 7.45 H D POC VBG pCO2 31.3 L POC VBG pO2 53.0 H D Mixed VBG HCO3 21.4 Sodium Potassium Chloride Carbon Dioxide Anion Gap BUN Creatinine Creat Clearance w eGFR Random Glucose Lactic Acid Calcium Total Bilirubin AST ALT Alkaline Phosphatase Creatine Kinase Creatine Kinase Index CK-MB (CK-2) Total Protein Albumin Urine Color Yellow Urine Appearance Turbid Urine pH 5.0 Ur Specific [place] 1.014 Urine Protein 2+ H Urine Glucose (UA) Negative Urine Ketones Negative Urine Blood 3+ H Urine Nitrite Negative Urine Bilirubin Negative Urine Urobilinogen 2.0 Ur Leukocyte Esterase 2+ H Urine WBC (Auto) 3606 Urine RBC (Auto) 76 Urine Bacteria Moderate Blood Type Antibody Screen 03/13/18 03/13/18 03/13/18 11:10 11:10 11:10 WBC RBC Hgb Hct MCV MCH MCHC RDW Plt Count MPV Absolute Neuts (auto) Neutrophils % Lymphocytes % Monocytes % Eosinophils % Basophils % Nucleated RBC % PT with INR 23.00 H INR 2.04 H PTT (Actin FS) 44.1 H VBG pH POC VBG pCO2 POC VBG pO2 Mixed VBG HCO3 Sodium 151 H Potassium 4.9 Chloride 118 H Carbon Dioxide 21 Anion Gap 12 BUN 64 H Creatinine 2.6 H Creat Clearance w eGFR 23.81 Random Glucose 105 Lactic Acid 5.0 H* Calcium 8.7 Total Bilirubin 0.9 AST 68 H ALT 35 Alkaline Phosphatase 93 Creatine Kinase 477 H Creatine Kinase Index 0.3 CK-MB (CK-2) 1.6 Total Protein 5.0 L Albumin 1.8 L Urine Color Urine Appearance Urine pH Ur Specific [place] Urine Protein Urine Glucose (UA) Urine Ketones Urine Blood Urine Nitrite Urine Bilirubin Urine Urobilinogen Ur Leukocyte Esterase Urine WBC (Auto) Urine RBC (Auto) Urine Bacteria Blood Type Antibody Screen 03/13/18 11:10 WBC RBC Hgb Hct MCV MCH MCHC RDW Plt Count MPV Absolute Neuts (auto) Neutrophils % Lymphocytes % Monocytes % Eosinophils % Basophils % Nucleated RBC % PT with INR INR PTT (Actin FS) VBG pH POC VBG pCO2 POC VBG pO2 Mixed VBG HCO3 Sodium Potassium Chloride Carbon Dioxide Anion Gap BUN Creatinine Creat Clearance w eGFR Random Glucose Lactic Acid Calcium Total Bilirubin AST ALT Alkaline Phosphatase Creatine Kinase Creatine Kinase Index CK-MB (CK-2) Total Protein Albumin Urine Color Urine Appearance Urine pH Ur Specific [place] Urine Protein Urine Glucose (UA) Urine Ketones Urine Blood Urine Nitrite Urine Bilirubin Urine Urobilinogen Ur Leukocyte Esterase Urine WBC (Auto) Urine RBC (Auto) Urine Bacteria Blood Type O POSITIVE Antibody Screen Negative ASSESSMENT/PLAN: Sepsis due to a suspected source Alzheimer's dementia Afib on apixaban Chronic urinary retention 2/2 BPH S/P self-removal of suprapubic catheter History of Pseudomonas/VRE UTI S/P TURP on 03/01/18 IVF boluses to increase MAP Need to review GOC with his HCP Aspiration precautions O2 as needed to maintain saturation Follow final cultures If HCP Is willing, will need NGT for nutrition/meds Normal transfusion thresholds Frequent position changes Further treatment to be determined by HCP Dr Gonzalez Critical care time spent in reviewing chart, evaluating patient and formulating plan - 36 minutes.
[2018-03-14] MEDS: LACTATED RINGERS SOLUTION 1,000 ML/1,000 ML INFUS.BAG IV SCH ×2 (16:29→22:31)
[2018-03-14] MEDS: MIRTAZAPINE 15 MG TABLET (FP) PO SCH (21:25)
[2018-03-14] MEDS ORDERED: CHLORHEXIDINE GLUCONATE 4% CLEANSER FOR DECOLONIZATION TP SCH (22:00)
[2018-03-14] MEDS ORDERED: MIRTAZAPINE 15 MG TABLET (FP) PO SCH (22:00)
[2018-03-14] MEDS: ACETAMINOPHEN 650 MG SUPP.RECT PR PRN (22:32)
[2018-03-15] MEDS: LACTATED RINGERS SOLUTION 1,000 ML/1,000 ML INFUS.BAG IV SCH ×2 (03:30→10:07)
[2018-03-15] MEDS: METOPROLOL TARTRATE 5 MG/5 ML VIAL IVPUSH PRN (04:23)
[2018-03-15] MEDS: ACETAMINOPHEN 650 MG SUPP.RECT PR PRN ×2 (05:52→15:44)
[2018-03-15 08:07] LABS: BASO % 0.3 % (0-2.0); EOS % 0.6 % (0-4.5); HEMATOCRIT 21.5 % (35.4-49); LYMPH % 5.6 % (8-40); MCH 27.6 pg (25.7-33.7); MCHC 32.1 g/dl (32.0-35.9); MEAN PLT VOLUME 8.7 fl (7.5-11.1); MONO % 2.6 % (3.8-10.2); NEUT % 90.9 % (42.8-82.8); PLATELET COUNT 166 K/MM3 (134-434); RDW 16.3 % (11.9-15.9); WHITE BLOOD COUNT 5.4 K/mm3 (4.0-10.0)
[2018-03-15 08:41] LABS: CREATININE 0.8 mg/dL (0.55-1.3)
[2018-03-15 08:42] LABS: HEMOGLOBIN 6.9 GM/dL (11.7-16.9)
[2018-03-15] MEDS: risperiDONE 0.5 MG TABLET (FP) PO SCH (10:07)
[2018-03-15] MEDS: OLANZAPINE 5 MG, OLANZAPINE 2.5 MG PO SCH (10:07)
[2018-03-15] MEDS: FINASTERIDE 5 MG TABLET (FP) PO SCH (10:08)
[2018-03-15] MEDS: APIXABAN 2.5 MG TABLET PO SCH ×2 (10:08→21:54)
[2018-03-15] MEDS: TAMSULOSIN HCL 0.4 MG CAP.ER.24H (FP) PO SCH (10:09)
[2018-03-15] MEDS: CITALOPRAM HYDROBROMIDE 10 MG TABLET (FP) PO SCH (10:09)
[2018-03-15 10:10] LABS: ALBUMIN 1.4 g/dl (3.4-5.0); ALK PHOS 133 U/L (45-117); ANION GAP 6 MMOL/L (8-16); BILIRUBIN,TOTAL 0.8 mg/dL (0.2-1); BLOOD UREA NITROGEN 41 mg/dL (7-18); CALCIUM 8.4 mg/dL (8.5-10.1); CHLORIDE 126 mmol/L (98-107); CO2 23 mmol/L (21-32); GLUCOSE,RANDOM 80 mg/dL (74-106); PHOSPHOROUS 2.7 mg/dL (2.5-4.9); POTASSIUM 3.6 mmol/L (3.5-5.1); SGOT/AST 221 U/L (15-37); SGPT/ALT 98 U/L (13-61); SODIUM 155 mmol/L (136-145); TOT PROT 4.2 g/dl (6.4-8.2)
[2018-03-15 10:23] LABS: HEMATOCRIT 22.7 % (35.4-49); HEMOGLOBIN 7.3 GM/dL (11.7-16.9); MCH 27.8 pg (25.7-33.7); MCHC 32.2 g/dl (32.0-35.9); MEAN CELL VOLUME 86.2 fl (80-96); MEAN PLT VOLUME 9.1 fl (7.5-11.1); PLATELET COUNT 186 K/MM3 (134-434); RBC 2.63 M/mm3 (4.00-5.60); RDW 16.2 % (11.9-15.9); WHITE BLOOD COUNT 5.9 K/mm3 (4.0-10.0)
[2018-03-15] MEDS ORDERED: SODIUM CHLORIDE 0.45%/POT 20 MEQ/1,000 ML INFUS.BAG IV SCH (11:45)
[2018-03-15] MEDS ORDERED: SODIUM CHLORIDE 500 ML IV STA (11:46)
[2018-03-15] MEDS ORDERED: LACTATED RINGERS SOLUTION 1,000 ML/1,000 ML INFUS.BAG IV SCH (12:00)
--- NOTE | 2018-03-15 12:22 | PN ---
Progress Note, [facility] - Note Progress Note: Selected Entries 03/13/18 03/13/18 03/13/18 10:56 11:09 13:13 Lunch Temperature 104.6 F H 104.6 F H 100.4 F H 03/13/18 03/13/18 03/14/18 19:00 19:10 01:19 Lunch Temperature 100.2 F H 1002 F H 98.7 F 03/14/18 03/14/18 03/14/18 02:15 02:20 06:26 Lunch Temperature 98.7 F 98.7 F 98 F 03/14/18 03/14/18 03/14/18 09:45 14:00 17:50 Lunch Temperature 98.4 F 98.3 F 99.0 F 03/14/18 03/14/18 03/15/18 18:51 21:00 01:46 Lunch Temperature 100.4 F H 100.9 F H 99.1 F 03/15/18 03/15/18 03/15/18 05:49 10:00 10:32 Lunch NPO Temperature 100.1 F H 99.8 F H Laboratory Tests 03/15/18 06:00 WBC 5.4 More alert, jargon output (baseline) with vocal wetness. Suctioned thick greenish brown thick phleghm from posterior pharynx with no gag elicited. Likely aspirating on secretions. No PO trials given. Prognosis guarded for improved swallowing and airway protection. Palliative care.
--- NOTE | 2018-03-15 13:18 | PN ---
Progress Note (short form) - Note Progress Note: Renal follow up for VAZQUEZ Pt seen and examined at the bedside no overnight events Vital Signs Temperature 99.8 F H 03/15/18 10:00 Pulse Rate 124 H 03/15/18 10:00 Respiratory Rate 22 H 03/15/18 10:00 Blood Pressure 95/54 L 03/15/18 10:00 O2 Sat by Pulse Oximetry (%) 95 03/15/18 10:00 Intake & Output 03/12/18 03/13/18 03/14/18 03/15/18 23:59 23:59 23:59 23:59 Intake Total 2660 2400 Balance 2660 2400 Weight 68.039 kg 66.315 kg NAD tachycardic, no M/R Course BS soft NT/ND no overt bladder distension no LE edema, clubbing or cyanosis CBC, BMP 03/15/18 10:00 03/15/18 06:00 Current Medications Acetaminophen (Tylenol Suppository -) 650 mg IN Q4H PRN PRN Reason: FEVER Last Admin: 03/15/18 05:52 Dose: 650 mg Apixaban (Eliquis -) 2.5 mg PO BID [facility] Last Admin: 03/15/18 10:08 Dose: Not Given Citalopram Hydrobromide (Celexa -) 10 mg PO DAILY [facility] Last Admin: 03/15/18 10:09 Dose: Not Given Docusate Sodium (Colace Liquid -) 200 mg PO DAILY PRN PRN Reason: CONSTIPATION Finasteride (Proscar -) 5 mg PO DAILY [facility] Last Admin: 03/15/18 10:08 Dose: Not Given Daptomycin 420 mg/ Sodium (Chloride) 50 mls @ 100 mls/hr IVPB DAILY@1400 [facility]; Protocol Lactated Ringer's (Lactated Ringers Solution) 1,000 ml in 1,000 mls @ 100 mls/ hr IV ASDIR [facility] Metoprolol Tartrate (Lopressor Injection -) 5 mg IVPUSH Q4H PRN PRN Reason: HYPERTENSION Last Admin: 03/15/18 04:23 Dose: 5 mg Mirtazapine (Remeron -) 30 mg PO HS [facility] Last Admin: 03/14/18 21:25 Dose: Not Given Olanzapine 5 mg/ Olanzapine 2. (5 mg) 7.5 mg PO DAILY [facility] Last Admin: 03/15/18 10:07 Dose: Not Given Risperidone (Risperdal -) 0.5 mg PO DAILY [facility] Last Admin: 03/15/18 10:07 Dose: Not Given Tamsulosin HCl (Flomax -) 0.4 mg PO DAILY@0830 [facility] Last Admin: 03/15/18 10:09 Dose: Not Given 82 year old gentleman with Hx of Advanced demetia, BPH with urinary outlet obstruction, Hx of VAZQUEZ from obstruction presented with Fever/AMS and found to have Sepsis syndrome with VAZQUEZ #Sepsis #Cystitis #VAZQUEZ in setting of sepsis/Hypotension #Bacteremia #Hematuria #Hypernatremia Renal function now improved to near baseline on IVF, would maintain Isotonic saline because of hypotension will give additional 500cc bolous of NS Hgb dropped, repeat showed Hgb of 7.3 check stool for occult blood will transfuse 1 unit of PRBC Oral water intake as tolerated continue Abx for VRE Vincent Breaux DO
[2018-03-15] MEDS: DAPTOMYCIN 420 MG in SODIUM CHLORIDE 50 ML IVPB SCH (14:43)
[2018-03-15] MEDS ORDERED: ACETAMINOPHEN 1000 MG/100 ML VIAL (NON FORMULARY) IVPB ONE (17:00)
[2018-03-15] MEDS: MIRTAZAPINE 15 MG TABLET (FP) PO SCH (21:55)
--- NOTE | 2018-03-15 22:19 | PN ---
Progress Note, Physician History of Present Illness: More responsive but confused Febrile Urine c/s VRE BC Enterococcus sp. - Current Medication List Current Medications: Active Medications Acetaminophen (Tylenol Suppository -) 650 mg NC Q4H PRN PRN Reason: FEVER Last Admin: 03/15/18 15:44 Dose: 650 mg Apixaban (Eliquis -) 2.5 mg PO BID [facility] Last Admin: 03/15/18 21:54 Dose: Not Given Citalopram Hydrobromide (Celexa -) 10 mg PO DAILY [facility] Last Admin: 03/15/18 10:09 Dose: Not Given Docusate Sodium (Colace Liquid -) 200 mg PO DAILY PRN PRN Reason: CONSTIPATION Finasteride (Proscar -) 5 mg PO DAILY [facility] Last Admin: 03/15/18 10:08 Dose: Not Given Daptomycin 420 mg/ Sodium (Chloride) 50 mls @ 100 mls/hr IVPB DAILY@1400 [facility]; Protocol Last Admin: 03/15/18 14:43 Dose: 100 mls/hr Lactated Ringer's (Lactated Ringers Solution) 1,000 ml in 1,000 mls @ 100 mls/ hr IV ASDIR [facility] Last Admin: 03/15/18 12:42 Dose: 100 mls/hr Ibuprofen (Caldolor Injection -) 800 mg IVPB Q6H PRN PRN Reason: FEVER; IF TYLENOL NT WRK Metoprolol Tartrate (Lopressor Injection -) 5 mg IVPUSH Q4H PRN PRN Reason: HYPERTENSION Last Admin: 03/15/18 04:23 Dose: 5 mg Mirtazapine (Remeron -) 30 mg PO HS [facility] Last Admin: 03/15/18 21:55 Dose: Not Given Olanzapine 5 mg/ Olanzapine 2. (5 mg) 7.5 mg PO DAILY [facility] Last Admin: 03/15/18 10:07 Dose: Not Given Risperidone (Risperdal -) 0.5 mg PO DAILY [facility] Last Admin: 03/15/18 10:07 Dose: Not Given Tamsulosin HCl (Flomax -) 0.4 mg PO DAILY@0830 [facility] Last Admin: 03/15/18 10:09 Dose: Not Given - Objective Vital Signs: Vital Signs Temperature 101.8 F H 03/15/18 18:00 Pulse Rate 87 03/15/18 18:00 Respiratory Rate 22 H 03/15/18 18:00 Blood Pressure 145/56 L 03/15/18 18:00 O2 Sat by Pulse Oximetry (%) 95 03/15/18 10:00 Constitutional: Yes: No Distress Eyes: Yes: Conjunctiva Clear Cardiovascular: Yes: Regular Rate and Rhythm, S1, S2 Respiratory: Yes: Diminished Gastrointestinal: Yes: Normal Bowel Sounds, Soft Edema: No Labs: CBC, BMP 03/15/18 10:00 03/15/18 06:00 INR, PTT INR 1.95 (0.83-1.09) H 03/14/18 05:30 Assessment/Plan Enterococcal bacteremia/ sepsis secondary to Septic shock improved OBS Await final BC Continue Daptomycin
--- NOTE | 2018-03-15 23:16 | PN ---
Progress Note (short form) - Note Progress Note: patient seen and examined on IV fluids and ABX responding to verbal stimuli non verbal Vital Signs Period Temp Pulse Resp BP Sys/Aguirre Pulse Ox Last 24 Hr 98 F-1002 F 104-152 18-99 83-128/37-81 82-99 Intake & Output 03/12/18 03/13/18 03/14/18 03/15/18 23:59 23:59 23:59 23:59 Intake Total 2660 2400 Balance 2660 2400 Weight 150 lb 146 lb 3.2 oz 146 lb oral cavity moist thin frail neck suppl e heart S1/S2 lung clear bilat abd soft ext Lower ext contacted / muscle atrophy no edema / no cyanosis CBC, BMP 03/15/18 10:00 03/15/18 06:00 CBC, BMP 03/14/18 05:30 03/14/18 05:30 Microbiology 03/13/18 11:00 Urine - Urine Clean Catch Urine Culture - Final Vr Ec Faecalis 03/13/18 11:10 Blood - Peripheral Venous Blood Culture - Preliminary Group D Strep Or Entero Coccus 03/13/18 11:10 Blood - Peripheral Venous Blood Culture - Preliminary Group D Strep Or Entero Coccus Active Medications Acetaminophen (Tylenol Suppository -) 650 mg OR Q4H PRN PRN Reason: FEVER Last Admin: 03/15/18 15:44 Dose: 650 mg Apixaban (Eliquis -) 2.5 mg PO BID [facility] Last Admin: 03/15/18 21:54 Dose: Not Given Citalopram Hydrobromide (Celexa -) 10 mg PO DAILY [facility] Last Admin: 03/15/18 10:09 Dose: Not Given Docusate Sodium (Colace Liquid -) 200 mg PO DAILY PRN PRN Reason: CONSTIPATION Finasteride (Proscar -) 5 mg PO DAILY [facility] Last Admin: 03/15/18 10:08 Dose: Not Given Daptomycin 420 mg/ Sodium (Chloride) 50 mls @ 100 mls/hr IVPB DAILY@1400 [facility]; Protocol Last Admin: 03/15/18 14:43 Dose: 100 mls/hr Lactated Ringer's (Lactated Ringers Solution) 1,000 ml in 1,000 mls @ 100 mls/ hr IV ASDIR [facility] Last Admin: 03/15/18 12:42 Dose: 100 mls/hr Ibuprofen (Caldolor Injection -) 800 mg IVPB Q6H PRN PRN Reason: FEVER; IF TYLENOL NT WRK Metoprolol Tartrate (Lopressor Injection -) 5 mg IVPUSH Q4H PRN PRN Reason: HYPERTENSION Last Admin: 03/15/18 04:23 Dose: 5 mg Mirtazapine (Remeron -) 30 mg PO HS [facility] Last Admin: 03/15/18 21:55 Dose: Not Given Olanzapine 5 mg/ Olanzapine 2. (5 mg) 7.5 mg PO DAILY [facility] Last Admin: 03/15/18 10:07 Dose: Not Given Risperidone (Risperdal -) 0.5 mg PO DAILY [facility] Last Admin: 03/15/18 10:07 Dose: Not Given Tamsulosin HCl (Flomax -) 0.4 mg PO DAILY@0830 [facility] Last Admin: 03/15/18 10:09 Dose: Not Given assmt / plan Sepsis Acute renal failure hypernatremia lactic acidosis Dementia Atrial fib BPH s/p TURP ( 02/2018) plan continue abx IV fluids follow up Nephrology consult swallow eval -- if allowed NGT add free water hospice care to discuss with HCP Problem List - Problems (1) Dementia Code(s): F03.90 - UNSPECIFIED DEMENTIA WITHOUT BEHAVIORAL DISTURBANCE Qualifiers: Dementia type: unspecified type Dementia behavioral disturbance: without behavioral disturbance Qualified Code(s): F03.90 - Unspecified dementia without behavioral disturbance (2) Lactic acidosis Code(s): E87.2 - ACIDOSIS (3) Leukocytosis Code(s): D72.829 - ELEVATED WHITE BLOOD CELL COUNT, UNSPECIFIED Qualifiers: Leukocytosis type: unspecified Qualified Code(s): D72.829 - Elevated white blood cell count, unspecified (4) Severe sepsis Code(s): A41.9 - SEPSIS, UNSPECIFIED ORGANISM; R65.20 - SEVERE SEPSIS WITHOUT SEPTIC SHOCK (5) Urinary tract infection Code(s): N39.0 - URINARY TRACT INFECTION, SITE NOT SPECIFIED Qualifiers: Urinary tract infection type: site unspecified Hematuria presence: without hematuria Qualified Code(s): N39.0 - Urinary tract infection, site not specified (6) Altered mental status Code(s): R41.82 - ALTERED MENTAL STATUS, UNSPECIFIED (7) Atrial fibrillation Code(s): I48.91 - UNSPECIFIED ATRIAL FIBRILLATION
[2018-03-15] MEDS: IBUPROFEN 800 MG/8 ML IJ IVPB PRN (23:26)
[2018-03-16] MEDS ORDERED: SODIUM CHLORIDE 500 ML IV PRN (02:00)
[2018-03-16] MEDS ORDERED: SODIUM CHLORIDE 1,000 ML IV ONE (02:00)
[2018-03-16] MEDS: risperiDONE 0.5 MG TABLET (FP) PO SCH (09:32)
[2018-03-16] MEDS: FINASTERIDE 5 MG TABLET (FP) PO SCH (09:32)
[2018-03-16] MEDS: TAMSULOSIN HCL 0.4 MG CAP.ER.24H (FP) PO SCH (09:32)
[2018-03-16] MEDS: APIXABAN 2.5 MG TABLET PO SCH ×2 (09:32→21:29)
[2018-03-16] MEDS: CITALOPRAM HYDROBROMIDE 10 MG TABLET (FP) PO SCH (09:32)
[2018-03-16] MEDS: OLANZAPINE 5 MG, OLANZAPINE 2.5 MG PO SCH (09:33)
[2018-03-16 09:39] LABS: HEMATOCRIT 26.6 % (35.4-49); HEMOGLOBIN 8.6 GM/dL (11.7-16.9); MCHC 32.5 g/dl (32.0-35.9); MEAN CELL VOLUME 86.1 fl (80-96); RBC 3.09 M/mm3 (4.00-5.60); WHITE BLOOD COUNT 6.9 K/mm3 (4.0-10.0)
[2018-03-16 09:40] LABS: BASO % 0.1 % (0-2.0); EOS % 1.2 % (0-4.5); LYMPH % 6.8 % (8-40); MEAN PLT VOLUME 9.3 fl (7.5-11.1); MONO % 2.5 % (3.8-10.2); NEUT % 89.4 % (42.8-82.8); PLATELET COUNT 195 K/MM3 (134-434); RDW 16.5 % (11.9-15.9)
--- NOTE | 2018-03-16 10:25 | PN ---
Progress Note, [employer] - Note Progress Note: Selected Entries 03/15/18 03/15/18 03/15/18 01:46 05:49 10:00 Temperature 99.1 F 100.1 F H 99.8 F H 03/15/18 03/15/18 03/15/18 15:12 18:00 21:00 Temperature 101.5 F H 101.8 F H 101.0 F H 03/16/18 03/16/18 03/16/18 01:38 03:15 05:50 Temperature 98.7 F 98.0 F 98.2 F Laboratory Tests 03/15/18 03/16/18 06:00 09:00 WBC 5.4 6.9 Alert, jargon output - vocal wetness. Likely aspirating on secretions. No PO trials given. Prognosis guarded for improved swallowing and airway protection. Appreciated Palliative care involvement.
--- NOTE | 2018-03-16 10:33 | DS ---
Physical Examination Vital Signs: Vital Signs Temperature 98.2 F 03/16/18 05:50 Pulse Rate 87 03/16/18 05:50 Respiratory Rate 20 03/16/18 05:50 Blood Pressure 84/44 L 03/16/18 05:50 O2 Sat by Pulse Oximetry (%) 92 L 03/15/18 21:00 Findings/Remarks: 82 y/o Male PMH of dementia / BPH / A. Fib on [facility], recently admitted ( 02/21/18 -03/08/18 ) after pulling out suprapubic cath which had been placed 2/2 to chronic retention/ outlet obstruction, during that hospitalization he underwent TURP, this was complicated by extensive hematuria which required 3 PRBC, he was also treated for UTI and completed ABX as out patient at [facility]. At time of d/c patient was voiding freely and afebrle. He was transferred from SNF with fever / hypotension / poor intake. He was admitted to ICU for 24hrs, initially required pressors for Bp support. He responded well to IV hydration becoming hemodynamically stable and transferred to [facility] [place]. He has been re-asses twice by speech documenting high risk for aspiration, he is contracted, with dense dementia. Palliative care involvement appreciated. Care discussed with Fr Brian, requesting hospice care and transfer back to SNF. Will arrange for d/c today Constitutional: Yes: Cachectic, Thin Eyes: Yes: Conjunctiva Clear, EOM Intact HENT: Yes: Atraumatic, Normocephalic Neck: Yes: Supple, Trachea Midline Cardiovascular: Yes: Pulse Irregular Respiratory: Yes: CTA Bilaterally Gastrointestinal: Yes: Soft Breast(s): Yes: WNL Musculoskeletal: Yes: Other (contractures bilat upper and lower extremities) Edema: No Peripheral Pulses WNL: Yes Integumentary: Yes: WNL Neurological: Yes: Pre-Existing Deficit Psychiatric: Yes: Other (dementia) Labs: CBC, BMP 03/16/18 09:00 Discharge Summary Reason For Visit: UTI, ANEMIA, ATRIAL FIBRILLATI, LEUKOCYTOSIS Current Active Problems VAZQUEZ (acute kidney injury) (Acute) Anemia (Acute) Dementia (Acute) Lactic acidosis (Acute) Leukocytosis (Acute) Severe sepsis (Acute) Urinary tract infection (Acute) - Instructions Referrals: Alli Baldwin [Primary Care Provider] - [facility] - Home Medications Comprehensive Discharge Medication List: Ambulatory Orders Acetaminophen [Tylenol] 650 mg PO ASDIR 03/13/18 Apixaban [Eliquis] 2.5 mg PO DAILY 03/13/18 Ascorbate Calcium [Vitamin C] 500 mg PO DAILY 03/13/18 Cholecalciferol (Vitamin D3) [Vitamin D3 -] 1,000 unit PO DAILY 03/13/18 Citalopram Hydrobromide [Celexa -] 10 mg PO DAILY 03/13/18 Docusate Sodium [Colace] 200 mg PO DAILY 03/13/18 Finasteride [Proscar] 5 mg PO DAILY 03/13/18 Mirtazapine [Remeron -] 30 mg PO HS 03/13/18 Multivitamins [Tab-A-Vit -] 1 tab PO DAILY 03/13/18 Nystatin Oral Suspension - [Nystatin Oral Susp 740308 Units/5 ML -] 500,000 units PO Q6H 03/13/18 Olanzapine [Zyprexa] 7.5 mg PO DAILY 03/13/18 Risperidone [Risperdal -] 0.5 mg PO DAILY 03/13/18 Tamsulosin HCl [Flomax] 0.4 mg PO DAILY 03/13/18 Zinc Sulfate 220 mg PO DAILY 03/13/18 unable to take PO hospice care
[2018-03-16 11:14] LABS: ALBUMIN 1.3 g/dl (3.4-5.0); ALK PHOS 133 U/L (45-117); ANION GAP 11 MMOL/L (8-16); BILIRUBIN,TOTAL 1.1 mg/dL (0.2-1); BLOOD UREA NITROGEN 41 mg/dL (7-18); CALCIUM 8.7 mg/dL (8.5-10.1); CHLORIDE 127 mmol/L (98-107); CO2 21 mmol/L (21-32); CREATININE 0.9 mg/dL (0.55-1.3); GLUCOSE,RANDOM 84 mg/dL (74-106); MAGNESIUM 2.3 mg/dL (1.8-2.4); PHOSPHOROUS 3.2 mg/dL (2.5-4.9); POTASSIUM 3.8 mmol/L (3.5-5.1); SGOT/AST 94 U/L (15-37); SGPT/ALT 74 U/L (13-61); SODIUM 159 mmol/L (136-145)
[2018-03-16 11:22] LABS: ACANTHOCYTES 0; ANISOCYTOSIS 0; HELMET CELLS 0; HOWELL-JOLLY BODIES 0; MACROCYTOSIS 0; OVALOCYTE 0; PLATELET ESTIMATE NORMAL; ROULEAU 0; SICKELED CELLS 0; TARGET CELLS 0; TEAR DROP CELLS 0; TOXIC GRANULATION 0
[2018-03-16] MEDS ORDERED: POTASSIUM CHLORIDE 10 MEQ in SODIUM CHLORIDE 0.45% 1,000 ML IVPB SCH (13:00)
--- NOTE | 2018-03-16 13:50 | PN ---
Progress Note (short form) - Note Progress Note: Renal follow up for VAZQUEZ Pt seen and examined at the bedside no overnight events on facemask O2 making urine in diaper Vital Signs Temperature 98.7 F 03/16/18 10:00 Pulse Rate 88 03/16/18 10:00 Respiratory Rate 20 03/16/18 10:00 Blood Pressure 133/89 03/16/18 10:00 O2 Sat by Pulse Oximetry (%) 92 L 03/16/18 10:00 Intake & Output 03/13/18 03/14/18 03/15/18 03/16/18 23:59 23:59 23:59 23:59 Intake Total 2660 2400 1950 Balance 2660 2400 1950 Weight 68.039 kg 66.315 kg 66.224 kg NAD tachycardic, no M/R Course BS soft NT/ND no overt bladder distension no LE edema, clubbing or cyanosis CBC, BMP 03/16/18 09:00 03/16/18 09:00 Current Medications Acetaminophen (Tylenol Suppository -) 650 mg CO Q4H PRN PRN Reason: FEVER Last Admin: 03/15/18 15:44 Dose: 650 mg Apixaban (Eliquis -) 2.5 mg PO BID [facility] Last Admin: 03/16/18 09:32 Dose: Not Given Citalopram Hydrobromide (Celexa -) 10 mg PO DAILY [facility] Last Admin: 03/16/18 09:32 Dose: Not Given Docusate Sodium (Colace Liquid -) 200 mg PO DAILY PRN PRN Reason: CONSTIPATION Finasteride (Proscar -) 5 mg PO DAILY [facility] Last Admin: 03/16/18 09:32 Dose: Not Given Daptomycin 420 mg/ Sodium (Chloride) 50 mls @ 100 mls/hr IVPB DAILY@1400 [facility]; Protocol Last Admin: 03/15/18 14:43 Dose: 100 mls/hr Potassium Chloride 10 meq/ (Sodium Chloride) 1,005 mls @ 83 mls/hr IVPB Q12H [facility] Ibuprofen (Caldolor Injection -) 800 mg IVPB Q6H PRN PRN Reason: FEVER; IF TYLENOL NT WRK Last Admin: 03/15/18 23:26 Dose: 800 mg Metoprolol Tartrate (Lopressor Injection -) 5 mg IVPUSH Q4H PRN PRN Reason: HYPERTENSION Last Admin: 03/15/18 04:23 Dose: 5 mg Mirtazapine (Remeron -) 30 mg PO HS [facility] Last Admin: 03/15/18 21:55 Dose: Not Given Olanzapine 5 mg/ Olanzapine 2. (5 mg) 7.5 mg PO DAILY [facility] Last Admin: 03/16/18 09:33 Dose: Not Given Risperidone (Risperdal -) 0.5 mg PO DAILY [facility] Last Admin: 03/16/18 09:32 Dose: Not Given Tamsulosin HCl (Flomax -) 0.4 mg PO DAILY@0830 [facility] Last Admin: 03/16/18 09:32 Dose: Not Given 82 year old gentleman with Hx of Advanced demetia, BPH with urinary outlet obstruction, Hx of VAZQUEZ from obstruction presented with Fever/AMS and found to have Sepsis syndrome with VAZQUEZ #Sepsis #Cystitis #VAZQUEZ in setting of sepsis/Hypotension #Bacteremia #Hematuria #Hypernatremia #Anemia Renal function improved remains hypernatremic, will change IVF to 1/2 NS BP remains marginal prognosis is very poor given MS, Sepsis and impaired swallowing for transfer to hospice would continue IVF up to discharge Hgb improved s/p tranfusion Vincent Breaux DO
[2018-03-16] MEDS: DAPTOMYCIN 420 MG in SODIUM CHLORIDE 50 ML IVPB SCH (13:55)
[2018-03-16] MEDS: METOPROLOL TARTRATE 5 MG/5 ML VIAL IVPUSH PRN (20:32)
[2018-03-16] MEDS: MIRTAZAPINE 15 MG TABLET (FP) PO SCH (21:29)
[2018-03-17] MEDS ORDERED: SODIUM CHLORIDE 500 ML IV ONE (02:30)
[2018-03-17] MEDS: POTASSIUM CHLORIDE 10 MEQ in SODIUM CHLORIDE 0.45% 1,000 ML IVPB SCH ×2 (02:36→10:07)
[2018-03-17] MEDS: ACETAMINOPHEN 650 MG SUPP.RECT PR PRN (02:36)
[2018-03-17 06:49] LABS: HEMATOCRIT 25.6 % (35.4-49); HEMOGLOBIN 8.4 GM/dL (11.7-16.9); MCH 27.7 pg (25.7-33.7); MCHC 32.7 g/dl (32.0-35.9); MEAN CELL VOLUME 84.7 fl (80-96); MEAN PLT VOLUME 9.1 fl (7.5-11.1); PLATELET COUNT 194 K/MM3 (134-434); RBC 3.02 M/mm3 (4.00-5.60); RDW 16.7 % (11.9-15.9); WHITE BLOOD COUNT 7.8 K/mm3 (4.0-10.0)
[2018-03-17] MEDS ORDERED: OLANZapine 2.5 MG TABLET ONE (09:07)
[2018-03-17] MEDS ORDERED: OLANZapine 5 MG TABLET ONE (09:07)
[2018-03-17] MEDS: IBUPROFEN 800 MG/8 ML IJ IVPB PRN (09:23)
[2018-03-17] MEDS: TAMSULOSIN HCL 0.4 MG CAP.ER.24H (FP) PO SCH (09:31)
[2018-03-17] MEDS: CITALOPRAM HYDROBROMIDE 10 MG TABLET (FP) PO SCH (09:31)
[2018-03-17] MEDS: APIXABAN 2.5 MG TABLET PO SCH (09:32)
[2018-03-17] MEDS: risperiDONE 0.5 MG TABLET (FP) PO SCH (09:32)
[2018-03-17] MEDS: OLANZAPINE 5 MG, OLANZAPINE 2.5 MG PO SCH (09:32)
[2018-03-17] MEDS: FINASTERIDE 5 MG TABLET (FP) PO SCH (09:32)
--- NOTE | 2018-03-17 09:37 | DS ---
Physical Examination Vital Signs: Vital Signs Temperature 99.3 F 03/17/18 06:40 Pulse Rate 131 H 03/17/18 05:50 Respiratory Rate 18 03/17/18 05:50 Blood Pressure 128/53 L 03/17/18 05:50 O2 Sat by Pulse Oximetry (%) 94 L 03/16/18 21:00 Constitutional: Yes: Cachectic Eyes: Yes: Conjunctiva Clear HENT: Yes: Atraumatic, Normocephalic Neck: Yes: Supple, Trachea Midline Cardiovascular: Yes: Regular Rate and Rhythm Respiratory: Yes: Regular, CTA Bilaterally Gastrointestinal: Yes: Normal Bowel Sounds, Soft ...Rectal Exam: Yes: Deferred Renal/: Yes: WNL Musculoskeletal: Yes: Joint Stiffness Edema: Yes Edema: LUE: 1+, RUE: 2+ Peripheral Pulses: Left Radial: 1+, Right Radial: 1+ Integumentary: Yes: Other (Blister rt ft) ...Motor Strength: LLE, RLE Psychiatric: Yes: Other (Dementia) Labs: CBC, BMP 03/17/18 06:00 03/16/18 09:00 Vital Signs Period Temp Pulse Resp BP Sys/Aguirre Pulse Ox Last 24 Hr 98.3 F-101.0 F 87-138 16-20 79-147/46-100 92-94 H Discharge Summary Reason For Visit: UTI, ANEMIA, ATRIAL FIBRILLATI, LEUKOCYTOSIS Current Active Problems VAZQUEZ (acute kidney injury) (Acute) Anemia (Acute) Dementia (Acute) Lactic acidosis (Acute) Leukocytosis (Acute) Severe sepsis (Acute) Urinary tract infection (Acute) Hospital Course: 82 y/o male with PMH of Dementia, BPH, A. Fib on eliquis. Admitted for change in mental status and fever. Prior admission was 02/21/18 -03/08/18 for pulling out suprapubic cath needed for chronic retention/ outlet obstruction. TURP was done during that admission. Stay was complicated by hematuria and UTI which required transfusion/ antibiotics. Condition: Guarded - Instructions Referrals: Alli Baldwin [Primary Care Provider] - Disposition: [facility] - Home Medications Comprehensive Discharge Medication List: Ambulatory Orders Nystatin Oral Suspension - [Nystatin Oral Susp 570191 Units/5 ML -] 500,000 units PO Q6H 03/13/18 Acetaminophen Suppository [Tylenol .Suppository -] 650 mg MA Q4H PRN supp.rect 03/16/18
[2018-03-17 11:48] VITALS: BP 95/67; PULSE 111; TEMP 100.8
== END 2018-03-17 12:28 | DRG 871 ==
LOC: JER 10:48 → JERBED 12:33 → JICU 03-14 02:28 → J4S 03-14 18:01
PROVIDERS: ADMIT Family Medicine; ATTEND Family Medicine
DX: A41.81 Sepsis due to Enterococcus (principal); R65.21 Severe sepsis with septic shock; E87.0 Hyperosmolality and hypernatremia; E87.3 Alkalosis; E87.2 Acidosis; R64 Cachexia; N17.9 Acute kidney failure, unspecified; L89.151 Pressure ulcer of sacral region, stage 1; I95.9 Hypotension, unspecified; I48.91 Unspecified atrial fibrillation; G30.9 Alzheimer's disease, unspecified; F02.80 Dementia in other diseases classified elsewhere, unspecified severity, without behavioral disturbance, psychotic disturbance, mood disturbance, and anxiety; N30.90 Cystitis, unspecified without hematuria; Z68.20 Body mass index [BMI] 20.0-20.9, adult; Z79.01 Long term (current) use of anticoagulants; D72.89 Other specified disorders of white blood cells; R09.02 Hypoxemia; M62.462 Contracture of muscle, left lower leg; M62.461 Contracture of muscle, right lower leg; N40.1 Benign prostatic hyperplasia with lower urinary tract symptoms; R33.8 Other retention of urine
CPT/HCPCS: 36415; 36430; 36600; 71045-TC-FY; 80048; 80053; 80164; 81003; 81015; 82550; 82553; 82803; 83605; 83735; 84100; 84484; 85025; 85027; 85610; 85730; 86850; 86900; 86901; 86922; 87040; 87086; 87186; 93005; 93010; 99285-25; J0131; J0878; J7030; P9038; P9058